=== PATIENT | male | born 1945 | race Hispanic/Latino ===

== ENCOUNTER 2019-11-28 12:07 | Inpatient (IN) | payer MEDICARE ==
--- OUTSIDE RECORDS SUMMARY | 2019-11-28 12:09 | XMS REPORT | Summary of Care ---
:1945 Author Organization [address] [address] Care Team Providers Name Role Phone Jolynn Flores MD Primary Care Provider Reason for Visit Reason Comments HEALTH MAINTENANCE Medicare AWV/[facility] Encounter Details Date Type Department Care Team Description 06/10/2019 Telephone [facility] Shane Anglin, RN [address] (Medicare AWV/[address]) [place] [address] [place] [address] Allergies No Known Allergiesdocumented as of this encounter (statuses as of 06/10/2019) Medications Medication Sig Dispensed Refills Start Date End Date Status Cholecalciferol, Take by mouth. 0 Active Vitamin D3, (D3-2000) 2,000 unit capsule blood sugar diagnostic Use TID, DX E11.9 100 Box 11 05/29/2018 Active strip (Brand upon insurance approval) Blood-Glucose Meter Use TID, DX E11.9 1 Kit 0 05/29/2018 Active (BLOOD GLUCOSE (Brand upon MONITORING) Kit insurance approval) Lancets Misc Use TID, DX E11.9 100 Each 11 05/29/2018 Active (Brand upon insurance approval) glipiZIDE 5 mg Take 2 tablets by 120 tablet 2 06/12/2018 Active tabletIndications: mouth 2 (two) times Type 2 diabetes daily before mellitus without breakfast and complication, dinner. 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 Type 2 diabetes mellitus without complication, unspecified mcfp insulin use status aspirin 81 mg chewable Take 1 tablet by 30 tablet 2 06/12/2018 Active tabletIndications: mouth daily with Type 2 diabetes breakfast. 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 topical cream flash glucose scanning 1 Each 2 (two) 1 Each 0 08/14/2018 Active reader (FREESTYLE times daily. MARY 10 DAY READER) MiscIndications: Type 2 diabetes mellitus treated with insulin flash glucose sensor 1 Kit every 10 3 Kit 3 08/14/2018 Active (FREESTYLE MARY 10 (ten) days. DAY SENSOR) KitIndications: Type 2 diabetes mellitus treated with insulin lisinopril 2.5 mg TAKE 1 TABLET BY 30 tablet 2 10/21/2018 Active tabletIndications: MOUTH ONCE DAILY Peripheral vascular disease pravastatin 10 mg Take 1 tablet by 90 tablet 3 11/12/2018 Active tabletIndications: mouth at bedtime. Hyperglyceridemia LANTUS SOLOSTAR U-100 INJECT 20 UNITS 15 Each 1 01/08/2019 Active INSULIN 100 unit/mL (3 SUBCUTANEOUSLY ONCE mL) DAILY WITH injectionIndications: BREAKFAST Type 2 diabetes mellitus without complication documented as of this encounter (statuses as of 06/10/2019) Active Problems Problem Noted Date Hypotension 10/01/2018 C. difficile diarrhea 05/22/2018 Hyperglycemia 05/21/2018 documented as of this encounter (statuses as of 06/10/2019) Immunizations Name Administration Dates Next Due Influenza High Dose 08/14/2018 documented as of this encounter Social History Tobacco Use Types Packs/Day Years Used Date Current Every Day Smoker Cigarettes 1 40 Smokeless Tobacco: Never Used Alcohol Use Drinks/Week oz/Week Comments Yes Sex Assigned at Date Recorded Not on file Job Start Date Occupation Industry Not on file Not on file Not on file Travel History Travel Start Travel End No recent travel history available. documented as of this encounter Last Filed Vital Signs Not on filedocumented in this encounter Plan of Treatment Health Maintenance Due Date Last Done Comments HEPATITIS C (HCV) SCREEN 1945 EYE EXAM 1955 URINE MICROALBUMIN 1955 FOOT EXAM 1963 DTaP,Tdap,and Td Vaccines (1 - 1964 Tdap) COLONOSCOPY 1995 Zoster Recombinant Vaccine 1995 (SHINGRIX) (1 of 2) LUNG CANCER SCREEN: Recommended 2000 for age 55-80 with 30 + pack year history Medicare Wellness Visit 2010 PNEUMOCOCCAL VACCINES 65+ (1 of 2 2010 - PCV13) HgA1C 11/21/2018 05/21/2018, 12/05/2003 LDL-C 05/21/2019 05/21/2018 INFLUENZA VACCINE 07/04/2019 08/14/2018 CREATININE (SERUM) 10/02/2019 10/02/2018, 10/01/2018, 05/23/2018, Additional history exists documented as of this encounter Results Not on filedocumented in this encounter Insurance Payer Benefit Plan / Subscriber ID Effective Phone Address Type Group Dates [employer] MEDICARE [id number] 2018-Prese Medicare Adv HEALTHCARE - COMPLETE nt [facility] [place] MANAGED MEDICARE documented as of this encounter
--- OUTSIDE RECORDS SUMMARY | 2019-11-28 12:09 | XMS REPORT ---
:1945 [facility] Address [address] [place] [address] Care Team Providers Name Role Phone Unavailable Unavailable Unavailable Problems This patient has no known problems. Allergies, Adverse Reactions, Alerts This patient has no known allergies or adverse reactions. Medications This patient has no known medications.
[2019-11-28 13:07] LABS: Absolute Lymphocytes (CBC) 1.5 K/uL (0.7-4.9); Basophils % 1.1 % (0-1.3); Hematocrit 40.6 % (39.6-49.0); Lymphocytes % 12.7 % (15.3-44.8); MPV 9.6 fL (7.6-11.3); RBC Red Blood Cell Count 4.31 M/uL (4.33-5.43)
[2019-11-28] MEDS ORDERED: VANCOMYCIN/NS 1 gm 1 GM/250 ML BAG IV ONE (13:15)
--- NOTE | 2019-11-28 13:18 | RAD REPORT ---
EXAM DESCRIPTION: RAD - Foot Left 3 View - 11/28/2019 1:05 pm CLINICAL HISTORY: Left Foot pain FINDINGS: No fracture or dislocation is seen. Large calcaneal spur. No bone destructive lesion noted
[2019-11-28 13:20] LABS: Potassium 4.1 mmol/L (3.5-5.1)
--- NOTE | 2019-11-28 14:18 | EDPHYS ---
Physician Documentation [facility] Name: Wayne Doshi Age: 74 yrs Sex: Male : 1945 Arrival Date: 11/28/2019 Time: 12:10 Bed 19 Private MD: Mera Mcdermott C ED Physician Lyle Gallegos HPI: 11/28 13:00 This 74 yrs old Male presents to ER via Ambulatory with complaints of Diabetic kb Foot. 13:00 The patient presents with swelling, discoloration of toe. The complaints affect the kb left foot. Context: The problem was sustained at home, resulted from an unknown cause, the patient can fully bear weight, can ambulate using a cane. Onset: The symptoms/episode began/occurred 1 week(s) ago. Modifying factors: The symptoms are alleviated by nothing, the symptoms are aggravated by weight bearing. Associated signs and symptoms: Pertinent positives: swelling, discoloration. Severity of symptoms: At their worst the symptoms were moderate, in the emergency department the symptoms are unchanged. The patient has not experienced similar symptoms in the past. The patient has not recently seen a physician. Daughter reports pt has had an ulcer on his left 4th toe for at least a week. Reports pt had been hiding it and when she saw it and asked about it he said a week. sTates she has been trying to get him to come in but he refused. States she made him come today as well. Pt denies fever, pain at rest. REprots pain when he applies pressure to walk. Daughter states he is noncomplaint with his medications, sugar has been in the 400s. . Historical: - Allergies: 12:33 NKA; ss - PMHx: 12:33 Diabetes - IDDM; Hypothyroidism; ss - PSHx: 12:33 Cholecystectomy; Mass in intestines removed; ss - Immunization history:: Adult Immunizations up to date. - Coronavirus screen:: The patient has NOT traveled to [place], [place], or [place] in the past 14 days. Proceed with normal triage process as indicated. - Social history:: Smoking status: Patient denies any tobacco usage or history of. - Ebola Screening: : Patient denies exposure to infectious person Patient denies travel to an Ebola-affected area in the 21 days before illness onset. ROS: 12:53 Constitutional: Negative for fever, chills, and weight loss, ENT: Negative for injury, kb pain, and discharge, Neck: Negative for injury, pain, and swelling, Cardiovascular: Negative for chest pain, palpitations, and edema, Respiratory: Negative for shortness of breath, cough, wheezing, and pleuritic chest pain, Abdomen/GI: Negative for abdominal pain, nausea, vomiting, diarrhea, and constipation, Back: Negative for injury and pain, Neuro: Negative for headache, weakness, numbness, tingling, and seizure. 12:53 Skin: Positive for discoloration, swelling, of the left fourth toe. Exam: 12:53 Constitutional: This is a well developed, well nourished patient who is awake, alert, kb and in no acute distress. Head/Face: Normocephalic, atraumatic. ENT: Nares patent. No nasal discharge, no septal abnormalities noted. Tympanic membranes are normal and external auditory canals are clear. Oropharynx with no redness, swelling, or masses, exudates, or evidence of obstruction, uvula midline. Mucous membranes moist. Neck: Trachea midline, no thyromegaly or masses palpated, and no cervical lymphadenopathy. Supple, full range of motion without nuchal rigidity, or vertebral point tenderness. No Meningismus. Chest/axilla: Normal chest wall appearance and motion. Nontender with no deformity. No lesions are appreciated. Cardiovascular: Regular rate and rhythm with a normal S1 and S2. No gallops, murmurs, or rubs. Normal PMI, no JVD. No pulse deficits. Respiratory: Lungs have equal breath sounds bilaterally, clear to auscultation and percussion. No rales, rhonchi or wheezes noted. No increased work of breathing, no retractions or nasal flaring. Abdomen/GI: Soft, non-tender, with normal bowel sounds. No distension or tympany. No guarding or rebound. No evidence of tenderness throughout. Neuro: Awake and alert, GCS 15, oriented to person, place, time, and situation. Cranial nerves II-XII grossly intact. Motor strength 5/5 in all extremities. Sensory grossly intact. Cerebellar exam normal. Normal gait. 12:53 Skin: Appearance: Color: purple colored 4th toe on left foot with red streaking up foot to ankle, swelling, noted on the left fourth toe, that are moderate, ulcer noted on side of forth toe between forth and fifth . Vital Signs: 12:33 BP 139 / 105; Pulse 86; Resp 16; Temp 97.7(TE); Pulse Ox 100% on R/A; Weight 63.5 kg; ss Height 5 ft. 2 in. (157.48 cm); Pain 0/10; 12:33 BP 146 / 115; ss 13:28 BP 141 / 100; Pulse 81; Resp 18; Pulse Ox 98% on R/A; ph 13:36 BP 124 / 77; ph 14:50 BP 149 / 89; Pulse 75; Resp 18; Pulse Ox 97% on R/A; ph 15:28 BP 154 / 76; Pulse 81; Resp 18; Temp 98.0(O); Pulse Ox 99% on R/A; ph 12:33 Body Mass Index 25.61 (63.50 kg, 157.48 cm) ss MDM: 12:23 Patient medically screened. kb 12:55 Data reviewed: vital signs, nurses notes. Data interpreted: Pulse oximetry: on room air kb is 100 %. Interpretation: normal. 14:16 Counseling: I had a detailed discussion with the patient and/or guardian regarding: the kb historical points, exam findings, and any diagnostic results supporting the discharge/admit diagnosis, lab results, radiology results, the need for further work-up and treatment in the hospital. Physician consultation: Elie Mcrae MD was called at 14:16, regarding admission, to the medical/surgical unit. patient's condition, and will see patient would like consultation with Dr. Leon, would like medications started, Zosyn. 11/28 12:36 Order name: CBC with Diff; Complete Time: 13:18 kb 11/28 12:36 Order name: Basic Metabolic Panel; Complete Time: 13:21 kb 11/28 12:36 Order name: Blood Culture Adult (2) kb 11/28 12:36 Order name: Lactate; Complete Time: 13:25 kb 11/28 12:36 Order name: Procalcitonin; Complete Time: 13:58 kb 11/28 14:15 Order name: CRP; Complete Time: 14:32 kb 11/28 12:36 Order name: Foot Left 3 View XRAY; Complete Time: 13:18 kb 11/28 14:15 Order name: Sed Rate; Complete Time: 14:46 kb 11/28 14:28 Order name: Basic Metabolic Panel EDMS 11/28 14:28 Order name: Basic Metabolic Panel EDMS 11/28 14:28 Order name: CBC with Automated Diff EDMS 11/28 14:28 Order name: CBC with Automated Diff EDMS 11/28 14:28 Order name: Foot Left Wo Cont EDMS 11/28 12:36 Order name: IV Start; Complete Time: 13:02 kb 11/28 14:28 Order name: CONS Pharmacy Consult EDHI 11/28 14:28 Order name: CONS Pharmacy Consult EDHI 11/28 14:28 Order name: CONS Physician Consult EDMS 11/28 14:28 Order name: Consistent Carb (ADA) [address] EDMS 11/28 14:32 Order name: Lower Extremity Arterial Bilat EDHI Administered Medications: 13:34 Drug: vancoMYCIN 1 grams Route: IVPB; Infused Over: 2 hrs; Site: right forearm; ph 15:10 Follow up: Response: No adverse reaction; IV Status: Completed infusion ph 15:10 Drug: Zosyn 3.375 grams Route: IVPB; Infused Over: 60 mins; Site: right forearm; ph 15:40 Follow up: IV Status: Completed infusion ph Disposition: 21:27 Co-signature as Attending Physician, Lyle Gallegos MD I agree with the assessment and kdr plan of care. Disposition: 11/28/19 14:18 Hospitalization ordered by Mera Mcdermott for Observation. Preliminary diagnosis are Local infection of the skin and subcutaneous tissue, unspecified, Diabetic ulcer, new and worsening. - Bed requested for Telemetry/MedSurg (observation). - Status is Observation. ph - Condition is Stable. - Problem is new. - Symptoms have worsened. UTI on Admission? No Signatures: Dispatcher [employer] EDHI Felipa Kelley, DIVER PUMPER-C DIVER PUMPER-Ckb Lyle Gallegos MD MD kdr Sunita James, STAR RN ss Jalyn French RN RN ph Rambo Robb RN RN ja1 Corrections: (The following items were deleted from the chart) 14:12 12:53 Skin: Appearance: Color: purple colored 4th toe on left foot with red streaking kb up foot to ankle, swelling, noted on the left fourth toe, that are moderate, kb 14:17 14:16 HEMOGLOBIN A1C+CHEM A1C.LAB.BRZ ordered. [facility] 15:23 14:18 Hospitalization Ordered by A Sharron GODFREY for Observation. Preliminary diagnosis is ja1 Local infection of the skin and subcutaneous tissue, unspecified; Diabetic ulcer, new and worsening. Bed requested for Telemetry/MedSurg (observation). Status is Observation. Condition is Stable. Problem is new. Symptoms have worsened. UTI on Admission? No. kb 16:14 15:23 11/28/2019 14:18 Hospitalization Ordered by A Sharron GODFREY for Observation. ph Preliminary diagnosis is Local infection of the skin and subcutaneous tissue, unspecified; Diabetic ulcer, new and worsening. Bed requested for Telemetry/MedSurg (observation). Status is Observation. Condition is Stable. Problem is new. Symptoms have worsened. UTI on Admission? No. ja1
--- NOTE | 2019-11-28 14:18 | ER ---
Nurse's Notes [facility] Name: Wayne Doshi Age: 74 yrs Sex: Male : 1945 Arrival Date: 11/28/2019 Time: 12:10 Bed 19 Private MD: Mera Mcdermott C Diagnosis: Local infection of the skin and subcutaneous tissue, unspecified;Diabetic ulcer, new and worsening Presentation: 11/28 12:29 Presenting complaint: Child states: daughter states, "He is a very non compliant diabetic. We never see his feet until two days ago. I looked and there was a little ulcer between his toes and this morning it's much worse so my brother told me we need to take him now." Redness, swelling and discoloration noted to L fourth toe. Pt denies pain and/or fever. Transition of care: patient was not received from another setting of care. Onset of symptoms was November 21, 2019. Risk Assessment: Do you want to hurt yourself or someone else? Patient reports no desire to harm self or others. Initial Sepsis Screen: Does the patient meet any 2 criteria? No. Patient's initial sepsis screen is negative. Does the patient have a suspected source of infection? Yes: Skin breakdown/wound. Care prior to arrival: None. 12:29 Method Of Arrival: Ambulatory ss 12:29 Acuity: ANA MARÍA 3 ss Historical: - Allergies: 12:33 NKA; ss - PMHx: 12:33 Diabetes - IDDM; Hypothyroidism; ss - PSHx: 12:33 Cholecystectomy; Mass in intestines removed; ss - Immunization history:: Adult Immunizations up to date. - Coronavirus screen:: The patient has NOT traveled to [place], [place], or [place] in the past 14 days. Proceed with normal triage process as indicated. - Social history:: Smoking status: Patient denies any tobacco usage or history of. - Ebola Screening: : Patient denies exposure to infectious person Patient denies travel to an Ebola-affected area in the 21 days before illness onset. Screenin:13 Abuse screen: Denies threats or abuse. Denies injuries from another. Nutritional ph screening: No deficits noted. Tuberculosis screening: No symptoms or risk factors identified. Fall Risk No fall in past 12 months (0 pts). No secondary diagnosis (0 pts). IV access (20 points). Ambulatory Aid- None/Bed Rest/Nurse Assist (0 pts). Gait- Impaired (20 pts.). Mental Status- Oriented to own ability (0 pts). Total Paris Fall Scale indicates Low Risk Score (25-44 pts). Fall prevention measures have been instituted. Side Rails Up X 2 Placed close to Nursing Station Frequent Obs/Assesments occuring Family Present and informed to notify staff if they need to leave bedside As available Patient and Family Educated on Fall Prevention Program and strategies. Assessment: 12:33 General: Appears in no apparent distress. comfortable, slender, Behavior is calm, ph cooperative, appropriate for age, Reports chills for Denies fever. Pain: Denies pain. Neuro: Level of Consciousness is awake, alert, obeys commands, Oriented to person, place, time, situation. Cardiovascular: Capillary refill < 3 seconds in bilateral fingers Patient's skin is warm and dry. Pulses are palpable in right dorsalis pedis artery and left dorsalis pedis artery. Respiratory: Airway is patent Respiratory effort is even, unlabored, Respiratory pattern is regular, symmetrical. GI: Patient currently denies nausea, vomiting. Derm: Skin is pink, warm \\T\\ dry. Derm: Wound noted left fourth toe Wound is noted to be red/black in color with streaking noted to top of foot. Musculoskeletal: Circulation, motion, and sensation intact. Range of motion: intact in all extremities. 13:34 Reassessment: Patient appears in no apparent distress at this time. Patient and/or ph family updated on plan of care and expected duration. Pain level reassessed. Patient is alert, oriented x 3, equal unlabored respirations, skin warm/dry/pink. Pt resting comfortably, daughter at bedside, VSS. 14:30 Reassessment: Patient appears in no apparent distress at this time. Patient and/or ph family updated on plan of care and expected duration. Pain level reassessed. Patient is alert, oriented x 3, equal unlabored respirations, skin warm/dry/pink. 16:00 Reassessment: Patient appears in no apparent distress at this time. Patient and/or ph family updated on plan of care and expected duration. Pain level reassessed. Patient is alert, oriented x 3, equal unlabored respirations, skin warm/dry/pink. Vital Signs: 12:33 BP 139 / 105; Pulse 86; Resp 16; Temp 97.7(TE); Pulse Ox 100% on R/A; Weight 63.5 kg; ss Height 5 ft. 2 in. (157.48 cm); Pain 0/10; 12:33 BP 146 / 115; ss 13:28 BP 141 / 100; Pulse 81; Resp 18; Pulse Ox 98% on R/A; ph 13:36 BP 124 / 77; ph 14:50 BP 149 / 89; Pulse 75; Resp 18; Pulse Ox 97% on R/A; ph 15:28 BP 154 / 76; Pulse 81; Resp 18; Temp 98.0(O); Pulse Ox 99% on R/A; ph 12:33 Body Mass Index 25.61 (63.50 kg, 157.48 cm) ED Course: 12:10 Patient arrived in ED. ag5 12:10 Mera Mcdermott MD is Private Physician. ag5 12:13 Jalyn French, RN is Primary Nurse. ph 12:14 Patient has correct armband on for positive identification. Placed in gown. Bed in low ph position. Call light in reach. Side rails up X 1. Pulse ox on. NIBP on. Door closed. Noise minimized. 12:14 Arm band placed on. ph 12:23 Felipa Kelley FNP-C is PHCP. kb 12:23 Lyle Gallegos MD is Attending Physician. kb 12:32 Triage completed. ss 12:55 Initial lab(s) drawn, by ri, sent to lab. First set of blood cultures drawn. ph 13:02 Inserted saline lock: 20 gauge in right forearm, using aseptic technique. Blood ph collected. 13:05 Foot Left 3 View XRAY In Process Unspecified. EDMS 14:17 Mera Mcdermott MD is Hospitalizing Provider. kb 16:14 No provider procedures requiring assistance completed. Patient admitted, IV remains in ph place. Administered Medications: 13:34 Drug: vancoMYCIN 1 grams Route: IVPB; Infused Over: 2 hrs; Site: right forearm; ph 15:10 Follow up: Response: No adverse reaction; IV Status: Completed infusion ph 15:10 Drug: Zosyn 3.375 grams Route: IVPB; Infused Over: 60 mins; Site: right forearm; ph 15:40 Follow up: IV Status: Completed infusion ph Outcome: 14:18 Decision to Hospitalize by Provider. kb 16:14 Patient left the ED. ph 16:14 Admitted to Med/surg accompanied by tech, family with patient, via wheelchair, with ph chart. 16:14 Condition: stable 16:14 Discharge instructions given to patient, family, Instructed on the need for admit, Demonstrated understanding of instructions. Signatures: Dispatcher [employer] EDMS Felipa Kelley, JALEN YOUNG-Sunita Mac RN RN Jalyn French RN RN Afsaneh Rodriguez ag5 Corrections: (The following items were deleted from the chart) 19:27 15:28 BP 154 / 76; Pulse 81bpm; Resp 18bpm; Pulse Ox 99% RA; ph ph
[2019-11-28] MEDS ORDERED: PIPER/TAZO/NS 3.375gm 3.375 GM/100 ML BAG ONE (14:25)
[2019-11-28] MEDS ORDERED: VANCOMYCIN/NS 1 gm 1 GM/250 ML BAG IVPB SCH (14:30)
[2019-11-28] MEDS ORDERED: D50W 25 GM/50 ML SYRINGE/VIAL IV PRN (16:12)
[2019-11-28] MEDS ORDERED: GLUCAGON 1 MG/VIAL IM PRN (16:12)
[2019-11-28] MEDS: INSULIN -REGULAR HUMAN 50 UNIT/0.5 ML ML SQ SCH ×2 (16:30→21:00)
[2019-11-28 16:34] VITALS: BMI 25.6
[2019-11-28] MEDS ORDERED: ENOXAPARIN 40 MG/0.4 ML SQ ONE (17:59)
[2019-11-28] MEDS ORDERED: PIPER/TAZO/NS 3.375gm 3.375 GM/100 ML BAG IVPB SCH (18:00)
--- NOTE | 2019-11-28 20:57 | RAD REPORT ---
EXAM DESCRIPTION: US - Lower Extremity Arterial Bilat - 11/28/2019 8:25 pm CLINICAL HISTORY: Leg pain/ulcer COMPARISON: April 2019 FINDINGS: Waveform of the right common femoral artery is biphasic Waveform of right Superficial femoral, popliteal, dorsalis pedis and posterior tibial arteries bilate rally are monophasic and diminished in amplitude Left common femoral artery monophasic No flow seen within a left superficial femoral arterial stent. Left posterior tibial, popliteal and d orsalis pedis arteries demonstrate monophasic waveforms IMPRESSION: Significant disease involving the right superficial femoral artery Left superficial femoral arterial stent is occluded
[2019-11-28] MEDS ORDERED: NA CHLORIDE 0.9% 250 ML ONE (23:24)
[2019-11-28] MEDS: PIPER/TAZO/NS 3.375gm 3.375 GM/100 ML BAG IVPB SCH (23:32)
[2019-11-29 05:53] LABS: Absolute Lymphocytes (CBC) 1.6 K/uL (0.7-4.9); Hematocrit 38.5 % (39.6-49.0); Lymphocytes % 15.4 % (15.3-44.8); MPV 9.5 fL (7.6-11.3); RBC Red Blood Cell Count 4.04 M/uL (4.33-5.43)
[2019-11-29] MEDS: PIPER/TAZO/NS 3.375gm 3.375 GM/100 ML BAG IVPB SCH ×3 (05:58→17:37)
[2019-11-29 06:14] LABS: Albumin 2.9 g/dL (3.4-5.0); Bilirubin Direct 0.3 mg/dL (0-0.2); Bilirubin Total 0.9 mg/dL (0.2-1.0); Potassium 3.5 mmol/L (3.5-5.1); Protein, Total 6.5 g/dL (6.4-8.2)
[2019-11-29 07:07] LABS: Urine Appearance CLEAR; Urine Bilirubin NEGATIVE (NEG); Urine Blood NEGATIVE (NEG); Urine Color YELLOW; Urine Glucose 2+ (NEG); Urine Protein 2+ (NEG); Urine Urobilinogen 0.2 mg/dL (0.2-1.0); Urine pH 5.5 (5.0-7.0)
[2019-11-29 07:13] LABS: Urine Microscopic Reflex ORDER UMIC
[2019-11-29] MEDS: INSULIN -REGULAR HUMAN 50 UNIT/0.5 ML ML SQ SCH ×4 (07:30→20:47)
[2019-11-29] MEDS ORDERED: INFLUENZA VACCINE (for 3y+) 0.5 ML DOSE IMVAC ONE (08:00)
[2019-11-29 08:02] LABS: Urine Bacteria NONE SEEN /HPF (NONE SEEN); Urine Culture Reflex Order NOT NEEDED; Urine RBC <5 /HPF (NONE SEEN)
[2019-11-29] MEDS: ASPIRIN EC 81 MG TAB PO SCH (09:04)
--- NOTE | 2019-11-29 11:39 | RAD REPORT ---
EXAM DESCRIPTION: MRI - Foot Left Wo Cont - 11/29/2019 11:26 am CLINICAL HISTORY: r/o osteomyelitis left forth digit Pain and swelling, discoloration and swelling fourth toe. Possible osteomyelitis COMPARISON: Foot Left 3 View dated 11/28/2019; Lower Extremity Arterial Bilat dated 11/28/2019 FINDINGS: Prominent soft tissue thickening and edema is seen involving the distal fourth toe. The un derlying distal phalanx of the fourth toe shows evidence marrow replacement along its very distal mar gin, likely indicating early findings osteomyelitis. No abscess is seen. No fracture evident. Elsewhere, no marrow replacing process is evident. No fracture or subluxation. No aggressive marrow p attern. IMPRESSION: Early findings of mild osteomyelitis suspected distal phalanx of the fourth toe.
[2019-11-29] MEDS: ACETAMINOPHEN 500 MG TAB PO PRN (12:27)
[2019-11-29] MEDS: VANCOMYCIN/NS 1 gm 1 GM/250 ML BAG IVPB SCH (13:23)
[2019-11-29] MEDS: ENOXAPARIN 40 MG/0.4 ML SQ SCH (16:39)
--- NOTE | 2019-11-29 19:00 | CON ---
Date of Consultation: 11/29/2019 Reason For Consultation: Infected wound right foot with gangrene. History Of Present Illness: The patient is a 74-year-old gentleman with multiple medical problems an d with severe peripheral vascular disease, history of noncompliance comes in with swelling and discol oration of the left 4th toe associated with redness. It started about a week ago. The patient is co mplaining of discoloration, swelling. He denies fever and because of his neuropathy, he does not christy lly have significant pain; however, he is very noncompliant with his medications. His glucose has be en running in the 400s. No sore throat, runny nose, cough, headaches, or dizziness. No chest pain. Review of Systems: Otherwise unremarkable. Past Medical History: Diabetes type 2, hypothyroidism. Past Surgical History: Cholecystectomy and some sort of mass removed in the intestines. Allergies: NONE. Social History: He does smoke, he has been counseled and he has not quit, drinks occasionally. Family History: Noncontributory. Physical Examination: Vital Signs: Stable. He is afebrile. Blood pressure is a little high. General: He is awake, alert, and oriented x3. Head and Neck: Cranial nerves 2 through 12 grossly within normal limits. No neck masses. No JVD. Throat clear. Chest: Clear. Heart: S1 and S2. Abdomen: Soft. Extremities: Markedly diminished dorsalis pedis and posterior tibial pulses. On the left foot, ther e is in the dorsum streaking redness going towards the ankle emanating from the 4th toe. 4th toe is completely black, wet. The other 2 toes next to it appear viable. The capillary refill is greater t sandoval 2 seconds but he does have some . Laboratory Data: His white count on admission was 11.5 with a left shift. Sedimentation rate was 42 . Chemistry: His glucose is down to 192. The patient had an x-ray done, which shows no fracture or dislocation and no foreign body, no bony destructive lesion noted. The patient had a Doppler study done, which showed significant disease involving the right superficial femoral artery and left superf icial femoral artery, stent is occluded. He had a foot MRI done, shows finding of mild osteomyelitis of the distal portion of the 4th toe. Assessment: 74-year-old gentleman with left foot 4th toe gangrene, peripheral vascular disease, cell ulitis, osteomyelitis, uncontrolled diabetes, and noncompliance. Recommendations: As the patient has wet gangrene with cellulitis, amputation of the left 4th toe winter uld be done. He does need to quit smoking and follow up with Cardiology so he can get appropriate in tervention regarding the blockages he has and the stent occlusion that he has. If he is compliant, t here is a chance that the foot can be salvaged. If he does not, then he may require a BKA/AKA. Plan of care discussed in detail with the family and the patient and also Dr. Mcdermott. Patient and family u nderstand the risks, benefits, and alternatives and the gravity of the situation and they agree. /MODL Voice ID: [id number] Report ID: [id number]
[2019-11-29] MEDS: NICOTINE 14 MG/PAT TD SCH (19:20)
[2019-11-29] MEDS: HYDROCODONE/APAP 5/325 MG TAB PO PRN (19:20)
[2019-11-29] MEDS: GLUCERNA SHAKE 237 ML CAN PO SCH (21:00)
[2019-11-30] MEDS: HYDROCODONE/APAP 5/325 MG TAB PO PRN ×2 (01:32→22:04)
[2019-11-30] MEDS: PIPER/TAZO/NS 3.375gm 3.375 GM/100 ML BAG IVPB SCH ×3 (01:32→16:51)
--- NOTE | 2019-11-30 03:28 | HP ---
Date of Admission: 11/29/2019 Chief Complaint: Toe infection. History Of Present Illness: This is a 74-year-old male patient with diabetes, peripheral vascular disease, who is not compliant with diet, medications, and continues to smoke, injured his left foot fourth toe about 3 days ago and his toe started to turn black and he is having some pain in this foot, so he came into the emergency room. After he was evaluated in the ER, he was admitted to the hospital with gangrene of left foot 4th toe. Denies any fever, chills, nausea, vomiting. Allergies: NO KNOWN ALLERGIES. Medications: List reviewed. Review of Systems: Musculoskeletal: As mentioned above. 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 All other systems reviewed and negative. Social History: Positive for smoking. Use of alcohol negative. Family History: Father and mother both of myocardial infarction. A brother also with myocardial infarction and had diabetes. Sister with myocardial infarction. Past Surgical History: Had angioplasty with stent placement in left leg in the past done by his rn forensic, Dr. Gonzalez, cholecystectomy, appendectomy. Past Medical History: Significant for diabetes mellitus type 2, uncontrolled, hypertension, hyperlipidemia, peripheral vascular disease. Physical Examination: Vital Signs: Temperature 98.2, pulse 82, respiratory rate 19, blood pressure 147/67, oxygen saturation 94%. Height 5 feet 2 inches, weight 140 pounds. General: Awake, alert, oriented, not in distress. HEENT: Head atraumatic, normocephalic. Conjunctivae nonerythematous. Sclerae white. Mouth, no thrush or edema noted. Ears/Nose, no mass, lesion, discharge noted. Neck: Supple. No JVD, lymph nodes, bruit, thyromegaly noted. Lungs: Bilateral good equal air entry. Clear to auscultation. No rhonchi. No rales. Heart: Normal heart sounds, no murmur or gallop. Abdomen: Soft, bowel sounds normal. No guarding, rigidity, tenderness, mass, hepatosplenomegaly, distention, or bruit noted. Extremities: Unable to feel dorsalis pedis pulse on both side. Left dorsum distal foot has some red discoloration of the foot and left foot 4th toe is black. Skin: No rash, ulcer, cellulitis. Lymphatics: No lymph node enlargement in neck, supraclavicular, infraclavicular region. Neuro: No focal neurological deficit. Chest: Unremarkable. External Genitalia: Deferred. Rectal: Deferred. Laboratory Data: Yesterday's white count 11.5, hemoglobin 13.5, platelets 232, sedimentation rate 42. Today, white count 10.6, hemoglobin 12.9, platelets 196. Sodium 140, potassium 3.5, chloride 107, bicarb 27, BUN 17, creatinine 1.09, glucose 132. Hemoglobin A1c 10.7. Liver function tests unremarkable. C- reactive protein 16.7. Procalcitonin less than 0.05. Urinalysis negative. Impression: 1. Wet gangrene, left foot 4th toe. 2. Diabetic foot infection. 3. Peripheral vascular disease. 4. Diabetes mellitus, type 2, uncontrolled. 5. Hypertension. 6. Hyperlipidemia. 7. Smoking. Plan: Admit patient to hospital for further evaluation and management of this problem. Patient is appropriate for inpatient and is expected to spend 2 midnights in hospital. We will go ahead and give IV antibiotic, which is vancomycin and Zosyn per order. Home medications will be continued per order. We will give DVT prophylaxis per order rather using Lovenox. Consult Dr. Leon from General Surgery. Arterial Doppler of lower extremity was ordered. Dr. Leon did evaluate him and called me and informed me about his recommendation of performing amputation of this fourth toe considering wet gangrene and he is scheduling surgery for tomorrow. He did have discussion with family about concerns that this wound may not heal and eventually he may require leg amputation, but that decision obviously, he will have to make it down the line. We will continue right now antibiotics. Nicotine was ordered to help him with his smoking habit problem. Pain medication was ordered. I will see him tomorrow for followup. DONI/MODL Voice ID: [id number] MTDD
[2019-11-30] MEDS: NICOTINE 14 MG/PAT TD SCH (07:58)
[2019-11-30 08:32] LABS: Absolute Lymphocytes (CBC) 0.9 K/uL (0.7-4.9); Basophils % 0.6 % (0-1.3); Hematocrit 39.4 % (39.6-49.0); Lymphocytes % 5.8 % (15.3-44.8); RBC Red Blood Cell Count 4.14 M/uL (4.33-5.43)
[2019-11-30 08:46] LABS: Magnesium 1.7 mg/dL (1.8-2.4)
[2019-11-30] MEDS: ASPIRIN EC 81 MG TAB PO SCH (09:00)
[2019-11-30] MEDS: GLUCERNA SHAKE 237 ML CAN PO SCH ×2 (09:00→21:04)
[2019-11-30] MEDS: INSULIN -REGULAR HUMAN 50 UNIT/0.5 ML ML SQ SCH ×4 (09:15→21:03)
[2019-11-30 09:20] LABS: Blood Morphology Comment NOT SEEN (NOT SEEN); Platelet Estimate ADEQ
[2019-11-30] MEDS ORDERED: MAGNESIUM SULFATE 1 gm IVPB 1 GM/100 ML BAG IV ONE (09:52)
[2019-11-30] MEDS ORDERED: NA CHLORIDE 0.9% 1,000 ML ONE (10:37)
[2019-11-30] MEDS ORDERED: FENTANYL CITR 100 MCG/2 ML ONE (11:48)
[2019-11-30] MEDS ORDERED: LIDOCAINE 1% MPF 5 ML VIAL ONE (11:49)
[2019-11-30] MEDS ORDERED: propofoL 200 MG/20 ML VIAL IV ONE (11:49)
[2019-11-30] MEDS ORDERED: MIDAZOLAM HCL 2 MG/2 ML INJ ONE (11:49)
[2019-11-30] MEDS ORDERED: NS 0.9% VIAL 10 ML ONE (12:10)
[2019-11-30] MEDS ORDERED: EPHEDRINE SULF 50 MG/ML VIAL ONE (12:10)
[2019-11-30] MEDS ORDERED: BUPIVACAINE 0.5% PF 10 ML VIAL ONE (12:18)
[2019-11-30] MEDS: COLLAGENASE 30 GM OINTMENT TOP ONE ×2 (12:20→12:25)
[2019-11-30] MEDS ORDERED: ONDANSETRON 4 MG/2 ML VIAL ONE (12:24)
[2019-11-30] MEDS ORDERED: KETOROLAC 30 MG/ML INJ ONE (12:24)
--- NOTE | 2019-11-30 12:26 | P.OP ---
Preoperative diagnosis: Gangrene and severe PVD L Foot 4th toe Postoperative diagnosis: same Primary procedure: L 4th Toe T-M Amputation Anesthesia: gen Estimated blood loss: min Specimen: L 4th toe Findings: as above Complications: None Transferred to: Recovery Room Condition: Good
[2019-11-30] MEDS: VANCOMYCIN/NS 1 gm 1 GM/250 ML BAG IVPB SCH (15:01)
[2019-11-30] MEDS: ENOXAPARIN 40 MG/0.4 ML SQ SCH (16:51)
--- NOTE | 2019-11-30 23:24 | OP ---
Date of Procedure: 11/30/2019 Surgeon: Ruddy Leon MD Preoperative Diagnosis: Gangrene, left fourth toe with severe peripheral vascular disease. Postoperative Diagnosis: Gangrene, left fourth toe with severe peripheral vascular disease. Procedure: Left fourth toe transmetatarsal amputation. Estimated Blood Loss: Minimal. Specimen: Left fourth toe. Findings: As above. Anesthesia: General. Complications: None. Patient tolerated the procedure in stable condition, taken to Recovery in good general condition. Operative Note: Patient was brought to the OR and placed in supine position. General anesthesia was begun. Patient was prepped and draped in usual sterile fashion. Marcaine 0.5% was infiltrated loca lly. A 15-blade was used to make an ellipse of skin around the base of the fourth toe down through t he distal dorsum. Subcutaneous tissue divided. Fourth toe excised and the metatarsal head excised w ith bone cutters and sent to Pathology as specimen. Very minimal bleeding noted. Wound irrigated. Bone edges debrided with rongeur and smoothened out with a rasp and then collagenase wet-to-dry dressing applied. Patient tolerated the procedure in stable condition, taken to the Recovery in good general condition. /MODL Voice ID: [id number] Report ID: [id number]
[2019-12-01] MEDS: PIPER/TAZO/NS 3.375gm 3.375 GM/100 ML BAG IVPB SCH ×3 (01:07→16:53)
[2019-12-01 06:33] LABS: Potassium 3.6 mmol/L (3.5-5.1)
[2019-12-01] MEDS ORDERED: GLUCAGON 1 MG/VIAL IM PRN (07:04)
[2019-12-01] MEDS ORDERED: D50W 25 GM/50 ML SYRINGE/VIAL IV PRN (07:04)
[2019-12-01] MEDS ORDERED: MORPHINE 2 MG/ML SYR IV PRN (07:05)
[2019-12-01] MEDS ORDERED: ONDANSETRON 4 MG/2 ML VIAL IV PRN (07:05)
[2019-12-01] MEDS: COLLAGENASE 30 GM OINTMENT TOP SCH (09:00)
[2019-12-01] MEDS ORDERED: POTASSIUM CL SA 10 MEQ TAB PO ONE (09:00)
[2019-12-01] MEDS: ASPIRIN EC 81 MG TAB PO SCH (09:33)
[2019-12-01] MEDS: NICOTINE 14 MG/PAT TD SCH (09:33)
[2019-12-01] MEDS: INSULIN GLARGINE 100 UNITS/ML SQ SCH (09:34)
[2019-12-01] MEDS: INSULIN -REGULAR HUMAN 50 UNIT/0.5 ML ML SQ SCH ×4 (09:34→19:59)
[2019-12-01] MEDS: NA CHLORIDE 0.9% 1,000 ML IV SCH ×2 (09:35→16:55)
[2019-12-01] MEDS: GLUCERNA SHAKE 237 ML CAN PO SCH ×2 (09:35→19:59)
[2019-12-01] MEDS: HYDROCODONE/APAP 5/325 MG TAB PO PRN (12:44)
--- NOTE | 2019-12-01 13:23 | PN ---
Date of Progress Note: 12/01/2019 Patient is awake, alert, no complaints. Vital signs stable, afebrile. Examination of the wound reve als it to have some fibrin present. No significant bleeding and the erythema and edema are better. Laboratory Data: Pending. Assessment: Status post left fourth toe transmetatarsal amputation. Severe peripheral vascular dise ase. Recommendations: At this time, patient's creatinine is slightly up therefore he is going to be hydra alvin and monitored and probably be discharged home later this week with wound care and oral antibiotic s. [facility] will also [facility]. At which point, I will refer him to [facility] for hyperbaric oxygen therapy. /MODL Voice ID: [id number] Report ID: [id number]
[2019-12-01] MEDS: ENOXAPARIN 40 MG/0.4 ML SQ SCH (16:53)
[2019-12-02] MEDS: PIPER/TAZO/NS 3.375gm 3.375 GM/100 ML BAG IVPB SCH ×3 (01:19→17:36)
[2019-12-02] MEDS: NA CHLORIDE 0.9% 1,000 ML IV SCH ×2 (04:00→12:25)
[2019-12-02 06:03] LABS: Absolute Lymphocytes (CBC) 1.4 K/uL (0.7-4.9); Basophils % 0.7 % (0-1.3); Hematocrit 36.5 % (39.6-49.0); Lymphocytes % 10.4 % (15.3-44.8); MPV 9.8 fL (7.6-11.3); RBC Red Blood Cell Count 3.87 M/uL (4.33-5.43)
[2019-12-02 06:21] LABS: Magnesium 1.9 mg/dL (1.8-2.4)
--- NOTE | 2019-12-02 08:23 | PN ---
Date of Progress Note: 12/01/2019 Subjective: Patient was seen this morning for followup, lying in bed, not in any distress. Denies a ny new complaints. Denies any pain in his foot. Foot surgery done for amputation yesterday. No winter rtness of breath. No chest pain. Objective: Vital Signs: Reviewed. HEENT: Unremarkable. Lungs: Clear to auscultation. Heart: Sounds normal. Abdomen: Soft. Bowel sounds normal. No guarding, rigidity, or distention. Extremities: Left foot dressing present. There is some streaks of redness over the left anterior le g, which is new compared to yesterday. Laboratory Data: Reviewed. White count has gone up to 15,000 range and creatinine has gone up to 1. 47. Impression: 1.Wet gangrene, left foot 4th toe, status post amputation of 4th toe. 2.Osteomyelitis of left foot 4th toe. 3.Diabetes mellitus, uncontrolled. 4.Smoking. 5.Peripheral vascular disease. 6.Noncompliant. 7.Acute kidney injury. Plan: We will go ahead and continue current IV antibiotic, which is Zosyn, but I will go ahead and put the vancomycin on hold, considering this acute kidney injury and meanwhile go ahead and start the patient on IV fluid. Repeat blood work tomorrow morning. Follow up on culture and details were discussed with Dr. Leon. I will see him tomorrow for followup. DONI/MODL Voice ID: [id number] Report ID: [id number]
[2019-12-02] MEDS: GLUCERNA SHAKE 237 ML CAN PO SCH ×2 (09:00→21:00)
[2019-12-02] MEDS: COLLAGENASE 30 GM OINTMENT TOP SCH (09:00)
[2019-12-02] MEDS: HYDROCODONE/APAP 5/325 MG TAB PO PRN ×2 (09:10→17:38)
[2019-12-02] MEDS: ASPIRIN EC 81 MG TAB PO SCH (09:10)
[2019-12-02] MEDS: NICOTINE 14 MG/PAT TD SCH (09:11)
[2019-12-02] MEDS: INSULIN -REGULAR HUMAN 50 UNIT/0.5 ML ML SQ SCH ×4 (09:12→21:00)
[2019-12-02] MEDS: INSULIN GLARGINE 100 UNITS/ML SQ SCH (09:13)
--- NOTE | 2019-12-02 10:58 | PN ---
Date of Progress Note: 12/02/2019 Subjective: Patient is awake, alert. No new complaint. Objective: Vital Signs: Stable. Afebrile. Extremities: Examination of the left foot reveals moderate amount of fibrin in the wound bed, somewh at decreasing erythema on the dorsum of the foot. The third toe, however, is beginning to look a lit tle bluish indicating the peripheral vascular disease, which we know patient has. Laboratory Data: Shows a white count down to 13,100 with a left shift. Chemistry reviewed. His cre atinine is 1.42. Assessment: Status post left 4th toe transmetatarsal amputation with severe peripheral vascular dise ase. Recommendation: Discussed the case with Dr. Mcdermott. We will have Dr. Ayala evaluate the patient for angiogram, which possibly can be done tomorrow. Once we optimize blood flow, then we will see how t he wound responds. Patient may benefit from hyperbaric after that as well. However, his disease is so advanced that he may end up requiring further surgery either a BKA or an AKA depending upon the re sults after the angiogram. /MODL Voice ID: [id number] Report ID: [id number]
--- NOTE | 2019-12-02 13:55 | CON ---
Date of Consultation: 12/02/[address] Mcdermott on 11/28/2019. I saw the patient on 12/02/2019. Reason For Consultation: Severe peripheral arterial disease. History Of Present Illness: Mr. Doshi is a 74-year-old male, has a history of severe diabetes, dysli pidemia, peripheral arterial disease, gangrene. He has already had an amputation of part of his left foot. He has had an SFA stent done by Dr. Gonzalez in the past. Arterial Doppler showed occlusion o f that stent. I was asked to see Mr. Doshi for abdominal angiogram with runoff prior to further surg chris and further possible amputation as he has developed wet gangrene since. The patient has no cardi ac symptoms. Past Medical History: Otherwise stated above. Allergies: NONE. Review of Systems: Negative. Social History: Negative. Family History: Negative. Medications: At home include aspirin, Lipitor, Janumet, and glipizide. Physical Examination: General: He was pleasant. Vital Signs: Stable. Afebrile. Sinus rhythm. Blood pressure was 174/84. HEENT: Negative. Neck: Supple with no bruit. Chest: Clear. Cardiac: Revealed a regular rhythm and rate. No murmurs, gallops, or rubs. Abdomen: Benign. Extremities: Revealed gangrenous left foot. No pulses in the dorsalis pedis on the left or on the r ight. He had a good pulse in the right femoral artery. Diagnostic Data: Showed a glucose of 193, creatinine 1.42. White count 13,000. Impression And Plan: 1.Severe peripheral arterial disease, occlusion of his stent in the left superficial femoral artery. Wet gangrene in the left foot, possible need for further surgery. May be a below-knee amputation. His creatinine is 1.42 and hopefully that will improve, but nevertheless, we will do an abdominal an giogram with runoff tomorrow with possible intervention. He will need to have Mucomyst before and af ter the procedure. This is already being ordered. The case was discussed with Dr. Mcdermott. 2.Dyslipidemia. 3.Diabetes, poorly controlled. 4.Hypertension, poorly controlled. We will continue present regimen right now. We will continue to follow him after the angiogram. ROBI/AUDIE Voice ID: [id number] Report ID: [id number]
[2019-12-02] MEDS: ENOXAPARIN 40 MG/0.4 ML SQ SCH (17:37)
[2019-12-02] MEDS: ACETYLCYST 20% 800 MG/4 ML VIAL PO SCH (21:49)
--- NOTE | 2019-12-02 23:34 | PN ---
Date of Progress Note: 12/02/2019 Subjective: Patient was seen this morning for followup. He was lying in bed, not in distress. His daughter was present with him at bedside. Objective: Vital Signs: Reviewed. HEENT: Unremarkable. Lungs: Clear to auscultation. Heart: Sounds normal. Abdomen: Soft. Bowel sounds normal. No guarding, rigidity, tenderness, or distention. Extremities: No leg edema. All skin over left anterior leg appears better today than yesterday. Ar ea of redness is better. His left foot third toe is cyanotic today. Laboratory Data: White count 13.1, hemoglobin 12.2, platelets 240. Sodium 136, potassium 4, chlorid e 104, bicarb 25, BUN 14, creatinine 1.42, glucose 262. Impression: 1.Diabetic foot infection. 2.Osteomyelitis, left foot. 3.Peripheral vascular disease. 4.Diabetes mellitus, type 2, uncontrolled. 5.Acute kidney injury. 6.Anemia. Plan: We will go ahead and continue current medications. Continue current IV antibiotic, which is Z osyn. Continue current IV fluid. Renal function is slightly better today than yesterday and I did t alk to Dr. Leon from General surgery this morning requesting evaluation for abnormality noted on his left foot, third toe, and I am concerned about development of gangrene in this toe as well. Dr. Valdez jimenez did evaluate him after I talked to him and we both discussed about the patient's severe peripheral vascular disease problem and we decided to get cardiology consult to see if any vascular interventio n can be provided to help improve blood flow to his foot and with that, cardiology consultation was r equested and I did discuss details with Dr. Ayala. He is planning to do angiogram tomorrow morning provided renal function allows him to do so. We will continue IV fluid hydration. His wound cultur e is growing 2 bacteria, one is Serratia and other one is Enterobacter, both are sensitive to Zosyn. DONI/MODL Voice ID: [id number] Report ID: [id number]
[2019-12-03] MEDS: PIPER/TAZO/NS 3.375gm 3.375 GM/100 ML BAG IVPB SCH (00:27)
[2019-12-03 06:00] LABS: Absolute Lymphocytes (CBC) 1.4 K/uL (0.7-4.9); Hematocrit 35.1 % (39.6-49.0); Lymphocytes % 11.2 % (15.3-44.8); MPV 9.2 fL (7.6-11.3); RBC Red Blood Cell Count 3.78 M/uL (4.33-5.43)
[2019-12-03 06:20] LABS: Potassium 3.6 mmol/L (3.5-5.1)
[2019-12-03] MEDS: INSULIN -REGULAR HUMAN 50 UNIT/0.5 ML ML SQ SCH ×4 (07:30→21:33)
[2019-12-03] MEDS: NA CHLORIDE 0.9% 1,000 ML IV SCH ×3 (08:00→21:34)
[2019-12-03] MEDS: GLUCERNA SHAKE 237 ML CAN PO SCH ×2 (09:00→21:00)
[2019-12-03] MEDS: COLLAGENASE 30 GM OINTMENT TOP SCH (09:00)
[2019-12-03] MEDS: ACETYLCYST 20% 800 MG/4 ML VIAL PO SCH ×3 (09:00→21:30)
[2019-12-03] MEDS: ASPIRIN EC 81 MG TAB PO SCH (09:00)
[2019-12-03] MEDS ORDERED: POTASSIUM CL SA 10 MEQ TAB PO ONE (09:00)
[2019-12-03] MEDS ORDERED: HEPA 1000U/500MLS 2,000 UNIT/1,000 ML BAG IV ONE (09:00)
[2019-12-03] MEDS ORDERED: NA CHLORIDE 0.9% 0 ML ONE (09:09)
[2019-12-03] MEDS: INSULIN GLARGINE 100 UNITS/ML SQ SCH (09:19)
[2019-12-03] MEDS: Levofloxacin500mg IV 500 MG/100 ML BAG IV SCH (09:19)
[2019-12-03] MEDS: NICOTINE 14 MG/PAT TD SCH (09:20)
[2019-12-03] MEDS ORDERED: HEPARIN 5000 UNIT/ML 1 ML VIAL ONE (09:32)
[2019-12-03] MEDS ORDERED: FENTANYL CITR 100 MCG/2 ML ONE (09:33)
[2019-12-03] MEDS ORDERED: MIDAZOLAM HCL 2 MG/2 ML INJ ONE ×2 (09:33→10:48)
[2019-12-03] MEDS ORDERED: ATROPINE SULF 1 MG/10 ML SYR IV ONE (09:33)
--- NOTE | 2019-12-03 14:18 | PN ---
Date of Progress Note: 12/03/2019 Subjective: The patient was seen for followup this morning. No new complaints or problems reported by him. Lying in bed, not in distress. His was present with him at bedside. Objective: Vital Signs: Reviewed. HEENT: Unremarkable. Lungs: Clear to auscultation. Heart: Sounds normal. Abdomen: Soft. Bowel sounds normal. No guarding, rigidity, tenderness, or distention. Extremities: No leg edema. Redness from left anterior leg has almost completely resolved now. Left foot third toe remains unchanged in appearance today compared to yesterday. Laboratory Data: White count 12.4, hemoglobin 12, platelets 265. Sodium 139, potassium 3.6, chlorid e 107, bicarb 25, BUN 11, creatinine 1.12, glucose 150. Wound culture growing 3 different bacteria; yesterday, there were 2 bacteria; and today, I have seen the third bacteria and third bacteria is Enterococcus faecalis, other 2 bacteria are serratia and Ent erobacter cloacae. All 3 bacteria are sensitive to Levaquin, but only 2 are sensitive to Zosyn. Impression: 1.Osteomyelitis, left foot. 2.Peripheral vascular disease. 3.Diabetes mellitus type 2, uncontrolled. 4.Hypertension. Plan: We will discontinue Zosyn and start the patient on Levaquin. Patient will have angiogram of l eg done today by Dr. Ayala and depending on Dr. Ayala's recommendation, we will decide what to do next. Continue IV fluid but reduce rate. We will repeat blood work tomorrow. Discussed with the patient and patient's , who was at bedside including need for further surgery in form of amputation and we are afraid that if his vascular problem does not improve, and if we tanika ot provide any intervention for that, then eventually he may end up needing very likely what it appea rs to be a bony amputation, but obviously not without the recommendation from Dr. Leon. If there is any vascular intervention can be provided and Dr. Ayala will assist him with that. DONI/MODL Voice ID: [id number] Report ID: [id number]
--- NOTE | 2019-12-03 15:39 | PN ---
Date of Progress Note: 12/03/2019 Patient was evaluated in the angiogram suite and Dr. Ayala called me after he finished the angiogra m. Patient was sedated when I saw him and did not want to look his wound today because he had an ang iogram. We discussed the findings of the angiogram. Patient had complete occlusion of the left femo ral artery, superficial femoral all the way down almost the knee, but he did have some reconstitution of the popliteal, anterior, peroneal, and posterior tibial arteries; however, on the right side had no reconstitution that we could see and we had complete occlusion of the right femoral as well. Base d on the finding of the angiogram, we will try conservative treatment with wound care and hyperbarics . If that does not work, I believe a BKA will be necessary on this patient. JOSEFINA/AUDIE Voice ID: [id number] Report ID: [id number]
[2019-12-03] MEDS: ACETAMINOPHEN 500 MG TAB PO PRN (16:16)
[2019-12-03] MEDS: ENOXAPARIN 40 MG/0.4 ML SQ SCH (16:16)
[2019-12-04] MEDS: HYDROCODONE/APAP 5/325 MG TAB PO PRN (00:28)
--- NOTE | 2019-12-04 04:55 | OP ---
Date of Procedure: 12/03/2019 Surgeon: Osei Ayala MD Assistant Oceanographer: Yazan Galeas. Procedure: Abdominal angiogram with runoff. Indication: Severe peripheral arterial disease. History: Mr. Doshi is 74, had been admitted to Dr. Mcdermott, has a history of PAD status post stent in t he left SFA as well as recent amputation of 1 of his toes on the left lower extremity, who developed wet gangrene. Arterial Doppler was abnormal scheduled for angiogram today. Creatinine was 1.12. Description Of Procedure: He was prepped and draped in the routine sterile fashion in the cathode ray tube assembler. Given Versed and fentanyl for IV sedation. Access was easy. The right common femoral artery 6-Fren ch sheath. A pigtail catheter was advanced above the renals. Abdominal angiogram with runoff was do ne. He was found to have normal aorta, normal renals. His right external iliac had about 40% stenos is, but he had complete occlusion of both SFAs. His left stent in the SFA was completely occluded fr om the external iliac artery all the way down to above the knee. The reconstitution was pretty vivid on the left side above the knee and the popliteal artery with pretty good distal flow below the knee , although there was simply diffuse plaquing. On the right side the flow may have been impeded by th e sheath, but he appears to barely have any minor constitution of his SFA at the popliteal level with no distal flow below that. The case was discussed with Dr. Leon and Dr. Mcdermott. Dr. Leon actually reviewed the films with me. The plan is for possibility for hyperbaric oxygen therapy versus amputat ion [id number] on the left side. Patient tolerated the procedure well. There were no complicati ons. Blood Loss: 5 mL. Final Diagnosis: Severe PAD. Plans were discussed earlier. Anesthesia: Total conscious sedation 30 minutes. NB/MODL Voice ID: [id number] Report ID: [id number]
[2019-12-04 05:18] VITALS: BP 162/83
[2019-12-04 06:19] LABS: Absolute Lymphocytes (CBC) 1.4 K/uL (0.7-4.9); Basophils % 0.9 % (0-1.3); Lymphocytes % 12.4 % (15.3-44.8); MPV 8.4 fL (7.6-11.3); RBC Red Blood Cell Count 3.53 M/uL (4.33-5.43)
[2019-12-04 06:33] LABS: Magnesium 1.8 mg/dL (1.8-2.4); Potassium 3.1 mmol/L (3.5-5.1)
[2019-12-04] MEDS ORDERED: POTASSIUM 25 MEQ EFFERV TAB PO ONE ×2 (06:49→08:00)
[2019-12-04] MEDS: INSULIN -REGULAR HUMAN 50 UNIT/0.5 ML ML SQ SCH (07:30)
[2019-12-04] MEDS ORDERED: MAGNESIUM SULFATE 1 gm IVPB 1 GM/100 ML BAG IV ONE (08:00)
[2019-12-04] MEDS: NICOTINE 14 MG/PAT TD SCH (08:31)
[2019-12-04] MEDS: ASPIRIN EC 81 MG TAB PO SCH (08:32)
[2019-12-04] MEDS: COLLAGENASE 30 GM OINTMENT TOP SCH (08:34)
[2019-12-04] MEDS: GLUCERNA SHAKE 237 ML CAN PO SCH (09:00)
[2019-12-04 09:01] VITALS: TEMP 97.4
[2019-12-04] MEDS: INSULIN GLARGINE 100 UNITS/ML SQ SCH (09:24)
[2019-12-04] MEDS: Levofloxacin500mg IV 500 MG/100 ML BAG IV SCH (09:25)
[2019-12-04] MEDS: ACETYLCYST 20% 800 MG/4 ML VIAL PO SCH (09:25)
[2019-12-04 11:14] VITALS: O2SAT 97
--- NOTE | 2019-12-05 05:17 | DS ---
Date of Discharge: 12/04/2019 Disposition: Discharged to go home. Physical Examination: HEENT: Unremarkable. Lungs: Clear to auscultation. Heart: Sounds normal. Abdomen: Soft. Bowel sounds normal. No guarding, rigidity, tenderness, distention. Extremities: No leg edema. Redness from left anterior leg has completely resolved. Left foot 3rd toe still has some bluish discoloration of the toe, remains unchanged for last 2 days. Patient is status post amputation of the 4th toe. Discharge Medications And Instructions: 1. Continue all prior home medication. 2. Take Levaquin 500 mg p.o. daily for 2 weeks as prescribed. 3. Tylenol with Codeine 1 tablet 4 times a day as needed for pain. 4. Follow up with Dr. Leon [facility] and patient to call for appointment. 5. Daily dressing changes as per instruction from Dr. Leon. 6. Follow up at my office week after next and call office for appointment. Laboratory Data: Highest white count was on 11/30/2019, was 15.7 with hemoglobin 13.1, platelets 208. Last white count today 11.2, hemoglobin 11.1. Last chemistry today, sodium 141, potassium 3.1, chloride 109, bicarb 26, BUN 8 , creatinine 0.93, glucose 74, magnesium 1.8. Wound culture grew 3 different bacteria, serratia, Enterobacter cloacae, and Enterococcus faecalis, all of them are sensitive to Levaquin. Blood culture remained negative. Highest creatinine level was 1.46 and it did come down to normal with IV fluid hydration. Hospital Course: 74-year-old male patient who has significant peripheral vascular disease, diabetes mellitus, and he is not compliant with his diet and medications and continues to smoke. He injured his left foot 4th toe and came into emergency room few days after this injury with his toe turning black. Patient was noted to have wet gangrene of this foot 4th toe and had some redness of dorsum foot. Dr. Leon from General Surgery was consulted. Arterial Doppler of lower extremity revealed presence of significant peripheral vascular disease and occluded stent in the left superficial femoral artery. MRI of the foot showed evidence of osteomyelitis of the distal phalanx of the 4th toe. Dr. Leon recommended amputation of this 4th toe considering wet gangrene and he did the surgery. Postoperatively, patient did well except 2 days after surgery, we started to notice that his 3rd toe also started to have little bit of bluish discoloration and Dr. Leon evaluated him. We talked about this and requested cardiology consultation to see if there is any vascular intervention can be provided for his peripheral vascular disease, and at that time, he also went into acute kidney injury with creatinine of 1.46, so his vancomycin was discontinued and he was on Zosyn from the beginning of this admission and Zosyn was continued at that time. With IV fluid hydration, his creatinine, which was 1.46 at the highest level, came down to normal and Dr. Ayala did perform angiogram on him yesterday, and he called and informed me of the findings, which is bilateral severe peripheral vascular disease with complete occlusion of bilateral superficial femoral artery and he informed me that medical therapy is recommended for this. No surgical intervention offered. With the patient's noncompliance to medications, diet, uncontrolled diabetes as well as ongoing smoking, overall prognosis is poor and there is very good possibility that he may end up requiring either below- or above-knee amputation on the left leg. Dr. Leon is going to continue to [facility] and he will also consider hyperbaric oxygen treatment along with wound care dressing changes. Patient is medically stable for discharge today and will continue to follow up on outpatient basis. About 2 to 3 days ago, his antibiotics were changed from Zosyn to Levaquin considering he has 3 different bacteria and all of them are sensitive to Levaquin. Final Diagnoses: 1. Wet gangrene, left foot 4th toe. 2. Osteomyelitis, left foot 4th toe. 3. Peripheral vascular disease, bilateral legs. 4. Diabetes mellitus type 2, uncontrolled. 5. Smoking. 6. Hypertension. 7. Hyperlipidemia. DONI/MODL Voice ID: [id number] Report ID: [id number] NONI
--- NOTE | 2019-12-05 10:07 | PN ---
Date of Progress Note: 12/04/2019 Subjective: Mr. Doshi underwent an abdominal angiogram with runoff on 12/03/2019, because of severe peripheral arterial disease. The case was discussed with Dr. Mcdermott and Dr. Leon. Dr. Leon reviewed the angiogram with me. The patient has severe peripheral arterial disease. He has bilateral occlus ion of both of his SFA with some reconstitution on the left side below the knee with fairly good dist al blood flow. On the right side, he had some minimal reconstitution at the popliteal with no distal flow. Decisions are being discussed regarding possible hyperbaric oxygen treatment versus below-the -knee amputation on the left. Today, his groin site appeared to be intact. There is no hematoma. Kali olvera has no complaints. Cardiac-dotson, he will be discharged and follow up with Dr. Leon and Dr. Mcdermott a lso follow up with Dr. Gonzalez down the road. ROBI/AUDIE Voice ID: [id number] Report ID: [id number]
== END 2019-12-04 11:47 | disposition home or self-care (01) | DRG 256 ==
LOC: ER 12:07 → ERHOLD 14:28 → 2ND 15:43
PROVIDERS: ADMIT Internal Medicine; ATTEND Internal Medicine
PROC: 0Y6W0Z0 Detachment at Left 4th Toe, Complete, Open Approach (ICD-10-PCS; principal; 2019-11-30 13:30)
PROC: B40DYZZ Plain Radiography of Aorta and Bilateral Lower Extremity Arteries using Other Contrast (ICD-10-PCS; 2019-12-03)
DX: E11.52 Type 2 diabetes mellitus with diabetic peripheral angiopathy with gangrene (principal); I96 Gangrene, not elsewhere classified; M86.8X7 Other osteomyelitis, ankle and foot; N17.9 Acute kidney failure, unspecified; E11.69 Type 2 diabetes mellitus with other specified complication; I10 Essential (primary) hypertension; E78.5 Hyperlipidemia, unspecified; L03.032 Cellulitis of left toe; E11.65 Type 2 diabetes mellitus with hyperglycemia; D64.9 Anemia, unspecified; F17.200 Nicotine dependence, unspecified, uncomplicated; Z91.19 Patient's noncompliance with other medical treatment and regimen
CPT/HCPCS: 36200; 36415; 75630; 80048; 80076; 80202; 81003; 81015; 82947; 83036; 83605; 83735; 84145; 85025; 85652; 86140; 87040; 87070; 87077; 87186; 87205; 88305; 88311; 93925; 96365; 96367; 99285; C1760; C1893; J1644; J1650; J1815; J2250; J2270; J2405; J2543; J2704; J3010; J3370; J3475; J3590; J7030; J7040

== ENCOUNTER 2019-12-23 06:22 | Inpatient (IN) | payer MEDICARE ==
--- NOTE | 2019-12-22 15:48 | RAD REPORT ---
EXAM DESCRIPTION: Madeline Bravo (2 Views)12/22/2019 3:40 pm CLINICAL HISTORY: Preop forefoot amputation COMPARISON: 2018 FINDINGS: Calcified lung granulomas are present. Lungs are mildly to moderately hyperaerated The lungs appear clear of acute infiltrate. The heart is normal size IMPRESSION: No acute abnormalities displayed
[2019-12-22 15:56] LABS: Potassium 4.2 mmol/L (3.5-5.1)
[2019-12-22 16:01] LABS: Absolute Lymphocytes (CBC) 1.6 K/uL (0.7-4.9); Basophils % 1.1 % (0-1.3); Hematocrit 34.8 % (39.6-49.0); Lymphocytes % 12.7 % (15.3-44.8); MPV 8.2 fL (7.6-11.3); RBC Red Blood Cell Count 3.69 M/uL (4.33-5.43)
--- OUTSIDE RECORDS SUMMARY | 2019-12-23 06:24 | XMS REPORT ---
:1945 [facility] [address] [place] [address] Care Team Providers Name Role Phone Unavailable Unavailable Unavailable Problems This patient has no known problems. Allergies, Adverse Reactions, Alerts This patient has no known allergies or adverse reactions. Medications This patient has no known medications.
[2019-12-23] MEDS ORDERED: NA CHLORIDE 0.9% 1,000 ML ONE ×2 (06:51→07:31)
[2019-12-23] MEDS ORDERED: CEFAZOLIN/SWI 1gm 1 GM/10 ML SYR ONE (06:51)
[2019-12-23] MEDS ORDERED: FENTANYL CITR 100 MCG/2 ML ONE (07:07)
[2019-12-23] MEDS ORDERED: MIDAZOLAM HCL 2 MG/2 ML INJ ONE (07:07)
[2019-12-23] MEDS ORDERED: propofoL 200 MG/20 ML VIAL IV ONE (07:07)
[2019-12-23] MEDS ORDERED: LIDOCAINE 2% MPF 5 ML VIAL ONE ×2 (07:08→07:40)
[2019-12-23] MEDS ORDERED: ONDANSETRON 4 MG/2 ML VIAL ONE (07:09)
--- NOTE | 2019-12-23 07:20 | EKG ---
Test Date: 2019-12-22 Test Time: 15:40:14 Automotive Starter Repairer: ANGELIKA MEASUREMENT RESULTS: Intervals: Rate: 83 MN: 184 QRSD: 84 QT: 396 QTc: 465 Vida: P: 60 MN: 184 QRS: 63 T: 80 INTERPRETIVE STATEMENTS: Normal sinus rhythm Normal ECG Compared to ECG 11/29/2017 10:18:14 No significant changes Electronically Signed On 12-23-19 07:19:21 CHILD NUTRITION DIRECTOR by Osei Ayala
[2019-12-23] MEDS ORDERED: Phenylephrine HCl 10 MG/ML 1 ML VIAL ONE (07:51)
[2019-12-23] MEDS ORDERED: EPHEDRINE SULF 50 MG/ML VIAL ONE (07:51)
[2019-12-23] MEDS ORDERED: MORPHINE SULFATE/PF 1 MG/ML (10 ML AMP) ONE (08:25)
[2019-12-23] MEDS ORDERED: BUPIVACAINE 0.75% (PF) 2 ML SP ONE (08:25)
[2019-12-23] MEDS ORDERED: GLUCAGON 1 MG/VIAL IM PRN ×2 (09:27→18:52)
[2019-12-23] MEDS ORDERED: D50W 25 GM/50 ML SYRINGE/VIAL IV PRN ×2 (09:27→18:52)
[2019-12-23] MEDS ORDERED: INSULIN -REGULAR HUMAN 50 UNIT/0.5 ML ML ONE (09:27)
[2019-12-23] MEDS ORDERED: HYDROCODONE/APAP 7.5/325 MG TAB PO PRN (09:29)
[2019-12-23] MEDS ORDERED: ONDANSETRON 4 MG/2 ML VIAL IV PRN (09:29)
[2019-12-23] MEDS ORDERED: NACHLORIDE 0.45% 1,000 ML IV SCH (10:00)
[2019-12-23] MEDS: Levofloxacin500mg IV 500 MG/100 ML BAG IV SCH (10:54)
[2019-12-23] MEDS: NICOTINE 14 MG/PAT TD SCH (10:55)
[2019-12-23 11:30] VITALS: BMI 25.6
[2019-12-23] MEDS: INSULIN -REGULAR HUMAN 50 UNIT/0.5 ML ML SQ SCH ×3 (11:30→21:52)
[2019-12-23] MEDS: HYDROMORPHONE HCL 1 MG/ML INJ IV PRN ×2 (13:10→18:44)
--- NOTE | 2019-12-23 18:58 | OP ---
Date of Procedure: 12/23/2019 Surgeon: Ruddy Leon MD [facility] Sales: NIKA Hines. Preoperative Diagnosis: Gangrene with severe peripheral vascular disease, left lower extremity. Postoperative Diagnosis: Gangrene with severe peripheral vascular disease, left lower extremity. Procedure: Left below-knee amputation. Estimated Blood Loss: Minimal. Specimen: Left leg. Findings: As above. Anesthesia: Spinal. Complications: None. Disposition: Patient tolerated the procedure in stable condition, taken to Recovery in good general condition. Operative Note: The patient was brought to the OR and placed in supine position. Spinal anesthesia begun. Then, the patient was prepped and draped in the usual sterile fashion and then 4 fingerbreadt hs below the tibial tuberosity on the left side, a transverse incision was made. Flaps created poste riorly and then muscle, neurovascular bundle identified individually and divided. The neurovascular bundle tied off with 2-0 silk and 0 silk ties. Tibia and fibula identified and divided per the stand reji way and then rasp used to smoothen out the rough edges, and the leg removed, sent to Pathology. Then flaps closed with 2-0 chromic, 3-0 chromic and maye after wound was irrigated and bleeding wa s controlled with cautery, and 2-0 chromic [id number] sutures as needed and then a sterile dressing was applied. Patient was awakened and taken to Recovery in good general condition. /MODL Voice ID: [id number] Report ID: [id number]
[2019-12-23] MEDS ORDERED: CLOTRIMAZOLE 1% CREAM 15 GM TOP SCH (21:00)
[2019-12-23] MEDS ORDERED: INSULIN GLARGINE 100 UNITS/ML SQ SCH (21:00)
[2019-12-23] MEDS: NYSTATIN 100MU/GM CREAM 15GM TOP SCH (21:51)
[2019-12-23] MEDS: ATORVASTATIN 10 MG TAB PO SCH (21:51)
[2019-12-24] MEDS: HYDROMORPHONE HCL 1 MG/ML INJ IV PRN ×3 (00:06→15:15)
--- NOTE | 2019-12-24 00:57 | HP ---
Date of Admission: 12/23/2019 Reason For Admission: Peripheral vascular disease and amputation. History Of Present Illness: This is a 74-year-old male patient with severe peripheral vascular disease involving both lower extremities, who was determined to be a non-surgical candidate, and mentioned last month when he was admitted with osteomyelitis and wet gangrene of left foot 4th toe. Patient had amputation of 4th toe and subsequently he developed dry gangrene of 3rd toe and he is under care of Dr. Leon and has been [facility]. His gangrene of the third toe and also subsequently fifth toe started and progressed over a period of time. Dr. Leon referred him to [facility] for the duration of hyperbaric oxygen treatment and after evaluation recommendation was that he was not a candidate for hyperbaric oxygen treatment so because of progression of his vascular problem with gangrene involving multiple toes, Dr. Leon recommended amputation and today the patient had amputation done of his left leg, which was below-knee amputation and after the surgery, he was admitted to the hospital under my service. When I saw him, his main complaint was pain in both groin due to significant area of rash that he has in his both groin. He denies any other complaints at this time. He has not urinated since the surgery and by the time I saw him, it was around 7:00 p.m. today. was at bedside with him. Allergies: NO KNOWN ALLERGIES. Medications: List reviewed. Review of Systems: Dermatology: As mentioned above. Cardiovascular: As mentioned above. All other systems are reviewed and negative. Social History: Positive for smoking. Use of alcohol, negative. Family History: Father and mother had myocardial infarction. Brother also had myocardial infarction and diabetes. Sister with myocardial infarction. Past Surgical History: Left leg below-knee amputation done today due to severe peripheral vascular disease and gangrene of left foot, had angioplasty with stent placement in left leg. This was done in the past, but when the patient had an angiogram done of his legs during his last month's admission, he was found to have total occlusion of superficial femoral artery in both lower extremities including occlusion of the stent that was placed in the past and washtub worker helper recommended no surgical intervention and medical therapy was suggested for him. Past Surgical History: Includes cholecystectomy and appendectomy. Past Medical History: Significant for type 2 diabetes mellitus, uncontrolled; hypertension; peripheral vascular disease; hyperlipidemia; and smoking. Physical Examination: Vital Signs: Temperature 97.6, pulse 82, respiratory rate 18, blood pressure 140/68, oxygen saturation 98%, height 5 feet 2 inches, weight 140 pounds. General: Awake, alert, oriented, not in distress. HEENT: Head atraumatic, normocephalic. Conjunctivae nonerythematous. Sclerae white. Mouth, no thrush or edema noted. Ears/Nose, no mass, lesion, discharge noted. Neck: Supple. No JVD, lymph nodes, bruit, thyromegaly noted. Lungs: Bilateral good equal air entry. Clear to auscultation. No rhonchi. No rales. Heart: Normal heart sounds, no murmur or gallop. Abdomen: Soft, bowel sounds normal. No guarding, rigidity, tenderness, mass, hepatosplenomegaly, distention, or bruit noted. Extremities: Left leg has surgical dressing present status post below-knee amputation. Skin: Significant area of red-colored rash in both groin and scrotal skin. Lymphatics: No lymph node enlargement in neck, supraclavicular, infraclavicular region. Neuro: No focal neurological deficit. Chest: Unremarkable. External Genitalia: Deferred. Rectal: Deferred. Laboratory Data: Yesterday, white count 12.3, hemoglobin 11.5, and platelet count 375. Sodium 136, potassium 4.2, chloride 101, bicarb 30, BUN 21, creatinine 1.12. Glucose 298. Impression: 1. Peripheral vascular disease with gangrene of left foot, status post amputation of left leg below-knee amputation. 2. Candidal infection of skin, bilateral groin. 3. Hypertension. 4. Hyperlipidemia. 5. Type 2 diabetes mellitus, uncontrolled. 6. Smoking. Plan: We will admit the patient to hospital for further evaluation and management of this problem. We will go ahead and give IV antibiotic Levaquin. Pain medication and nausea medication will be ordered. We will give DVT prophylaxis using Lovenox. Nurse was advised to check the patient with bladder scan for urinary retention and use the bedside commode to assist patient with urination if more than 200 mL of urine is present and if he is not able to void , then to place a Carbone catheter. Start nystatin cream 2 times a day. Home medications will be continued per order and I will see him tomorrow for followup and also Dr. Leon from General surgery for surgical/postoperative management. DONI/AUDIE Voice ID: [id number]
[2019-12-24 06:11] LABS: Absolute Lymphocytes (CBC) 1.6 K/uL (0.7-4.9); Basophils % 0.4 % (0-1.3); Hematocrit 31.7 % (39.6-49.0); Lymphocytes % 7.2 % (15.3-44.8); MPV 8.1 fL (7.6-11.3); RBC Red Blood Cell Count 3.43 M/uL (4.33-5.43)
[2019-12-24 06:23] LABS: Magnesium 1.6 mg/dL (1.8-2.4); Phosphorus 2.4 mg/dL (2.5-4.9)
[2019-12-24] MEDS ORDERED: GLUCAGON 1 MG/VIAL IM PRN (08:04)
[2019-12-24] MEDS ORDERED: D50W 25 GM/50 ML SYRINGE/VIAL IV PRN (08:04)
[2019-12-24 08:28] LABS: Platelet Estimate ADEQ
[2019-12-24 08:29] LABS: Blood Morphology Comment NOT SEEN (NOT SEEN)
[2019-12-24] MEDS ORDERED: INSULIN GLARGINE 100 UNITS/ML SQ ONE (08:30)
[2019-12-24] MEDS: INSULIN -REGULAR HUMAN 50 UNIT/0.5 ML ML SQ SCH ×4 (08:43→21:28)
[2019-12-24] MEDS: ASPIRIN EC 81 MG TAB PO SCH (08:44)
[2019-12-24] MEDS: PENTOXIFYLLINE ER 400 MG TAB PO SCH ×2 (08:44→21:27)
[2019-12-24] MEDS: ENOXAPARIN 40 MG/0.4 ML SQ SCH (08:44)
[2019-12-24] MEDS: Levofloxacin500mg IV 500 MG/100 ML BAG IV SCH (08:44)
[2019-12-24] MEDS: NICOTINE 14 MG/PAT TD SCH (08:44)
[2019-12-24] MEDS: NYSTATIN 100MU/GM CREAM 15GM TOP SCH ×2 (08:45→21:30)
[2019-12-24] MEDS: PIPER/TAZO/NS 3.375gm 3.375 GM/100 ML BAG IVPB SCH ×2 (12:22→17:31)
[2019-12-24] MEDS: FLUCONAZOLE 100mg IVPB 100 MG/50 ML BAG IV SCH (12:22)
[2019-12-24] MEDS: HYDROCODONE/APAP 7.5/325 MG TAB PO SCH ×3 (12:23→21:26)
--- NOTE | 2019-12-24 12:48 | PN ---
Date of Progress Note: 12/24/2019 Subjective: Patient was seen this morning for followup. He feels better as far as his pain and disc omfort in his groin is concerned, but he is having lot of pain in his left leg, which is an amputated leg. He had episode of nausea and vomiting last night. He was not able to urinate and ended up hav ing a Carbone catheter yesterday. Objective: Vital Signs: Reviewed. HEENT: Unremarkable. Lungs: Clear to auscultation. Heart: Sounds normal. Abdomen: Soft. Bowel sounds normal. No guarding, rigidity, tenderness, or distention. Extremities: No leg edema. Left leg surgical dressing present. Skin: Rash on both groins looks slightly better this morning compared to yesterday evening. Laboratory Data: White count has gone up to 21.6, hemoglobin 10.4, platelets 347. Sodium 136, potas sium 4, chloride 101, bicarb 30, BUN 15, creatinine 1.08, glucose 241, magnesium 1.6. Impression: 1.Peripheral vascular disease with amputation of left leg. 2.Anemia. 3.Hypomagnesemia. 4.Hypertension. 5.Diabetes mellitus. 6.Candidal infection of both groins. Plan: The patient is on Levaquin, which we will continue that. White count has gone up and we will go ahead and add IV Zosyn and considering severe candidal infection of both groin, we will also add I V Diflucan. We will repeat blood work tomorrow. Continue DVT prophylaxis with Lovenox per order. P ain medication. Patient has IV Dilaudid that he will continue to use it on p.r.n. basis; and I will change his oral pain medication, which is hydrocodone 7.5 mg to every 6 hours scheduled dose. We ben l decide about removal of Carbone catheter either today or tomorrow, which was placed yesterday because of urinary retention after surgery and inability to void. I will see him tomorrow for followup, repl burton magnesium per protocol. DONI/MODL Voice ID: [id number] Report ID: [id number]
--- NOTE | 2019-12-24 12:57 | PN ---
Date of Progress Note: 12/24/2019 Subjective: Patient is awake, alert. Had some pain last time but today he is pain free. Objective: Vital Signs: Stable. He is afebrile. Laboratory Data: Reviewed. His white count is 21.6 with a left shift. Chemistry reviewed as well. The dressing is clean, dry, and intact. Assessment: Status post left below-knee amputation. Recommendations: Continue IV antibiotics. Ordered physical therapy and rehab evaluation. Surgicall y, the patient is stable. Follow his white count. /MODL Voice ID: [id number] Report ID: [id number]
[2019-12-24] MEDS ORDERED: SITAGLIPTIN PHOS PO SCH (17:00)
[2019-12-24] MEDS ORDERED: METFORMIN HCL PO SCH (17:00)
[2019-12-24] MEDS ORDERED: [UNRECOGNIZED DRUG - OTHER] PO SCH (17:00)
[2019-12-24] MEDS ORDERED: INSULIN GLARGINE 100 UNITS/ML SQ SCH (21:00)
[2019-12-24] MEDS: ATORVASTATIN 10 MG TAB PO SCH (21:27)
[2019-12-25] MEDS: PIPER/TAZO/NS 3.375gm 3.375 GM/100 ML BAG IVPB SCH ×3 (01:02→17:18)
[2019-12-25] MEDS: HYDROCODONE/APAP 7.5/325 MG TAB PO SCH ×4 (03:14→20:59)
[2019-12-25 06:53] LABS: Albumin 2.5 g/dL (3.4-5.0); Bilirubin Total 0.9 mg/dL (0.2-1.0); Magnesium 1.7 mg/dL (1.8-2.4); Potassium 3.9 mmol/L (3.5-5.1); Protein, Total 6.7 g/dL (6.4-8.2)
[2019-12-25 07:00] LABS: Absolute Lymphocytes (CBC) 1.4 K/uL (0.7-4.9); Basophils % 0.7 % (0-1.3); Hematocrit 30.8 % (39.6-49.0); Lymphocytes % 7.2 % (15.3-44.8); MPV 8.7 fL (7.6-11.3)
[2019-12-25] MEDS: ASPIRIN EC 81 MG TAB PO SCH (08:46)
[2019-12-25] MEDS: ENOXAPARIN 40 MG/0.4 ML SQ SCH (08:47)
[2019-12-25] MEDS: Levofloxacin500mg IV 500 MG/100 ML BAG IV SCH (08:48)
[2019-12-25] MEDS: NICOTINE 14 MG/PAT TD SCH (08:48)
[2019-12-25] MEDS: PENTOXIFYLLINE ER 400 MG TAB PO SCH ×2 (08:48→20:59)
[2019-12-25] MEDS: FLUCONAZOLE 100mg IVPB 100 MG/50 ML BAG IV SCH (08:48)
[2019-12-25] MEDS: INSULIN -REGULAR HUMAN 50 UNIT/0.5 ML ML SQ SCH ×4 (08:49→21:00)
[2019-12-25] MEDS: NYSTATIN 100MU/GM CREAM 15GM TOP SCH ×2 (08:51→21:00)
--- NOTE | 2019-12-25 11:41 | PN ---
Date of Progress Note: 12/25/2019 Patient is awake, alert, complaining of occasional pain in the left lower extremity. Physical Examination: Vital Signs: Stable. He is afebrile. His white count is down to 19,200. It was felt that the yeast rash in the groin may be the source of his white count so he is on Diflucan per Dr. Mcdermott. His dressing is clean, dry, intact. Assessment: Status post left below-knee amputation. Recommendation: Physical therapy, rehab evaluation, antibiotics are ordered, antifungal as ordered. Patient is clinically stable, slowly improving. /MODL Voice ID: [id number] Report ID: [id number]
--- NOTE | 2019-12-25 11:47 | PN ---
Date of Progress Note: 12/25/2019 Subjective: Patient was seen this morning for followup. No new complaints or problems reported by t he patient except pain in his left leg at the amputation site. His pain discomfort from the groin jimenez s improved significantly. His last bowel movement was either yesterday or day before yesterday accor ding to the patient's . He is tolerating diet well. Objective: Vital Signs: Reviewed. HEENT: Unremarkable. Lungs: Clear to auscultation. Heart: Sounds normal. Abdomen: Soft. Bowel sounds normal. No guarding, rigidity, tenderness, or distention. Extremities: No leg edema. Skin: Bilateral groin examination shows significant improvement in the area of candidal infection fr om the groin. Laboratory Data: White count 19.2, hemoglobin 10.3, platelets 286. Sodium 134, potassium 3.9, chlor jesse 99, bicarb 28, BUN 13, creatinine 1.11, glucose 173, magnesium 1.7. Impression: 1.Peripheral vascular disease with gangrene of left foot, status post left below-knee amputation. 2.Type 2 diabetes mellitus, uncontrolled, not compliant with diet and medication. 3.Hypertension. 4.Hypomagnesemia. 5.Anemia. Plan: We will go ahead and continue current antibiotic, which is Levaquin, Zosyn, and antifungal med ication Diflucan as well as topical nystatin cream. His groin is improving well. We will go ahead a nd continue to follow with Dr. Leon. Replace magnesium per protocol. Continue pain medication per order, and we will go ahead and consider to start gabapentin. Physical therapy to work with the patient. Patient is not compliant with diet and in fact, as I was examining him and taking cover off to examine his groin area, he had a bottle of Coke with him and we did talk about it, but unfortunately he always has been noncompliant with diet and medication, and I do not anticipate he will do any better as far as compliance is concerned. I will see him tomorrow for followup. DONI/MODL Voice ID: [id number] Report ID: [id number]
[2019-12-25] MEDS ORDERED: POTASSIUM CL SA 10 MEQ TAB PO ONE (15:25)
[2019-12-25] MEDS ORDERED: MAGNESIUM SULFATE 1 gm IVPB 1 GM/100 ML BAG IV ONE (15:26)
[2019-12-25] MEDS: JANUMET PO SCH (17:19)
[2019-12-25] MEDS: ATORVASTATIN 10 MG TAB PO SCH (20:59)
[2019-12-25] MEDS ORDERED: INSULIN GLARGINE 100 UNITS/ML SQ SCH (21:00)
[2019-12-26] MEDS: HYDROMORPHONE HCL 1 MG/ML INJ IV PRN ×2 (00:41→12:19)
[2019-12-26] MEDS: PIPER/TAZO/NS 3.375gm 3.375 GM/100 ML BAG IVPB SCH ×3 (00:43→17:04)
[2019-12-26] MEDS: HYDROCODONE/APAP 7.5/325 MG TAB PO SCH ×3 (03:14→17:03)
[2019-12-26 06:39] LABS: Absolute Lymphocytes (CBC) 1.5 K/uL (0.7-4.9); Basophils % 0.4 % (0-1.3); Hematocrit 30.7 % (39.6-49.0); Lymphocytes % 9.9 % (15.3-44.8); MPV 8.3 fL (7.6-11.3); RBC Red Blood Cell Count 3.33 M/uL (4.33-5.43)
[2019-12-26 07:06] LABS: Magnesium 1.9 mg/dL (1.8-2.4); Potassium 3.5 mmol/L (3.5-5.1)
[2019-12-26] MEDS: INSULIN -REGULAR HUMAN 50 UNIT/0.5 ML ML SQ SCH ×4 (07:30→20:55)
[2019-12-26] MEDS: NYSTATIN 100MU/GM CREAM 15GM TOP SCH ×2 (09:00→20:57)
[2019-12-26] MEDS ORDERED: POTASSIUM CL SA 10 MEQ TAB PO ONE (09:00)
[2019-12-26] MEDS: FLUCONAZOLE 100mg IVPB 100 MG/50 ML BAG IV SCH (09:06)
[2019-12-26] MEDS: GABAPENTIN 100 MG CAP PO SCH ×3 (09:07→20:56)
[2019-12-26] MEDS: ASPIRIN EC 81 MG TAB PO SCH (09:07)
[2019-12-26] MEDS: ENOXAPARIN 40 MG/0.4 ML SQ SCH (09:07)
[2019-12-26] MEDS: PENTOXIFYLLINE ER 400 MG TAB PO SCH ×2 (09:07→20:54)
[2019-12-26] MEDS: NICOTINE 14 MG/PAT TD SCH (09:08)
[2019-12-26] MEDS: Levofloxacin500mg IV 500 MG/100 ML BAG IV SCH (09:09)
[2019-12-26] MEDS ORDERED: BISACODYL 10 MG RECTAL SUPP PR ONE (09:11)
--- NOTE | 2019-12-26 10:33 | PN ---
Date of Progress Note: 12/26/2019 Subjective: Patient was seen this morning for followup. No new complaints problems reported by antony ent except constipation problem and is requesting some medication to help with that. Denies any trou ble voiding after catheter was removed yesterday. Pain is in good control now. Objective: Vital Signs: Reviewed. HEENT: Unremarkable. Lungs: Clear to auscultation. Heart: Sounds normal. Abdomen: Soft. Bowel sounds normal. No guarding, rigidity, tenderness, distention. Extremities: No leg edema. Laboratory Data: White count 15, hemoglobin 10.2, platelets 302. Sodium 136, potassium 3.5, chlorid e 101, bicarb 28, BUN 12, creatinine 1.10, glucose 54, magnesium 1.9. Impression: 1.Constipation. 2.Hypoglycemia. 3.Anemia. 4.Peripheral vascular disease. 5.Diabetes mellitus. Plan: We will go ahead and reduce the dose of Lantus insulin from 40 units down to 25 units at bedti me. No need for any blood transfusion. We will continue to monitor anemia problem at this point. W e will go ahead and give Dulcolax rectal suppository x1 dose this morning and start him on Senokot-S two tablets 2 times a day. Add gabapentin 100 mg 3 times a day per order and reduce dose of hydrocodone 7.5 mg for maybe 6 hours to every 8 hours. I will see him tomorrow for followup. DONI/MODL Voice ID: [id number] Report ID: [id number]
--- NOTE | 2019-12-26 12:11 | PN ---
Date of Progress Note: 12/26/2019 Subjective: Patient is awake, alert. No complaint. Objective: Vital signs: Stable. Afebrile. Skin: Dressing is clean, dry, intact. On the right dorsum of the foot, he does have a wound which is dry and it is not open, but because of his peripheral vascular disease, I was concerned about it and we will follow this right now. Assesment: S/P L BKA Recommendations: No need for any debridement or any intervention at this time. Physical therapy as ordered, and rehab evaluation. /MODL Voice ID: [id number] Report ID: [id number] NONI
[2019-12-26] MEDS: JANUMET PO SCH (17:00)
[2019-12-26] MEDS: INSULIN GLARGINE 100 UNITS/ML SQ SCH (20:52)
[2019-12-26] MEDS: ATORVASTATIN 10 MG TAB PO SCH (20:54)
[2019-12-26] MEDS: DOCUSATE NA/SENNA CONC 1 TAB PO SCH (20:54)
[2019-12-27] MEDS: PIPER/TAZO/NS 3.375gm 3.375 GM/100 ML BAG IVPB SCH ×3 (01:05→17:07)
[2019-12-27] MEDS: HYDROCODONE/APAP 7.5/325 MG TAB PO SCH ×3 (01:05→17:06)
[2019-12-27] MEDS: HYDROMORPHONE HCL 1 MG/ML INJ IV PRN ×2 (05:28→13:14)
[2019-12-27 06:01] LABS: Magnesium 1.9 mg/dL (1.8-2.4); Potassium 4.3 mmol/L (3.5-5.1)
[2019-12-27 06:08] LABS: Absolute Lymphocytes (CBC) 1.3 K/uL (0.7-4.9); Basophils % 0.5 % (0-1.3); Lymphocytes % 10.5 % (15.3-44.8); MPV 8.2 fL (7.6-11.3); RBC Red Blood Cell Count 3.36 M/uL (4.33-5.43)
[2019-12-27] MEDS: INSULIN -REGULAR HUMAN 50 UNIT/0.5 ML ML SQ SCH ×4 (07:30→20:48)
[2019-12-27] MEDS: PENTOXIFYLLINE ER 400 MG TAB PO SCH ×2 (08:17→20:47)
[2019-12-27] MEDS: DOCUSATE NA/SENNA CONC 1 TAB PO SCH ×2 (08:18→20:48)
[2019-12-27] MEDS: GABAPENTIN 100 MG CAP PO SCH ×3 (08:19→20:47)
[2019-12-27] MEDS: NICOTINE 14 MG/PAT TD SCH (08:19)
[2019-12-27] MEDS: ASPIRIN EC 81 MG TAB PO SCH (08:19)
[2019-12-27] MEDS: Levofloxacin500mg IV 500 MG/100 ML BAG IV SCH (08:20)
[2019-12-27] MEDS: ENOXAPARIN 40 MG/0.4 ML SQ SCH (08:20)
[2019-12-27] MEDS: NYSTATIN 100MU/GM CREAM 15GM TOP SCH ×2 (09:00→20:47)
[2019-12-27] MEDS: FLUCONAZOLE 100mg IVPB 100 MG/50 ML BAG IV SCH (09:00)
--- NOTE | 2019-12-27 13:49 | PN ---
Date of Progress Note: 12/27/2019 Subjective: Patient is awake, alert. No complaint. Vital signs are stable and afebrile. White cou nt is down to 12.3. Dressings clean, dry, and intact. Assessment: Status post left below-knee amputation. Recommendations: Continue physical therapy, rehab evaluation, antibiotics as ordered. We will evalu ate wound tomorrow. /MODL Voice ID: [id number] Report ID: [id number]
[2019-12-27] MEDS: JANUMET PO SCH (17:07)
[2019-12-27] MEDS: INSULIN GLARGINE 100 UNITS/ML SQ SCH (20:47)
[2019-12-27] MEDS: ATORVASTATIN 10 MG TAB PO SCH (20:47)
[2019-12-28] MEDS: PIPER/TAZO/NS 3.375gm 3.375 GM/100 ML BAG IVPB SCH ×3 (00:24→17:00)
[2019-12-28] MEDS: HYDROCODONE/APAP 7.5/325 MG TAB PO SCH ×3 (00:24→17:00)
--- NOTE | 2019-12-28 00:31 | PN ---
Date of Progress Note: 12/27/2019 Subjective: The patient was seen this morning for followup. Overall, he is doing better. Had a bow el movement yesterday after Dulcolax suppository and this morning. Appetite is fair. Pain is under good control. Objective: Vital Signs: Reviewed. HEENT: Unremarkable. Lungs: Clear to auscultation. Heart: Heart sounds normal. Abdomen: Soft, bowel sounds normal. No guarding, rigidity, tenderness, or distention. Extremities: No leg edema. Groin examination, rash on both groin is improving. Laboratory Data: White count 12.3, hemoglobin 10.2, platelets 329. Sodium 136, potassium 4.3, chlor jesse 101, bicarb 28, BUN 12, creatinine 1.14, glucose 79, magnesium 1.9. Impression: 1.Peripheral vascular disease with gangrene of foot, status post amputation. 2.Diabetes mellitus, type 2. 3.Hypertension. 4.Anemia. Plan: We will continue current medication antibiotic. Fingerstick blood sugar readings reviewed. W e will continue current Lantus insulin for diabetes control. Continue gabapentin, Lovenox. Physical therapy to work with the patient and we are waiting for disposition and hopefully the patient will b e able to go to inpatient rehab floor. If not, then we will have to consider to discharge him to go to [facility] as a second option. Details were discussed with the patient and . DONI/MODL Voice ID: [id number] Report ID: [id number]
[2019-12-28] MEDS: INSULIN -REGULAR HUMAN 50 UNIT/0.5 ML ML SQ SCH ×3 (07:30→16:30)
[2019-12-28] MEDS: NYSTATIN 100MU/GM CREAM 15GM TOP SCH (09:00)
[2019-12-28] MEDS: DOCUSATE NA/SENNA CONC 1 TAB PO SCH (09:00)
[2019-12-28] MEDS: PENTOXIFYLLINE ER 400 MG TAB PO SCH (10:38)
[2019-12-28] MEDS: NICOTINE 14 MG/PAT TD SCH (10:38)
[2019-12-28] MEDS: GABAPENTIN 100 MG CAP PO SCH ×2 (10:38→14:00)
[2019-12-28] MEDS: ASPIRIN EC 81 MG TAB PO SCH (10:38)
[2019-12-28] MEDS: FLUCONAZOLE 100mg IVPB 100 MG/50 ML BAG IV SCH (10:39)
[2019-12-28] MEDS: Levofloxacin500mg IV 500 MG/100 ML BAG IV SCH (10:39)
[2019-12-28] MEDS: ENOXAPARIN 40 MG/0.4 ML SQ SCH (10:39)
--- NOTE | 2019-12-28 14:08 | PN ---
Date of Progress Note: 12/28/2019 Subjective: Patient is awake, alert. No new complaint. Objective: Vital Signs: Stable. Afebrile. Skin: Examination of the wound revealed it to be clean, dry, intact. There is erythema but there is no warmth or edema associated towards the knee on the medial aspect. Laboratory Data: White count is down to 12.3. Assessment: Status post left below-knee amputation. Recommendations: Continue antibiotics as ordered. Physical therapy. Rehab evaluation. Discharge melissa sanders. /MODL Voice ID: [id number] Report ID: [id number]
[2019-12-28 14:41] LABS: C.diff Antigen/Toxin Ag neg : Tox neg (NEG : NEG)
[2019-12-28 15:40] VITALS: O2SAT 95
[2019-12-28 17:00] VITALS: BP 168/68; TEMP 97
[2019-12-28] MEDS: JANUMET PO SCH (17:00)
--- NOTE | 2019-12-28 22:14 | DS ---
Date of Discharge: 12/28/2019 Disposition: Discharged to go to rehab floor. Physical Examination: HEENT: Unremarkable. Lungs: Clear to auscultation. Heart: Heart sounds normal. Abdomen: Soft, bowel sounds normal. No guarding, rigidity, tenderness, or distention. Extremities: No leg edema. Right foot great toe at the tip area has a small area of contusion that was noted today and it was not there yesterday. Laboratory Data: Upon admission, white count 12.3, hemoglobin 11.5, platelets 375. This was on 12/04. Next day which is on 12/24/2019, white count 21.6, hemoglobin 10.4, platelets 347. Last whi te count yesterday 12.3, hemoglobin 10.2, platelets 327. Last chemistry yesterday, sodium 136, potas sium 4.3, chloride 101, bicarb 28, BUN 12, creatinine 1.14, and glucose 79, magnesium 1.9. Discharge Medications: Continue all current orders. 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 This was determined during his last recent hospital stay. He had gangrene of his foot and did not improve with conservative tr eatment, so Dr. Leon did left leg below-knee amputation and he was admitted to the hospital under my care after the amputation for medical management and postop management. Initially, patient did not have any pain as he had nerve block, but as that wore off, he started to have significant pain requir ing oral and IV pain medication and we also added gabapentin. Overall, his pain got significantly be tter. He also had really severe case of candidal rash in both groin and that improved very well with topical nystatin and when white count went up to 21,000 we added IV Zosyn and IV Diflucan and he was already on IV Levaquin, which was continued. Overall, his condition started improving significantly . Rash from both groin has improved significantly. Physical therapy was consulted. He takes oral h ypoglycemic medication and insulin at home. Initially, we started him on low-dose 15 units insulin a t bedtime increased it to 25 units at bedtime and then when we increased it to 40 units at bedtime he had hypoglycemia next day, so we reduced his insulin back to 25 units at bedtime. He has not receiv ed any oral hypoglycemic medication during this hospitalization. He was transferred to rehab in [facility] where I will continue to follow up with him. Final Diagnosis: 1.Peripheral vascular disease with gangrene of left foot, status post left leg below-knee amputation . 2.Anemia. 3.Candidal infection of skin, bilateral groin. 4.Hypertension. 5.Hyperlipidemia. 6.Type 2 diabetes mellitus, with hyperglycemia. 7.Smoking. DONI/MODL Voice ID: [id number] Report ID: [id number]
== END 2019-12-28 17:45 | DRG 240 ==
LOC: OR 06:22 → 4TH 09:18
PROVIDERS: ADMIT Internal Medicine; ATTEND Internal Medicine
PROC: 0Y6J0Z1 Detachment at Left Lower Leg, High, Open Approach (ICD-10-PCS; principal; 2019-12-23 07:30)
DX: E11.52 Type 2 diabetes mellitus with diabetic peripheral angiopathy with gangrene (principal); I96 Gangrene, not elsewhere classified; E11.65 Type 2 diabetes mellitus with hyperglycemia; B37.2 Candidiasis of skin and nail; I10 Essential (primary) hypertension; E78.5 Hyperlipidemia, unspecified; F17.210 Nicotine dependence, cigarettes, uncomplicated; D64.9 Anemia, unspecified; R33.9 Retention of urine, unspecified; Z91.11 Patient's noncompliance with dietary regimen; Z91.14 Patient's other noncompliance with medication regimen; E83.42 Hypomagnesemia; K59.00 Constipation, unspecified
CPT/HCPCS: 36415; 71046; 80048; 80053; 82947; 83735; 84100; 85025; 87324; 87449; 88302; 88307; 88311; 93005; 97110; 97112; 97116; 97161; 97530; 97542; 99214; J0690; J1170; J1450; J1650; J1815; J2250; J2370; J2405; J2543; J2704; J3010; J3475; J7030

== ENCOUNTER 2019-12-28 15:17 | Inpatient (IN) | payer MEDICARE ==
--- NOTE | 2019-12-28 16:35 | R.PREADM ---
SCREENING DATE AND TIME 12/28/2019 15:26 (PROJECT MANAGER PROCESS DEVELOPMENT) ANTICIPATED REHAB ADMISSION DATE 12/30/2019 REFERRING FACILITY [facility] REFERRAL DATE AND TIME 12/28/2019 15:26 (PROJECT MANAGER PROCESS DEVELOPMENT) REFERRAL OFFICE PHONE [phone] REFERRAL ROOM# [id number] ACUTE ADMIT DATE 12/23/2019 Previous Rehabilitation(s): No. ACUTE COMBINATION TECHNICIAN/DC [facility] Michelle Maldonado REFERRING PHYSICIAN [facility] REHAB FACILITY [facility] CLINICAL LIAISON Alida Coffman PHYSICIAN REVIEWER Dr. Fercho Baldwin M.D. MR# [id number] NAME MARY CARMEN MILLER ADDRESS [address] [place] [address] PHONE [facility] [id number] DATE OF 1945 AGE 74 SSN# [id number] GENDER male MARITAL STATUS RACE ADMIT FROM 02 - [facility] PRE-HOSPITAL LIVING SETTING 01 - Home (private home/apt. board/care, assisted living, assisted, transitional living) HOME TYPE AND DETAILS Type of home: mobile home # of steps to enter the residence: 0 # of levels in the residence: 1 # of steps within the residence: 0 PRE-HOSPITAL LIVING WITH Family/Relatives FAMILY SUPPORT Yes PRIMARY FAMILY CONTACT NAME Savita Miller PRIMARY FAMILY CONTACT PHONE PHONE PRIMARY FAMILY CONTACT ON ADM.? no IS PRIMARY FAMILY CONTACT AUTH. REP.? no 1ST EMERGENCY CONTACT Savita Miller 1ST CONTACT PHONE PHONE 1ST CONTACT ON ADM. no IS 1ST CONTACT AUTH. REP.? no PHONE 2ND CONTACT ON ADM.? no PATIENT EMPLOYMENT STATUS Retired (for age) PATIENT EMPLOYER No Employer PAYOR INFORMATION: 1ST PAYOR NAME AARP MEDICARE COMPLETE 1ST PAYOR INJURY/ILLNESS DUE TO ACCIDENT? No ANOTHER REPUBLICAN RESPONSIBLE? No PRIMARY REHAB/ACUTE DIAGNOSIS: Left Below the Knee Amputation ONSET DATE 12/23/2019 REHAB IMPAIRMENT CATEGORY (YENNI): 10 Amputation, lower extremity (Amp/LE) MEETS 60% rule AFFECTED EXTREMITIES: LLE PRIMARY DIAGNOSIS-RELATED SURGERIES: Left Below the Knee Amputation - performed by SHIRAZ WICK on 12/23/2019 COMORBID REHAB/ACUTE DIAGNOSES: - Tier 3 Type 2 diabetes mellitus with other specified complication (E11.69) - N/A PVD with gangrene of left foot Dermatophytosis bilateral groin Hypertension Hyperlipidemia Smoker INTERVENTIONS: - Hypertension Fluid management Medications VS RISK FOR COMPLICATIONS: - Hypertension CVA Hypotension ME TIA SUMMARY OF ACUTE HOSPITALIZATION: Pt. is a 74 yo Right-handed male. On 12/23/2019 he was admitted to [facility] with diagnosis Left Below the Knee Amputation. His impairment category is Amputation of Limb 05 - Unilateral Lower Limb Below the Knee (BK) (05.4). Pre-morbidly, Pt. was independent/mod-I in Locomotion, Safety Awareness, Balance, Social Cognition, T ransfers Control, Sphincter Control, Self-Care, Communication, and Endurance; and he had good Locomot ion, Balance, Safety Awareness, Social Cognition, Transfers Control, Sphincter Control, Self-Care, Co mmunication, and Endurance. Currently, he has deficits of Locomotion, Balance, Safety Awareness, Transfers Control, Self-Care, Co mmunication, and Endurance. Pt. is now referred to [facility] for acute in-patient rehabilitation in order to maximize patient's functional independence in activities of daily living, strength, ROM, and mobi lity. Patient has realistic goal of being discharged at assistance level 6-Dar to reside at Home with Fam kaylee/Relatives. Mary Carmen Miller is a 74 year old male that lives in a trailer home with his . He ambulates independently around with his cane. Patient had severe peripheral vascular disease involving both lower extremities who was determined to be a non-surgical candidate. He had amputation of 4th toe and developed dry gangrene of 3rd toe and subsequently his 5th toe started and progressed over a period of time. He was referred for a hyperbaric oxygen treatment and was not a candidate and surgeon recommended amputation. On 12/23/2019, below the knee amputation was done to his left leg and was admitted to [facility]. He is now medically stable but in need of 24-ho ur nursing, doctor supervision and oversite while receiving participate in 3hours of therapy a day/15 hours per week and receive care with an intensive interdisciplinary approach. CONSULT: Consult Certified Prosthetic for prosthesis construction PAST MEDICAL HISTORY Dermatophytosis bilateral groin Hyperlipidemia Hypertension PVD with gangrene of left foot Smoker Type 2 diabetes mellitus with other specified complication (E11.69) PAST SURGICAL HISTORY: Cholecystectomy APPENDECTOMY MEDICATION ALLERGIES: No Known Drug Allergies (NKDA) ENVIRONMENTAL ALLERGIES: None Known - Substance Allergies None Known - Other Allergies None Known CODE STATUS: Full code WEIGHT/HEIGHT/BMI: WEIGHT 140 lbs HEIGHT 5' 2" BMI 25.6 DIET: - Diet Type ADA 1800 - Diet - Solid Texture Regular - Diet - Liquid Texture Regular - Tube Feed N/A SKIN DIAGRAM: Incision on Left lower leg; extent - small; stage - NS(Not Stageable). Treatment - Per Physician's Or ders. REVIEW OF SYSTEMS: - Gen Alert and awake Lying in bed No apparent distress Oriented to: person, time, and place - Vital Signs Temperature: 97.5 F SBP/DBP: 153/72 Pulse: 85 Resp: 15 Vital signs stable, afebrile - CVS RRR VITAL SIGNS Temperature: 97.5 F SBP/DBP: 153/72 Pulse: 85 Resp: 15 Vital signs stable, afebrile MEDICATIONS/TREATMENT: Other- See attached MAR (Medication Administration Record). CURRENT SPHINCTER CONTROL: Pre-hospital bladder status: continent # of bladder accidents in the last 7 days prior to screenin Pre-hospital bowel status: continent # of bowel accidents in the last 7 days prior to screenin Last Bowel Movement Date: 12/28/2019 CURRENT LOCOMOTION STATUS: distance walked 0 feet DETAILED CURRENT FUNCTIONAL STATUS: - Bladder accident frequency: Ind - No accidents in the past 7 days - Bowel accident frequency: Ind - No accidents in the past 7 days - Walking score based on distance walked: 0(N/A) - Wheelchair score based on distance traveled: 0(N/A) QI SCORES: - Self-Care A. Eating 05-Setup or clean-up assistance B. Oral hygiene 05-Setup or clean-up assistance C. Toileting hygiene 03-Partial/moderate assistance E. Shower/bathe self 04-Supervision or touching assistance F. Upper body dressing 04-Supervision or touching assistance G. Lower body dressing 01-Dependent H. Putting on/taking off footwear 01-Dependent - Mobility A. Roll left and right 04-Supervision or touching assistance B. Sit to lying 04-Supervision or touching assistance C. Lying to sitting on side of bed 03-Partial/moderate assistance D. Sit to stand 03-Partial/moderate assistance E. Chair/oab-cr-qneip transfer 03-Partial/moderate assistance F. Toilet transfer 03-Partial/moderate assistance G. Car transfer 10-Not attempted due to environmental limitations I. Walk 10 feet 88-Not attempted due to medical condition or safety concerns J. Walk 50 feet with two turns 88-Not attempted due to medical condition or safety concerns K. Walk 150 feet 88-Not attempted due to medical condition or safety concerns L. Walking 10 feet on uneven surfaces 88-Not attempted due to medical condition or safety concerns M. 1 step (curb) 88-Not attempted due to medical condition or safety concerns N. 4 steps 88-Not attempted due to medical condition or safety concerns O. 12 steps 88-Not attempted due to medical condition or safety concerns P. Picking up object 88-Not attempted due to medical condition or safety concerns R. Wheel 50 feet with two turns 88-Not attempted due to medical condition or safety concerns S. Wheel 150 feet 88-Not attempted due to medical condition or safety concerns - Bladder and Bowel Bladder continence 0-Always continent Bowel continence 0-Always continent - Endurance Fair - Balance Poor - Safety Awareness Fair CURRENT FUNC. DEFICITS: Self-Care, Mobility, Endurance, Balance, and Safety Awareness CURRENT / PREVIOUS ASSISTIVE DEVICES: 3-in-1 Commode [facility] Bed Rolling Walker Shower Chair Tub Bench Wheelchair HISTORY OF FALLS. HAS THE PATIENT HAD TWO OR MORE FALLS IN THE PAST YEAR OR ANY FALL WITH INJURY IN T HE PAST YEAR?: No PRIOR SURGERY. DID THE PATIENT HAVE MAJOR SURGERY DURING THE 100 DAYS PRIOR TO ADMISSION?: No THERAPY NOTES FROM ACUTE CARE: Attached. SPECIAL NEEDS: - Safety Concerns Skin breakdown precautions needed due to skin breakdown risk PRECAUTIONS: - Weight Bearing Precaution NWB left LE PATIENT NEEDS ACTIVE AND ONGOING THERAPEUTIC INTERVENTION OF MULTIPLE THERAPY DISCIPLINES, INCLUDING: - Orthotics/Prosthetics Prosthetic Evaluation. - Dietary and Nutrition Adequate Nutrition. Nutritional Education. Nutritional Supplements. PATIENT NEEDS CLOSE MEDICAL SUPERVISION BY A REHABILITATION PHYSICIAN FOR: Coordination of Treatment Team Diabetes Management Medical and Co-Morbidity Management Wound Care PATIENT REQUIRES 24X7 REHAB NURSING FOR MEDICAL AND FUNCTIONAL MGT. OF THE FOLLOWING DEFICITS: Disease Management Medication Management Patient/Family Education Providing Safe Environment Skin Integrity PATIENT REQUIRES INTENSIVE, COORDINATED INTERDISCIPLINARY APPROACH TO REHAB: Arranging Home Equipment/Services Discharge Planning Family Intervention/Training Burrer Marker Axle/Case Management PATIENT REHAB POTENTIAL: Dhiraj MILLER is able and expected to receive 3 hours of individualized therapy daily on at least 5 of celio ry 7 days Dhiraj MILLER's prognosis for significant practical improvement within a reasonable period of time appears Good Expected level of measurable improvement will be of a practical value to Dhiraj MILLER's functional capaci ty or adaptations to impairments Has a viable Discharge Plan Medically appropriate; condition is sufficiently stable to participate in intensive rehab program DISCHARGE PLAN: - Estimated Length of Stay (days) 11. - Consensus on plan Discharge plan has been discussed with primary caregiver. Patient/Family is in agreement with the ayala n. Primary caregiver is in agreement with the plan. - Patient/Family Goals Return home with assistance. - Planned Living Setting Upon Discharge Home, to live with Family/Relatives. Transitional Living. RECOMMENDED CARE LEVEL: IRF RECOMMENDATION DETAILS: Recommended Admission to Comprehensive Rehabilitation Program to Increase Functional [place] SCREENER'S COMPLETENESS CONFIRMATION: - Screening Confirmation The patient data collection on this preadmission screening form is finished PHYSICIANS REVIEW AND ADMISSION DETERMINATION Admit - Based on my review of the Pre-Admission Screening results, in my medical judgment and experie nce, I concur with the findings and recommend admission to [facility], as this patient requires an IRF level of care. SIGNATURE PANEL: Clinical Liaison - [electronically] signed by Alida Coffman on 12/28/2019 at 15:58 (PROJECT MANAGER PROCESS DEVELOPMENT) Physician Reviewer - [electronically] signed by Dr. Fercho Baldwin M.D. on 12/28/2019 at 16:34 (PROJECT MANAGER PROCESS DEVELOPMENT )
--- OUTSIDE RECORDS SUMMARY | 2019-12-28 17:52 | XMS REPORT ---
:1945 [facility] Address [address] [place] [address] [address] [place] [address] Care Team Providers Name Role Phone Unavailable Unavailable Unavailable Problems This patient has no known problems. Allergies, Adverse Reactions, Alerts This patient has no known allergies or adverse reactions. Medications This patient has no known medications.
[2019-12-28] MEDS ORDERED: CODEINE 30MG/APAP 300MG TAB PO PRN (18:29)
[2019-12-28] MEDS ORDERED: GLUCAGON 1 MG/VIAL IM PRN ×2 (18:30→19:13)
[2019-12-28] MEDS ORDERED: D50W 25 GM/50 ML SYRINGE/VIAL IV PRN ×2 (18:30→19:13)
[2019-12-28] MEDS ORDERED: DOCUSATE NA/SENNA CONC 1 TAB PO PRN (19:13)
[2019-12-28] MEDS: PENTOXIFYLLINE ER 400 MG TAB PO SCH (20:53)
[2019-12-28] MEDS: ATORVASTATIN 10 MG TAB PO SCH (20:53)
[2019-12-28] MEDS: INSULIN -REGULAR HUMAN 50 UNIT/0.5 ML ML SQ SCH (20:53)
[2019-12-28] MEDS: GABAPENTIN 100 MG CAP PO SCH (20:53)
[2019-12-28] MEDS ORDERED: PIPERACIL/TAZO 3.375 GM VIAL IV ONE (20:59)
[2019-12-28] MEDS ORDERED: INSULIN GLARGINE 100 UNITS/ML SQ SCH (21:00)
[2019-12-28] MEDS ORDERED: NA CHLORIDE 0.9% 100 ML ONE (21:00)
[2019-12-29] MEDS: HYDROCODONE/APAP 7.5/325 MG TAB PO SCH ×3 (00:57→16:09)
[2019-12-29] MEDS: ONDANSETRON 4 MG/2 ML VIAL IV PRN (00:58)
[2019-12-29] MEDS: PIPER/TAZO/NS 3.375gm 3.375 GM/100 ML BAG IVPB SCH ×3 (00:58→16:09)
[2019-12-29] MEDS ORDERED: TRAMADOL HCL 50 MG TAB PO PRN (06:51)
[2019-12-29] MEDS: HYDROMORPHONE HCL 1 MG/ML INJ IV PRN ×3 (07:15→20:29)
[2019-12-29] MEDS: INSULIN -REGULAR HUMAN 50 UNIT/0.5 ML ML SQ SCH ×4 (07:30→20:32)
[2019-12-29] MEDS: Levofloxacin500mg IV 500 MG/100 ML BAG IV SCH (07:37)
[2019-12-29] MEDS: NYSTATIN 100MU/GM CREAM 15GM TOP SCH ×2 (07:37→20:00)
[2019-12-29] MEDS: ENOXAPARIN 40 MG/0.4 ML SQ SCH (07:38)
[2019-12-29 07:59] LABS: Albumin 2.4 g/dL (3.4-5.0); Magnesium 1.7 mg/dL (1.8-2.4); Potassium 3.7 mmol/L (3.5-5.1); Prealbumin 11.5 mg/dL (20-40)
[2019-12-29] MEDS ORDERED: INFLUENZA VACCINE (for 3y+) 0.5 ML DOSE IMVAC ONE (08:00)
[2019-12-29 08:33] LABS: Absolute Lymphocytes (CBC) 1.3 K/uL (0.7-4.9); Basophils % 0.7 % (0-1.3); Hematocrit 29.3 % (39.6-49.0); Lymphocytes % 10.7 % (15.3-44.8); MPV 8.4 fL (7.6-11.3); RBC Red Blood Cell Count 3.17 M/uL (4.33-5.43)
[2019-12-29] MEDS ORDERED: FLUCONAZOLE 100mg IVPB 100 MG/50 ML BAG IV SCH ×2 (09:00→10:00)
[2019-12-29] MEDS: NICOTINE 14 MG/PAT TD SCH (09:12)
[2019-12-29] MEDS: PENTOXIFYLLINE ER 400 MG TAB PO SCH ×2 (09:13→20:30)
[2019-12-29] MEDS: ASPIRIN EC 81 MG TAB PO SCH (09:13)
[2019-12-29] MEDS: GABAPENTIN 100 MG CAP PO SCH (09:13)
[2019-12-29] MEDS ORDERED: ENSURE ENLIVE 237 ML CAN PO SCH (14:00)
--- NOTE | 2019-12-29 15:31 | PN ---
Date of Progress Note: 12/29/2019 Subjective: He is awake, alert, no complaint. Objective: Vital Signs: Stable. Afebrile. Skin: Examination of the wound itself reveals it to be clean, dry, and intact. There is some erythe ma and slight warmth above it. Assessment: Status post left below-knee amputation. Recommendations: Continue antibiotics and antifungal as ordered. Physical therapy, prosthesis evalu ation. /MODL Voice ID: [id number] Report ID: [id number]
[2019-12-29] MEDS: JANUMET PO SCH (16:10)
[2019-12-29] MEDS: LOPERAMIDE HCL 2 MG CAPSULE PO PRN ×2 (16:12→20:30)
--- NOTE | 2019-12-29 17:48 | R.HP ---
FACILITY: [facility] ENCOUNTER DATE AND TIME: 12/29/2019 17:39 (SUGAR PRESSER) MR#: [id number] NAME MARY CARMEN DOSHI ADDRESS: [address] [place] [address] CITY: [place] [address]IP [address] PHONE: DATE OF : 1945 AGE: 74 SSN# [id number] GENDER: Male DEXTERITY Right-handed MARITAL STATUS RACE PRE-HOSPITAL LIVING SETTING 01 - Home (private home/apt. board/care, assisted living, intermediate, transitional living) PRE-HOSPITAL LIVING WITH Family/Relatives ENCOUNTER PHYSICIAN: Dr. Fercho Baldwin M.D. REFERRING DOCTOR: SHIRAZ WICK DATE OF ADMISSION: 12/28/2019 17:49 (SUGAR PRESSER) REFERRING FACILITY [facility] HOME TYPE AND DETAILS: Type of home: mobile home # of steps to enter the residence: 0 # of levels in the residence: 1 # of steps within the residence: 0 ADMISSION DIAGNOSIS: Left Below the Knee Amputation ONSET DATE: 12/23/2019 PRIMARY DIAGNOSIS-RELATED SURGERIES: Left Below the Knee Amputation - performed by SHIRAZ WICK on 12/23/2019 SECONDARY/COMORBID DIAGNOSES (TIERED): - Tier 3 Type 2 diabetes mellitus with other specified complication (E11.69) - N/A PVD with gangrene of left foot Dermatophytosis bilateral groin Hypertension Hyperlipidemia Smoker HISTORY OF PRESENT ILLNESS (HPI): Pt. is a 74 yo Right-handed male. On 12/23/2019 he was admitted to [facility] with diagnosis Left Below the Knee Amputation. His impairment category is Amputation of Limb 05 - Unilateral Lower Limb Below the Knee (BK) (05.4). Pre-morbidly, Pt. was independent/mod-I in Locomotion, Safety Awareness, Balance, Social Cognition, T ransfers Control, Sphincter Control, Self-Care, Communication, and Endurance; and he had good Locomot ion, Balance, Safety Awareness, Social Cognition, Transfers Control, Sphincter Control, Self-Care, Co mmunication, and Endurance. Currently, he has deficits of Locomotion, Balance, Safety Awareness, Transfers Control, Self-Care, Co mmunication, and Endurance. Pt. is now referred to [facility] for acute in-patient rehabilitation in order to maximize patient's functional independence in activities of daily living, strength, ROM, and mobi lity. Patient has realistic goal of being discharged at assistance level 6-Dar to reside at Home with Fam kaylee/Relatives. Mary Carmen Doshi is a 74 year old male that lives in a trailer home with his . He ambulates independently around with his cane. Patient had severe peripheral vascular disease involving both lower extremities who was determined to be a non-surgical candidate. He had amputation of 4th toe and developed dry gangrene of 3rd toe and subsequently his 5th toe started and progressed over a period of time. He was referred for a hyperbaric oxygen treatment and was not a candidate and surgeon recommended amputation. On 12/23/2019, below the knee amputation was done to his left leg and was admitted to [facility]. He is now medically stable but in need of 24-ho ur nursing, doctor supervision and oversite while receiving participate in 3hours of therapy a day/15 hours per week and receive care with an intensive interdisciplinary approach. MEDICATION ALLERGIES: No Known Drug Allergies (NKDA) ENVIRONMENTAL ALLERGIES: None Known - Substance Allergies None Known - Other Allergies None Known PAST MEDICAL HISTORY: Dermatophytosis bilateral groin Hyperlipidemia Hypertension PVD with gangrene of left foot Smoker Type 2 diabetes mellitus with other specified complication (E11.69) PAST SURGICAL HISTORY: Cholecystectomy APPENDECTOMY FAMILY HISTORY: Family history is not contributory. SOCIAL HISTORY: - Home Living Family/Relatives REVIEW OF SYSTEMS: - Gen No Chills Fatigue No Fever - Eyes No Double Vision No itchiness - ENMT No Difficulty Swallowing - CVS No Chest Discomfort No Chest Pain Fatigue No Weight Gain - Resp No Cough No Shortness of Breath - GI Continent No Abdominal Pain No Constipation Diarrhea - Continent No Kidney Pain No Painful Urination No Urinary Urgency - MSK No Joint Pain No Muscle Cramps Stiffness - Skin No Itching No Rash No Suspicious Lesions - Neuro Coordination Difficulty No Difficulty with Concentration No Memory Loss No Seizures Weakness - Psych No Anxiety No Depression No HIV Exposure No Persistent Infections No Seasonal Allergies - Endo No Cold/Heat Intolerance No Excessive Hunger No Excessive Thirst No Excessive Urination PHYSICAL EXAM - Gen Alert and awake Lying in bed No apparent distress Oriented to: person, time, and place - Skin Left BKA bandage in place with good hemostasis. Normacephalic - Eyes No abnormalities - ENMT No abnormalities - Neck No abnormalities - CVS RRR - Chest No abnormalities - Resp Clear to auscultation - Abd Soft - GI Non distended Deferred - No abnormalities - Ext Left BKA good hemostasis, dressing in place - MSK No focal deficits, mild diffuse weakness - Neuro No focal deficits - Psych No abnormalities VITAL SIGNS Temperature: 97.5 F SBP/DBP: 153/72 Pulse: 85 Resp: 16 NURSING: - Shower allowing shower - Lab Results blood Sugar Check ACHS - Skin care per protocol PRECAUTIONS: - Weight Bearing Precaution NWB left LE ACTIVITIES OOB only with supervision QI SCORES: - Self-Care A. Eating 05-Setup or clean-up assistance B. Oral hygiene 05-Setup or clean-up assistance C. Toileting hygiene 03-Partial/moderate assistance E. Shower/bathe self 04-Supervision or touching assistance F. Upper body dressing 04-Supervision or touching assistance G. Lower body dressing 01-Dependent H. Putting on/taking off footwear 01-Dependent - Mobility A. Roll left and right 04-Supervision or touching assistance B. Sit to lying 04-Supervision or touching assistance C. Lying to sitting on side of bed 03-Partial/moderate assistance D. Sit to stand 03-Partial/moderate assistance E. Chair/tcx-gf-tvxqe transfer 03-Partial/moderate assistance F. Toilet transfer 03-Partial/moderate assistance G. Car transfer 10-Not attempted due to environmental limitations I. Walk 10 feet 88-Not attempted due to medical condition or safety concerns J. Walk 50 feet with two turns 88-Not attempted due to medical condition or safety concerns K. Walk 150 feet 88-Not attempted due to medical condition or safety concerns L. Walking 10 feet on uneven surfaces 88-Not attempted due to medical condition or safety concerns M. 1 step (curb) 88-Not attempted due to medical condition or safety concerns N. 4 steps 88-Not attempted due to medical condition or safety concerns O. 12 steps 88-Not attempted due to medical condition or safety concerns P. Picking up object 88-Not attempted due to medical condition or safety concerns R. Wheel 50 feet with two turns 88-Not attempted due to medical condition or safety concerns S. Wheel 150 feet 88-Not attempted due to medical condition or safety concerns - Bladder and Bowel Bladder continence 0-Always continent Bowel continence 0-Always continent - Endurance Fair - Balance Poor - Safety Awareness Fair CURRENT FUNC. DEFICITS: Self-Care, Mobility, Endurance, Balance, and Safety Awareness MEDICATIONS: - Other See attached MAR (Medication Administration Record) ASSESSMENT: Pt. is a 74 yo Right-handed male.On 12/23/2019 he was admitted to [facility] with diagnosis Left Below the Knee Amputation.His impairment category is Amputation of Limb 05 - Unilateral Lower Limb Below the Knee (BK) (05.4).Pre-morbidly, Pt. was independent/mod-I in Locom otion, Safety Awareness, Balance, Social Cognition, Transfers Control, Sphincter Control, Self-Care, Communication, and Endurance; and he had good Locomotion, Balance, Safety Awareness, Social Cognition , Transfers Control, Sphincter Control, Self-Care, Communication, and Endurance.Currently, he has def icits of Locomotion, Balance, Safety Awareness, Transfers Control, Self-Care, Communication, and Endu bharat.Pt. is now referred to [facility] for acute in-patient rehabilitation in order to maximize patient's functional independence in activities of daily living, strength, ROM, an d mobility.- Rehab Goal Patient has realistic goal of being discharged at assistance level 6-Dar to reside at Home with Fam kaylee/Relatives. Mary Carmen Doshi is a 74 year old male that lives in a trailer home with his . He ambulates independently around with his cane. Patient had severe peripheral vascular disease involving both lower extremities who was determined to be a non-surgical candidate. He had amputation of 4th toe and developed dry gangrene of 3rd toe and subsequently his 5th toe started and progressed over a period of time. He was referred for a hyperbaric oxygen treatment and was not a candidate and surgeon recommended amputation. On 12/23/2019, below the knee amputation was done to his left leg and was admitted to [facility]. He is now medically stable but in need of 24-ho nursing, doctor supervision and oversite while receiving participate in 3hours of therapy a day/15 hours per week and receive care with an intensive interdisciplinary approach.REHAB PLAN: - Physical Therapy Gait dysfunction - to improve, our physical therapists will perform initial evaluation of pt's status upon admission and devise an individualized program for Gait Training, and Wheel Chair mobility Inability to transfer - to improve, our physical therapists will perform initial evaluation of pt's s tatus upon admission and devise an individualized program for Bed mobility Need for home safety evaluation - to improve, our physical therapists will perform initial evaluation of pt's status upon admission and devise an individualized program for Home Evaluation Need in caregiver upon discharge - to improve, our physical therapists will perform initial evaluatio n of pt's status upon admission and devise an individualized program for Caregiver Training New precaution - to improve, our physical therapists will perform initial evaluation of pt's status u nikki admission and devise an individualized program for Patient precaution education Poor balance - to improve, our physical therapists will perform initial evaluation of pt's status upo n admission and devise an individualized program for Balance Training Poor endurance - to improve, our physical therapists will perform initial evaluation of pt's status u nikki admission and devise an individualized program for Endurance Training Weakness - to improve, our physical therapists will perform initial evaluation of pt's status upon ad mission and devise an individualized program for Aquatic Therapy, Neuromuscular Reeducation, and Stre ngthening Achieving independence - to improve, our physical therapists will perform initial evaluation of pt's status upon admission and devise an individualized program for Community Reintegration Activities - Occupational Therapy ADL deficits - to improve, our occupation therapists will perform initial evaluation of pt's status u nikki admission and devise an individualized program for Bathing, Bed mobility, Community Reintegration , Cooking, Dressing, Eating, Fine Motor Skills, Grooming, Homemaking, Kitchen Mobility, Laundry, Rula ent Education, Safety Awareness, Splinting - Positioning, Transfers(Toilet, Tub, Shower), and Wheel C hair Management Need for healthcare analyst - to improve, our occupation therapists will perform initial evaluation of pt's s tatus upon admission and devise an individualized program for Caregiver Training Weakness - to improve, our occupation therapists will perform initial evaluation of pt's status upon admission and devise an individualized program for Aquatic Therapy, Balance, Endurance, UE ROM, and U E strengthening MEDICAL PLAN: - Diet Type Start ADA 1800 - Diet - Liquid Texture Start Regular - Tube Feed Start N/A - Lab Results blood Sugar Check ACHS - Weight Bearing Precaution NWB left LE - Skin care per protocol - Other See attached MAR (Medication Administration Record) - N/A Perform Consult Certified Prosthetic for prosthesis construction - Diet - Solid Texture Regular - Shower shower DISCHARGE PLAN: - Estimated Length of Stay (days) 11. - Consensus on plan Discharge plan has been discussed with primary caregiver. Patient/Family is in agreement with the ayala n. Primary caregiver is in agreement with the plan. - Patient/Family Goals Return home with assistance. - Planned Living Setting Upon Discharge Home, to live with Family/Relatives. Transitional Living. SIGNATURE PANEL: (SUGAR PRESSER)
--- NOTE | 2019-12-29 17:49 | PAPE ---
PATIENT: 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 Fercho Baldwin M.D. ADMISSION DIAGNOSIS: Left Below the Knee Amputation ONSET DATE 12/23/2019 SECONDARY/COMORBID DIAGNOSES TIERED: - Tier 3 Type 2 diabetes mellitus with other specified complication (E11.69) - N/A PVD with gangrene of left foot Dermatophytosis bilateral groin Hypertension Hyperlipidemia Smoker POST-ADMISSION FUNCTIONAL/MEDICAL STATUS: - Bladder Same accident frequency: Ind - No accidents in the past 7 days - Bowel Same accident frequency: Ind - No accidents in the past 7 days - Walking Same score based on distance walked: 0(N/A) - Wheelchair Same score based on distance traveled: 0(N/A) STATUS CHANGE EVALUATION: No change in Functional or Medical Status is identified compared with Pre-Admission screening. PATIENT NEEDS CLOSE MEDICAL SUPERVISION BY A REHABILITATION PHYSICIAN FOR: Coordination of Treatment Team Diabetes Management Medical and Co-Morbidity Management Wound Care PATIENT REQUIRES 24X7 REHAB NURSING FOR MEDICAL AND FUNCTIONAL MGT. OF THE FOLLOWING DEFICITS: Disease Management Medication Management Patient/Family Education Providing Safe Environment Skin Integrity PATIENT REQUIRES INTENSIVE, COORDINATED INTERDISCIPLINARY APPROACH TO REHAB: Arranging Home Equipment/Services Discharge Planning Family Intervention/Training Guideman/Case Management LIST OF IDENTIFIED AND POTENTIAL PROBLEMS: Alteration in leisure activities Bladder, Incontinence Blood Pressure, Hypertension/hypotension Issues Bowel, Incontinence Diabetes, Hyperglycemia/hypoglycemia Issues Infection, Actual or Potential Mobility Impaired Pain, Alteration in Comfort Self Care Deficit Skin Integrity, Actual or Potential Urinary Tract Infection (UTI), Actual or Potential RISK FOR COMPLICATIONS - Hypertension CVA. Hypotension. AK. TIA. INTERVENTIONS - Hypertension PATIENT COULD BE AT RISK FOR COMPLICATIONS FROM ADVERSE MEDICAL CONDITIONS DUE TO HIS/HER COMORBIDITI ES AND THE RIGORS OF THE INTENSIVE REHABILLITATION PROGRAM. METHODS OR INTERVENTIONS TO AVOID COMPLIC ATIONS INCLUDE: - Bleeding Assess lab values and manage abnormalities. Nursing to teach precautions for anti-coagulation therapy . Wound to be assessed every shift. - Infection Clinical staff to assess and manage the signs and symptoms of infection including fever, redness, war mth, etc. - Urinary Tract Infection - Falls Patient will be evaluated for Fall Precautions and will be placed on Fall Precautions as indicated pe r protocol. - Skin Breakdown Nursing will assess skin daily using assessment tool and will place on Skin Breakdown Precautions as indicated per protocol. - Pain Clinical staff may employ non-medication methods such as massage, distraction, decrease stimulus, etc . as needed. Clinical staff will assess patient's pain level every shift per protocol to assess and e nsure pain management effectiveness. Medications will be given and the pain level re-assessed. PRELIMINARY PLAN OF CARE: - Physical Therapy Patient needs Physical Therapy for a daily minimum of 1.5 hours at least 5 out of 7 days, to improve: Mobility, Strengthening, Transfers, Stretching, ROM, Endurance, Ability to manage stairs, Gait, and Balance. - Speech Therapy Patient needs Speech Therapy for a daily minimum of 0.5 hours at least 5 out of 7 days, to improve: S wallowing, Cognition, Language Skills, and Compensatory Strategies. - Rehabilitation Nursing Patient requires 24x7 Rehabilitation Nursing for: Pain Issues, Identifying and preventing risk factor s, Monitoring and reporting current medical conditions, Assisting with ambulation and transfer, Kaycee ting with all ADL-s, Teaching patients about disease process and medications, Family teaching, Provid ing safe environment, Bowel and Bladder Issues, Skin Integrity, and Medication Management. Patient needs Guideman and/or Case Management for: Discharge Planning, Arranging Home Equipmen t or Services, and Family Interventions. - Dietary and Nutrition Services Patient needs Dietary and Nutrition Services for: Adequate Nutrition, Nutritional Supplements, and Nu tritional Education. - Occupational Therapy Patient needs Occupational Therapy for a daily minimum of 1.5 hours at least 5 out of 7 days, to impr ove Activities of Daily Living, including: Eating, Grooming, Bathing, Dressing, Toileting, Toilet Tra nsfers, Community Reintegration, Higher functional activities, Adaptive Equipment, Splinting, Househo ld Tasks, and Other activities as determined. QI SCORES: - Self-Care A. Eating 05-Setup or clean-up assistance B. Oral hygiene 05-Setup or clean-up assistance C. Toileting hygiene 03-Partial/moderate assistance E. Shower/bathe self 04-Supervision or touching assistance F. Upper body dressing 04-Supervision or touching assistance G. Lower body dressing 01-Dependent H. Putting on/taking off footwear 01-Dependent - Mobility A. Roll left and right 04-Supervision or touching assistance B. Sit to lying 04-Supervision or touching assistance C. Lying to sitting on side of bed 03-Partial/moderate assistance D. Sit to stand 03-Partial/moderate assistance E. Chair/wka-dg-ohgua transfer 03-Partial/moderate assistance F. Toilet transfer 03-Partial/moderate assistance G. Car transfer 10-Not attempted due to environmental limitations I. Walk 10 feet 88-Not attempted due to medical condition or safety concerns J. Walk 50 feet with two turns 88-Not attempted due to medical condition or safety concerns K. Walk 150 feet 88-Not attempted due to medical condition or safety concerns L. Walking 10 feet on uneven surfaces 88-Not attempted due to medical condition or safety concerns M. 1 step (curb) 88-Not attempted due to medical condition or safety concerns N. 4 steps 88-Not attempted due to medical condition or safety concerns O. 12 steps 88-Not attempted due to medical condition or safety concerns P. Picking up object 88-Not attempted due to medical condition or safety concerns R. Wheel 50 feet with two turns 88-Not attempted due to medical condition or safety concerns S. Wheel 150 feet 88-Not attempted due to medical condition or safety concerns - Bladder and Bowel Bladder continence 0-Always continent Bowel continence 0-Always continent - Endurance Fair - Balance Poor - Safety Awareness Fair POTENTIAL FUNCTIONAL GOALS FOR PATIENT TO ACHIEVE BY DISCHARGE: - Safety Precaution Patient will remain free from falls or injury at time of discharge. - Bed Mobility Patient will perform bed mobility at 4-Jose level of assistance. - Transfers Patient will complete transfers from bed to chair at 4-Jose level of assistance. - Mobility Patient will ambulate 150 ft with 4-Jose level of assistance with RW. PATIENT REHAB POTENTIAL Dhiraj MILLER is able and expected to receive 3 hours of individualized therapy daily on at least 5 of celio 7 days Dhiraj MILLER's prognosis for significant practical improvement within a reasonable period of time appears Good Expected level of measurable improvement will be of a practical value to Dhiraj MILLER's functional capaci ty or adaptations to impairments Has a viable Discharge Plan Medically appropriate; condition is sufficiently stable to participate in intensive rehab program DISCHARGE PLAN: - Estimated Length of Stay (days) 11. - Consensus on plan Discharge plan has been discussed with primary caregiver. Patient/Family is in agreement with the ayala n. Primary caregiver is in agreement with the plan. - Patient/Family Goals Return home with assistance. - Planned Living Setting Upon Discharge Home, to live with Family/Relatives. Transitional Living. CONCLUSION ON REHABILITATION NECESSITY: I have evaluated patient's pre-admission functional status and, comparing it to the patient's post-ad mission functional status now, I conclude that the pre-admission assessment was accurate. Patient's c ondition on admission supports the medical necessity of admission to IR[facility]. It is safe to proceed with patient's therapy program. 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
[2019-12-29] MEDS ORDERED: NYSTATIN 100MU/GM CREAM 15GM TOP SCH (20:00)
[2019-12-29] MEDS: ATORVASTATIN 10 MG TAB PO SCH (20:30)
[2019-12-29] MEDS: GABAPENTIN 300 MG CAP PO SCH (20:30)
[2019-12-29] MEDS: GLUCERNA SHAKE 237 ML CAN PO SCH (20:31)
[2019-12-29] MEDS: INSULIN GLARGINE 100 UNITS/ML SQ SCH (20:31)
--- NOTE | 2019-12-29 22:08 | PN ---
Date of Progress Note: 12/29/2019 Subjective: Patient was seen this morning for followup. He was lying in bed, was having a lot of pa in early this morning, requiring IV pain medication in his amputation site area. No other complaints reported. He was on the rehab floor this morning when I saw him. Objective: Vital Signs: Reviewed. HEENT: Unremarkable. Lungs: Clear to auscultation. Heart: Heart sounds normal. Abdomen: Soft, bowel sounds normal. No guarding, rigidity, tenderness, or distention. Extremities: No leg edema on the right leg, left leg surgical dressing present. Right foot great to e tip area has a small area of bruising as noted yesterday, but today is better than yesterday. Laboratory Data: White count 12.3, hemoglobin 9.6, platelets 345. Sodium 139, potassium 3.7, chlori de 107, bicarb 27, BUN 12, creatinine 1.06, glucose 56. Impression: 1.Diabetes mellitus, type 2 with hypoglycemia. 2.Anemia. 3.Peripheral vascular disease. 4.Candidal infection of bilateral groin. Plan: We will continue current antibiotics. Continue antifungal medication and topical nystatin cre am. When patient was admitted to rehab yesterday, nursing staff did not order appropriate medication s and ended up giving wrong dose of his insulin, which was Lantus 40 units instead of 25 units. This morning, details were discussed with the rehab staff and they have made correction on the mistake. W e will monitor his blood sugar. Continue other current medications. I will see him tomorrow for followup. Continue gabapentin and probably starting tomorrow we will increase t he dose of gabapentin. DONI/MODL Voice ID: [id number] Report ID: [id number]
[2019-12-30] MEDS: HYDROCODONE/APAP 7.5/325 MG TAB PO SCH ×3 (00:52→16:21)
[2019-12-30] MEDS: PIPER/TAZO/NS 3.375gm 3.375 GM/100 ML BAG IVPB SCH (00:55)
[2019-12-30] MEDS: Levofloxacin500mg IV 500 MG/100 ML BAG IV SCH (06:59)
[2019-12-30] MEDS: ENOXAPARIN 40 MG/0.4 ML SQ SCH (07:00)
[2019-12-30] MEDS: INSULIN -REGULAR HUMAN 50 UNIT/0.5 ML ML SQ SCH ×4 (07:30→20:40)
[2019-12-30] MEDS: GLUCERNA SHAKE 237 ML CAN PO SCH ×2 (08:00→20:00)
[2019-12-30] MEDS: NYSTATIN 100MU/GM CREAM 15GM TOP SCH ×2 (08:57→20:00)
[2019-12-30] MEDS: NICOTINE 14 MG/PAT TD SCH (08:57)
[2019-12-30] MEDS: GABAPENTIN 300 MG CAP PO SCH ×2 (08:57→20:39)
[2019-12-30] MEDS: ASPIRIN EC 81 MG TAB PO SCH (08:57)
[2019-12-30] MEDS: PENTOXIFYLLINE ER 400 MG TAB PO SCH ×2 (08:57→20:39)
[2019-12-30] MEDS: FLUCONAZOLE 100 MG TAB PO SCH (09:00)
--- NOTE | 2019-12-30 10:05 | FAST ---
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 Fercho Baldwin M.D. ADMISSION DIAGNOSIS: - Amputation of Limb 05 - Unilateral Lower Limb Below the Knee (BK) (05.4) Left Below the Knee Amputation. EATING: EATING - STEP 1: Does the patient complete the activity by him/herself with no assistance (physical, verbal/nonverbal cueing, setup/clean-up)? No. EATING - STEP 2: Does the patient need only setup/clean-up assistance from one helper? No. EATING - STEP 3: Does the patient need only verbal/nonverbal cueing or touching/steadying/contact guard assistance fro m one helper? Yes. 1. [id number] ADMISSION PERFORMANCE: Supervision or touching assistance CODE: 04 ORAL HYGIENE: Not assessed/no information CODE: - TOILETING HYGIENE: TOILETING HYGIENE - STEP 1: Does the patient complete the activity by him/herself with no assistance (physical, verbal/nonverbal cueing, setup/clean-up)? No. TOILETING HYGIENE - STEP 2: Does the patient need only setup/clean-up assistance from one helper? No. TOILETING HYGIENE - STEP 3: Does the patient need only verbal/nonverbal cueing or touching/steadying/contact guard assistance fro m one helper? No. TOILETING HYGIENE - STEP 4: Does the patient need physical assistance - for example lifting or trunk support from one helper - wi th the helper providing less than half of the effort? No. TOILETING HYGIENE - STEP 5: Does the patient need physical assistance - for example lifting or trunk support from one helper - wi th the helper providing more than half of the effort? Yes. 1. [id number] ADMISSION PERFORMANCE: Substantial/maximal assistance CODE: 02 BATHING: Not assessed/no information CODE: - DRESSING - UPPER BODY: Not assessed/no information CODE: - DRESSING - LOWER BODY: Not assessed/no information CODE: - PUTTING ON/TAKING OFF FOOTWEAR: Not assessed/no information CODE: - ROLL LEFT AND RIGHT: Not assessed/no information CODE: - SIT TO LYING: Not assessed/no information CODE: - LYING TO SITTING: Not assessed/no information CODE: - SIT TO STAND: SIT TO STAND - STEP 1: Does the patient complete the activity by him/herself with no assistance (physical, verbal/nonverbal cueing, setup/clean-up)? No. SIT TO STAND - STEP 2: Does the patient need only setup/clean-up assistance from one helper? No. SIT TO STAND - STEP 3: Does the patient need only verbal/nonverbal cueing or touching/steadying/contact guard assistance fro m one helper? No. SIT TO STAND - STEP 4: Does the patient need physical assistance - for example lifting or trunk support from one helper - wi th the helper providing less than half of the effort? No. SIT TO STAND - STEP 5: Does the patient need physical assistance - for example lifting or trunk support from one helper - wi th the helper providing more than half of the effort? Yes. 1. [id number] ADMISSION PERFORMANCE: Substantial/maximal assistance CODE: 02 TRANSFERS: BED, CHAIR: CHAIR/[id number] TRANSFER - STEP 1: Does the patient complete the activity by him/herself with no assistance (physical, verbal/nonverbal cueing, setup/clean-up)? No. CHAIR/[id number]-[id number] TRANSFER - STEP 2: Does the patient need only setup/clean-up assistance from one helper? No. CHAIR/BAC-BP-[id number] TRANSFER - STEP 3: Does the patient need only verbal/nonverbal cueing or touching/steadying/contact guard assistance fro m one helper? No. CHAIR/DFJ-NA-WLJLD TRANSFER - STEP 4: Does the patient need physical assistance - for example lifting or trunk support from one helper - wi th the helper providing less than half of the effort? No. CHAIR/QCD-BT-[id number] TRANSFER - STEP 5: Does the patient need physical assistance - for example lifting or trunk support from one helper - wi th the helper providing more than half of the effort? Yes. 1. [id number] ADMISSION PERFORMANCE: Substantial/maximal assistance CODE: 02 TRANSFER TOILET: TOILET TRANSFER - STEP 1: Does the patient complete the activity by him/herself with no assistance (physical, verbal/nonverbal cueing, setup/clean-up)? No. TOILET TRANSFER - STEP 2: Does the patient need only setup/clean-up assistance from one helper? No. TOILET TRANSFER - STEP 3: Does the patient need only verbal/nonverbal cueing or touching/steadying/contact guard assistance fro m one helper? No. TOILET TRANSFER - STEP 4: Does the patient need physical assistance - for example lifting or trunk support from one helper - wi th the helper providing less than half of the effort? No. TOILET TRANSFER - STEP 5: Does the patient need physical assistance - for example lifting or trunk support from one helper - wi th the helper providing more than half of the effort? Yes. 1. [id number] ADMISSION PERFORMANCE: Substantial/maximal assistance CODE: 02 TRANSFERS: CAR: Not assessed/no information CODE: - WALK 10 FEET: Not assessed/no information CODE: - 1 STEP (CURB): Not assessed/no information CODE: - PICKING UP OBJECT: Not assessed/no information CODE: - DOES THE PATIENT USE A WHEELCHAIR/SCOOTER? CODE: EXPR WHEEL 50 FEET WITH TWO TURNS: Not assessed/no information CODE: - INDICATE THE TYPE OF WHEELCHAIR/SCOOTER USED: CODE: EXPR WHEEL 150 FEET: Not assessed/no information CODE: - INDICATE THE TYPE OF WHEELCHAIR/SCOOTER USED: CODE: EXPR BLADDER AND BOWEL: H350. BLADDER CONTINENCE (3-DAY ASSESSMENT PERIOD): Stress incontinence only CODE: 1 H400. BOWEL CONTINENCE (3-DAY ASSESSMENT PERIOD): Occasionally incontinent (one episode of bowel incontinence) CODE: 1 SIGNATURE PANEL: The following modified sections: 1. [id number] Admission Performance, 1. [id number] Admission Performance, 1. [id number] Admission Performance, 1. [id number] Admission Performance, 1. [id number] Admission Performance, 1. FY3024M Admission Performance, Code, H350. Bladder Continence (3-day assessment period), H400. Mikhail wel Continence (3-day assessment period), H400. Bowel Continence (3-day assessment period) were [elec tronically] signed by Sylvain Hein on FriDec 30 2019 10:03:44 GMT-0600 (Central Standard Time)
[2019-12-30] MEDS: HYDROMORPHONE HCL 1 MG/ML INJ IV PRN (12:50)
[2019-12-30] MEDS: ONDANSETRON 4 MG/2 ML VIAL IV PRN (13:05)
--- NOTE | 2019-12-30 14:12 | FAST ---
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 Fercho Baldwin M.D. ADMISSION DIAGNOSIS: - Amputation of Limb 05 - Unilateral Lower Limb Below the Knee (BK) (05.4) Left Below the Knee Amputation. ROLL LEFT AND RIGHT: ROLL LEFT AND RIGHT - STEP 1: Does the patient complete the activity by him/herself with no assistance (physical, verbal/nonverbal cueing, setup/clean-up)? No. ROLL LEFT AND RIGHT - STEP 2: Does the patient need only setup/clean-up assistance from one helper? No. ROLL LEFT AND RIGHT - STEP 3: Does the patient need only verbal/nonverbal cueing or touching/steadying/contact guard assistance fro m one helper? Yes. 1. [id number] ADMISSION PERFORMANCE: Supervision or touching assistance CODE: 04 SIT TO LYING: SIT TO LYING - STEP 1: Does the patient complete the activity by him/herself with no assistance (physical, verbal/nonverbal cueing, setup/clean-up)? No. SIT TO LYING - STEP 2: Does the patient need only setup/clean-up assistance from one helper? No. SIT TO LYING - STEP 3: Does the patient need only verbal/nonverbal cueing or touching/steadying/contact guard assistance fro m one helper? Yes. 1. [id number] ADMISSION PERFORMANCE: Supervision or touching assistance CODE: 04 LYING TO SITTING: LYING TO SITTING ON SIDE OF BED - STEP 1: Does the patient complete the activity by him/herself with no assistance (physical, verbal/nonverbal cueing, setup/clean-up)? No. LYING TO SITTING ON SIDE OF BED - STEP 2: Does the patient need only setup/clean-up assistance from one helper? No. LYING TO SITTING ON SIDE OF BED - STEP 3: Does the patient need only verbal/nonverbal cueing or touching/steadying/contact guard assistance fro m one helper? Yes. 1. [id number] ADMISSION PERFORMANCE: Supervision or touching assistance CODE: 04 SIT TO STAND: SIT TO STAND - STEP 1: Does the patient complete the activity by him/herself with no assistance (physical, verbal/nonverbal cueing, setup/clean-up)? No. SIT TO STAND - STEP 2: Does the patient need only setup/clean-up assistance from one helper? No. SIT TO STAND - STEP 3: Does the patient need only verbal/nonverbal cueing or touching/steadying/contact guard assistance fro m one helper? No. SIT TO STAND - STEP 4: Does the patient need physical assistance - for example lifting or trunk support from one helper - wi th the helper providing less than half of the effort? No. SIT TO STAND - STEP 5: Does the patient need physical assistance - for example lifting or trunk support from one helper - wi th the helper providing more than half of the effort? Yes. 1. [id number] ADMISSION PERFORMANCE: Substantial/maximal assistance CODE: 02 TRANSFERS: BED, CHAIR: CHAIR/QYP-LE-CJIBS TRANSFER - STEP 1: Does the patient complete the activity by him/herself with no assistance (physical, verbal/nonverbal cueing, setup/clean-up)? No. CHAIR/DNK-JX-MTFZE TRANSFER - STEP 2: Does the patient need only setup/clean-up assistance from one helper? No. CHAIR/MBD-GZ-YHVDF TRANSFER - STEP 3: Does the patient need only verbal/nonverbal cueing or touching/steadying/contact guard assistance fro m one helper? No. CHAIR/ANT-MN-TSPIC TRANSFER - STEP 4: Does the patient need physical assistance - for example lifting or trunk support from one helper - wi th the helper providing less than half of the effort? No. CHAIR/TRE-XH-BYNIL TRANSFER - STEP 5: Does the patient need physical assistance - for example lifting or trunk support from one helper - wi th the helper providing more than half of the effort? Yes. 1. [id number] ADMISSION PERFORMANCE: Substantial/maximal assistance CODE: 02 TRANSFER TOILET: TOILET TRANSFER - STEP 1: Does the patient complete the activity by him/herself with no assistance (physical, verbal/nonverbal cueing, setup/clean-up)? No. TOILET TRANSFER - STEP 2: Does the patient need only setup/clean-up assistance from one helper? No. TOILET TRANSFER - STEP 3: Does the patient need only verbal/nonverbal cueing or touching/steadying/contact guard assistance fro m one helper? No. TOILET TRANSFER - STEP 4: Does the patient need physical assistance - for example lifting or trunk support from one helper - wi th the helper providing less than half of the effort? Yes. 1. [id number] ADMISSION PERFORMANCE: Partial/moderate assistance CODE: 03 TRANSFERS: CAR: Not attempted due to medical condition or safety concerns CODE: 88 WALK 10 FEET: WALK 10 FEET - STEP 1: Does the patient complete the activity by him/herself with no assistance (physical, verbal/nonverbal cueing, setup/clean-up)? No. WALK 10 FEET - STEP 2: Does the patient need only setup/clean-up assistance from one helper? No. WALK 10 FEET - STEP 3: Does the patient need only verbal/nonverbal cueing or touching/steadying/contact guard assistance fro m one helper? No. WALK 10 FEET - STEP 4: Does the patient need physical assistance - for example lifting or trunk support from one helper - wi th the helper providing less than half of the effort? Yes. 1. [id number] ADMISSION PERFORMANCE: Partial/moderate assistance CODE: 03 WALK 50 FEET: Not attempted due to medical condition or safety concerns CODE: 88 WALK 150 FEET: Not attempted due to medical condition or safety concerns CODE: 88 WALK 10 FEET UNEVEN: Not attempted due to medical condition or safety concerns CODE: 88 1 STEP (CURB): Not attempted due to medical condition or safety concerns CODE: 88 PICKING UP OBJECT: Not attempted due to medical condition or safety concerns CODE: 88 DOES THE PATIENT USE A WHEELCHAIR/SCOOTER? Q1. DOES THE PATIENT USE A WHEELCHAIR/SCOOTER?: Yes CODE: 1 WHEEL 50 FEET WITH TWO TURNS: WHEEL 50 FEET WITH TWO TURNS - STEP 1: Does the patient complete the activity by him/herself with no assistance (physical, verbal/nonverbal cueing, setup/clean-up)? No. WHEEL 50 FEET WITH TWO TURNS - STEP 2: Does the patient need only setup/clean-up assistance from one helper? No. WHEEL 50 FEET WITH TWO TURNS - STEP 3: Does the patient need only verbal/nonverbal cueing or touching/steadying/contact guard assistance fro m one helper? Yes. 1. [id number] ADMISSION PERFORMANCE: Supervision or touching assistance CODE: 04 INDICATE THE TYPE OF WHEELCHAIR/SCOOTER USED: RR1. INDICATE THE TYPE OF WHEELCHAIR/SCOOTER USED.: Manual CODE: 1 WHEEL 150 FEET: WHEEL 150 FEET - STEP 1: Does the patient complete the activity by him/herself with no assistance (physical, verbal/nonverbal cueing, setup/clean-up)? No. WHEEL 150 FEET - STEP 2: Does the patient need only setup/clean-up assistance from one helper? No. WHEEL 150 FEET - STEP 3: Does the patient need only verbal/nonverbal cueing or touching/steadying/contact guard assistance fro m one helper? Yes. 1. [id number] ADMISSION PERFORMANCE: Supervision or touching assistance CODE: 04 INDICATE THE TYPE OF WHEELCHAIR/SCOOTER USED: SS1. INDICATE THE TYPE OF WHEELCHAIR/SCOOTER USED.: Manual CODE: 1 BLADDER AND BOWEL: CODE: EXPR CODE: EXPR SIGNATURE PANEL: The following modified sections: 1. [id number] Admission Performance, 1. [id number] Admission Performance, 1. [id number] Admission Performance, 1. [id number] Admission Performance, 1. [id number] Admission Performance, 1. WH2730G Admission Performance, 1. [id number] Admission Performance, Q1. Does the patient use a wheel chair/scooter?, Q1. Does the patient use a wheelchair/scooter?, Q1. Does the patient use a wheelchair /scooter?, 1. [id number] Admission Performance, RR1. Indicate the type of wheelchair/scooter used., 1. G O3443Q Admission Performance, Code, SS1. Indicate the type of wheelchair/scooter used. were [electron ically] signed by Augusto William PT on FriDec 30 2019 14:11:11 GMT-0600 (Central Standard Time)
[2019-12-30] MEDS: JANUMET PO SCH (16:20)
--- NOTE | 2019-12-30 17:02 | R.PN ---
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 SUBJECTIVE: Pt denied any depression. Pt denied any Shortness of Breath. Elevated WBC of 12.3, Hgb 9.6, Glucose 44 to 158, c-diff toxin is pending. Therapeutic exercises done with moderate assistance. Mr. Doshi had an episode of nausea and vomiting helped with zofran 4 mg every 6 hours. Ambulated 250 feet x 3 with standby assistance using a rolling walker and 15 steps with contact guard assistance. VITAL SIGNS Temperature: 97.4 F SBP/DBP: 174/78 Pulse: 84 Resp: 16 MEDICATION ALLERGIES: No Known Drug Allergies (NKDA) ENVIRONMENTAL ALLERGIES: None Known - Substance Allergies None Known - Other Allergies None Known CONSULT: Perform Consult Certified Prosthetic for prosthesis construction NURSING: - Shower allowing shower - Lab Results blood Sugar Check ACHS - Skin care per protocol PRECAUTIONS: - Weight Bearing Precaution NWB left LE ACTIVITIES OOB only with supervision THERAPIES: - Orthotics/Prosthetics Prosthetic Evaluation. - Dietary and Nutrition Adequate Nutrition. Nutritional Education. Nutritional Supplements. PHYSICAL EXAM - Gen Alert and awake Lying in bed No apparent distress Oriented to: person, time, and place - Skin Left BKA bandage in place with good hemostasis. Normacephalic - Eyes No abnormalities - ENMT No abnormalities - Neck No abnormalities - CVS RRR - Chest No abnormalities - Resp Clear to auscultation - Abd Soft - GI Non distended Deferred - No abnormalities - Ext Left BKA good hemostasis, dressing in place - MSK No focal deficits, mild diffuse weakness - Neuro No focal deficits - Psych No abnormalities ASSESSMENT: Pt. is a 74 yo Right-handed male.On 12/23/2019 he was admitted to [facility] with diagnosis Left Below the Knee Amputation.His impairment category is Amputation of Limb 05 - Unilateral Lower Limb Below the Knee (BK) (05.4).Pre-morbidly, Pt. was independent/mod-I in Locom otion, Safety Awareness, Balance, Social Cognition, Transfers Control, Sphincter Control, Self-Care, Communication, and Endurance; and he had good Locomotion, Balance, Safety Awareness, Social Cognition , Transfers Control, Sphincter Control, Self-Care, Communication, and Endurance.Currently, he has def icits of Locomotion, Balance, Safety Awareness, Transfers Control, Self-Care, Communication, and Endu bharat.Pt. is now referred to [facility] for acute in-patient rehabilitation in order to maximize patient's functional independence in activities of daily living, strength, ROM, an d mobility.- Rehab Goal Patient has realistic goal of being discharged at assistance level 6-Dar to reside at Home with Fam kaylee/Relatives. MDM/PLAN: - Physical Therapy Gait dysfunction - to improve, our physical therapists will perform initial evaluation of pt's statu s upon admission and devise an individualized program for Gait Training, and Wheel Chair mobility Inability to transfer - to improve, our physical therapists will perform initial evaluation of pt's status upon admission and devise an individualized program for Bed mobility Need for home safety evaluation - to improve, our physical therapists will perform initial evaluatio n of pt's status upon admission and devise an individualized program for Home Evaluation Need in caregiver upon discharge - to improve, our physical therapists will perform initial evaluati on of pt's status upon admission and devise an individualized program for Caregiver Training New precaution - to improve, our physical therapists will perform initial evaluation of pt's status upon admission and devise an individualized program for Patient precaution education Poor balance - to improve, our physical therapists will perform initial evaluation of pt's status up on admission and devise an individualized program for Balance Training Poor endurance - to improve, our physical therapists will perform initial evaluation of pt's status upon admission and devise an individualized program for Endurance Training Weakness - to improve, our physical therapists will perform initial evaluation of pt's status upon a dmission and devise an individualized program for Aquatic Therapy, Neuromuscular Reeducation, and Str engthening Achieving independence - to improve, our physical therapists will perform initial evaluation of pt's status upon admission and devise an individualized program for Community Reintegration Activities - Occupational Therapy ADL deficits - to improve, our occupation therapists will perform initial evaluation of pt's status upon admission and devise an individualized program for Bathing, Bed mobility, Community Reintegratio n, Cooking, Dressing, Eating, Fine Motor Skills, Grooming, Homemaking, Kitchen Mobility, Laundry, Pat ient Education, Safety Awareness, Splinting - Positioning, Transfers(Toilet, Tub, Shower), and Wheel Chair Management Need for skin care therapist - to improve, our occupation therapists will perform initial evaluation of pt's status upon admission and devise an individualized program for Caregiver Training Weakness - to improve, our occupation therapists will perform initial evaluation of pt's status upon admission and devise an individualized program for Aquatic Therapy, Balance, Endurance, UE ROM, and UE strengthening - Other See attached MAR (Medication Administration Record) - Diet Type Continue ADA 1800 - Diet - Liquid Texture Continue Regular - Tube Feed Continue N/A - Lab Results blood Sugar Check ACHS - Weight Bearing Precaution NWB left LE - Skin care per protocol - N/A Perform Consult Certified Prosthetic for prosthesis construction - Diet - Solid Texture Continue Regular - Shower allowing shower FUNCTIONAL STATUS: UPDATED AT WEEKLY TEAM CONFERENCE - Bladder Same accident frequency: 7-Ind - No accidents in the past 7 days - Bowel Same accident frequency: 7-Ind - No accidents in the past 7 days - Walking Same score based on distance walked: 0(N/A) - Wheelchair Same score based on distance traveled: 0(N/A) FUNCTIONAL STATUS: - Self-Care A. Eating sup B. Grooming Jose C. Bathing modA D. Dressing - Upper Jose E. Dressing - Lower modA F. Toileting sup - Sphincter Control G. Bladder control Jose H. Bowel control Jose - Transfers Control I. Bed/Chair/Wheelchair modA J. Toilet modA K. Tub/Shower modA - Locomotion L. Walk/Wheelchair (B) modA M. Stairs ADNO - Communication N. Comprehension (B) Dar O. Expression (B) sup - Social Cognition P. Social Interaction Dar Q. Problem Solving Jose R. Memory modA - Endurance Poor - Balance Poor - Safety Awareness Poor QI SCORES: - Self-Care A. Eating 05-Setup or clean-up assistance B. Oral hygiene 05-Setup or clean-up assistance C. Toileting hygiene 03-Partial/moderate assistance E. Shower/bathe self 04-Supervision or touching assistance F. Upper body dressing 04-Supervision or touching assistance G. Lower body dressing 01-Dependent H. Putting on/taking off footwear 01-Dependent - Mobility A. Roll left and right 04-Supervision or touching assistance B. Sit to lying 04-Supervision or touching assistance C. Lying to sitting on side of bed 03-Partial/moderate assistance D. Sit to stand 03-Partial/moderate assistance E. Chair/dtl-fg-[id number] transfer 03-Partial/moderate assistance F. Toilet transfer 03-Partial/moderate assistance G. Car transfer 10-Not attempted due to environmental limitations I. Walk 10 feet 88-Not attempted due to medical condition or safety concerns J. Walk 50 feet with two turns 88-Not attempted due to medical condition or safety concerns K. Walk 150 feet 88-Not attempted due to medical condition or safety concerns L. Walking 10 feet on uneven surfaces 88-Not attempted due to medical condition or safety concerns M. 1 step (curb) 88-Not attempted due to medical condition or safety concerns N. 4 steps 88-Not attempted due to medical condition or safety concerns O. 12 steps 88-Not attempted due to medical condition or safety concerns P. Picking up object 88-Not attempted due to medical condition or safety concerns R. Wheel 50 feet with two turns 88-Not attempted due to medical condition or safety concerns S. Wheel 150 feet 88-Not attempted due to medical condition or safety concerns - Bladder and Bowel Bladder continence 0-Always continent Bowel continence 0-Always continent - Endurance Fair - Balance Poor - Safety Awareness Fair CURRENT FUNC. 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
[2019-12-30] MEDS: LOPERAMIDE HCL 2 MG CAPSULE PO PRN (20:39)
[2019-12-30] MEDS: INSULIN GLARGINE 100 UNITS/ML SQ SCH (20:39)
[2019-12-30] MEDS: ATORVASTATIN 10 MG TAB PO SCH (20:39)
--- NOTE | 2019-12-30 23:58 | PN ---
Date of Progress Note: 12/30/2019 Subjective: Patient was seen this morning for followup. No new complaints or problems reported by h im. Lying in bed, not in distress. Objective: Vital Signs: Reviewed. HEENT: Unremarkable. Lungs: Clear to auscultation. Heart: Heart sounds normal. Abdomen: Soft, bowel sounds normal. No guarding, rigidity, tenderness, distention. Extremities: No leg edema. Right foot great toe, small area of bruising from the tip area, is impro ving better today than yesterday. Left leg surgical dressing present. Skin: [place] color rash present in both groin with some loss of epidermal skin, unchanged. Impression: 1.Candidal infection of skin. 2.Peripheral vascular disease. 3.Diabetes mellitus, uncontrolled. Plan: Continue current medications. Continue current insulin. We will discontinue IV Zosyn as the patient is reporting having diarrhea problem and the stool for C diff and culture was ordered. We wi ll discontinue IV Diflucan and discontinue IV Levaquin. Start oral medications per order and I will see him tomorrow for followup. The patient already has gabapentin dose increased by Dr. Baldwin to 300 mg b.i.d. and we will continue that. DONI/MODL Voice ID: [id number] Report ID: [id number]
[2019-12-31] MEDS: HYDROCODONE/APAP 7.5/325 MG TAB PO SCH ×3 (01:24→17:07)
[2019-12-31] MEDS: ENOXAPARIN 40 MG/0.4 ML SQ SCH (07:06)
[2019-12-31] MEDS: INSULIN -REGULAR HUMAN 50 UNIT/0.5 ML ML SQ SCH ×4 (07:30→20:19)
[2019-12-31] MEDS: GLUCERNA SHAKE 237 ML CAN PO SCH ×2 (08:00→20:22)
[2019-12-31] MEDS: FLUCONAZOLE 100 MG TAB PO SCH (08:41)
[2019-12-31] MEDS: ASPIRIN EC 81 MG TAB PO SCH (08:41)
[2019-12-31] MEDS: PENTOXIFYLLINE ER 400 MG TAB PO SCH ×2 (08:41→20:21)
[2019-12-31] MEDS: levoFLOXacin 500 MG TAB PO SCH (08:41)
[2019-12-31] MEDS: GABAPENTIN 300 MG CAP PO SCH ×2 (08:41→20:21)
--- NOTE | 2019-12-31 10:06 | P.RH.PN ---
Estimated Length of Stay: 16 Expected Discharge Date: 01/12/20 Discharge Disposition Plan: Home Family Support: Yes [facility] Goal: Mobility, Transfers, Self Care Vital Signs: Last Vital Signs Temp 98 F 12/31/19 07:01 Pulse 80 12/31/19 07:01 Resp 16 12/31/19 08:40 BP 147/69 H 12/31/19 07:01 Pulse Ox 97 12/31/19 08:40 Laboratory: Laboratory Last Values WBC 12.3 K/uL (4.3-10.9) H 12/29/19 07:21 RBC 3.17 M/uL (4.33-5.43) L 12/29/19 07:21 Hgb 9.6 g/dL (13.6-17.9) L 12/29/19 07:21 Hct 29.3 % (39.6-49.0) L 12/29/19 07:21 MCV 92.4 fL (80-100) 12/29/19 07:21 MCH 30.3 pg (27.0-35.0) 12/29/19 07:21 MCHC 32.8 g/dL (32.0-36.0) 12/29/19 07:21 RDW 13.3 % (12.1-15.2) 12/29/19 07:21 Plt Count 345 K/uL (152-406) 12/29/19 07:21 MPV 8.4 fL (7.6-11.3) 12/29/19 07:21 Plt Distribution Width Cancelled 12/30/19 06:00 Absolute Nucleated RBC Cancelled 12/30/19 06:00 Neutrophils % 78.2 % (41.7-73.7) H 12/29/19 07:21 Lymphocytes % 10.7 % (15.3-44.8) L 12/29/19 07:21 Monocytes % 8.4 % (3.3-12.3) 12/29/19 07:21 Eosinophils % 2.0 % (0-4.4) 12/29/19 07:21 Basophils % 0.7 % (0-1.3) 12/29/19 07:21 Nucleated RBC % Cancelled 12/30/19 06:00 Absolute Neutrophils 9.7 K/uL (1.8-8.0) H 12/29/19 07:21 Absolute Lymphocytes 1.3 K/uL (0.7-4.9) 12/29/19 07:21 Absolute Monocytes 1.0 K/uL (0.1-1.3) 12/29/19 07:21 Absolute Eosinophils 0.2 K/uL (0-0.5) 12/29/19 07:21 Absolute Basophils 0.1 K/uL (0-0.5) 12/29/19 07:21 Diff Path Review Cancelled 12/30/19 06:00 Sodium 139 mmol/L (136-145) 12/29/19 07:33 Potassium 3.7 mmol/L (3.5-5.1) 12/29/19 07:33 Chloride 107 mmol/L (98-107) 12/29/19 07:33 Carbon Dioxide 27 mmol/L (21-32) 12/29/19 07:33 BUN 12 mg/dL (7-18) 12/29/19 07:33 Creatinine 1.06 mg/dL (0.55-1.3) 12/29/19 07:33 Estimated GFR 68 mL/min (=/>90) L 12/29/19 07:33 Glucose 56 mg/dL (74-106) L 12/29/19 07:33 POC Glucose 102 mg/dl (65-120) 12/31/19 08:05 Calcium 8.7 mg/dL (8.5-10.1) 12/29/19 07:33 Magnesium 1.7 mg/dL (1.8-2.4) L 12/29/19 07:33 Albumin 2.4 g/dL (3.4-5.0) L 12/29/19 07:33 Prealbumin 11.5 mg/dL (20-40) L 12/29/19 07:33 Weight: 134 lb 8 oz Wound Present: Yes Closed Surgical Incision Present: Yes Negative Pressure Wound Therapy Present: No Physician Update: Labs reviewed and are stable. He fell going to the bathroom by him self without calling for help. He had no injury. He is making fair overall progress. Medical Issues: Patient is always continent with bladder and incontinent less than daily with bowel. Pain Issues: Patient is taking Gabapentin 300mg BID PO, [place] 7.5/325mg Q8H PO PRN, Dilaudid 1mg IV Q3H PRN for pain. Functional Improvement: pt has good potential to improve; however, his personality and behavior could pose a hinderance to progress. Hopefully pt will comply with therapy staff and participate well in therapy services. Speech Therapy Update: Patient obtained a 7/15 on the BIMS suggesting a severe cognitive impairment. However, informal testing revealed patient has mild- moderate impairments. Also, patient is uneducated (unable to read/write). I believe some of the cultural differences could indicate his performance on the BIMS. Patient did exhibited reduced temporal orientation, decreased sustained attention, poor topic maintence, decreased STM, decreased verbal reasoning, and decreased safety awareness. Patient could benefit from ST. Summary: Patient's care plan and tank terminal gauger goals have been reviewed and revised as necessary. Please see the Rehabilitation Signature page for all necessary signatures.
[2019-12-31] MEDS: HYDROMORPHONE HCL 1 MG/ML INJ IV PRN ×3 (10:17→18:56)
--- NOTE | 2019-12-31 10:47 | PN ---
Date of Progress Note: 12/31/2019 Subjective: Patient was seen this morning for followup. No new complaints or problems reported by josh triny. He was lying in bed, not in distress. His was with him at bedside during nighttime. Josh agosto try to get out of bed to use the bedside commode and he did not call any nursing staff and he ended up losing balance and slipped down to the floor. He did not have any free fall. Denies any in jury or any pain as a result of this incidence. Nurse did educate him about importance of calling nu rsing staff and not try to get out of bed on his own, and I also educated about the same thing today. Objective: Vital signs: Reviewed. Diarrhea has resolved now. HEENT: Unremarkable. Lungs: Clear to auscultation. Heart: Sounds normal. Abdomen: Soft. Bowel sounds normal. No guarding, rigidity, tenderness, or distention. Extremities: No leg edema. Right foot exam unchanged from yesterday with a small area of bruising o n the tip of the toe. Impression: 1.Peripheral vascular disease. 2.Anemia. 3.Diabetes mellitus. 4.Hypertension. 5.Candidal infection of skin. Plan: We will continue Diflucan and Levaquin. Continue topical nystatin. Continue DVT prophylaxis. Fingerstick blood sugar readings reviewed. We will continue current insulin and gabapentin. See him tomorrow for followup. DONI/MODL Voice ID: [id number] Report ID: [id number]
[2019-12-31] MEDS: NICOTINE 14 MG/PAT TD SCH (11:36)
[2019-12-31] MEDS: NYSTATIN 100MU/GM CREAM 15GM TOP SCH ×2 (11:37→20:23)
[2019-12-31 14:20] LABS: C.diff Antigen/Toxin Ag neg : Tox neg (NEG : NEG)
[2019-12-31] MEDS: JANUMET PO SCH (17:07)
[2019-12-31] MEDS: ATORVASTATIN 10 MG TAB PO SCH (20:21)
[2019-12-31] MEDS: INSULIN GLARGINE 100 UNITS/ML SQ SCH (20:22)
[2020-01-01] MEDS: HYDROCODONE/APAP 7.5/325 MG TAB PO SCH ×3 (01:42→16:52)
--- NOTE | 2020-01-01 02:07 | FAST ---
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 Fercho Baldwin M.D. ADMISSION DIAGNOSIS: - Amputation of Limb 05 - Unilateral Lower Limb Below the Knee (BK) (05.4) Left Below the Knee Amputation. EATING: Not assessed/no information CODE: - ORAL HYGIENE: Not assessed/no information CODE: - TOILETING HYGIENE: TOILETING HYGIENE - STEP 1: Does the patient complete the activity by him/herself with no assistance (physical, verbal/nonverbal cueing, setup/clean-up)? No. TOILETING HYGIENE - STEP 2: Does the patient need only setup/clean-up assistance from one helper? No. TOILETING HYGIENE - STEP 3: Does the patient need only verbal/nonverbal cueing or touching/steadying/contact guard assistance fro m one helper? No. TOILETING HYGIENE - STEP 4: Does the patient need physical assistance - for example lifting or trunk support from one helper - wi th the helper providing less than half of the effort? Yes. 1. [id number] ADMISSION PERFORMANCE: Partial/moderate assistance CODE: 03 BATHING: Not assessed/no information CODE: - DRESSING - UPPER BODY: Not assessed/no information CODE: - DRESSING - LOWER BODY: Not assessed/no information CODE: - PUTTING ON/TAKING OFF FOOTWEAR: Not assessed/no information CODE: - ROLL LEFT AND RIGHT: ROLL LEFT AND RIGHT - STEP 1: Does the patient complete the activity by him/herself with no assistance (physical, verbal/nonverbal cueing, setup/clean-up)? No. ROLL LEFT AND RIGHT - STEP 2: Does the patient need only setup/clean-up assistance from one helper? No. ROLL LEFT AND RIGHT - STEP 3: Does the patient need only verbal/nonverbal cueing or touching/steadying/contact guard assistance fro m one helper? No. ROLL LEFT AND RIGHT - STEP 4: Does the patient need physical assistance - for example lifting or trunk support from one helper - wi th the helper providing less than half of the effort? Yes. 1. [id number] ADMISSION PERFORMANCE: Partial/moderate assistance CODE: 03 SIT TO LYING: SIT TO LYING - STEP 1: Does the patient complete the activity by him/herself with no assistance (physical, verbal/nonverbal cueing, setup/clean-up)? No. SIT TO LYING - STEP 2: Does the patient need only setup/clean-up assistance from one helper? No. SIT TO LYING - STEP 3: Does the patient need only verbal/nonverbal cueing or touching/steadying/contact guard assistance fro m one helper? No. SIT TO LYING - STEP 4: Does the patient need physical assistance - for example lifting or trunk support from one helper - wi th the helper providing less than half of the effort? Yes. 1. [id number] ADMISSION PERFORMANCE: Partial/moderate assistance CODE: 03 LYING TO SITTING: Not assessed/no information CODE: - SIT TO STAND: Not assessed/no information CODE: - TRANSFERS: BED, CHAIR: Not assessed/no information CODE: - TRANSFER TOILET: Not assessed/no information CODE: - TRANSFERS: CAR: Not assessed/no information CODE: - WALK 10 FEET: Not assessed/no information CODE: - 1 STEP (CURB): Not assessed/no information CODE: - PICKING UP OBJECT: Not assessed/no information CODE: - DOES THE PATIENT USE A WHEELCHAIR/SCOOTER? CODE: EXPR WHEEL 50 FEET WITH TWO TURNS: Not assessed/no information CODE: - INDICATE THE TYPE OF WHEELCHAIR/SCOOTER USED: CODE: EXPR WHEEL 150 FEET: Not assessed/no information CODE: - INDICATE THE TYPE OF WHEELCHAIR/SCOOTER USED: CODE: EXPR BLADDER AND BOWEL: H350. BLADDER CONTINENCE (3-DAY ASSESSMENT PERIOD): Always continent (no documented incontinence) CODE: 0 H400. BOWEL CONTINENCE (3-DAY ASSESSMENT PERIOD): Always continent CODE: 0
[2020-01-01] MEDS: ENOXAPARIN 40 MG/0.4 ML SQ SCH (06:29)
[2020-01-01] MEDS: INSULIN -REGULAR HUMAN 50 UNIT/0.5 ML ML SQ SCH ×4 (07:30→20:47)
[2020-01-01] MEDS: GLUCERNA SHAKE 237 ML CAN PO SCH ×2 (08:00→20:49)
[2020-01-01] MEDS: FLUCONAZOLE 100 MG TAB PO SCH (08:23)
[2020-01-01] MEDS: PENTOXIFYLLINE ER 400 MG TAB PO SCH ×2 (08:24→20:46)
[2020-01-01] MEDS: DULOXETINE 20 MG CAP PO SCH (08:24)
[2020-01-01] MEDS: GABAPENTIN 300 MG CAP PO SCH ×2 (08:24→20:46)
[2020-01-01] MEDS: levoFLOXacin 500 MG TAB PO SCH (08:24)
[2020-01-01] MEDS: ASPIRIN EC 81 MG TAB PO SCH (08:24)
[2020-01-01] MEDS: NICOTINE 14 MG/PAT TD SCH (09:09)
[2020-01-01] MEDS: NYSTATIN 100MU/GM CREAM 15GM TOP SCH ×2 (09:11→20:00)
[2020-01-01] MEDS: HYDROMORPHONE HCL 1 MG/ML INJ IV PRN (09:52)
[2020-01-01] MEDS ORDERED: MAGNES/ALUMIN/SIMET 30ML UCUP PO PRN (15:26)
[2020-01-01] MEDS: ONDANSETRON 4 MG/2 ML VIAL IV PRN (15:48)
[2020-01-01] MEDS: JANUMET PO SCH (16:53)
--- NOTE | 2020-01-01 16:56 | PN ---
Date of Progress Note: 01/01/2020 Subjective: Patient was seen for followup. He was sitting in wheelchair. Denied any complaints. Objective: VITAL SIGNS: Reviewed. HEENT: Unremarkable. LUNGS: Clear to auscultation. HEART: So unds normal. ABDOMEN: Soft. Bowel sounds normal. No guarding, rigidity, tenderness, distention. EXTREMITIES: No leg edema. His right foot great toe bruising from the deep of the toe has resolved now. Impression: 1.Peripheral vascular disease, status post left below-knee amputation. 2.Diabetes mellitus. 3.Hypertension. 4.Anemia. Plan: We will continue current medications. Diarrhea problem has resolved. Continue current pain m edication and antibiotics per order. Continue gabapentin. DVT prophylaxis with Lovenox and physical therapy to be continued under guidance of Dr. Baldwin. DONI/MODL Voice ID: [id number] Report ID: [id number]
[2020-01-01] MEDS: INSULIN GLARGINE 100 UNITS/ML SQ SCH (20:46)
[2020-01-01] MEDS: ATORVASTATIN 10 MG TAB PO SCH (20:46)
[2020-01-02] MEDS: HYDROCODONE/APAP 7.5/325 MG TAB PO SCH ×2 (00:44→08:34)
[2020-01-02] MEDS: HYDROMORPHONE HCL 1 MG/ML INJ IV PRN (05:10)
[2020-01-02] MEDS: ENOXAPARIN 40 MG/0.4 ML SQ SCH (06:47)
[2020-01-02] MEDS: INSULIN -REGULAR HUMAN 50 UNIT/0.5 ML ML SQ SCH ×4 (07:30→20:55)
[2020-01-02] MEDS: NICOTINE 14 MG/PAT TD SCH (07:34)
[2020-01-02] MEDS: NYSTATIN 100MU/GM CREAM 15GM TOP SCH ×2 (07:36→20:52)
[2020-01-02] MEDS: GLUCERNA SHAKE 237 ML CAN PO SCH ×2 (08:00→20:00)
[2020-01-02] MEDS: ASPIRIN EC 81 MG TAB PO SCH (08:35)
[2020-01-02] MEDS: FLUCONAZOLE 100 MG TAB PO SCH (08:35)
[2020-01-02] MEDS: DULOXETINE 20 MG CAP PO SCH (08:35)
[2020-01-02] MEDS: PENTOXIFYLLINE ER 400 MG TAB PO SCH ×2 (08:35→20:52)
[2020-01-02] MEDS: GABAPENTIN 300 MG CAP PO SCH ×2 (08:35→20:52)
[2020-01-02] MEDS: levoFLOXacin 500 MG TAB PO SCH (08:35)
[2020-01-02] MEDS ORDERED: D50W 25 GM/50 ML SYRINGE/VIAL IV PRN (11:17)
[2020-01-02] MEDS ORDERED: GLUCAGON 1 MG/VIAL IM PRN (11:17)
[2020-01-02] MEDS: HYDROCODONE/APAP 7.5/325 MG TAB PO PRN (16:42)
[2020-01-02] MEDS: JANUMET PO SCH (17:14)
[2020-01-02] MEDS: ATORVASTATIN 10 MG TAB PO SCH (20:52)
[2020-01-02] MEDS: INSULIN GLARGINE 100 UNITS/ML SQ SCH (20:54)
[2020-01-03 05:55] LABS: Absolute Lymphocytes (CBC) 1.2 K/uL (0.7-4.9); Basophils % 0.5 % (0-1.3); Hematocrit 29.9 % (39.6-49.0); Lymphocytes % 8.8 % (15.3-44.8); RBC Red Blood Cell Count 3.29 M/uL (4.33-5.43)
[2020-01-03 06:06] LABS: Magnesium 1.6 mg/dL (1.8-2.4); Potassium 4.4 mmol/L (3.5-5.1)
[2020-01-03] MEDS: HYDROCODONE/APAP 7.5/325 MG TAB PO PRN ×3 (06:41→16:58)
[2020-01-03] MEDS ORDERED: MAGNESIUM SULFATE 1 gm IVPB 1 GM/100 ML BAG IV ONE (07:24)
[2020-01-03] MEDS: INSULIN -REGULAR HUMAN 50 UNIT/0.5 ML ML SQ SCH ×4 (07:30→20:02)
[2020-01-03] MEDS: GLUCERNA SHAKE 237 ML CAN PO SCH ×2 (08:00→19:59)
[2020-01-03] MEDS: FLUCONAZOLE 100 MG TAB PO SCH (08:26)
[2020-01-03] MEDS: ENOXAPARIN 40 MG/0.4 ML SQ SCH (08:26)
[2020-01-03] MEDS: NYSTATIN 100MU/GM CREAM 15GM TOP SCH ×2 (08:26→20:01)
[2020-01-03] MEDS: NICOTINE 14 MG/PAT TD SCH (08:26)
[2020-01-03] MEDS: levoFLOXacin 500 MG TAB PO SCH (08:27)
[2020-01-03] MEDS: GABAPENTIN 300 MG CAP PO SCH ×2 (08:27→20:00)
[2020-01-03] MEDS: ASPIRIN EC 81 MG TAB PO SCH (08:27)
[2020-01-03] MEDS: PENTOXIFYLLINE ER 400 MG TAB PO SCH ×2 (08:27→20:00)
[2020-01-03] MEDS: DULOXETINE 20 MG CAP PO SCH (08:27)
--- NOTE | 2020-01-03 13:14 | PN ---
Date of Progress Note: 01/03/2020 Subjective: Patient is awake, alert, no complaints. Objective: Vital Signs: Stable. Afebrile. Extremities: Examination of the BKA wound reveals there is an approximately 2.5 cm blister which was removed with a gauze. The skin underneath is very viable, very healthy. It is just an epidermal bl ister below the incision. Assessment: Status post left below-knee amputation. Recommendation: Neosporin on the blister site, dressing as ordered, physical therapy. /MODL Voice ID: [id number] Report ID: [id number]
[2020-01-03] MEDS: JANUMET PO SCH (16:49)
--- NOTE | 2020-01-03 17:36 | R.PN ---
ENCOUNTER DATE AND TIME: 01/03/2020 17:24 (REDUCER) NAME MARY CARMEN MILLER DATE OF : 1945 DATE OF ADMISSION: 12/28/2019 17:49 (REDUCER) Left Below the Knee AmputationCHIEF COMPLAINT: Left below the knee amputation and debility. SUBJECTIVE: Pt denied any depression. Pt denied any Shortness of Breath. Elevated WBC of 13.4, Hgb 10.0, Glucose 73 to 98, magnesium low at 1.6, stool shows 4+ yeast. Therapeutic exercises done with moderate assistance. Self-propelled wheelchair 250 feet with standby assistance. He is on Levaquin 500 mg daily, started 12/31/19. VITAL SIGNS Temperature: 97.3 F SBP/DBP: 147/76 Pulse: 83 Resp: 16 MEDICATION ALLERGIES: No Known Drug Allergies (NKDA) ENVIRONMENTAL ALLERGIES: None Known - Substance Allergies None Known - Other Allergies None Known CONSULT: Perform Consult Certified Prosthetic for prosthesis construction NURSING: - Shower allowing shower - Lab Results blood Sugar Check ACHS - Skin care per protocol PRECAUTIONS: - Weight Bearing Precaution NWB left LE ACTIVITIES OOB only with supervision THERAPIES: - Orthotics/Prosthetics Prosthetic Evaluation. - Dietary and Nutrition Adequate Nutrition. Nutritional Education. Nutritional Supplements. PHYSICAL EXAM - Gen Alert and awake Lying in bed No apparent distress Oriented to: person, time, and place - Skin Left BKA bandage in place with good hemostasis. Normacephalic - Eyes No abnormalities - ENMT No abnormalities - Neck No abnormalities - CVS RRR - Chest No abnormalities - Resp Clear to auscultation - Abd Soft - GI Non distended Deferred - No abnormalities - Ext Left BKA good hemostasis, dressing in place - MSK No focal deficits, mild diffuse weakness - Neuro No focal deficits - Psych No abnormalities ASSESSMENT: Pt. is a 74 yo Right-handed male.On 12/23/2019 he was admitted to [facility] with diagnosis Left Below the Knee Amputation.His impairment category is Amputation of Limb 05 - Unilateral Lower Limb Below the Knee (BK) (05.4).Pre-morbidly, Pt. was independent/mod-I in Locom otion, Safety Awareness, Balance, Social Cognition, Transfers Control, Sphincter Control, Self-Care, Communication, and Endurance; and he had good Locomotion, Balance, Safety Awareness, Social Cognition , Transfers Control, Sphincter Control, Self-Care, Communication, and Endurance.Currently, he has def icits of Locomotion, Balance, Safety Awareness, Transfers Control, Self-Care, Communication, and Endu bharat.Pt. is now referred to [facility] for acute in-patient rehabilitation in order to maximize patient's functional independence in activities of daily living, strength, ROM, an d mobility.- Rehab Goal Patient has realistic goal of being discharged at assistance level 6-Dar to reside at Home with Fam kaylee/Relatives. MDM/PLAN: - Physical Therapy Gait dysfunction - to improve, our physical therapists will perform initial evaluation of pt's statu s upon admission and devise an individualized program for Gait Training, and Wheel Chair mobility Inability to transfer - to improve, our physical therapists will perform initial evaluation of pt's status upon admission and devise an individualized program for Bed mobility Need for home safety evaluation - to improve, our physical therapists will perform initial evaluatio n of pt's status upon admission and devise an individualized program for Home Evaluation Need in caregiver upon discharge - to improve, our physical therapists will perform initial evaluati on of pt's status upon admission and devise an individualized program for Caregiver Training New precaution - to improve, our physical therapists will perform initial evaluation of pt's status upon admission and devise an individualized program for Patient precaution education Poor balance - to improve, our physical therapists will perform initial evaluation of pt's status up on admission and devise an individualized program for Balance Training Poor endurance - to improve, our physical therapists will perform initial evaluation of pt's status upon admission and devise an individualized program for Endurance Training Weakness - to improve, our physical therapists will perform initial evaluation of pt's status upon a dmission and devise an individualized program for Aquatic Therapy, Neuromuscular Reeducation, and Str engthening Achieving independence - to improve, our physical therapists will perform initial evaluation of pt's status upon admission and devise an individualized program for Community Reintegration Activities - Occupational Therapy ADL deficits - to improve, our occupation therapists will perform initial evaluation of pt's status upon admission and devise an individualized program for Bathing, Bed mobility, Community Reintegratio n, Cooking, Dressing, Eating, Fine Motor Skills, Grooming, Homemaking, Kitchen Mobility, Laundry, Pat ient Education, Safety Awareness, Splinting - Positioning, Transfers(Toilet, Tub, Shower), and Wheel Chair Management Need for critical care paramedic - to improve, our occupation therapists will perform initial evaluation of pt's status upon admission and devise an individualized program for Caregiver Training Weakness - to improve, our occupation therapists will perform initial evaluation of pt's status upon admission and devise an individualized program for Aquatic Therapy, Balance, Endurance, UE ROM, and UE strengthening - Other See attached MAR (Medication Administration Record) - Diet Type Continue ADA 1800 - Diet - Liquid Texture Continue Regular - Tube Feed Continue N/A - Lab Results blood Sugar Check ACHS - Weight Bearing Precaution NWB left LE - Skin care per protocol - N/A Perform Consult Certified Prosthetic for prosthesis construction - Diet - Solid Texture Continue Regular - Shower allowing shower FUNCTIONAL STATUS: UPDATED AT WEEKLY TEAM CONFERENCE - Bladder Same accident frequency: 7-Ind - No accidents in the past 7 days - Bowel Same accident frequency: 7-Ind - No accidents in the past 7 days - Walking Same score based on distance walked: 0(N/A) - Wheelchair Same score based on distance traveled: 0(N/A) FUNCTIONAL STATUS: - Self-Care A. Eating sup B. Grooming Jose C. Bathing modA D. Dressing - Upper Jose E. Dressing - Lower modA F. Toileting sup - Sphincter Control G. Bladder control Jose H. Bowel control Jose - Transfers Control I. Bed/Chair/Wheelchair modA J. Toilet modA K. Tub/Shower modA - Locomotion L. Walk/Wheelchair (B) modA M. Stairs ADNO - Communication N. Comprehension (B) Dar O. Expression (B) sup - Social Cognition P. Social Interaction Dar Q. Problem Solving Jose R. Memory modA - Endurance Poor - Balance Poor - Safety Awareness Poor QI SCORES: - Self-Care A. Eating 05-Setup or clean-up assistance B. Oral hygiene 05-Setup or clean-up assistance C. Toileting hygiene 03-Partial/moderate assistance E. Shower/bathe self 04-Supervision or touching assistance F. Upper body dressing 04-Supervision or touching assistance G. Lower body dressing 01-Dependent H. Putting on/taking off footwear 01-Dependent - Mobility A. Roll left and right 04-Supervision or touching assistance B. Sit to lying 04-Supervision or touching assistance C. Lying to sitting on side of bed 03-Partial/moderate assistance D. Sit to stand 03-Partial/moderate assistance E. Chair/vbt-nl-bwnlc transfer 03-Partial/moderate assistance F. Toilet transfer 03-Partial/moderate assistance G. Car transfer 10-Not attempted due to environmental limitations I. Walk 10 feet 88-Not attempted due to medical condition or safety concerns J. Walk 50 feet with two turns 88-Not attempted due to medical condition or safety concerns K. Walk 150 feet 88-Not attempted due to medical condition or safety concerns L. Walking 10 feet on uneven surfaces 88-Not attempted due to medical condition or safety concerns M. 1 step (curb) 88-Not attempted due to medical condition or safety concerns N. 4 steps 88-Not attempted due to medical condition or safety concerns O. 12 steps 88-Not attempted due to medical condition or safety concerns P. Picking up object 88-Not attempted due to medical condition or safety concerns R. Wheel 50 feet with two turns 88-Not attempted due to medical condition or safety concerns S. Wheel 150 feet 88-Not attempted due to medical condition or safety concerns - Bladder and Bowel Bladder continence 0-Always continent Bowel continence 0-Always continent - Endurance Fair - Balance Poor - Safety Awareness Fair [facility] DEFICITS: Self-Care, Mobility, Endurance, Balance, and Safety Awareness SIGNATURE PANEL: (REDUCER)
[2020-01-03] MEDS: ATORVASTATIN 10 MG TAB PO SCH (20:00)
[2020-01-03] MEDS: INSULIN GLARGINE 100 UNITS/ML SQ SCH (20:02)
--- NOTE | 2020-01-04 00:11 | PN ---
Date of Progress Note: 01/03/2020 Subjective: Patient was seen this morning for followup. No new complaints, problems reported by jay begum. Objective: Vital Signs: Reviewed. HEENT: Unremarkable. Lungs: Clear to auscultation. Heart: Heart sounds normal. Abdomen: Soft, bowel sounds normal. No guarding, rigidity, tenderness, or distention. Extremities: No leg edema. Skin: Right groin pink rash present, overall it is better than before. Laboratory Data: White count 13.4, hemoglobin 10, platelets 490. Sodium 140, potassium 4.4, chlorid e 103, bicarb 29, BUN 10, creatinine 0.95, glucose 98. Magnesium 1.6. Impression: 1.Anemia. 2.Hypomagnesemia. 3.Peripheral vascular disease. Plan: We will continue current medication. Replace magnesium per order IV today and starting tomorr ow, we will start oral magnesium supplement. Continue current DVT prophylaxis and yesterday morning patient had hypoglycemia, so insulin dose was reduced from 25 units down to 20 units subcutaneously a nd we will continue that. DONI/MODL Voice ID: [id number] Report ID: [id number]
[2020-01-04] MEDS: INSULIN -REGULAR HUMAN 50 UNIT/0.5 ML ML SQ SCH ×4 (07:30→18:47)
[2020-01-04] MEDS: MAGNESIUM OXIDE 400 MG TAB PO SCH ×2 (08:00→18:45)
[2020-01-04] MEDS: GLUCERNA SHAKE 237 ML CAN PO SCH ×2 (08:00→18:46)
[2020-01-04] MEDS: NYSTATIN 100MU/GM CREAM 15GM TOP SCH ×2 (08:00→18:44)
[2020-01-04] MEDS: HYDROCODONE/APAP 7.5/325 MG TAB PO PRN ×3 (08:36→18:45)
[2020-01-04] MEDS: PENTOXIFYLLINE ER 400 MG TAB PO SCH ×2 (08:36→18:45)
[2020-01-04] MEDS: GABAPENTIN 300 MG CAP PO SCH ×2 (08:36→18:45)
[2020-01-04] MEDS: FLUCONAZOLE 100 MG TAB PO SCH (08:36)
[2020-01-04] MEDS: levoFLOXacin 500 MG TAB PO SCH (08:36)
[2020-01-04] MEDS: LIDOCAINE 4% PATCH TOP SCH (08:37)
[2020-01-04] MEDS: DULOXETINE 20 MG CAP PO SCH (08:37)
[2020-01-04] MEDS: ASPIRIN EC 81 MG TAB PO SCH (08:37)
[2020-01-04] MEDS: NICOTINE 14 MG/PAT TD SCH (08:38)
[2020-01-04] MEDS: ENOXAPARIN 40 MG/0.4 ML SQ SCH (08:38)
[2020-01-04] MEDS: JANUMET PO SCH (16:27)
--- NOTE | 2020-01-04 17:27 | R.PN ---
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 SUBJECTIVE: Pt denied any depression. Pt denied any Shortness of Breath. Elevated WBC of 13.4, Hgb 10.0, Glucose 98 to 113, magnesium low at 1.6, stool shows 4+ yeast. Patient states that pain is under control. Self-propelled wheelchair 500 feet with standby assistance. He is not able to weight shift to his arms while using the rolling walker to move his right foot forw reji. VITAL SIGNS Temperature: 97.3 F SBP/DBP: 113/60 Pulse: 91 Resp: 14 MEDICATION ALLERGIES: No Known Drug Allergies (NKDA) ENVIRONMENTAL ALLERGIES: None Known - Substance Allergies None Known - Other Allergies None Known CONSULT: Perform Consult Certified Prosthetic for prosthesis construction NURSING: - Shower allowing shower - Lab Results blood Sugar Check ACHS - Skin care per protocol PRECAUTIONS: - Weight Bearing Precaution NWB left LE ACTIVITIES OOB only with supervision THERAPIES: - Orthotics/Prosthetics Prosthetic Evaluation. - Dietary and Nutrition Adequate Nutrition. Nutritional Education. Nutritional Supplements. PHYSICAL EXAM - Gen Alert and awake Lying in bed No apparent distress Oriented to: person, time, and place - Skin Left BKA bandage in place with good hemostasis. Normacephalic - Eyes No abnormalities - ENMT No abnormalities - Neck No abnormalities - CVS RRR - Chest No abnormalities - Resp Clear to auscultation - Abd Soft - GI Non distended Deferred - No abnormalities - Ext Left BKA good hemostasis, dressing in place - MSK No focal deficits, mild diffuse weakness - Neuro No focal deficits - Psych No abnormalities ASSESSMENT: Pt. is a 74 yo Right-handed male.On 12/23/2019 he was admitted to [facility] with diagnosis Left Below the Knee Amputation.His impairment category is Amputation of Limb 05 - Unilateral Lower Limb Below the Knee (BK) (05.4).Pre-morbidly, Pt. was independent/mod-I in Locom otion, Safety Awareness, Balance, Social Cognition, Transfers Control, Sphincter Control, Self-Care, Communication, and Endurance; and he had good Locomotion, Balance, Safety Awareness, Social Cognition , Transfers Control, Sphincter Control, Self-Care, Communication, and Endurance.Currently, he has def icits of Locomotion, Balance, Safety Awareness, Transfers Control, Self-Care, Communication, and Endu bharat.Pt. is now referred to [facility] for acute in-patient rehabilitation in order to maximize patient's functional independence in activities of daily living, strength, ROM, an d mobility.- Rehab Goal Patient has realistic goal of being discharged at assistance level 6-Dar to reside at Home with Fam kaylee/Relatives. MDM/PLAN: - Physical Therapy Gait dysfunction - to improve, our physical therapists will perform initial evaluation of pt's statu s upon admission and devise an individualized program for Gait Training, and Wheel Chair mobility Inability to transfer - to improve, our physical therapists will perform initial evaluation of pt's status upon admission and devise an individualized program for Bed mobility Need for home safety evaluation - to improve, our physical therapists will perform initial evaluatio n of pt's status upon admission and devise an individualized program for Home Evaluation Need in caregiver upon discharge - to improve, our physical therapists will perform initial evaluati on of pt's status upon admission and devise an individualized program for Caregiver Training New precaution - to improve, our physical therapists will perform initial evaluation of pt's status upon admission and devise an individualized program for Patient precaution education Poor balance - to improve, our physical therapists will perform initial evaluation of pt's status up on admission and devise an individualized program for Balance Training Poor endurance - to improve, our physical therapists will perform initial evaluation of pt's status upon admission and devise an individualized program for Endurance Training Weakness - to improve, our physical therapists will perform initial evaluation of pt's status upon a dmission and devise an individualized program for Aquatic Therapy, Neuromuscular Reeducation, and Str engthening Achieving independence - to improve, our physical therapists will perform initial evaluation of pt's status upon admission and devise an individualized program for Community Reintegration Activities - Occupational Therapy ADL deficits - to improve, our occupation therapists will perform initial evaluation of pt's status upon admission and devise an individualized program for Bathing, Bed mobility, Community Reintegratio n, Cooking, Dressing, Eating, Fine Motor Skills, Grooming, Homemaking, Kitchen Mobility, Laundry, Pat ient Education, Safety Awareness, Splinting - Positioning, Transfers(Toilet, Tub, Shower), and Wheel Chair Management Need for inpatient care manager rn - to improve, our occupation therapists will perform initial evaluation of pt's status upon admission and devise an individualized program for Caregiver Training Weakness - to improve, our occupation therapists will perform initial evaluation of pt's status upon admission and devise an individualized program for Aquatic Therapy, Balance, Endurance, UE ROM, and UE strengthening - Other See attached MAR (Medication Administration Record) - Diet Type Continue ADA 1800 - Diet - Liquid Texture Continue Regular - Tube Feed Continue N/A - Lab Results blood Sugar Check ACHS - Weight Bearing Precaution NWB left LE - Skin care per protocol - N/A Perform Consult Certified Prosthetic for prosthesis construction - Diet - Solid Texture Continue Regular - Shower allowing shower FUNCTIONAL STATUS: UPDATED AT WEEKLY TEAM CONFERENCE - Bladder Same accident frequency: 7-Ind - No accidents in the past 7 days - Bowel Same accident frequency: 7-Ind - No accidents in the past 7 days - Walking Same score based on distance walked: 0(N/A) - Wheelchair Same score based on distance traveled: 0(N/A) FUNCTIONAL STATUS: - Self-Care A. Eating sup B. Grooming Jose C. Bathing modA D. Dressing - Upper Jose E. Dressing - Lower modA F. Toileting sup - Sphincter Control G. Bladder control Jose H. Bowel control Jose - Transfers Control I. Bed/Chair/Wheelchair modA J. Toilet modA K. Tub/Shower modA - Locomotion L. Walk/Wheelchair (B) modA M. Stairs ADNO - Communication N. Comprehension (B) Dar O. Expression (B) sup - Social Cognition P. Social Interaction Dar Q. Problem Solving Jose R. Memory modA - Endurance Poor - Balance Poor - Safety Awareness Poor QI SCORES: - Self-Care A. Eating 05-Setup or clean-up assistance B. Oral hygiene 05-Setup or clean-up assistance C. Toileting hygiene 03-Partial/moderate assistance E. Shower/bathe self 04-Supervision or touching assistance F. Upper body dressing 04-Supervision or touching assistance G. Lower body dressing 01-Dependent H. Putting on/taking off footwear 01-Dependent - Mobility A. Roll left and right 04-Supervision or touching assistance B. Sit to lying 04-Supervision or touching assistance C. Lying to sitting on side of bed 03-Partial/moderate assistance D. Sit to stand 03-Partial/moderate assistance E. Chair/gwv-oj-ehqxw transfer 03-Partial/moderate assistance F. Toilet transfer 03-Partial/moderate assistance G. Car transfer 10-Not attempted due to environmental limitations I. Walk 10 feet 88-Not attempted due to medical condition or safety concerns J. Walk 50 feet with two turns 88-Not attempted due to medical condition or safety concerns K. Walk 150 feet 88-Not attempted due to medical condition or safety concerns L. Walking 10 feet on uneven surfaces 88-Not attempted due to medical condition or safety concerns M. 1 step (curb) 88-Not attempted due to medical condition or safety concerns N. 4 steps 88-Not attempted due to medical condition or safety concerns O. 12 steps 88-Not attempted due to medical condition or safety concerns P. Picking up object 88-Not attempted due to medical condition or safety concerns R. Wheel 50 feet with two turns 88-Not attempted due to medical condition or safety concerns S. Wheel 150 feet 88-Not attempted due to medical condition or safety concerns - Bladder and Bowel Bladder continence 0-Always continent Bowel continence 0-Always continent - Endurance Fair - Balance Poor - Safety Awareness Fair CURRENT FUNC. DEFICITS: Self-Care, Mobility, Endurance, Balance, and Safety Awareness SIGNATURE PANEL: (ADVERTISING INSERTER)
[2020-01-04] MEDS: INSULIN GLARGINE 100 UNITS/ML SQ SCH (18:46)
[2020-01-04] MEDS: ATORVASTATIN 10 MG TAB PO SCH (18:46)
--- NOTE | 2020-01-04 23:24 | PN ---
Date of Progress Note: 01/04/2020 Subjective: Patient was seen this morning for followup. No new complaints or problems reported by patient. Lying in bed, not in distress. was with him at bedside. Objective: Vital Signs: Reviewed. HEENT: Clear to auscultation. Heart: Sounds normal. Abdomen: Soft. Bowel sounds normal. No guarding, rigidity, tenderness, distention. Extremities: No right leg edema. Right groin area rash is significantly better compared to how it was when it first started. Impression: 1. Candidal infection of groin. 2. Peripheral vascular disease. 3. Diabetes mellitus. Plan: Patient's insulin was kept on hold last night. I have advised him to eat snack at bedtime like peanut butter crackers and we will continue to monitor fingerstick blood sugar. Continue Lovenox and other current medications. I will see him tomorrow for followup. Continue topical nystatin cream to groin area. DONI/MODL Voice ID: [id number] Report ID: [id number]
[2020-01-05] MEDS: HYDROCODONE/APAP 7.5/325 MG TAB PO PRN ×2 (06:53→12:55)
[2020-01-05] MEDS: ENOXAPARIN 40 MG/0.4 ML SQ SCH (07:00)
[2020-01-05] MEDS: INSULIN -REGULAR HUMAN 50 UNIT/0.5 ML ML SQ SCH ×4 (07:30→20:23)
[2020-01-05] MEDS: GLUCERNA SHAKE 237 ML CAN PO SCH ×2 (08:00→19:25)
[2020-01-05] MEDS: MAGNESIUM OXIDE 400 MG TAB PO SCH ×2 (08:00→19:26)
[2020-01-05] MEDS: NYSTATIN 100MU/GM CREAM 15GM TOP SCH ×2 (08:00→19:27)
[2020-01-05] MEDS: levoFLOXacin 500 MG TAB PO SCH (08:27)
[2020-01-05] MEDS: PENTOXIFYLLINE ER 400 MG TAB PO SCH ×2 (08:27→19:26)
[2020-01-05] MEDS: DULOXETINE 20 MG CAP PO SCH (08:27)
[2020-01-05] MEDS: ASPIRIN EC 81 MG TAB PO SCH (08:27)
[2020-01-05] MEDS: FLUCONAZOLE 100 MG TAB PO SCH (08:27)
[2020-01-05] MEDS: LIDOCAINE 4% PATCH TOP SCH (08:27)
[2020-01-05] MEDS: NICOTINE 14 MG/PAT TD SCH (08:28)
[2020-01-05] MEDS: GABAPENTIN 300 MG CAP PO SCH ×2 (08:28→19:26)
[2020-01-05] MEDS: HYDROMORPHONE HCL 1 MG/ML INJ IV PRN (08:52)
[2020-01-05] MEDS: JANUMET PO SCH (16:53)
--- NOTE | 2020-01-05 17:45 | R.PN ---
ENCOUNTER DATE AND TIME: 01/05/2020 17:41 (CLINICAL LIAISON) NAME MARY CARMEN MILLER DATE OF : 1945 DATE OF ADMISSION: 12/28/2019 17:49 (CLINICAL LIAISON) Left Below the Knee AmputationCHIEF COMPLAINT: Left below the knee amputation and debility. SUBJECTIVE: Pt denied any depression. Pt denied any Shortness of Breath. Elevated WBC of 13.4, Hgb 10.0, Glucose 98 to 152, magnesium low at 1.6, stool shows 4+ yeast. Patient states that pain is under control. Self-propelled wheelchair 750 feet with standby assistance. He is not able to weight shift to his arms while using the rolling walker to move his right foot forw reji. VITAL SIGNS Temperature: 97.2 F SBP/DBP: 142/72 Pulse: 80 Resp: 16 MEDICATION ALLERGIES: No Known Drug Allergies (NKDA) ENVIRONMENTAL ALLERGIES: None Known - Substance Allergies None Known - Other Allergies None Known CONSULT: Perform Consult Certified Prosthetic for prosthesis construction NURSING: - Shower allowing shower - Lab Results blood Sugar Check ACHS - Skin care per protocol PRECAUTIONS: - Weight Bearing Precaution NWB left LE ACTIVITIES OOB only with supervision THERAPIES: - Orthotics/Prosthetics Prosthetic Evaluation. - Dietary and Nutrition Adequate Nutrition. Nutritional Education. Nutritional Supplements. PHYSICAL EXAM - Gen Alert and awake Lying in bed No apparent distress Oriented to: person, time, and place - Skin Left BKA bandage in place with good hemostasis. Normacephalic - Eyes No abnormalities - ENMT No abnormalities - Neck No abnormalities - CVS RRR - Chest No abnormalities - Resp Clear to auscultation - Abd Soft - GI Non distended Deferred - No abnormalities - Ext Left BKA good hemostasis, dressing in place - MSK No focal deficits, mild diffuse weakness - Neuro No focal deficits - Psych No abnormalities ASSESSMENT: Pt. is a 74 yo Right-handed male.On 12/23/2019 he was admitted to [facility] with diagnosis Left Below the Knee Amputation.His impairment category is Amputation of Limb 05 - Unilateral Lower Limb Below the Knee (BK) (05.4).Pre-morbidly, Pt. was independent/mod-I in Locom otion, Safety Awareness, Balance, Social Cognition, Transfers Control, Sphincter Control, Self-Care, Communication, and Endurance; and he had good Locomotion, Balance, Safety Awareness, Social Cognition , Transfers Control, Sphincter Control, Self-Care, Communication, and Endurance.Currently, he has def icits of Locomotion, Balance, Safety Awareness, Transfers Control, Self-Care, Communication, and Endu bharat.Pt. is now referred to [facility] for acute in-patient rehabilitation in order to maximize patient's functional independence in activities of daily living, strength, ROM, an d mobility.- Rehab Goal Patient has realistic goal of being discharged at assistance level 6-Dar to reside at Home with Fam kaylee/Relatives. MDM/PLAN: - Physical Therapy Gait dysfunction - to improve, our physical therapists will perform initial evaluation of pt's statu s upon admission and devise an individualized program for Gait Training, and Wheel Chair mobility Inability to transfer - to improve, our physical therapists will perform initial evaluation of pt's status upon admission and devise an individualized program for Bed mobility Need for home safety evaluation - to improve, our physical therapists will perform initial evaluatio n of pt's status upon admission and devise an individualized program for Home Evaluation Need in caregiver upon discharge - to improve, our physical therapists will perform initial evaluati on of pt's status upon admission and devise an individualized program for Caregiver Training New precaution - to improve, our physical therapists will perform initial evaluation of pt's status upon admission and devise an individualized program for Patient precaution education Poor balance - to improve, our physical therapists will perform initial evaluation of pt's status up on admission and devise an individualized program for Balance Training Poor endurance - to improve, our physical therapists will perform initial evaluation of pt's status upon admission and devise an individualized program for Endurance Training Weakness - to improve, our physical therapists will perform initial evaluation of pt's status upon a dmission and devise an individualized program for Aquatic Therapy, Neuromuscular Reeducation, and Str engthening Achieving independence - to improve, our physical therapists will perform initial evaluation of pt's status upon admission and devise an individualized program for Community Reintegration Activities - Occupational Therapy ADL deficits - to improve, our occupation therapists will perform initial evaluation of pt's status upon admission and devise an individualized program for Bathing, Bed mobility, Community Reintegratio n, Cooking, Dressing, Eating, Fine Motor Skills, Grooming, Homemaking, Kitchen Mobility, Laundry, Pat ient Education, Safety Awareness, Splinting - Positioning, Transfers(Toilet, Tub, Shower), and Wheel Chair Management Need for adult care manager - to improve, our occupation therapists will perform initial evaluation of pt's status upon admission and devise an individualized program for Caregiver Training Weakness - to improve, our occupation therapists will perform initial evaluation of pt's status upon admission and devise an individualized program for Aquatic Therapy, Balance, Endurance, UE ROM, and UE strengthening - Other See attached MAR (Medication Administration Record) - Diet Type Continue ADA 1800 - Diet - Liquid Texture Continue Regular - Tube Feed Continue N/A - Lab Results blood Sugar Check ACHS - Weight Bearing Precaution NWB left LE - Skin care per protocol - N/A Perform Consult Certified Prosthetic for prosthesis construction - Diet - Solid Texture Continue Regular - Shower allowing shower FUNCTIONAL STATUS: UPDATED AT WEEKLY TEAM CONFERENCE - Bladder Same accident frequency: 7-Ind - No accidents in the past 7 days - Bowel Same accident frequency: 7-Ind - No accidents in the past 7 days - Walking Same score based on distance walked: 0(N/A) - Wheelchair Same score based on distance traveled: 0(N/A) FUNCTIONAL STATUS: - Self-Care A. Eating sup B. Grooming Jose C. Bathing modA D. Dressing - Upper Jose E. Dressing - Lower modA F. Toileting sup - Sphincter Control G. Bladder control Jose H. Bowel control Jose - Transfers Control I. Bed/Chair/Wheelchair modA J. Toilet modA K. Tub/Shower modA - Locomotion L. Walk/Wheelchair (B) modA M. Stairs ADNO - Communication N. Comprehension (B) Dra O. Expression (B) sup - Social Cognition P. Social Interaction Dar Q. Problem Solving Jose R. Memory modA - Endurance Poor - Balance Poor - Safety Awareness Poor QI SCORES: - Self-Care A. Eating 05-Setup or clean-up assistance B. Oral hygiene 05-Setup or clean-up assistance C. Toileting hygiene 03-Partial/moderate assistance E. Shower/bathe self 04-Supervision or touching assistance F. Upper body dressing 04-Supervision or touching assistance G. Lower body dressing 01-Dependent H. Putting on/taking off footwear 01-Dependent - Mobility A. Roll left and right 04-Supervision or touching assistance B. Sit to lying 04-Supervision or touching assistance C. Lying to sitting on side of bed 03-Partial/moderate assistance D. Sit to stand 03-Partial/moderate assistance E. Chair/yjv-[id number] transfer 03-Partial/moderate assistance F. Toilet transfer 03-Partial/moderate assistance G. Car transfer 10-Not attempted due to environmental limitations I. Walk 10 feet 88-Not attempted due to medical condition or safety concerns J. Walk 50 feet with two turns 88-Not attempted due to medical condition or safety concerns K. Walk 150 feet 88-Not attempted due to medical condition or safety concerns L. Walking 10 feet on uneven surfaces 88-Not attempted due to medical condition or safety concerns M. 1 step (curb) 88-Not attempted due to medical condition or safety concerns N. 4 steps 88-Not attempted due to medical condition or safety concerns O. 12 steps 88-Not attempted due to medical condition or safety concerns P. Picking up object 88-Not attempted due to medical condition or safety concerns R. Wheel 50 feet with two turns 88-Not attempted due to medical condition or safety concerns S. Wheel 150 feet 88-Not attempted due to medical condition or safety concerns - Bladder and Bowel Bladder continence 0-Always continent Bowel continence 0-Always continent - Endurance Fair - Balance Poor - Safety Awareness Fair CURRENT FUNC. DEFICITS: Self-Care, Mobility, Endurance, Balance, and Safety Awareness SIGNATURE PANEL: (CLINICAL LIAISON)
[2020-01-05] MEDS: JUVEN PACKET PO SCH (19:25)
[2020-01-05] MEDS: ATORVASTATIN 10 MG TAB PO SCH (19:26)
[2020-01-05] MEDS: INSULIN GLARGINE 100 UNITS/ML SQ SCH (20:23)
--- NOTE | 2020-01-06 00:07 | PN ---
Date of Progress Note: 01/05/2020 History Of Present Illness: Patient was seen this morning for followup. No new complaints problems reported by him. Lying in bed, not in distress. Physical Examination: Vital Signs: Reviewed. HEENT: Unremarkable. Lungs: Clear to auscultation. Heart: Sounds normal. Abdomen: Soft. Bowel sounds normal. No guarding, rigidity, tenderness, distention. Extremities: No leg edema. Skin: Right groin rash is almost completely resolved. Left groin still has some pink rash. Impression: 1.Candidal infection of skin, bilateral groin. 2.Peripheral vascular disease. 3.Diabetes mellitus. Plan: We will continue nystatin cream topically to both groin and continue other current medications including Lovenox. Continue physical therapy per guidance of Dr. Baldwin. I will see him tomorrow for followup. DONI/MODL Voice ID: [id number] Report ID: [id number]
[2020-01-06] MEDS: LOPERAMIDE HCL 2 MG CAPSULE PO PRN (02:09)
[2020-01-06 06:30] LABS: Absolute Lymphocytes (CBC) 1.6 K/uL (0.7-4.9); Basophils % 0.7 % (0-1.3); Hematocrit 29.5 % (39.6-49.0); Lymphocytes % 10.2 % (15.3-44.8); MPV 7.3 fL (7.6-11.3); RBC Red Blood Cell Count 3.24 M/uL (4.33-5.43)
[2020-01-06 06:41] LABS: Albumin 2.6 g/dL (3.4-5.0); Magnesium 1.7 mg/dL (1.8-2.4); Potassium 4.5 mmol/L (3.5-5.1); Prealbumin 17.7 mg/dL (20-40)
[2020-01-06] MEDS: INSULIN -REGULAR HUMAN 50 UNIT/0.5 ML ML SQ SCH ×4 (07:17→20:36)
[2020-01-06] MEDS: ENOXAPARIN 40 MG/0.4 ML SQ SCH (07:17)
[2020-01-06] MEDS: HYDROCODONE/APAP 7.5/325 MG TAB PO PRN ×2 (07:17→17:35)
[2020-01-06] MEDS: NYSTATIN 100MU/GM CREAM 15GM TOP SCH ×2 (08:00→20:00)
[2020-01-06] MEDS: MAGNESIUM OXIDE 400 MG TAB PO SCH ×2 (08:00→20:35)
[2020-01-06] MEDS: levoFLOXacin 500 MG TAB PO SCH (08:00)
[2020-01-06] MEDS: JUVEN PACKET PO SCH ×2 (08:00→20:40)
[2020-01-06] MEDS: GLUCERNA SHAKE 237 ML CAN PO SCH ×2 (08:00→20:00)
[2020-01-06] MEDS: LIDOCAINE 4% PATCH TOP SCH (08:42)
[2020-01-06] MEDS: GABAPENTIN 300 MG CAP PO SCH ×2 (08:42→20:35)
[2020-01-06] MEDS: FLUCONAZOLE 100 MG TAB PO SCH (08:43)
[2020-01-06] MEDS: DULOXETINE 20 MG CAP PO SCH (08:43)
[2020-01-06] MEDS: NICOTINE 14 MG/PAT TD SCH (08:43)
[2020-01-06] MEDS: PENTOXIFYLLINE ER 400 MG TAB PO SCH ×2 (08:43→20:35)
[2020-01-06] MEDS: ASPIRIN EC 81 MG TAB PO SCH (08:43)
[2020-01-06] MEDS ORDERED: CEFEPIME 1 GM/VIAL IV SCH (09:00)
[2020-01-06] MEDS: CEFEPIME/SWI 1gm 10 ML IV SCH ×2 (10:00→20:35)
[2020-01-06] MEDS: METRONIDAZOLE 500mg IVPB 500 MG/100 ML BAG IV SCH ×2 (10:00→17:34)
--- NOTE | 2020-01-06 10:34 | FAST ---
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 Fercho Baldwin M.D. ADMISSION DIAGNOSIS: - Amputation of Limb 05 - Unilateral Lower Limb Below the Knee (BK) (05.4) Left Below the Knee Amputation. ROLL LEFT AND RIGHT: ROLL LEFT AND RIGHT - STEP 1: Does the patient complete the activity by him/herself with no assistance (physical, verbal/nonverbal cueing, setup/clean-up)? Yes. 1. [id number] ADMISSION PERFORMANCE: Independent CODE: 06 SIT TO LYING: SIT TO LYING - STEP 1: Does the patient complete the activity by him/herself with no assistance (physical, verbal/nonverbal cueing, setup/clean-up)? Yes. 1. [id number] ADMISSION PERFORMANCE: Independent CODE: 06 LYING TO SITTING: LYING TO SITTING ON SIDE OF BED - STEP 1: Does the patient complete the activity by him/herself with no assistance (physical, verbal/nonverbal cueing, setup/clean-up)? Yes. 1. [id number] ADMISSION PERFORMANCE: Independent CODE: 06 SIT TO STAND: SIT TO STAND - STEP 1: Does the patient complete the activity by him/herself with no assistance (physical, verbal/nonverbal cueing, setup/clean-up)? No. SIT TO STAND - STEP 2: Does the patient need only setup/clean-up assistance from one helper? No. SIT TO STAND - STEP 3: Does the patient need only verbal/nonverbal cueing or touching/steadying/contact guard assistance fro m one helper? No. SIT TO STAND - STEP 4: Does the patient need physical assistance - for example lifting or trunk support from one helper - wi th the helper providing less than half of the effort? Yes. 1. [id number] ADMISSION PERFORMANCE: Partial/moderate assistance CODE: 03 TRANSFERS: BED, CHAIR: CHAIR/[id number] TRANSFER - STEP 1: Does the patient complete the activity by him/herself with no assistance (physical, verbal/nonverbal cueing, setup/clean-up)? No. CHAIR/[id number] TRANSFER - STEP 2: Does the patient need only setup/clean-up assistance from one helper? No. CHAIR/[id number] TRANSFER - STEP 3: Does the patient need only verbal/nonverbal cueing or touching/steadying/contact guard assistance fro m one helper? Yes. 1. [id number] ADMISSION PERFORMANCE: Supervision or touching assistance CODE: 04 TRANSFER TOILET: TOILET TRANSFER - STEP 1: Does the patient complete the activity by him/herself with no assistance (physical, verbal/nonverbal cueing, setup/clean-up)? No. TOILET TRANSFER - STEP 2: Does the patient need only setup/clean-up assistance from one helper? No. TOILET TRANSFER - STEP 3: Does the patient need only verbal/nonverbal cueing or touching/steadying/contact guard assistance fro m one helper? Yes. 1. [id number] ADMISSION PERFORMANCE: Supervision or touching assistance CODE: 04 TRANSFERS: CAR: Not attempted due to medical condition or safety concerns CODE: 88 WALK 10 FEET: Not attempted due to medical condition or safety concerns CODE: 88 1 STEP (CURB): Not attempted due to medical condition or safety concerns CODE: 88 PICKING UP OBJECT: Not attempted due to medical condition or safety concerns CODE: 88 DOES THE PATIENT USE A WHEELCHAIR/SCOOTER? Q1. DOES THE PATIENT USE A WHEELCHAIR/SCOOTER?: Yes CODE: 1 WHEEL 50 FEET WITH TWO TURNS: WHEEL 50 FEET WITH TWO TURNS - STEP 1: Does the patient complete the activity by him/herself with no assistance (physical, verbal/nonverbal cueing, setup/clean-up)? Yes. 1. [id number] ADMISSION PERFORMANCE: Independent CODE: 06 INDICATE THE TYPE OF WHEELCHAIR/SCOOTER USED: RR1. INDICATE THE TYPE OF WHEELCHAIR/SCOOTER USED.: Manual CODE: 1 WHEEL 150 FEET: WHEEL 150 FEET - STEP 1: Does the patient complete the activity by him/herself with no assistance (physical, verbal/nonverbal cueing, setup/clean-up)? Yes. 1. [id number] ADMISSION PERFORMANCE: Independent CODE: 06 INDICATE THE TYPE OF WHEELCHAIR/SCOOTER USED: SS1. INDICATE THE TYPE OF WHEELCHAIR/SCOOTER USED.: Manual CODE: 1 BLADDER AND BOWEL: CODE: EXPR CODE: EXPR SIGNATURE PANEL: The following modified sections: 1. [id number] Admission Performance, 1. [id number] Admission Performance, 1. [id number] Admission Performance, 1. [id number] Admission Performance, 1. [id number] Admission Performance, 1. [id number] Admission Performance, 1. [id number] Admission Performance, Q1. Does the patient use a wheel chair/scooter?, 1. [id number] Admission Performance, RR1. Indicate the type of wheelchair/scooter used., 1. [id number] Admission Performance, Code, SS1. Indicate the type of wheelchair/scooter used. were [tata ctronically] signed by Cristina Parra PTA on FriJan 06 2020 10:33:21 T-0600 (Central Standard Time)
[2020-01-06] MEDS: JANUMET PO SCH (17:35)
--- NOTE | 2020-01-06 20:14 | R.PN ---
ENCOUNTER DATE AND TIME: 01/06/2020 20:09 (PUMPMAN) NAME MARY CARMEN MILLER DATE OF : 1945 DATE OF ADMISSION: 12/28/2019 17:49 (PUMPMAN) Left Below the Knee AmputationCHIEF COMPLAINT: Left below the knee amputation and debility. SUBJECTIVE: Pt denied any depression. Pt denied any Shortness of Breath. Elevated WBC of 15.3, Hgb 10.1, Glucose 115 to 163, magnesium low at 1.7, prealbumin 17.7 Patient states that pain is under control. Self-propelled wheelchair 350 feet with independence. He is not able to weight shift to his arms while using the rolling walker to move his right foot forw reji. VITAL SIGNS Temperature: 97.2 F SBP/DBP: 162/72 Pulse: 88 Resp: 16 MEDICATION ALLERGIES: No Known Drug Allergies (NKDA) ENVIRONMENTAL ALLERGIES: None Known - Substance Allergies None Known - Other Allergies None Known CONSULT: Perform Consult Certified Prosthetic for prosthesis construction NURSING: - Shower allowing shower - Lab Results blood Sugar Check ACHS - Skin care per protocol PRECAUTIONS: - Weight Bearing Precaution NWB left LE ACTIVITIES OOB only with supervision THERAPIES: - Orthotics/Prosthetics Prosthetic Evaluation. - Dietary and Nutrition Adequate Nutrition. Nutritional Education. Nutritional Supplements. PHYSICAL EXAM - Gen Alert and awake Lying in bed No apparent distress Oriented to: person, time, and place - Skin Left BKA bandage in place with good hemostasis. Normacephalic - Eyes No abnormalities - ENMT No abnormalities - Neck No abnormalities - CVS RRR - Chest No abnormalities - Resp Clear to auscultation - Abd Soft - GI Non distended Deferred - No abnormalities - Ext Left BKA good hemostasis, dressing in place - MSK No focal deficits, mild diffuse weakness - Neuro No focal deficits - Psych No abnormalities ASSESSMENT: Pt. is a 74 yo Right-handed male.On 12/23/2019 he was admitted to [facility] with diagnosis Left Below the Knee Amputation.His impairment category is Amputation of Limb 05 - Unilateral Lower Limb Below the Knee (BK) (05.4).Pre-morbidly, Pt. was independent/mod-I in Locom otion, Safety Awareness, Balance, Social Cognition, Transfers Control, Sphincter Control, Self-Care, Communication, and Endurance; and he had good Locomotion, Balance, Safety Awareness, Social Cognition , Transfers Control, Sphincter Control, Self-Care, Communication, and Endurance.Currently, he has def icits of Locomotion, Balance, Safety Awareness, Transfers Control, Self-Care, Communication, and Endu bharat.Pt. is now referred to [facility] for acute in-patient rehabilitation in order to maximize patient's functional independence in activities of daily living, strength, ROM, an d mobility.- Rehab Goal Patient has realistic goal of being discharged at assistance level 6-Dar to reside at Home with Fam kaylee/Relatives. MDM/PLAN: - Physical Therapy Gait dysfunction - to improve, our physical therapists will perform initial evaluation of pt's statu s upon admission and devise an individualized program for Gait Training, and Wheel Chair mobility Inability to transfer - to improve, our physical therapists will perform initial evaluation of pt's status upon admission and devise an individualized program for Bed mobility Need for home safety evaluation - to improve, our physical therapists will perform initial evaluatio n of pt's status upon admission and devise an individualized program for Home Evaluation Need in caregiver upon discharge - to improve, our physical therapists will perform initial evaluati on of pt's status upon admission and devise an individualized program for Caregiver Training New precaution - to improve, our physical therapists will perform initial evaluation of pt's status upon admission and devise an individualized program for Patient precaution education Poor balance - to improve, our physical therapists will perform initial evaluation of pt's status up on admission and devise an individualized program for Balance Training Poor endurance - to improve, our physical therapists will perform initial evaluation of pt's status upon admission and devise an individualized program for Endurance Training Weakness - to improve, our physical therapists will perform initial evaluation of pt's status upon a dmission and devise an individualized program for Aquatic Therapy, Neuromuscular Reeducation, and Str engthening Achieving independence - to improve, our physical therapists will perform initial evaluation of pt's status upon admission and devise an individualized program for Community Reintegration Activities - Occupational Therapy ADL deficits - to improve, our occupation therapists will perform initial evaluation of pt's status upon admission and devise an individualized program for Bathing, Bed mobility, Community Reintegratio n, Cooking, Dressing, Eating, Fine Motor Skills, Grooming, Homemaking, Kitchen Mobility, Laundry, Pat ient Education, Safety Awareness, Splinting - Positioning, Transfers(Toilet, Tub, Shower), and Wheel Chair Management Need for rn homecare - to improve, our occupation therapists will perform initial evaluation of pt's status upon admission and devise an individualized program for Caregiver Training Weakness - to improve, our occupation therapists will perform initial evaluation of pt's status upon admission and devise an individualized program for Aquatic Therapy, Balance, Endurance, UE ROM, and UE strengthening - Other See attached MAR (Medication Administration Record) - Diet Type Continue ADA 1800 - Diet - Liquid Texture Continue Regular - Tube Feed Continue N/A - Lab Results blood Sugar Check ACHS - Weight Bearing Precaution NWB left LE - Skin care per protocol - N/A Perform Consult Certified Prosthetic for prosthesis construction - Diet - Solid Texture Continue Regular - Shower allowing shower FUNCTIONAL STATUS: UPDATED AT WEEKLY TEAM CONFERENCE - Bladder Same accident frequency: 7-Ind - No accidents in the past 7 days - Bowel Same accident frequency: 7-Ind - No accidents in the past 7 days - Walking Same score based on distance walked: 0(N/A) - Wheelchair Same score based on distance traveled: 0(N/A) FUNCTIONAL STATUS: - Self-Care A. Eating sup B. Grooming Jose C. Bathing modA D. Dressing - Upper Jose E. Dressing - Lower modA F. Toileting sup - Sphincter Control G. Bladder control Jose H. Bowel control Jose - Transfers Control I. Bed/Chair/Wheelchair modA J. Toilet modA K. Tub/Shower modA - Locomotion L. Walk/Wheelchair (B) modA M. Stairs ADNO - Communication N. Comprehension (B) Dar O. Expression (B) sup - Social Cognition P. Social Interaction Dar Q. Problem Solving Jose R. Memory modA - Endurance Poor - Balance Poor - Safety Awareness Poor QI SCORES: - Self-Care A. Eating 05-Setup or clean-up assistance B. Oral hygiene 05-Setup or clean-up assistance C. Toileting hygiene 03-Partial/moderate assistance E. Shower/bathe self 04-Supervision or touching assistance F. Upper body dressing 04-Supervision or touching assistance G. Lower body dressing 01-Dependent H. Putting on/taking off footwear 01-Dependent - Mobility A. Roll left and right 04-Supervision or touching assistance B. Sit to lying 04-Supervision or touching assistance C. Lying to sitting on side of bed 03-Partial/moderate assistance D. Sit to stand 03-Partial/moderate assistance E. Chair/[id number] transfer 03-Partial/moderate assistance F. Toilet transfer 03-Partial/moderate assistance G. Car transfer 10-Not attempted due to environmental limitations I. Walk 10 feet 88-Not attempted due to medical condition or safety concerns J. Walk 50 feet with two turns 88-Not attempted due to medical condition or safety concerns K. Walk 150 feet 88-Not attempted due to medical condition or safety concerns L. Walking 10 feet on uneven surfaces 88-Not attempted due to medical condition or safety concerns M. 1 step (curb) 88-Not attempted due to medical condition or safety concerns N. 4 steps 88-Not attempted due to medical condition or safety concerns O. 12 steps 88-Not attempted due to medical condition or safety concerns P. Picking up object 88-Not attempted due to medical condition or safety concerns R. Wheel 50 feet with two turns 88-Not attempted due to medical condition or safety concerns S. Wheel 150 feet 88-Not attempted due to medical condition or safety concerns - Bladder and Bowel Bladder continence 0-Always continent Bowel continence 0-Always continent - Endurance Fair - Balance Poor - Safety Awareness Fair [facility] DEFICITS: Self-Care, Mobility, Endurance, Balance, and Safety Awareness SIGNATURE PANEL: (PUMPMAN)
[2020-01-06] MEDS: ATORVASTATIN 10 MG TAB PO SCH (20:35)
[2020-01-06] MEDS: INSULIN GLARGINE 100 UNITS/ML SQ SCH (20:35)
--- NOTE | 2020-01-07 00:17 | PN ---
Date of Progress Note: 01/06/2020 Subjective: Patient was seen this morning for followup. was with him at bedside. Reported andree t patient had 2 episodes of vomiting and diarrhea yesterday once after lunch and once after dinner. thinks that this is all due to eating ice cream because in the past every time he had ice cream at home he had similar type of problem as he does not tolerate ice cream. I have advised him not to eat ice cream anymore. Objective: Vital Signs: Reviewed. HEENT: Unremarkable. Lungs: Clear to auscultation. Heart: Sounds normal. Abdomen: No guarding or rigidity. Mild tenderness in lower abdomen in supraumbilical region present . No rebound tenderness. Bowel sounds normoactive. No distention of abdomen. Extremities: No leg edema. Laboratory Data: White count has gone up this morning to 15.3, hemoglobin 10.1, and platelets 527. Sodium 135, potassium 4.5, chloride 102, bicarb 28, BUN 15, creatinine 1.06, glucose 152. Impression: 1.Leukocytosis. 2.Rule out acute gastroenteritis. 3.Diabetes mellitus. 4.Peripheral vascular disease. Plan: We will go ahead and discontinue Levaquin and start patient on cefepime and metronidazole per order. Continue other current medications. I will see him tomorrow for followup. DONI/MODL Voice ID: [id number] Report ID: [id number]
[2020-01-07] MEDS: METRONIDAZOLE 500mg IVPB 500 MG/100 ML BAG IV SCH ×3 (00:43→17:22)
[2020-01-07] MEDS: HYDROCODONE/APAP 7.5/325 MG TAB PO PRN ×3 (06:16→22:05)
[2020-01-07] MEDS: ENOXAPARIN 40 MG/0.4 ML SQ SCH (06:17)
[2020-01-07] MEDS: INSULIN -REGULAR HUMAN 50 UNIT/0.5 ML ML SQ SCH ×5 (07:30→22:18)
[2020-01-07] MEDS: GLUCERNA SHAKE 237 ML CAN PO SCH ×2 (08:00→22:06)
[2020-01-07] MEDS: JUVEN PACKET PO SCH ×2 (08:00→22:07)
[2020-01-07] MEDS: CEFEPIME/SWI 1gm 10 ML IV SCH ×2 (08:54→22:12)
[2020-01-07] MEDS: MAGNESIUM OXIDE 400 MG TAB PO SCH ×2 (08:56→20:00)
[2020-01-07] MEDS: GABAPENTIN 300 MG CAP PO SCH ×2 (08:56→22:05)
[2020-01-07] MEDS: PENTOXIFYLLINE ER 400 MG TAB PO SCH ×2 (08:56→22:04)
[2020-01-07] MEDS: ASPIRIN EC 81 MG TAB PO SCH (08:56)
[2020-01-07] MEDS: FLUCONAZOLE 100 MG TAB PO SCH (08:56)
[2020-01-07] MEDS: DULOXETINE 20 MG CAP PO SCH (08:56)
[2020-01-07] MEDS: NICOTINE 14 MG/PAT TD SCH (09:48)
[2020-01-07] MEDS: LIDOCAINE 4% PATCH TOP SCH (09:48)
[2020-01-07] MEDS: NYSTATIN 100MU/GM CREAM 15GM TOP SCH ×2 (09:49→22:07)
--- NOTE | 2020-01-07 10:00 | P.RH.PN ---
Estimated Length of Stay: 16 Expected Discharge Date: 01/12/20 Discharge Disposition Plan: Home Family Support: Yes Assisted Goal: Mobility, Transfers, Self Care Vital Signs: Last Vital Signs Temp 97.5 F 01/07/20 09:27 Pulse 79 01/07/20 09:27 Resp 16 01/07/20 09:27 BP 128/97 H 01/07/20 09:27 Pulse Ox 94 01/07/20 09:27 Laboratory: Laboratory Last Values WBC 15.3 K/uL (4.3-10.9) H D 01/06/20 05:54 RBC 3.24 M/uL (4.33-5.43) L 01/06/20 05:54 Hgb 10.1 g/dL (13.6-17.9) L 01/06/20 05:54 Hct 29.5 % (39.6-49.0) L 01/06/20 05:54 MCV 91.0 fL (80-100) 01/06/20 05:54 MCH 31.0 pg (27.0-35.0) 01/06/20 05:54 MCHC 34.1 g/dL (32.0-36.0) 01/06/20 05:54 RDW 13.2 % (12.1-15.2) 01/06/20 05:54 Plt Count 527 K/uL (152-406) H 01/06/20 05:54 MPV 7.3 fL (7.6-11.3) L 01/06/20 05:54 Plt Distribution Width Cancelled 12/30/19 06:00 Absolute Nucleated RBC Cancelled 12/30/19 06:00 Neutrophils % 81.6 % (41.7-73.7) H 01/06/20 05:54 Lymphocytes % 10.2 % (15.3-44.8) L 01/06/20 05:54 Monocytes % 5.9 % (3.3-12.3) 01/06/20 05:54 Eosinophils % 1.6 % (0-4.4) 01/06/20 05:54 Basophils % 0.7 % (0-1.3) 01/06/20 05:54 Nucleated RBC % Cancelled 12/30/19 06:00 Absolute Neutrophils 12.5 K/uL (1.8-8.0) H 01/06/20 05:54 Absolute Lymphocytes 1.6 K/uL (0.7-4.9) 01/06/20 05:54 Absolute Monocytes 0.9 K/uL (0.1-1.3) 01/06/20 05:54 Absolute Eosinophils 0.2 K/uL (0-0.5) 01/06/20 05:54 Absolute Basophils 0.1 K/uL (0-0.5) 01/06/20 05:54 Diff Path Review Cancelled 12/30/19 06:00 Sodium 135 mmol/L (136-145) L 01/06/20 05:54 Potassium 4.5 mmol/L (3.5-5.1) 01/06/20 05:54 Chloride 102 mmol/L (98-107) 01/06/20 05:54 Carbon Dioxide 28 mmol/L (21-32) 01/06/20 05:54 BUN 15 mg/dL (7-18) 01/06/20 05:54 Creatinine 1.06 mg/dL (0.55-1.3) 01/06/20 05:54 Estimated GFR 68 mL/min (=/>90) L 01/06/20 05:54 Glucose 153 mg/dL (74-106) H 01/06/20 05:54 POC Glucose 177 mg/dl (65-120) H 01/07/20 07:21 Calcium 9.0 mg/dL (8.5-10.1) 01/06/20 05:54 Magnesium 1.7 mg/dL (1.8-2.4) L 01/06/20 05:54 Albumin 2.6 g/dL (3.4-5.0) L 01/06/20 05:54 Prealbumin 17.7 mg/dL (20-40) L 01/06/20 05:54 C. difficile Ag & Toxin Ag neg : tox neg (NEG : NEG) 12/30/19 11:55 Weight: 135 lb Wound Present: Yes Closed Surgical Incision Present: Yes Negative Pressure Wound Therapy Present: No Physician Update: His labs were reviewed and are stable. He does not want to walk. He mobilizes with wheelchair and moderate asistance. Medical Issues: Patient is always continent with bladder and incontinent less than daily with bowel. WBC is 15.3, patient is taking Cefepime 1 gm Q12H IVPB and Metronidazole 500mg Q8H IVPB Pain Issues: Patient is taking Gabapentin 300mg BID PO, [place] 7.5/325mg Q8H PO PRN, Dilaudid 1mg IV Q3H PRN for pain. Functional Improvement: pt has good potential to improve; however, his personality and behavior could pose a hinderance to progress. Hopefully pt will comply with therapy staff and participate well in therapy services. Speech Therapy Update: Patient cont to present with mild cognitive-linguistic impairments compounded by poor motivation. Patient is often resistant to therapy. Patient requires a lot of encouragement and re-secheduling throughout the day due to pain, weakness, and not wanting to participate. Patient is a good verbal communicator. He is illiterate. Patient appears to be at his baseline level for cognitive functioning. Plan to d/c from caseload at this time due to poor cooperation. Summary: Patient's care plan and snf goals have been reviewed and revised as necessary. Please see the Rehabilitation Signature page for all necessary signatures.
--- NOTE | 2020-01-07 14:39 | PN ---
Date of Progress Note: 01/07/2020 Subjective: Patient was seen this morning for followup. He was sitting in a wheelchair, denied any complaints. No more abdominal pain, nausea, vomiting, diarrhea. Yesterday, he had a good appetite. Slept good last night according to my discussion with his this morning, and has good appetite. Objective: Vital Signs: Reviewed. HEENT: Examination unremarkable. Lungs: Clear to auscultation. Heart: Sounds normal. Abdomen: Soft. Bowel sounds normal. No guarding, rigidity, tenderness, or distention. Extremities: No leg edema. Impression: 1.Acute gastroenteritis. 2.Peripheral vascular disease. 3.Diabetes mellitus. Plan: We will continue current medications. Continue current antibiotic. We will repeat blood work tomorrow morning. Continue physical therapy under guidance of Dr. Baldwin. DONI/AUDIE Voice ID: [id number] Report ID: [id number]
[2020-01-07] MEDS: JANUMET PO SCH (17:22)
[2020-01-07] MEDS: ATORVASTATIN 10 MG TAB PO SCH (22:04)
[2020-01-07] MEDS: INSULIN GLARGINE 100 UNITS/ML SQ SCH (22:08)
[2020-01-08] MEDS: METRONIDAZOLE 500mg IVPB 500 MG/100 ML BAG IV SCH ×3 (01:30→17:27)
--- NOTE | 2020-01-08 02:34 | FAST ---
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 Fercho Baldwin M.D. ADMISSION DIAGNOSIS: - Amputation of Limb 05 - Unilateral Lower Limb Below the Knee (BK) (05.4) Left Below the Knee Amputation. EATING: Not assessed/no information CODE: - ORAL HYGIENE: Not assessed/no information CODE: - TOILETING HYGIENE: TOILETING HYGIENE - STEP 1: Does the patient complete the activity by him/herself with no assistance (physical, verbal/nonverbal cueing, setup/clean-up)? No. TOILETING HYGIENE - STEP 2: Does the patient need only setup/clean-up assistance from one helper? No. TOILETING HYGIENE - STEP 3: Does the patient need only verbal/nonverbal cueing or touching/steadying/contact guard assistance fro m one helper? Yes. 1. [id number] ADMISSION PERFORMANCE: Supervision or touching assistance CODE: 04 BATHING: Not assessed/no information CODE: - DRESSING - UPPER BODY: Not assessed/no information CODE: - DRESSING - LOWER BODY: Not assessed/no information CODE: - PUTTING ON/TAKING OFF FOOTWEAR: Not assessed/no information CODE: - ROLL LEFT AND RIGHT: ROLL LEFT AND RIGHT - STEP 1: Does the patient complete the activity by him/herself with no assistance (physical, verbal/nonverbal cueing, setup/clean-up)? No.a ROLL LEFT AND RIGHT - STEP 2: Does the patient need only setup/clean-up assistance from one helper? No. ROLL LEFT AND RIGHT - STEP 3: Does the patient need only verbal/nonverbal cueing or touching/steadying/contact guard assistance fro m one helper? Yes. 1. [id number] ADMISSION PERFORMANCE: Supervision or touching assistance CODE: 04 SIT TO LYING: SIT TO LYING - STEP 1: Does the patient complete the activity by him/herself with no assistance (physical, verbal/nonverbal cueing, setup/clean-up)? No. SIT TO LYING - STEP 2: Does the patient need only setup/clean-up assistance from one helper? No. SIT TO LYING - STEP 3: Does the patient need only verbal/nonverbal cueing or touching/steadying/contact guard assistance fro m one helper? Yes. 1. [id number] ADMISSION PERFORMANCE: Supervision or touching assistance CODE: 04 LYING TO SITTING: LYING TO SITTING ON SIDE OF BED - STEP 1: Does the patient complete the activity by him/herself with no assistance (physical, verbal/nonverbal cueing, setup/clean-up)? No. LYING TO SITTING ON SIDE OF BED - STEP 2: Does the patient need only setup/clean-up assistance from one helper? No. LYING TO SITTING ON SIDE OF BED - STEP 3: Does the patient need only verbal/nonverbal cueing or touching/steadying/contact guard assistance fro m one helper? Yes. 1. [id number] ADMISSION PERFORMANCE: Supervision or touching assistance CODE: 04 SIT TO STAND: SIT TO STAND - STEP 1: Does the patient complete the activity by him/herself with no assistance (physical, verbal/nonverbal cueing, setup/clean-up)? No. SIT TO STAND - STEP 2: Does the patient need only setup/clean-up assistance from one helper? No. SIT TO STAND - STEP 3: Does the patient need only verbal/nonverbal cueing or touching/steadying/contact guard assistance fro m one helper? Yes. 1. [id number] ADMISSION PERFORMANCE: Supervision or touching assistance CODE: 04 TRANSFERS: BED, CHAIR: CHAIR/[id number] TRANSFER - STEP 1: Does the patient complete the activity by him/herself with no assistance (physical, verbal/nonverbal cueing, setup/clean-up)? No. CHAIR/[id number] TRANSFER - STEP 2: Does the patient need only setup/clean-up assistance from one helper? No. CHAIR/[id number] TRANSFER - STEP 3: Does the patient need only verbal/nonverbal cueing or touching/steadying/contact guard assistance fro m one helper? Yes. 1. [id number] ADMISSION PERFORMANCE: Supervision or touching assistance CODE: 04 TRANSFER TOILET: TOILET TRANSFER - STEP 1: Does the patient complete the activity by him/herself with no assistance (physical, verbal/nonverbal cueing, setup/clean-up)? No. TOILET TRANSFER - STEP 2: Does the patient need only setup/clean-up assistance from one helper? No. TOILET TRANSFER - STEP 3: Does the patient need only verbal/nonverbal cueing or touching/steadying/contact guard assistance fro m one helper? Yes. 1. [id number] ADMISSION PERFORMANCE: Supervision or touching assistance CODE: 04 TRANSFERS: CAR: Not assessed/no information CODE: - WALK 10 FEET: Not assessed/no information CODE: - 1 STEP (CURB): Not assessed/no information CODE: - PICKING UP OBJECT: Not assessed/no information CODE: - DOES THE PATIENT USE A WHEELCHAIR/SCOOTER? CODE: EXPR WHEEL 50 FEET WITH TWO TURNS: Not assessed/no information CODE: - INDICATE THE TYPE OF WHEELCHAIR/SCOOTER USED: CODE: EXPR WHEEL 150 FEET: Not assessed/no information CODE: - INDICATE THE TYPE OF WHEELCHAIR/SCOOTER USED: CODE: EXPR BLADDER AND BOWEL: H350. BLADDER CONTINENCE (3-DAY ASSESSMENT PERIOD): Incontinent less than daily (e.g., once or twice during the 3-day assessment period) CODE: 2 H400. BOWEL CONTINENCE (3-DAY ASSESSMENT PERIOD): Always continent CODE: 0
[2020-01-08] MEDS: HYDROCODONE/APAP 7.5/325 MG TAB PO PRN ×3 (04:33→17:26)
[2020-01-08 06:26] LABS: Absolute Lymphocytes (CBC) 1.3 K/uL (0.7-4.9); Hematocrit 29.3 % (39.6-49.0); Lymphocytes % 8.1 % (15.3-44.8); MPV 7.1 fL (7.6-11.3); RBC Red Blood Cell Count 3.22 M/uL (4.33-5.43)
[2020-01-08 06:31] LABS: Magnesium 1.8 mg/dL (1.8-2.4); Potassium 4.4 mmol/L (3.5-5.1)
[2020-01-08] MEDS: NICOTINE 14 MG/PAT TD SCH (06:55)
[2020-01-08] MEDS: LIDOCAINE 4% PATCH TOP SCH (06:55)
[2020-01-08] MEDS: CEFEPIME/SWI 1gm 10 ML IV SCH ×2 (06:56→21:12)
[2020-01-08] MEDS: ENOXAPARIN 40 MG/0.4 ML SQ SCH (06:56)
[2020-01-08] MEDS: INSULIN -REGULAR HUMAN 50 UNIT/0.5 ML ML SQ SCH ×4 (07:30→21:11)
[2020-01-08] MEDS: GLUCERNA SHAKE 237 ML CAN PO SCH ×2 (08:00→20:00)
[2020-01-08] MEDS: NYSTATIN 100MU/GM CREAM 15GM TOP SCH ×2 (08:00→20:00)
[2020-01-08] MEDS: JUVEN PACKET PO SCH ×2 (08:00→20:00)
[2020-01-08] MEDS: ASPIRIN EC 81 MG TAB PO SCH (09:05)
[2020-01-08] MEDS: DULOXETINE 20 MG CAP PO SCH (09:06)
[2020-01-08] MEDS: PENTOXIFYLLINE ER 400 MG TAB PO SCH ×2 (09:06→21:12)
[2020-01-08] MEDS: FLUCONAZOLE 100 MG TAB PO SCH (09:06)
[2020-01-08] MEDS: MAGNESIUM OXIDE 400 MG TAB PO SCH ×2 (09:06→21:12)
[2020-01-08] MEDS: GABAPENTIN 300 MG CAP PO SCH ×2 (09:06→21:12)
--- NOTE | 2020-01-08 09:43 | RAD REPORT ---
EXAM DESCRIPTION: Madeline Single View01/08/2020 9:36 am CLINICAL HISTORY: Leukocytosis COMPARISON: December 2019 FINDINGS: The lungs appear clear of acute infiltrate. The heart is normal size IMPRESSION: No acute abnormalities displayed
--- NOTE | 2020-01-08 14:37 | PN ---
Date of Progress Note: 01/08/2020 Subjective: Patient was seen this morning for followup. Had 1 episode of diarrhea last night or early this morning as he reported. No vomiting. No abdominal pain. Objective: Vital Signs: Reviewed. HEENT: Unremarkable. Lungs: Clear to auscultation. Heart: Sounds normal. Abdomen: Soft. Bowel sounds normal. No guarding, rigidity, tenderness, or distention. Extremities: No leg edema. Right heel has bruising from the fall that happened a few days ago as he reported, but there is no evidence of any decubitus ulcer. Laboratory Data: White count 15.5, hemoglobin 9.9. Sodium 137, potassium 4.4, chloride 103, bicarb 29, BUN 22, creatinine 1.07. Glucose 157, magnesium 1.8. Impression: 1. Leukocytosis. 2. Acute gastroenteritis. 3. Peripheral vascular disease. 4. Diabetes mellitus. Plan: We will continue current medication. Continue current antibiotics. We will get a chest x-ray done today. Considering his persistent leukocytosis, abdominal exam is unremarkable and we will continue current antibiotics. Physical therapy to be provided under guidance of Dr. Baldwin. DONI/MODL Voice ID: [id number] Report ID: [id number] ONNI
[2020-01-08] MEDS: JANUMET PO SCH (17:28)
[2020-01-08] MEDS: INSULIN GLARGINE 100 UNITS/ML SQ SCH (21:11)
[2020-01-08] MEDS: ATORVASTATIN 10 MG TAB PO SCH (21:12)
[2020-01-09] MEDS: METRONIDAZOLE 500mg IVPB 500 MG/100 ML BAG IV SCH ×4 (00:06→23:55)
[2020-01-09] MEDS: LOPERAMIDE HCL 2 MG CAPSULE PO PRN ×2 (00:13→20:30)
[2020-01-09] MEDS: CEFEPIME/SWI 1gm 10 ML IV SCH ×2 (06:51→20:30)
[2020-01-09] MEDS: ENOXAPARIN 40 MG/0.4 ML SQ SCH (06:51)
[2020-01-09] MEDS: LIDOCAINE 4% PATCH TOP SCH (06:53)
[2020-01-09] MEDS: NICOTINE 14 MG/PAT TD SCH (06:53)
[2020-01-09] MEDS: INSULIN -REGULAR HUMAN 50 UNIT/0.5 ML ML SQ SCH ×4 (07:30→20:32)
[2020-01-09] MEDS: GLUCERNA SHAKE 237 ML CAN PO SCH ×2 (08:00→20:00)
[2020-01-09] MEDS: JUVEN PACKET PO SCH ×2 (08:00→20:00)
[2020-01-09] MEDS: HYDROCODONE/APAP 7.5/325 MG TAB PO PRN ×3 (08:11→23:55)
[2020-01-09] MEDS: FLUCONAZOLE 100 MG TAB PO SCH (08:13)
[2020-01-09] MEDS: ASPIRIN EC 81 MG TAB PO SCH (08:13)
[2020-01-09] MEDS: MAGNESIUM OXIDE 400 MG TAB PO SCH ×2 (08:13→20:31)
[2020-01-09] MEDS: PENTOXIFYLLINE ER 400 MG TAB PO SCH ×2 (08:13→20:30)
[2020-01-09] MEDS: DULOXETINE 20 MG CAP PO SCH (08:13)
[2020-01-09] MEDS: GABAPENTIN 300 MG CAP PO SCH ×2 (08:13→20:30)
[2020-01-09] MEDS: NYSTATIN 100MU/GM CREAM 15GM TOP SCH ×2 (08:14→20:00)
--- NOTE | 2020-01-09 13:17 | RAD REPORT ---
EXAM DESCRIPTION: CTAbdomen Pelvis W Contrast - 01/09/2020 12:56 pm CLINICAL HISTORY: Abdominal pain. abd pain COMPARISON: Abdomen Pelvis W Contrast dated 03/18/2019; CT ABD PELVIS W CONTRAST dated 05/12/2014 TECHNIQUE: Biphasic CT imaging of the abdomen and pelvis was performed with 100 ml non-ionic IV cont rast. All CT scans are performed using dose optimization technique as appropriate and may include automated exposure control or mA/KV adjustment according to patient size. FINDINGS: Linear subsegmental atelectasis is present both lung bases, greater on the right. Mild diffuse fatty liver is present. Cholecystectomy clips are seen. The spleen, pancreas, right adre nal gland is normal. Mild nodularity to the left adrenal gland seen. No renal mass or hydronephrosis. No bowel obstruction, free air, free fluid or abscess. There is prominent stool throughout the colon noted. The appendix appears absent. No evidence of significant lymphadenopathy. Small calcified lymp h node in the small bowel mesentery again noted, demonstrating long-term stability. No suspicious bony findings. IMPRESSION: Prominent diffuse fecal retention throughout the colon. Fatty liver.
--- NOTE | 2020-01-09 15:56 | PN ---
Date of Progress Note: 01/09/2020 Subjective: The patient was seen this morning for followup. was with him at bedside. He had diarrhea once early this morning and once last night as reported by . No nausea, no vomiting. Appetite is not good as reported by patient's . Objective: Vital Signs: Reviewed. HEENT: Unremarkable. Lungs: Clear to auscultation. Heart: Sounds normal. Abdomen: Soft. Bowel sounds normal. No guarding, rigidity, or distention. Presence of some mild tenderness in lower abdomen, suprapubic region present. Extremities: No leg edema. Right heel contusion unchanged. Laboratory Data: Fingerstick blood sugar readings reviewed. Impression: 1. Acute gastroenteritis. 2. Diabetes mellitus. 3. Peripheral vascular disease. Plan: We will go ahead and continue current medication, antibiotic. Stool C diff and culture were negative. We will continue current empiric antibiotic. Repeat blood work tomorrow and today we will go ahead and order a CAT scan of abdomen and pelvis with contrast. DONI/MODL Voice ID: [id number] Report ID: [id number] NONI
[2020-01-09] MEDS: JANUMET PO SCH (17:15)
[2020-01-09] MEDS: INSULIN GLARGINE 100 UNITS/ML SQ SCH (20:31)
[2020-01-09] MEDS: ATORVASTATIN 10 MG TAB PO SCH (20:32)
[2020-01-10 05:18] LABS: Absolute Lymphocytes (CBC) 1.7 K/uL (0.7-4.9); Basophils % 0.9 % (0-1.3); Lymphocytes % 12.2 % (15.3-44.8); MPV 7.1 fL (7.6-11.3); RBC Red Blood Cell Count 3.23 M/uL (4.33-5.43)
[2020-01-10 05:35] LABS: Albumin 2.3 g/dL (3.4-5.0); Bilirubin Total 0.3 mg/dL (0.2-1.0); Magnesium 1.9 mg/dL (1.8-2.4); Potassium 3.9 mmol/L (3.5-5.1)
[2020-01-10] MEDS: HYDROCODONE/APAP 7.5/325 MG TAB PO PRN ×2 (07:05→16:04)
[2020-01-10] MEDS: ENOXAPARIN 40 MG/0.4 ML SQ SCH (07:05)
[2020-01-10] MEDS: INSULIN -REGULAR HUMAN 50 UNIT/0.5 ML ML SQ SCH ×4 (07:30→21:00)
[2020-01-10] MEDS: NYSTATIN 100MU/GM CREAM 15GM TOP SCH ×2 (08:00→20:00)
[2020-01-10] MEDS: GLUCERNA SHAKE 237 ML CAN PO SCH ×2 (08:00→20:00)
[2020-01-10] MEDS: JUVEN PACKET PO SCH ×2 (08:00→20:00)
[2020-01-10] MEDS: NICOTINE 14 MG/PAT TD SCH (08:58)
[2020-01-10] MEDS: FLUCONAZOLE 100 MG TAB PO SCH (08:58)
[2020-01-10] MEDS: DULOXETINE 20 MG CAP PO SCH (08:58)
[2020-01-10] MEDS: ASPIRIN EC 81 MG TAB PO SCH (08:58)
[2020-01-10] MEDS: LIDOCAINE 4% PATCH TOP SCH (08:58)
[2020-01-10] MEDS: MAGNESIUM OXIDE 400 MG TAB PO SCH ×2 (08:58→20:44)
[2020-01-10] MEDS: PENTOXIFYLLINE ER 400 MG TAB PO SCH ×2 (08:58→20:44)
[2020-01-10] MEDS: GABAPENTIN 300 MG CAP PO SCH ×2 (08:58→20:45)
[2020-01-10] MEDS: CEFEPIME/SWI 1gm 10 ML IV SCH ×2 (09:00→20:45)
[2020-01-10] MEDS: METRONIDAZOLE 500mg IVPB 500 MG/100 ML BAG IV SCH ×2 (09:49→16:43)
[2020-01-10] MEDS: JANUMET PO SCH (16:43)
[2020-01-10] MEDS: ATORVASTATIN 10 MG TAB PO SCH (20:44)
[2020-01-10] MEDS: INSULIN GLARGINE 100 UNITS/ML SQ SCH (21:00)
--- NOTE | 2020-01-10 23:27 | R.PN ---
ENCOUNTER DATE AND TIME: 01/10/2020 23:24 (CDT) NAME MARY CARMEN MILLER DATE OF : 1945 DATE OF ADMISSION: 12/28/2019 17:49 ([employer]) Left Below the Knee AmputationCHIEF COMPLAINT: Left below the knee amputation and debility. SUBJECTIVE: Pt denied any depression. Pt denied any Shortness of Breath. Elevated WBC of 15.3, Hgb 10.1, Glucose 115 to 163, magnesium low at 1.7, prealbumin 17.7 Patient states that pain is under control. Self-propelled wheelchair 350 feet with independence. He is not able to weight shift to his arms while using the rolling walker to move his right foot forw reji. Therapeutic exercises done with supervision. VITAL SIGNS Temperature: 97.5 F SBP/DBP: 143/78 Pulse: 85 Resp: 16 MEDICATION ALLERGIES: No Known Drug Allergies (NKDA) ENVIRONMENTAL ALLERGIES: None Known - Substance Allergies None Known - Other Allergies None Known CONSULT: Perform Consult Certified Prosthetic for prosthesis construction NURSING: - Shower allowing shower - Lab Results blood Sugar Check ACHS - Skin care per protocol PRECAUTIONS: - Weight Bearing Precaution NWB left LE ACTIVITIES OOB only with supervision THERAPIES: - Orthotics/Prosthetics Prosthetic Evaluation. - Dietary and Nutrition Adequate Nutrition. Nutritional Education. Nutritional Supplements. PHYSICAL EXAM - Gen Alert and awake Lying in bed No apparent distress Oriented to: person, time, and place - Skin Left BKA bandage in place with good hemostasis. Normacephalic - Eyes No abnormalities - ENMT No abnormalities - Neck No abnormalities - CVS RRR - Chest No abnormalities - Resp Clear to auscultation - Abd Soft - GI Non distended Deferred - No abnormalities - Ext Left BKA good hemostasis, dressing in place - MSK No focal deficits, mild diffuse weakness - Neuro No focal deficits - Psych No abnormalities ASSESSMENT: Pt. is a 74 yo Right-handed male.On 12/23/2019 he was admitted to [facility] with diagnosis Left Below the Knee Amputation.His impairment category is Amputation of Limb 05 - Unilateral Lower Limb Below the Knee (BK) (05.4).Pre-morbidly, Pt. was independent/mod-I in Locom otion, Safety Awareness, Balance, Social Cognition, Transfers Control, Sphincter Control, Self-Care, Communication, and Endurance; and he had good Locomotion, Balance, Safety Awareness, Social Cognition , Transfers Control, Sphincter Control, Self-Care, Communication, and Endurance.Currently, he has def icits of Locomotion, Balance, Safety Awareness, Transfers Control, Self-Care, Communication, and Endu bharat.Pt. is now referred to [facility] for acute in-patient rehabilitation in order to maximize patient's functional independence in activities of daily living, strength, ROM, an d mobility.- Rehab Goal Patient has realistic goal of being discharged at assistance level 6-Dar to reside at Home with Fam kaylee/Relatives. MDM/PLAN: - Physical Therapy Gait dysfunction - to improve, our physical therapists will perform initial evaluation of pt's statu s upon admission and devise an individualized program for Gait Training, and Wheel Chair mobility Inability to transfer - to improve, our physical therapists will perform initial evaluation of pt's status upon admission and devise an individualized program for Bed mobility Need for home safety evaluation - to improve, our physical therapists will perform initial evaluatio n of pt's status upon admission and devise an individualized program for Home Evaluation Need in caregiver upon discharge - to improve, our physical therapists will perform initial evaluati on of pt's status upon admission and devise an individualized program for Caregiver Training New precaution - to improve, our physical therapists will perform initial evaluation of pt's status upon admission and devise an individualized program for Patient precaution education Poor balance - to improve, our physical therapists will perform initial evaluation of pt's status up on admission and devise an individualized program for Balance Training Poor endurance - to improve, our physical therapists will perform initial evaluation of pt's status upon admission and devise an individualized program for Endurance Training Weakness - to improve, our physical therapists will perform initial evaluation of pt's status upon a dmission and devise an individualized program for Aquatic Therapy, Neuromuscular Reeducation, and Str engthening Achieving independence - to improve, our physical therapists will perform initial evaluation of pt's status upon admission and devise an individualized program for Community Reintegration Activities - Occupational Therapy ADL deficits - to improve, our occupation therapists will perform initial evaluation of pt's status upon admission and devise an individualized program for Bathing, Bed mobility, Community Reintegratio n, Cooking, Dressing, Eating, Fine Motor Skills, Grooming, Homemaking, Kitchen Mobility, Laundry, Pat ient Education, Safety Awareness, Splinting - Positioning, Transfers(Toilet, Tub, Shower), and Wheel Chair Management Need for transition of care specialist - to improve, our occupation therapists will perform initial evaluation of pt's status upon admission and devise an individualized program for Caregiver Training Weakness - to improve, our occupation therapists will perform initial evaluation of pt's status upon admission and devise an individualized program for Aquatic Therapy, Balance, Endurance, UE ROM, and UE strengthening - Other See attached MAR (Medication Administration Record) - Diet Type Continue ADA 1800 - Diet - Liquid Texture Continue Regular - Tube Feed Continue N/A - Lab Results blood Sugar Check ACHS - Weight Bearing Precaution NWB left LE - Skin care per protocol - N/A Perform Consult Certified Prosthetic for prosthesis construction - Diet - Solid Texture Continue Regular - Shower allowing shower FUNCTIONAL STATUS: UPDATED AT WEEKLY TEAM CONFERENCE - Bladder Same accident frequency: 7-Ind - No accidents in the past 7 days - Bowel Same accident frequency: 7-Ind - No accidents in the past 7 days - Walking Same score based on distance walked: 0(N/A) - Wheelchair Same score based on distance traveled: 0(N/A) FUNCTIONAL STATUS: - Self-Care A. Eating sup B. Grooming Jose C. Bathing modA D. Dressing - Upper Jose E. Dressing - Lower modA F. Toileting sup - Sphincter Control G. Bladder control Jose H. Bowel control Jose - Transfers Control I. Bed/Chair/Wheelchair modA J. Toilet modA K. Tub/Shower modA - Locomotion L. Walk/Wheelchair (B) modA M. Stairs ADNO - Communication N. Comprehension (B) Dar O. Expression (B) sup - Social Cognition P. Social Interaction Dar Q. Problem Solving Jose R. Memory modA - Endurance Poor - Balance Poor - Safety Awareness Poor QI SCORES: - Self-Care A. Eating 05-Setup or clean-up assistance B. Oral hygiene 05-Setup or clean-up assistance C. Toileting hygiene 03-Partial/moderate assistance E. Shower/bathe self 04-Supervision or touching assistance F. Upper body dressing 04-Supervision or touching assistance G. Lower body dressing 01-Dependent H. Putting on/taking off footwear 01-Dependent - Mobility A. Roll left and right 04-Supervision or touching assistance B. Sit to lying 04-Supervision or touching assistance C. Lying to sitting on side of bed 03-Partial/moderate assistance D. Sit to stand 03-Partial/moderate assistance E. Chair/nhx-zk-[id number] transfer 03-Partial/moderate assistance F. Toilet transfer 03-Partial/moderate assistance G. Car transfer 10-Not attempted due to environmental limitations I. Walk 10 feet 88-Not attempted due to medical condition or safety concerns J. Walk 50 feet with two turns 88-Not attempted due to medical condition or safety concerns K. Walk 150 feet 88-Not attempted due to medical condition or safety concerns L. Walking 10 feet on uneven surfaces 88-Not attempted due to medical condition or safety concerns M. 1 step (curb) 88-Not attempted due to medical condition or safety concerns N. 4 steps 88-Not attempted due to medical condition or safety concerns O. 12 steps 88-Not attempted due to medical condition or safety concerns P. Picking up object 88-Not attempted due to medical condition or safety concerns R. Wheel 50 feet with two turns 88-Not attempted due to medical condition or safety concerns S. Wheel 150 feet 88-Not attempted due to medical condition or safety concerns - Bladder and Bowel Bladder continence 0-Always continent Bowel continence 0-Always continent - Endurance Fair - Balance Poor - Safety Awareness Fair [facility] DEFICITS: Self-Care, Mobility, Endurance, Balance, and Safety Awareness SIGNATURE PANEL: (CDT)
[2020-01-11] MEDS: METRONIDAZOLE 500mg IVPB 500 MG/100 ML BAG IV SCH ×3 (00:39→16:04)
--- NOTE | 2020-01-11 00:44 | PN ---
Date of Progress Note: 01/10/2020 Subjective: Patient was seen this morning for followup. No new complaints or problems reported by melissa agosto. His was present with him at bedside. Objective: Vital Signs: Reviewed. HEENT: Unremarkable. Lungs: Clear to auscultation. Heart: Sounds normal. Abdomen: Soft. Bowel sounds are normal. No guarding, rigidity, tenderness, distention. Extremities: No leg edema. Skin: Rash from both groins is significantly better, almost completely healed and right lateral heel bruising is better as well. Laboratory Data: White count 14.1, hemoglobin 9.8, platelets 542. Sodium 137, potassium 3.9, chlori de 103, bicarb 29, BUN 12, creatinine 0.87, glucose 68. Liver function tests unremarkable. Impression: 1.Peripheral vascular disease. 2.Candidal infection of skin, groin. 3.Acute gastroenteritis. 4.Anemia. 5.Diabetes mellitus. Plan: Patient's appetite is not that good lately, and some of it could be due to antibiotics and we would definitely like to see how his appetite improves once we stop his antibiotic. Meanwhile, sonia mata current antibiotics, physical therapy under the guidance of Dr. Baldwin, and topical antifungal medication. I will see him tomorrow for followup. DONI/MODL Voice ID: [id number] Report ID: [id number]
[2020-01-11] MEDS: HYDROCODONE/APAP 7.5/325 MG TAB PO PRN ×2 (06:45→11:45)
[2020-01-11] MEDS: INSULIN -REGULAR HUMAN 50 UNIT/0.5 ML ML SQ SCH ×4 (07:17→20:31)
[2020-01-11] MEDS: NICOTINE 14 MG/PAT TD SCH (07:17)
[2020-01-11] MEDS: CEFEPIME/SWI 1gm 10 ML IV SCH ×2 (07:17→20:30)
[2020-01-11] MEDS: GLUCERNA SHAKE 237 ML CAN PO SCH ×2 (08:00→20:00)
[2020-01-11] MEDS: NYSTATIN 100MU/GM CREAM 15GM TOP SCH ×2 (08:00→20:00)
[2020-01-11] MEDS: JUVEN PACKET PO SCH ×2 (08:00→20:31)
[2020-01-11] MEDS: LIDOCAINE 4% PATCH TOP SCH (09:05)
[2020-01-11] MEDS: PENTOXIFYLLINE ER 400 MG TAB PO SCH ×2 (09:06→20:30)
[2020-01-11] MEDS: DULOXETINE 20 MG CAP PO SCH (09:06)
[2020-01-11] MEDS: MAGNESIUM OXIDE 400 MG TAB PO SCH ×2 (09:06→20:30)
[2020-01-11] MEDS: ASPIRIN EC 81 MG TAB PO SCH (09:06)
[2020-01-11] MEDS: ENOXAPARIN 40 MG/0.4 ML SQ SCH (09:07)
[2020-01-11] MEDS: GABAPENTIN 300 MG CAP PO SCH ×2 (09:07→20:30)
--- NOTE | 2020-01-11 15:33 | FAST ---
SHIFT START DATE/TIME: 01/11/2020 07:00 (CDT) SHIFT END DATE/TIME: 01/11/2020 19:00 (CDT) NAME MARY CARMEN MILLER DATE OF : 1945 DATE OF ADMISSION: 12/28/2019 17:49 ([employer]ER) PHONE: AGE: 74 N# [id number] GENDER: Male ENCOUNTER PHYSICIAN: Dr. Fercho Baldwin M.D. ADMISSION DIAGNOSIS: - Amputation of Limb 05 - Unilateral Lower Limb Below the Knee (BK) (05.4) Left Below the Knee Amputation. EATING: EATING - STEP 1: Does the patient complete the activity by him/herself with no assistance (physical, verbal/nonverbal cueing, setup/clean-up)? No. EATING - STEP 2: Does the patient need only setup/clean-up assistance from one helper? No. EATING - STEP 3: Does the patient need only verbal/nonverbal cueing or touching/steadying/contact guard assistance fro m one helper? Yes. 1. [id number] ADMISSION PERFORMANCE: Supervision or touching assistance CODE: 04 ORAL HYGIENE: Patient refused CODE: 07 TOILETING HYGIENE: TOILETING HYGIENE - STEP 1: Does the patient complete the activity by him/herself with no assistance (physical, verbal/nonverbal cueing, setup/clean-up)? No. TOILETING HYGIENE - STEP 2: Does the patient need only setup/clean-up assistance from one helper? Yes. 1. [id number] ADMISSION PERFORMANCE: Setup or clean-up assistance CODE: 05 BATHING: Not assessed/no information CODE: - DRESSING - UPPER BODY: DRESSING - UPPER BODY - STEP 1: Does the patient complete the activity by him/herself with no assistance (physical, verbal/nonverbal cueing, setup/clean-up)? No. DRESSING - UPPER BODY - STEP 2: Does the patient need only setup/clean-up assistance from one helper? Yes. 1. [id number] ADMISSION PERFORMANCE: Setup or clean-up assistance CODE: 05 DRESSING - LOWER BODY: DRESSING - LOWER BODY - STEP 1: Does the patient complete the activity by him/herself with no assistance (physical, verbal/nonverbal cueing, setup/clean-up)? No. DRESSING - LOWER BODY - STEP 2: Does the patient need only setup/clean-up assistance from one helper? Yes. 1. [id number] ADMISSION PERFORMANCE: Setup or clean-up assistance CODE: 05 PUTTING ON/TAKING OFF FOOTWEAR: FOOTWEAR - STEP 1: Does the patient complete the activity by him/herself with no assistance (physical, verbal/nonverbal cueing, setup/clean-up)? No. FOOTWEAR - STEP 2: Does the patient need only setup/clean-up assistance from one helper? No. FOOTWEAR - STEP 3: Does the patient need only verbal/nonverbal cueing or touching/steadying/contact guard assistance fro m one helper? No. FOOTWEAR - STEP 4: Does the patient need physical assistance - for example lifting or trunk support from one helper - wi th the helper providing less than half of the effort? No. FOOTWEAR - STEP 5: Does the patient need physical assistance - for example lifting or trunk support from one helper - wi th the helper providing more than half of the effort? Yes. 1. [id number] ADMISSION PERFORMANCE: Substantial/maximal assistance CODE: 02 DOES THE PATIENT USE A WHEELCHAIR/SCOOTER? CODE: EXPR INDICATE THE TYPE OF WHEELCHAIR/SCOOTER USED: CODE: EXPR INDICATE THE TYPE OF WHEELCHAIR/SCOOTER USED: CODE: EXPR BLADDER AND BOWEL: H350. BLADDER CONTINENCE (3-DAY ASSESSMENT PERIOD): Always continent (no documented incontinence) CODE: 0 H400. BOWEL CONTINENCE (3-DAY ASSESSMENT PERIOD): Occasionally incontinent (one episode of bowel incontinence) CODE: 1 SIGNATURE PANEL: The following modified sections: 1. [id number] Admission Performance, 1. [id number] Admission Performance, 1. [id number] Admission Performance, 1. MR2983m Admission Performance, 1. [id number] Admission Performance, 1. [id number] Admission Performance, 1. [id number] Admission Performance, H350. Bladder Continence (3-day assessment period), H400. Bowel Continence (3-day assessment period) were [electronically] signed by Jose KhanNCarrie on FriJan 11 2020 15:32:17 GMT-0500 (Central Daylight Time)
[2020-01-11] MEDS: JANUMET PO SCH (16:04)
--- NOTE | 2020-01-11 17:46 | R.PN ---
ENCOUNTER DATE AND TIME: 01/11/2020 17:42 (CDT) NAME MARY CARMEN MILLER DATE OF : 1945 DATE OF ADMISSION: 12/28/2019 17:49 ([employer]) Left Below the Knee AmputationCHIEF COMPLAINT: Left below the knee amputation and debility. SUBJECTIVE: Pt denied any depression. Pt denied any Shortness of Breath. Elevated WBC of 14.1, Hgb 9.8, Glucose 78 to 133, magnesium low at 1.7, prealbumin 17.7 Patient states that pain is under control. Self-propelled wheelchair 150 feet with standby assistance. He is not able to weight shift to his arms while using the rolling walker to move his right foot forw reji. VITAL SIGNS Temperature: 97.6 F SBP/DBP: 152/79 Pulse: 81 Resp: 16 MEDICATION ALLERGIES: No Known Drug Allergies (NKDA) ENVIRONMENTAL ALLERGIES: None Known - Substance Allergies None Known - Other Allergies None Known CONSULT: Perform Consult Certified Prosthetic for prosthesis construction NURSING: - Shower allowing shower - Lab Results blood Sugar Check ACHS - Skin care per protocol PRECAUTIONS: - Weight Bearing Precaution NWB left LE ACTIVITIES OOB only with supervision THERAPIES: - Orthotics/Prosthetics Prosthetic Evaluation. - Dietary and Nutrition Adequate Nutrition. Nutritional Education. Nutritional Supplements. PHYSICAL EXAM - Gen Alert and awake Lying in bed No apparent distress Oriented to: person, time, and place - Skin Left BKA bandage in place with good hemostasis. Normacephalic - Eyes No abnormalities - ENMT No abnormalities - Neck No abnormalities - CVS RRR - Chest No abnormalities - Resp Clear to auscultation - Abd Soft - GI Non distended Deferred - No abnormalities - Ext Left BKA good hemostasis, dressing in place - MSK No focal deficits, mild diffuse weakness - Neuro No focal deficits - Psych No abnormalities ASSESSMENT: Pt. is a 74 yo Right-handed male.On 12/23/[address] [facility] with diagnosis Left Below the Knee Amputation.His impairment category is Amputation of Limb 05 - Unilateral Lower Limb Below the Knee (BK) (05.4).Pre-morbidly, Pt. was independent/mod-I in Locom otion, Safety Awareness, Balance, Social Cognition, Transfers Control, Sphincter Control, Self-Care, Communication, and Endurance; and he had good Locomotion, Balance, Safety Awareness, Social Cognition , Transfers Control, Sphincter Control, Self-Care, Communication, and Endurance.Currently, he has def icits of Locomotion, Balance, Safety Awareness, Transfers Control, Self-Care, Communication, and Endu bharat.Pt. is now referred to [facility] for acute in-patient rehabilitation in order to maximize patient's functional independence in activities of daily living, strength, ROM, an d mobility.- Rehab Goal Patient has realistic goal of being discharged at assistance level 6-Dar to reside at Home with Fam kaylee/Relatives. MDM/PLAN: - Physical Therapy Gait dysfunction - to improve, our physical therapists will perform initial evaluation of pt's statu s upon admission and devise an individualized program for Gait Training, and Wheel Chair mobility Inability to transfer - to improve, our physical therapists will perform initial evaluation of pt's status upon admission and devise an individualized program for Bed mobility Need for home safety evaluation - to improve, our physical therapists will perform initial evaluatio n of pt's status upon admission and devise an individualized program for Home Evaluation Need in caregiver upon discharge - to improve, our physical therapists will perform initial evaluati on of pt's status upon admission and devise an individualized program for Caregiver Training New precaution - to improve, our physical therapists will perform initial evaluation of pt's status upon admission and devise an individualized program for Patient precaution education Poor balance - to improve, our physical therapists will perform initial evaluation of pt's status up on admission and devise an individualized program for Balance Training Poor endurance - to improve, our physical therapists will perform initial evaluation of pt's status upon admission and devise an individualized program for Endurance Training Weakness - to improve, our physical therapists will perform initial evaluation of pt's status upon a dmission and devise an individualized program for Aquatic Therapy, Neuromuscular Reeducation, and Str engthening Achieving independence - to improve, our physical therapists will perform initial evaluation of pt's status upon admission and devise an individualized program for Community Reintegration Activities - Occupational Therapy ADL deficits - to improve, our occupation therapists will perform initial evaluation of pt's status upon admission and devise an individualized program for Bathing, Bed mobility, Community Reintegratio n, Cooking, Dressing, Eating, Fine Motor Skills, Grooming, Homemaking, Kitchen Mobility, Laundry, Pat ient Education, Safety Awareness, Splinting - Positioning, Transfers(Toilet, Tub, Shower), and Wheel Chair Management Need for health care / medical job titles - to improve, our occupation therapists will perform initial evaluation of pt's status upon admission and devise an individualized program for Caregiver Training Weakness - to improve, our occupation therapists will perform initial evaluation of pt's status upon admission and devise an individualized program for Aquatic Therapy, Balance, Endurance, UE ROM, and UE strengthening - Other See attached MAR (Medication Administration Record) - Diet Type Continue ADA 1800 - Diet - Liquid Texture Continue Regular - Tube Feed Continue N/A - Lab Results blood Sugar Check ACHS - Weight Bearing Precaution NWB left LE - Skin care per protocol - N/A Perform Consult Certified Prosthetic for prosthesis construction - Diet - Solid Texture Continue Regular - Shower allowing shower FUNCTIONAL STATUS: UPDATED AT WEEKLY TEAM CONFERENCE - Bladder Same accident frequency: 7-Ind - No accidents in the past 7 days - Bowel Same accident frequency: 7-Ind - No accidents in the past 7 days - Walking Same score based on distance walked: 0(N/A) - Wheelchair Same score based on distance traveled: 0(N/A) FUNCTIONAL STATUS: - Self-Care A. Eating sup B. Grooming Jose C. Bathing modA D. Dressing - Upper Jose E. Dressing - Lower modA F. Toileting sup - Sphincter Control G. Bladder control Jose H. Bowel control Jose - Transfers Control I. Bed/Chair/Wheelchair modA J. Toilet modA K. Tub/Shower modA - Locomotion L. Walk/Wheelchair (B) modA M. Stairs ADNO - Communication N. Comprehension (B) Dar O. Expression (B) sup - Social Cognition P. Social Interaction Dar Q. Problem Solving Jose R. Memory modA - Endurance Poor - Balance Poor - Safety Awareness Poor QI SCORES: - Self-Care A. Eating 05-Setup or clean-up assistance B. Oral hygiene 05-Setup or clean-up assistance C. Toileting hygiene 03-Partial/moderate assistance E. Shower/bathe self 04-Supervision or touching assistance F. Upper body dressing 04-Supervision or touching assistance G. Lower body dressing 01-Dependent H. Putting on/taking off footwear 01-Dependent - Mobility A. Roll left and right 04-Supervision or touching assistance B. Sit to lying 04-Supervision or touching assistance C. Lying to sitting on side of bed 03-Partial/moderate assistance D. Sit to stand 03-Partial/moderate assistance E. Chair/zgw-he-[id number] transfer 03-Partial/moderate assistance F. Toilet transfer 03-Partial/moderate assistance G. Car transfer 10-Not attempted due to environmental limitations I. Walk 10 feet 88-Not attempted due to medical condition or safety concerns J. Walk 50 feet with two turns 88-Not attempted due to medical condition or safety concerns K. Walk 150 feet 88-Not attempted due to medical condition or safety concerns L. Walking 10 feet on uneven surfaces 88-Not attempted due to medical condition or safety concerns M. 1 step (curb) 88-Not attempted due to medical condition or safety concerns N. 4 steps 88-Not attempted due to medical condition or safety concerns O. 12 steps 88-Not attempted due to medical condition or safety concerns P. Picking up object 88-Not attempted due to medical condition or safety concerns R. Wheel 50 feet with two turns 88-Not attempted due to medical condition or safety concerns S. Wheel 150 feet 88-Not attempted due to medical condition or safety concerns - Bladder and Bowel Bladder continence 0-Always continent Bowel continence 0-Always continent - Endurance Fair - Balance Poor - Safety Awareness Fair CURRENT FUNC. DEFICITS: Self-Care, Mobility, Endurance, Balance, and Safety Awareness SIGNATURE PANEL: (CDT)
[2020-01-11] MEDS: ONDANSETRON 4 MG/2 ML VIAL IV PRN (17:50)
[2020-01-11] MEDS: ATORVASTATIN 10 MG TAB PO SCH (20:30)
[2020-01-12] MEDS: METRONIDAZOLE 500mg IVPB 500 MG/100 ML BAG IV SCH ×3 (00:24→17:27)
--- NOTE | 2020-01-12 01:25 | PN ---
Date of Progress Note: 01/11/2020 Subjective: Patient was seen this morning for followup lying in bed not in distress. No diarrhea, a bdominal pain, nausea, vomiting. Objective: Vital Signs: Reviewed. HEENT: Unremarkable. Lungs: Clear to auscultation. Heart: Heart sounds normal. Abdomen: Soft. Bowel sounds normal. No guarding, rigidity, tenderness, distention. Extremities: No leg edema. Right heel wound bruising is improving. Impression: 1.Peripheral vascular disease. 2.Diabetes mellitus. 3.Hypertension. 4.Candidal infection of skin. 5.Acute gastroenteritis. Plan: We will continue current antibiotic, which is cefepime and metronidazole. Patient has receive d about 15-17 days of Diflucan, so we will go ahead and discontinue that. Candidal infection from bi lateral groin has significantly improved. We will continue nystatin cream. Patient's appetite has n ot been that good. I have advised to have regular bedtime snack for him and nursing staff was reques alvin to order that for the patient and we will discontinue nighttime dose of insulin which has been on hold for last few days. Patient continues to receive his Janumet. I will see him tomorrow for foll owup. DONI/MODL Voice ID: [id number] Report ID: [id number]
[2020-01-12] MEDS: ENOXAPARIN 40 MG/0.4 ML SQ SCH (07:18)
[2020-01-12] MEDS: CEFEPIME/SWI 1gm 10 ML IV SCH ×2 (07:19→19:11)
[2020-01-12] MEDS: INSULIN -REGULAR HUMAN 50 UNIT/0.5 ML ML SQ SCH ×4 (07:30→20:20)
[2020-01-12] MEDS: GLUCERNA SHAKE 237 ML CAN PO SCH ×2 (08:00→19:12)
[2020-01-12] MEDS: JUVEN PACKET PO SCH ×2 (08:00→19:12)
[2020-01-12] MEDS: HYDROCODONE/APAP 7.5/325 MG TAB PO PRN ×2 (09:13→19:11)
[2020-01-12] MEDS: lisinopriL 5 MG TAB PO SCH (09:14)
[2020-01-12] MEDS: GABAPENTIN 300 MG CAP PO SCH ×2 (09:14→19:12)
[2020-01-12] MEDS: ASPIRIN EC 81 MG TAB PO SCH (09:14)
[2020-01-12] MEDS: PENTOXIFYLLINE ER 400 MG TAB PO SCH ×2 (09:15→19:12)
[2020-01-12] MEDS: MAGNESIUM OXIDE 400 MG TAB PO SCH ×2 (09:15→19:12)
[2020-01-12] MEDS: DULOXETINE 20 MG CAP PO SCH (09:15)
[2020-01-12] MEDS: LIDOCAINE 4% PATCH TOP SCH (10:03)
[2020-01-12] MEDS: NICOTINE 14 MG/PAT TD SCH (10:03)
[2020-01-12] MEDS: NYSTATIN 100MU/GM CREAM 15GM TOP SCH ×2 (10:04→19:12)
[2020-01-12] MEDS: JANUMET PO SCH (17:28)
--- NOTE | 2020-01-12 18:12 | R.PN ---
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 SUBJECTIVE: Pt denied any depression. Pt denied any Shortness of Breath. Elevated WBC of 14.1, Hgb 9.8, Glucose 78 to 133, magnesium low at 1.7, prealbumin 17.7 Patient states that pain is under control. Self-propelled wheelchair 150 feet with standby assistance. He is not able to weight shift to his arms while using the rolling walker to move his right foot forw reji. VITAL SIGNS Temperature: 97.6 F SBP/DBP:163/81 Pulse: 86 Resp: 16 MEDICATION ALLERGIES: No Known Drug Allergies (NKDA) ENVIRONMENTAL ALLERGIES: None Known - Substance Allergies None Known - Other Allergies None Known CONSULT: Perform Consult Certified Prosthetic for prosthesis construction NURSING: - Shower allowing shower - Lab Results blood Sugar Check ACHS - Skin care per protocol PRECAUTIONS: - Weight Bearing Precaution NWB left LE ACTIVITIES OOB only with supervision THERAPIES: - Orthotics/Prosthetics Prosthetic Evaluation. - Dietary and Nutrition Adequate Nutrition. Nutritional Education. Nutritional Supplements. PHYSICAL EXAM - Gen Alert and awake Lying in bed No apparent distress Oriented to: person, time, and place - Skin Left BKA bandage in place with good hemostasis. Normacephalic - Eyes No abnormalities - ENMT No abnormalities - Neck No abnormalities - CVS RRR - Chest No abnormalities - Resp Clear to auscultation - Abd Soft - GI Non distended Deferred - No abnormalities - Ext Left BKA good hemostasis, dressing in place - MSK No focal deficits, mild diffuse weakness - Neuro No focal deficits - Psych No abnormalities ASSESSMENT: Pt. is a 74 yo Right-handed male.On 12/23/[address] [facility] with diagnosis Left Below the Knee Amputation.His impairment category is Amputation of Limb 05 - Unilateral Lower Limb Below the Knee (BK) (05.4).Pre-morbidly, Pt. was independent/mod-I in Locom otion, Safety Awareness, Balance, Social Cognition, Transfers Control, Sphincter Control, Self-Care, Communication, and Endurance; and he had good Locomotion, Balance, Safety Awareness, Social Cognition , Transfers Control, Sphincter Control, Self-Care, Communication, and Endurance.Currently, he has def icits of Locomotion, Balance, Safety Awareness, Transfers Control, Self-Care, Communication, and Endu bharat.Pt. is now referred to [facility] for acute in-patient rehabilitation in order to maximize patient's functional independence in activities of daily living, strength, ROM, an d mobility.- Rehab Goal Patient has realistic goal of being discharged at assistance level 6-Dar to reside at Home with Fam kaylee/Relatives. MDM/PLAN: - Physical Therapy Gait dysfunction - to improve, our physical therapists will perform initial evaluation of pt's statu s upon admission and devise an individualized program for Gait Training, and Wheel Chair mobility Inability to transfer - to improve, our physical therapists will perform initial evaluation of pt's status upon admission and devise an individualized program for Bed mobility Need for home safety evaluation - to improve, our physical therapists will perform initial evaluatio n of pt's status upon admission and devise an individualized program for Home Evaluation Need in caregiver upon discharge - to improve, our physical therapists will perform initial evaluati on of pt's status upon admission and devise an individualized program for Caregiver Training New precaution - to improve, our physical therapists will perform initial evaluation of pt's status upon admission and devise an individualized program for Patient precaution education Poor balance - to improve, our physical therapists will perform initial evaluation of pt's status up on admission and devise an individualized program for Balance Training Poor endurance - to improve, our physical therapists will perform initial evaluation of pt's status upon admission and devise an individualized program for Endurance Training Weakness - to improve, our physical therapists will perform initial evaluation of pt's status upon a dmission and devise an individualized program for Aquatic Therapy, Neuromuscular Reeducation, and Str engthening Achieving independence - to improve, our physical therapists will perform initial evaluation of pt's status upon admission and devise an individualized program for Community Reintegration Activities - Occupational Therapy ADL deficits - to improve, our occupation therapists will perform initial evaluation of pt's status upon admission and devise an individualized program for Bathing, Bed mobility, Community Reintegratio n, Cooking, Dressing, Eating, Fine Motor Skills, Grooming, Homemaking, Kitchen Mobility, Laundry, Pat ient Education, Safety Awareness, Splinting - Positioning, Transfers(Toilet, Tub, Shower), and Wheel Chair Management Need for home care scheduler - to improve, our occupation therapists will perform initial evaluation of pt's status upon admission and devise an individualized program for Caregiver Training Weakness - to improve, our occupation therapists will perform initial evaluation of pt's status upon admission and devise an individualized program for Aquatic Therapy, Balance, Endurance, UE ROM, and UE strengthening - Other See attached MAR (Medication Administration Record) - Diet Type Continue ADA 1800 - Diet - Liquid Texture Continue Regular - Tube Feed Continue N/A - Lab Results blood Sugar Check ACHS - Weight Bearing Precaution NWB left LE - Skin care per protocol - N/A Perform Consult Certified Prosthetic for prosthesis construction - Diet - Solid Texture Continue Regular - Shower allowing shower FUNCTIONAL STATUS: UPDATED AT WEEKLY TEAM CONFERENCE - Bladder Same accident frequency: 7-Ind - No accidents in the past 7 days - Bowel Same accident frequency: 7-Ind - No accidents in the past 7 days - Walking Same score based on distance walked: 0(N/A) - Wheelchair Same score based on distance traveled: 0(N/A) FUNCTIONAL STATUS: - Self-Care A. Eating sup B. Grooming Jose C. Bathing modA D. Dressing - Upper Jose E. Dressing - Lower modA F. Toileting sup - Sphincter Control G. Bladder control Jose H. Bowel control Jose - Transfers Control I. Bed/Chair/Wheelchair modA J. Toilet modA K. Tub/Shower modA - Locomotion L. Walk/Wheelchair (B) modA M. Stairs ADNO - Communication N. Comprehension (B) Dar O. Expression (B) sup - Social Cognition P. Social Interaction Dar Q. Problem Solving Jose R. Memory modA - Endurance Poor - Balance Poor - Safety Awareness Poor QI SCORES: - Self-Care A. Eating 05-Setup or clean-up assistance B. Oral hygiene 05-Setup or clean-up assistance C. Toileting hygiene 03-Partial/moderate assistance E. Shower/bathe self 04-Supervision or touching assistance F. Upper body dressing 04-Supervision or touching assistance G. Lower body dressing 01-Dependent H. Putting on/taking off footwear 01-Dependent - Mobility A. Roll left and right 04-Supervision or touching assistance B. Sit to lying 04-Supervision or touching assistance C. Lying to sitting on side of bed 03-Partial/moderate assistance D. Sit to stand 03-Partial/moderate assistance E. Chair/koc-hy-nwnbf transfer 03-Partial/moderate assistance F. Toilet transfer 03-Partial/moderate assistance G. Car transfer 10-Not attempted due to environmental limitations I. Walk 10 feet 88-Not attempted due to medical condition or safety concerns J. Walk 50 feet with two turns 88-Not attempted due to medical condition or safety concerns K. Walk 150 feet 88-Not attempted due to medical condition or safety concerns L. Walking 10 feet on uneven surfaces 88-Not attempted due to medical condition or safety concerns M. 1 step (curb) 88-Not attempted due to medical condition or safety concerns N. 4 steps 88-Not attempted due to medical condition or safety concerns O. 12 steps 88-Not attempted due to medical condition or safety concerns P. Picking up object 88-Not attempted due to medical condition or safety concerns R. Wheel 50 feet with two turns 88-Not attempted due to medical condition or safety concerns S. Wheel 150 feet 88-Not attempted due to medical condition or safety concerns - Bladder and Bowel Bladder continence 0-Always continent Bowel continence 0-Always continent - Endurance Fair - Balance Poor - Safety Awareness Fair CURRENT FUNC. DEFICITS: Self-Care, Mobility, Endurance, Balance, and Safety Awareness SIGNATURE PANEL: (CDT)
[2020-01-12] MEDS: ATORVASTATIN 10 MG TAB PO SCH (19:12)
[2020-01-13] MEDS: METRONIDAZOLE 500mg IVPB 500 MG/100 ML BAG IV SCH ×3 (00:03→17:11)
--- NOTE | 2020-01-13 00:35 | PN ---
Date of Progress Note: 01/12/2020 Subjective: Patient was seen this morning for followup. No new complaints or problems reported by p atient, lying in bed, not in any distress. Denies any abdominal pain, nausea, vomiting. Objective: Vital Signs: Reviewed. HEENT: Unremarkable. Lungs: Clear to auscultation. Heart: Heart sounds normal. Abdomen: Soft, bowel sounds normal. No guarding, rigidity, tenderness, or distention. Extremities: No leg edema. Impression: 1.Peripheral vascular disease. 2.Acute gastroenteritis. 3.Diabetes mellitus. 4.Hypertension. Plan: Continue current medications. Patient's blood pressure was elevated. We will start him on li sinopril 5 mg p.o. daily. Continue Janumet for diabetes management and continue physical therapy per guidance of Dr. Baldwin. DONI/MODL Voice ID: [id number] Report ID: [id number]
[2020-01-13] MEDS ORDERED: D50W 25 GM/50 ML SYRINGE/VIAL IV PRN (05:59)
[2020-01-13] MEDS ORDERED: GLUCAGON 1 MG/VIAL IM PRN (05:59)
[2020-01-13] MEDS: ENOXAPARIN 40 MG/0.4 ML SQ SCH (06:14)
[2020-01-13] MEDS: LIDOCAINE 4% PATCH TOP SCH (06:15)
[2020-01-13] MEDS: NICOTINE 14 MG/PAT TD SCH (06:15)
[2020-01-13] MEDS: CEFEPIME/SWI 1gm 10 ML IV SCH ×2 (06:17→19:30)
[2020-01-13 06:55] LABS: Absolute Lymphocytes (CBC) 1.4 K/uL (0.7-4.9); Basophils % 0.9 % (0-1.3); Lymphocytes % 10.7 % (15.3-44.8); MPV 7.5 fL (7.6-11.3); RBC Red Blood Cell Count 3.42 M/uL (4.33-5.43)
[2020-01-13 07:29] LABS: Albumin 2.6 g/dL (3.4-5.0); Magnesium 2.2 mg/dL (1.8-2.4); Potassium 4.1 mmol/L (3.5-5.1); Prealbumin 19.7 mg/dL (20-40)
[2020-01-13] MEDS: INSULIN -REGULAR HUMAN 50 UNIT/0.5 ML ML SQ SCH ×4 (07:30→20:40)
[2020-01-13] MEDS: JUVEN PACKET PO SCH ×2 (08:00→19:31)
[2020-01-13] MEDS: GLUCERNA SHAKE 237 ML CAN PO SCH ×2 (08:00→19:31)
[2020-01-13] MEDS: lisinopriL 5 MG TAB PO SCH (08:00)
[2020-01-13] MEDS: HYDROCODONE/APAP 7.5/325 MG TAB PO PRN ×2 (08:32→17:11)
[2020-01-13] MEDS: INSULIN GLARGINE 100 UNITS/ML SQ SCH (08:33)
[2020-01-13] MEDS: GABAPENTIN 300 MG CAP PO SCH ×2 (08:34→19:29)
[2020-01-13] MEDS: PENTOXIFYLLINE ER 400 MG TAB PO SCH ×2 (08:34→19:29)
[2020-01-13] MEDS: ASPIRIN EC 81 MG TAB PO SCH (08:34)
[2020-01-13] MEDS: NYSTATIN 100MU/GM CREAM 15GM TOP SCH ×2 (08:34→19:29)
[2020-01-13] MEDS: DULOXETINE 20 MG CAP PO SCH (08:35)
[2020-01-13] MEDS: MAGNESIUM OXIDE 400 MG TAB PO SCH ×2 (08:35→19:29)
--- NOTE | 2020-01-13 10:06 | P.RH.PN ---
Estimated Length of Stay: 25 Expected Discharge Date: 01/21/20 Discharge Disposition Plan: Home Family Support: Yes Group Home Goal: Mobility, Transfers, Self Care Vital Signs: Last Vital Signs Temp 97.6 F 01/13/20 08:00 Pulse 91 H 01/13/20 08:00 Resp 18 01/13/20 09:32 BP 98/52 L 01/13/20 08:00 Pulse Ox 95 01/13/20 09:32 Laboratory: Laboratory Last Values WBC 13.1 K/uL (4.3-10.9) H 01/13/20 06:36 RBC 3.42 M/uL (4.33-5.43) L 01/13/20 06:36 Hgb 10.2 g/dL (13.6-17.9) L 01/13/20 06:36 Hct 31.0 % (39.6-49.0) L 01/13/20 06:36 MCV 90.6 fL (80-100) 01/13/20 06:36 MCH 30.0 pg (27.0-35.0) 01/13/20 06:36 MCHC 33.1 g/dL (32.0-36.0) 01/13/20 06:36 RDW 13.2 % (12.1-15.2) 01/13/20 06:36 Plt Count 592 K/uL (152-406) H 01/13/20 06:36 MPV 7.5 fL (7.6-11.3) L 01/13/20 06:36 Plt Distribution Width Cancelled 12/30/19 06:00 Absolute Nucleated RBC Cancelled 12/30/19 06:00 Neutrophils % 81.2 % (41.7-73.7) H 01/13/20 06:36 Lymphocytes % 10.7 % (15.3-44.8) L 01/13/20 06:36 Monocytes % 5.5 % (3.3-12.3) 01/13/20 06:36 Eosinophils % 1.7 % (0-4.4) 01/13/20 06:36 Basophils % 0.9 % (0-1.3) 01/13/20 06:36 Nucleated RBC % Cancelled 12/30/19 06:00 Absolute Neutrophils 10.6 K/uL (1.8-8.0) H 01/13/20 06:36 Absolute Lymphocytes 1.4 K/uL (0.7-4.9) 01/13/20 06:36 Absolute Monocytes 0.7 K/uL (0.1-1.3) 01/13/20 06:36 Absolute Eosinophils 0.2 K/uL (0-0.5) 01/13/20 06:36 Absolute Basophils 0.1 K/uL (0-0.5) 01/13/20 06:36 Diff Path Review Cancelled 12/30/19 06:00 Sodium 139 mmol/L (136-145) 01/13/20 06:36 Potassium 4.1 mmol/L (3.5-5.1) 01/13/20 06:36 Chloride 105 mmol/L (98-107) 01/13/20 06:36 Carbon Dioxide 26 mmol/L (21-32) 01/13/20 06:36 BUN 15 mg/dL (7-18) 01/13/20 06:36 Creatinine 1.13 mg/dL (0.55-1.3) 01/13/20 06:36 Estimated GFR 63 mL/min (=/>90) L 01/13/20 06:36 Glucose 172 mg/dL (74-106) H 01/13/20 06:36 POC Glucose 170 mg/dl (65-120) H 01/13/20 06:55 Calcium 8.9 mg/dL (8.5-10.1) 01/13/20 06:36 Magnesium 2.2 mg/dL (1.8-2.4) 01/13/20 06:36 Total Bilirubin 0.3 mg/dL (0.2-1.0) 01/10/20 05:11 AST 35 U/L (15-37) 01/10/20 05:11 ALT 22 U/L (12-78) 01/10/20 05:11 Alkaline Phosphatase 140 U/L (45-117) H 01/10/20 05:11 Serum Total Protein 7.0 g/dL (6.4-8.2) 01/10/20 05:11 Albumin 2.6 g/dL (3.4-5.0) L 01/13/20 06:36 Globulin 4.7 g/dL (2.3-3.5) H 01/10/20 05:11 Albumin/Globulin Ratio 0.5 (1.1-1.8) L 01/10/20 05:11 Prealbumin 19.7 mg/dL (20-40) L 01/13/20 06:36 C. difficile Ag & Toxin Ag neg : tox neg (NEG : NEG) 12/30/19 11:55 Weight: 133 lb 4.8 oz Wound Present: Yes Closed Surgical Incision Present: Yes Negative Pressure Wound Therapy Present: No Physician Update: His lab have been reviewed and are stable. Psychiatry is helping with his depression. His is still not participating fully. His family is doing his showers totally. He is refusing to participate unless strongly encouraged. He is not walking. He transfers with the sliding board. He is independent with the wheelchair. Medical Issues: Patient is always continent with bladder and incontinent less than daily with bowel. WBC is 15.3, patient is taking Cefepime 1 gm Q12H IVPB and Metronidazole 500mg Q8H IVPB Pain Issues: Patient is taking Gabapentin 300mg BID PO, [place] 7.5/325mg Q8H PO PRN, Dilaudid 1mg IV Q3H PRN for pain. Functional Improvement: pt has good potential to improve; however, his personality and behavior could pose a hinderance to progress. Hopefully pt will comply with therapy staff and participate well in therapy services. Speech Therapy Update: Patient cont to present with mild cognitive impairments characterized by decreased attention, decreased mental flexibility, decreased STM, and impaired problem solving/judgment. Patient appears to be functioning at his baseline. Summary: Patient's care plan and fdc goals have been reviewed and revised as necessary. Please see the Rehabilitation Signature page for all necessary signatures.
--- NOTE | 2020-01-13 10:37 | FAST ---
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 Fercho Baldwin M.D. ADMISSION DIAGNOSIS: - Amputation of Limb 05 - Unilateral Lower Limb Below the Knee (BK) (05.4) Left Below the Knee Amputation. EATING: EATING - STEP 1: Does the patient complete the activity by him/herself with no assistance (physical, verbal/nonverbal cueing, setup/clean-up)? No. EATING - STEP 2: Does the patient need only setup/clean-up assistance from one helper? No. EATING - STEP 3: Does the patient need only verbal/nonverbal cueing or touching/steadying/contact guard assistance fro m one helper? Yes. 1. [id number] ADMISSION PERFORMANCE: Supervision or touching assistance CODE: 04 ORAL HYGIENE: ORAL HYGIENE - STEP 1: Does the patient complete the activity by him/herself with no assistance (physical, verbal/nonverbal cueing, setup/clean-up)? No. ORAL HYGIENE - STEP 2: Does the patient need only setup/clean-up assistance from one helper? No. ORAL HYGIENE - STEP 3: Does the patient need only verbal/nonverbal cueing or touching/steadying/contact guard assistance fro m one helper? No. ORAL HYGIENE - STEP 4: Does the patient need physical assistance - for example lifting or trunk support from one helper - wi th the helper providing less than half of the effort? Yes. 1. [id number] ADMISSION PERFORMANCE: Partial/moderate assistance CODE: 03 TOILETING HYGIENE: TOILETING HYGIENE - STEP 1: Does the patient complete the activity by him/herself with no assistance (physical, verbal/nonverbal cueing, setup/clean-up)? No. TOILETING HYGIENE - STEP 2: Does the patient need only setup/clean-up assistance from one helper? No. TOILETING HYGIENE - STEP 3: Does the patient need only verbal/nonverbal cueing or touching/steadying/contact guard assistance fro m one helper? No. TOILETING HYGIENE - STEP 4: Does the patient need physical assistance - for example lifting or trunk support from one helper - wi th the helper providing less than half of the effort? Yes. 1. [id number] ADMISSION PERFORMANCE: Partial/moderate assistance CODE: 03 BATHING: Not assessed/no information CODE: - DRESSING - UPPER BODY: Not assessed/no information CODE: - DRESSING - LOWER BODY: Not assessed/no information CODE: - PUTTING ON/TAKING OFF FOOTWEAR: Not assessed/no information CODE: - ROLL LEFT AND RIGHT: Not assessed/no information CODE: - SIT TO LYING: Not assessed/no information CODE: - LYING TO SITTING: Not assessed/no information CODE: - SIT TO STAND: SIT TO STAND - STEP 1: Does the patient complete the activity by him/herself with no assistance (physical, verbal/nonverbal cueing, setup/clean-up)? No. SIT TO STAND - STEP 2: Does the patient need only setup/clean-up assistance from one helper? No. SIT TO STAND - STEP 3: Does the patient need only verbal/nonverbal cueing or touching/steadying/contact guard assistance fro m one helper? Yes. 1. [id number] ADMISSION PERFORMANCE: Supervision or touching assistance CODE: 04 TRANSFERS: BED, CHAIR: CHAIR/[id number] TRANSFER - STEP 1: Does the patient complete the activity by him/herself with no assistance (physical, verbal/nonverbal cueing, setup/clean-up)? No. CHAIR/[id number] TRANSFER - STEP 2: Does the patient need only setup/clean-up assistance from one helper? No. CHAIR/[id number] TRANSFER - STEP 3: Does the patient need only verbal/nonverbal cueing or touching/steadying/contact guard assistance fro m one helper? Yes. 1. [id number] ADMISSION PERFORMANCE: Supervision or touching assistance CODE: 04 TRANSFER TOILET: TOILET TRANSFER - STEP 1: Does the patient complete the activity by him/herself with no assistance (physical, verbal/nonverbal cueing, setup/clean-up)? No. TOILET TRANSFER - STEP 2: Does the patient need only setup/clean-up assistance from one helper? No. TOILET TRANSFER - STEP 3: Does the patient need only verbal/nonverbal cueing or touching/steadying/contact guard assistance fro m one helper? No. TOILET TRANSFER - STEP 4: Does the patient need physical assistance - for example lifting or trunk support from one helper - wi th the helper providing less than half of the effort? Yes. 1. [id number] ADMISSION PERFORMANCE: Partial/moderate assistance CODE: 03 TRANSFERS: CAR: Not assessed/no information CODE: - WALK 10 FEET: Not assessed/no information CODE: - 1 STEP (CURB): Not assessed/no information CODE: - PICKING UP OBJECT: Not assessed/no information CODE: - DOES THE PATIENT USE A WHEELCHAIR/SCOOTER? CODE: EXPR WHEEL 50 FEET WITH TWO TURNS: Not assessed/no information CODE: - INDICATE THE TYPE OF WHEELCHAIR/SCOOTER USED: CODE: EXPR WHEEL 150 FEET: Not assessed/no information CODE: - INDICATE THE TYPE OF WHEELCHAIR/SCOOTER USED: CODE: EXPR BLADDER AND BOWEL: H350. BLADDER CONTINENCE (3-DAY ASSESSMENT PERIOD): Stress incontinence only CODE: 1 H400. BOWEL CONTINENCE (3-DAY ASSESSMENT PERIOD): Always continent CODE: 0 SIGNATURE PANEL: The following modified sections: 1. [id number] Admission Performance, 1. [id number] Admission Performance, 1. [id number] Admission Performance, 1. [id number] Admission Performance, 1. [id number] Admission Performance, 1. [id number] Admission Performance, 1. [id number] Admission Performance, Code, H350. Bladder Continence ( 3-day assessment period), H400. Bowel Continence (3-day assessment period) were [electronically] sign ed by Sylvain Hein on FriJan 13 2020 10:36:55 GMT-0500 (Central Daylight Time)
[2020-01-13] MEDS: COLLAGENASE 30 GM OINTMENT TOP SCH (15:23)
[2020-01-13] MEDS: JANUMET PO SCH (17:12)
[2020-01-13] MEDS: ATORVASTATIN 10 MG TAB PO SCH (19:30)
[2020-01-14] MEDS: METRONIDAZOLE 500mg IVPB 500 MG/100 ML BAG IV SCH ×3 (00:50→17:36)
--- NOTE | 2020-01-14 02:01 | FAST ---
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 Fercho Baldwin M.D. ADMISSION DIAGNOSIS: - Amputation of Limb 05 - Unilateral Lower Limb Below the Knee (BK) (05.4) Left Below the Knee Amputation. ROLL LEFT AND RIGHT: ROLL LEFT AND RIGHT - STEP 1: Does the patient complete the activity by him/herself with no assistance (physical, verbal/nonverbal cueing, setup/clean-up)? Yes. 1. [id number] ADMISSION PERFORMANCE: Independent CODE: 06 SIT TO LYING: SIT TO LYING - STEP 1: Does the patient complete the activity by him/herself with no assistance (physical, verbal/nonverbal cueing, setup/clean-up)? Yes. 1. [id number] ADMISSION PERFORMANCE: Independent CODE: 06 LYING TO SITTING: LYING TO SITTING ON SIDE OF BED - STEP 1: Does the patient complete the activity by him/herself with no assistance (physical, verbal/nonverbal cueing, setup/clean-up)? Yes. 1. [id number] ADMISSION PERFORMANCE: Independent CODE: 06 SIT TO STAND: SIT TO STAND - STEP 1: Does the patient complete the activity by him/herself with no assistance (physical, verbal/nonverbal cueing, setup/clean-up)? No. SIT TO STAND - STEP 2: Does the patient need only setup/clean-up assistance from one helper? No. SIT TO STAND - STEP 3: Does the patient need only verbal/nonverbal cueing or touching/steadying/contact guard assistance fro m one helper? No. SIT TO STAND - STEP 4: Does the patient need physical assistance - for example lifting or trunk support from one helper - wi th the helper providing less than half of the effort? Yes. 1. [id number] ADMISSION PERFORMANCE: Partial/moderate assistance CODE: 03 TRANSFERS: BED, CHAIR: CHAIR/[id number] TRANSFER - STEP 1: Does the patient complete the activity by him/herself with no assistance (physical, verbal/nonverbal cueing, setup/clean-up)? No. CHAIR/[id number] TRANSFER - STEP 2: Does the patient need only setup/clean-up assistance from one helper? Yes. 1. [id number] ADMISSION PERFORMANCE: Setup or clean-up assistance CODE: 05 TRANSFER TOILET: TOILET TRANSFER - STEP 1: Does the patient complete the activity by him/herself with no assistance (physical, verbal/nonverbal cueing, setup/clean-up)? No. TOILET TRANSFER - STEP 2: Does the patient need only setup/clean-up assistance from one helper? Yes. 1. [id number] ADMISSION PERFORMANCE: Setup or clean-up assistance CODE: 05 TRANSFERS: CAR: Not attempted due to medical condition or safety concerns CODE: 88 WALK 10 FEET: Not attempted due to medical condition or safety concerns CODE: 88 1 STEP (CURB): Not attempted due to medical condition or safety concerns CODE: 88 PICKING UP OBJECT: Not attempted due to medical condition or safety concerns CODE: 88 DOES THE PATIENT USE A WHEELCHAIR/SCOOTER? Q1. DOES THE PATIENT USE A WHEELCHAIR/SCOOTER?: Yes CODE: 1 WHEEL 50 FEET WITH TWO TURNS: WHEEL 50 FEET WITH TWO TURNS - STEP 1: Does the patient complete the activity by him/herself with no assistance (physical, verbal/nonverbal cueing, setup/clean-up)? No. WHEEL 50 FEET WITH TWO TURNS - STEP 2: Does the patient need only setup/clean-up assistance from one helper? Yes. 1. [id number] ADMISSION PERFORMANCE: Setup or clean-up assistance CODE: 05 INDICATE THE TYPE OF WHEELCHAIR/SCOOTER USED: RR1. INDICATE THE TYPE OF WHEELCHAIR/SCOOTER USED.: Manual CODE: 1 WHEEL 150 FEET: WHEEL 150 FEET - STEP 1: Does the patient complete the activity by him/herself with no assistance (physical, verbal/nonverbal cueing, setup/clean-up)? Yes. 1. [id number] ADMISSION PERFORMANCE: Independent CODE: 06 INDICATE THE TYPE OF WHEELCHAIR/SCOOTER USED: SS1. INDICATE THE TYPE OF WHEELCHAIR/SCOOTER USED.: Manual CODE: 1 BLADDER AND BOWEL: CODE: EXPR CODE: EXPR SIGNATURE PANEL: The following modified sections: 1. [id number] Admission Performance, 1. [id number] Admission Performance, 1. [id number] Admission Performance, 1. [id number] Admission Performance, 1. [id number] Admission Performance, 1. [id number] Admission Performance, Q1. Does the patient use a wheelchair/scooter?, 1. [id number] Admissi on Performance, RR1. Indicate the type of wheelchair/scooter used., 1. [id number] Admission Performance, Code, SS1. Indicate the type of wheelchair/scooter used. were [electronically] signed by Cristina waters PTA on FriJan 13 2020 16:13:28 GMT-0500 (Central Daylight Time)
[2020-01-14] MEDS: INSULIN -REGULAR HUMAN 50 UNIT/0.5 ML ML SQ SCH ×4 (07:27→21:15)
[2020-01-14] MEDS: GLUCERNA SHAKE 237 ML CAN PO SCH ×2 (08:00→20:00)
[2020-01-14] MEDS: NYSTATIN 100MU/GM CREAM 15GM TOP SCH ×2 (08:00→20:00)
[2020-01-14] MEDS: INSULIN GLARGINE 100 UNITS/ML SQ SCH (08:00)
[2020-01-14] MEDS: JUVEN PACKET PO SCH ×2 (08:00→20:00)
[2020-01-14] MEDS: NICOTINE 14 MG/PAT TD SCH (09:24)
[2020-01-14] MEDS: ENOXAPARIN 40 MG/0.4 ML SQ SCH (09:24)
[2020-01-14] MEDS: ASPIRIN EC 81 MG TAB PO SCH (09:25)
[2020-01-14] MEDS: MAGNESIUM OXIDE 400 MG TAB PO SCH ×2 (09:25→21:14)
[2020-01-14] MEDS: PENTOXIFYLLINE ER 400 MG TAB PO SCH ×2 (09:26→21:14)
[2020-01-14] MEDS: lisinopriL 5 MG TAB PO SCH (09:26)
[2020-01-14] MEDS: GABAPENTIN 300 MG CAP PO SCH ×2 (09:26→21:14)
[2020-01-14] MEDS: COLLAGENASE 30 GM OINTMENT TOP SCH (09:27)
[2020-01-14] MEDS: CEFEPIME/SWI 1gm 10 ML IV SCH ×2 (09:29→21:49)
[2020-01-14] MEDS: HYDROCODONE/APAP 7.5/325 MG TAB PO PRN ×2 (09:39→14:39)
[2020-01-14] MEDS: LIDOCAINE 4% PATCH TOP SCH (11:00)
[2020-01-14] MEDS: DULOXETINE 20 MG CAP PO SCH (12:15)
--- NOTE | 2020-01-14 12:31 | PN ---
Date of Progress Note: 01/13/2020 Subjective: Patient was seen this morning for followup. No new complaints or problems reported by melissa agosto. Lying in bed, not in distress. Objective: Vital Signs: Reviewed. HEENT: Unremarkable. Lungs: Clear to auscultation. Heart: Sounds normal. Abdomen: Soft. Bowel sounds normal. No guarding, rigidity, tenderness, or distention. Extremities: No leg edema. Right heel exam, the bruising from right heel appears better than few da ys ago. Laboratory Data: White count 13.1, hemoglobin 10.2, platelets 592. Sodium 139, potassium 4.1, chlor jesse 105, bicarb 26, BUN 15, creatinine 1.13, glucose 172, magnesium 2.2. Impression: 1.Peripheral vascular disease. 2.Diabetes mellitus. 3.Hypertension. Plan: We will continue current medications. Blood pressure is better with small dose lisinopril 5 m g daily. We will continue that. We will also continue other current antibiotics. We will start the patient on insulin Lantus 10 units daily subcutaneously in the morning after reviewing fingerstick b lood sugar readings. I will see him tomorrow for followup. DONI/MODL Voice ID: [id number] Report ID: [id number]
--- NOTE | 2020-01-14 14:45 | FAST ---
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 Fercho Baldwin M.D. ADMISSION DIAGNOSIS: - Amputation of Limb 05 - Unilateral Lower Limb Below the Knee (BK) (05.4) Left Below the Knee Amputation. EATING: EATING - STEP 1: Does the patient complete the activity by him/herself with no assistance (physical, verbal/nonverbal cueing, setup/clean-up)? No. EATING - STEP 2: Does the patient need only setup/clean-up assistance from one helper? No. EATING - STEP 3: Does the patient need only verbal/nonverbal cueing or touching/steadying/contact guard assistance fro m one helper? Yes. 1. [id number] ADMISSION PERFORMANCE: Supervision or touching assistance CODE: 04 ORAL HYGIENE: ORAL HYGIENE - STEP 1: Does the patient complete the activity by him/herself with no assistance (physical, verbal/nonverbal cueing, setup/clean-up)? No. ORAL HYGIENE - STEP 2: Does the patient need only setup/clean-up assistance from one helper? No. ORAL HYGIENE - STEP 3: Does the patient need only verbal/nonverbal cueing or touching/steadying/contact guard assistance fro m one helper? No. ORAL HYGIENE - STEP 4: Does the patient need physical assistance - for example lifting or trunk support from one helper - wi th the helper providing less than half of the effort? Yes. 1. [id number] ADMISSION PERFORMANCE: Partial/moderate assistance CODE: 03 TOILETING HYGIENE: TOILETING HYGIENE - STEP 1: Does the patient complete the activity by him/herself with no assistance (physical, verbal/nonverbal cueing, setup/clean-up)? No. TOILETING HYGIENE - STEP 2: Does the patient need only setup/clean-up assistance from one helper? No. TOILETING HYGIENE - STEP 3: Does the patient need only verbal/nonverbal cueing or touching/steadying/contact guard assistance fro m one helper? No. TOILETING HYGIENE - STEP 4: Does the patient need physical assistance - for example lifting or trunk support from one helper - wi th the helper providing less than half of the effort? No. TOILETING HYGIENE - STEP 5: Does the patient need physical assistance - for example lifting or trunk support from one helper - wi th the helper providing more than half of the effort? No. TOILETING HYGIENE - STEP 6: Does the helper provide all of the effort? OR Is the assistance of two or more helpers required to co mplete the activity? Yes. 1. [id number] ADMISSION PERFORMANCE: Dependent CODE: 01 BATHING: Not assessed/no information CODE: - DRESSING - UPPER BODY: DRESSING - UPPER BODY - STEP 1: Does the patient complete the activity by him/herself with no assistance (physical, verbal/nonverbal cueing, setup/clean-up)? No. DRESSING - UPPER BODY - STEP 2: Does the patient need only setup/clean-up assistance from one helper? No. DRESSING - UPPER BODY - STEP 3: Does the patient need only verbal/nonverbal cueing or touching/steadying/contact guard assistance fro m one helper? No. DRESSING - UPPER BODY - STEP 4: Does the patient need physical assistance - for example lifting or trunk support from one helper - wi th the helper providing less than half of the effort? No. DRESSING - UPPER BODY - STEP 5: Does the patient need physical assistance - for example lifting or trunk support from one helper - wi th the helper providing more than half of the effort? No. DRESSING - UPPER BODY - STEP 6: Does the helper provide all of the effort? OR Is the assistance of two or more helpers required to co mplete the activity? Yes. 1. [id number] ADMISSION PERFORMANCE: Dependent CODE: DRESSING - LOWER BODY: DRESSING - LOWER BODY - STEP 1: Does the patient complete the activity by him/herself with no assistance (physical, verbal/nonverbal cueing, setup/clean-up)? No. DRESSING - LOWER BODY - STEP 2: Does the patient need only setup/clean-up assistance from one helper? No. DRESSING - LOWER BODY - STEP 3: Does the patient need only verbal/nonverbal cueing or touching/steadying/contact guard assistance fro m one helper? No. DRESSING - LOWER BODY - STEP 4: Does the patient need physical assistance - for example lifting or trunk support from one helper - wi th the helper providing less than half of the effort? No. DRESSING - LOWER BODY - STEP 5: Does the patient need physical assistance - for example lifting or trunk support from one helper - wi th the helper providing more than half of the effort? No. DRESSING - LOWER BODY - STEP 6: Does the helper provide all of the effort? OR Is the assistance of two or more helpers required to co mplete the activity? Yes. 1. [id number] ADMISSION PERFORMANCE: Dependent CODE: 01 PUTTING ON/TAKING OFF FOOTWEAR: FOOTWEAR - STEP 1: Does the patient complete the activity by him/herself with no assistance (physical, verbal/nonverbal cueing, setup/clean-up)? No. FOOTWEAR - STEP 2: Does the patient need only setup/clean-up assistance from one helper? No. FOOTWEAR - STEP 3: Does the patient need only verbal/nonverbal cueing or touching/steadying/contact guard assistance fro m one helper? No. FOOTWEAR - STEP 4: Does the patient need physical assistance - for example lifting or trunk support from one helper - wi th the helper providing less than half of the effort? No. FOOTWEAR - STEP 5: Does the patient need physical assistance - for example lifting or trunk support from one helper - wi th the helper providing more than half of the effort? No. FOOTWEAR - STEP 6: Does the helper provide all of the effort? OR Is the assistance of two or more helpers required to co mplete the activity? Yes. 1. [id number] ADMISSION PERFORMANCE: Dependent CODE: 01 DOES THE PATIENT USE A WHEELCHAIR/SCOOTER? CODE: EXPR INDICATE THE TYPE OF WHEELCHAIR/SCOOTER USED: CODE: EXPR INDICATE THE TYPE OF WHEELCHAIR/SCOOTER USED: CODE: EXPR BLADDER AND BOWEL: H350. BLADDER CONTINENCE (3-DAY ASSESSMENT PERIOD): Incontinent daily (at least once a day) CODE: 3 H400. BOWEL CONTINENCE (3-DAY ASSESSMENT PERIOD): Occasionally incontinent (one episode of bowel incontinence) CODE: 1 SIGNATURE PANEL: The following modified sections: 1. [id number] Admission Performance, 1. BS0618N Admission Performance, 1. BW9561W Admission Performance, 1. KS2548X Admission Performance, 1. XY5321Q Admission Performance, 1. YS4828a Admission Performance, 1. ER4303w Admission Performance, 1. ME4290l Admission Performance , H350. Bladder Continence (3-day assessment period), H400. Bowel Continence (3-day assessment period ), H400. Bowel Continence (3-day assessment period) were [electronically] signed by Jn Khan on FriJan 14 2020 14:45:27 GMT-0500 (Central Daylight Time)
--- NOTE | 2020-01-14 15:23 | FAST ---
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 Fercho Baldwin M.D. ADMISSION DIAGNOSIS: - Amputation of Limb 05 - Unilateral Lower Limb Below the Knee (BK) (05.4) Left Below the Knee Amputation. EATING: Not assessed/no information CODE: - ORAL HYGIENE: ORAL HYGIENE - STEP 1: Does the patient complete the activity by him/herself with no assistance (physical, verbal/nonverbal cueing, setup/clean-up)? Yes. 1. [id number] ADMISSION PERFORMANCE: Independent CODE: 06 TOILETING HYGIENE: Not assessed/no information CODE: - BATHING: SHOWER/BATHE SELF - STEP 1: Does the patient complete the activity by him/herself with no assistance (physical, verbal/nonverbal cueing, setup/clean-up)? No. SHOWER/BATHE SELF - STEP 2: Does the patient need only setup/clean-up assistance from one helper? No. SHOWER/BATHE SELF - STEP 3: Does the patient need only verbal/nonverbal cueing or touching/steadying/contact guard assistance fro m one helper? Yes. 1. [id number] ADMISSION PERFORMANCE: Supervision or touching assistance CODE: 04 DRESSING - UPPER BODY: DRESSING - UPPER BODY - STEP 1: Does the patient complete the activity by him/herself with no assistance (physical, verbal/nonverbal cueing, setup/clean-up)? No. DRESSING - UPPER BODY - STEP 2: Does the patient need only setup/clean-up assistance from one helper? Yes. 1. [id number] ADMISSION PERFORMANCE: Setup or clean-up assistance CODE: 05 DRESSING - LOWER BODY: DRESSING - LOWER BODY - STEP 1: Does the patient complete the activity by him/herself with no assistance (physical, verbal/nonverbal cueing, setup/clean-up)? No. DRESSING - LOWER BODY - STEP 2: Does the patient need only setup/clean-up assistance from one helper? No. DRESSING - LOWER BODY - STEP 3: Does the patient need only verbal/nonverbal cueing or touching/steadying/contact guard assistance fro m one helper? Yes. 1. PT5430P ADMISSION PERFORMANCE: Supervision or touching assistance CODE: 04 PUTTING ON/TAKING OFF FOOTWEAR: FOOTWEAR - STEP 1: Does the patient complete the activity by him/herself with no assistance (physical, verbal/nonverbal cueing, setup/clean-up)? No. FOOTWEAR - STEP 2: Does the patient need only setup/clean-up assistance from one helper? No. FOOTWEAR - STEP 3: Does the patient need only verbal/nonverbal cueing or touching/steadying/contact guard assistance fro m one helper? Yes. 1. [id number] ADMISSION PERFORMANCE: Supervision or touching assistance CODE: 04 DOES THE PATIENT USE A WHEELCHAIR/SCOOTER? CODE: EXPR INDICATE THE TYPE OF WHEELCHAIR/SCOOTER USED: CODE: EXPR INDICATE THE TYPE OF WHEELCHAIR/SCOOTER USED: CODE: EXPR BLADDER AND BOWEL: CODE: EXPR CODE: EXPR SIGNATURE PANEL: The following modified sections: 1. VR0037Z Admission Performance, 1. GC6387v Admission Performance, 1. WR2596k Admission Performance, 1. YI9424h Admission Performance, 1. SP7315m Admission Performance, 1. XD7063o Admission Performance were [electronically] signed by CORINNA Grove on FriJan 14 2020 15:21:54 T-0500 (Central Daylight Time)
[2020-01-14] MEDS: JANUMET PO SCH (17:36)
[2020-01-14] MEDS: ATORVASTATIN 10 MG TAB PO SCH (21:14)
--- NOTE | 2020-01-15 01:08 | PN ---
Date of Progress Note: 01/14/2020 Subjective: Patient was seen this morning for followup. No new complaints or problems reported. He was sitting on the wheelchair. Objective: Vital Signs: Reviewed. HEENT: Unremarkable. Lungs: Clear to auscultation. Heart: Sounds normal. Abdomen: Soft, bowel sounds normal. No guarding, rigidity, tenderness, or distention. Extremities: No leg edema. Impression: 1. Peripheral vascular disease. 2. Status post left below-knee amputation. 3. Diabetes mellitus. Physical therapy to be provided under guidance of Dr. Baldwin. Candidal infection of bilateral groin skin has resolved now and all he has is pink discoloration of the skin. We will continue to use topical nystatin at this point. DONI/MODL Voice ID: [id number] Report ID: [id number] MTDD
[2020-01-15] MEDS: METRONIDAZOLE 500mg IVPB 500 MG/100 ML BAG IV SCH ×3 (01:13→16:31)
--- NOTE | 2020-01-15 02:33 | FAST ---
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 Fercho Baldwin M.D. ADMISSION DIAGNOSIS: - Amputation of Limb 05 - Unilateral Lower Limb Below the Knee (BK) (05.4) Left Below the Knee Amputation. EATING: Not assessed/no information CODE: - ORAL HYGIENE: Not assessed/no information CODE: - TOILETING HYGIENE: TOILETING HYGIENE - STEP 1: Does the patient complete the activity by him/herself with no assistance (physical, verbal/nonverbal cueing, setup/clean-up)? No. TOILETING HYGIENE - STEP 2: Does the patient need only setup/clean-up assistance from one helper? No. TOILETING HYGIENE - STEP 3: Does the patient need only verbal/nonverbal cueing or touching/steadying/contact guard assistance fro m one helper? No. TOILETING HYGIENE - STEP 4: Does the patient need physical assistance - for example lifting or trunk support from one helper - wi th the helper providing less than half of the effort? Yes. 1. [id number] ADMISSION PERFORMANCE: Partial/moderate assistance CODE: 03 BATHING: Not assessed/no information CODE: - DRESSING - UPPER BODY: Not assessed/no information CODE: - DRESSING - LOWER BODY: Not assessed/no information CODE: - PUTTING ON/TAKING OFF FOOTWEAR: Not assessed/no information CODE: - ROLL LEFT AND RIGHT: ROLL LEFT AND RIGHT - STEP 1: Does the patient complete the activity by him/herself with no assistance (physical, verbal/nonverbal cueing, setup/clean-up)? No. ROLL LEFT AND RIGHT - STEP 2: Does the patient need only setup/clean-up assistance from one helper? No. ROLL LEFT AND RIGHT - STEP 3: Does the patient need only verbal/nonverbal cueing or touching/steadying/contact guard assistance fro m one helper? Yes. 1. [id number] ADMISSION PERFORMANCE: Supervision or touching assistance CODE: 04 SIT TO LYING: SIT TO LYING - STEP 1: Does the patient complete the activity by him/herself with no assistance (physical, verbal/nonverbal cueing, setup/clean-up)? No. SIT TO LYING - STEP 2: Does the patient need only setup/clean-up assistance from one helper? No. SIT TO LYING - STEP 3: Does the patient need only verbal/nonverbal cueing or touching/steadying/contact guard assistance fro m one helper? No. SIT TO LYING - STEP 4: Does the patient need physical assistance - for example lifting or trunk support from one helper - wi th the helper providing less than half of the effort? Yes. 1. [id number] ADMISSION PERFORMANCE: Partial/moderate assistance CODE: 03 LYING TO SITTING: LYING TO SITTING ON SIDE OF BED - STEP 1: Does the patient complete the activity by him/herself with no assistance (physical, verbal/nonverbal cueing, setup/clean-up)? No. LYING TO SITTING ON SIDE OF BED - STEP 2: Does the patient need only setup/clean-up assistance from one helper? No. LYING TO SITTING ON SIDE OF BED - STEP 3: Does the patient need only verbal/nonverbal cueing or touching/steadying/contact guard assistance fro m one helper? No. LYING TO SITTING ON SIDE OF BED - STEP 4: Does the patient need physical assistance - for example lifting or trunk support from one helper - wi th the helper providing less than half of the effort? Yes. 1. [id number] ADMISSION PERFORMANCE: Partial/moderate assistance CODE: 03 SIT TO STAND: SIT TO STAND - STEP 1: Does the patient complete the activity by him/herself with no assistance (physical, verbal/nonverbal cueing, setup/clean-up)? No. SIT TO STAND - STEP 2: Does the patient need only setup/clean-up assistance from one helper? No. SIT TO STAND - STEP 3: Does the patient need only verbal/nonverbal cueing or touching/steadying/contact guard assistance fro m one helper? No. SIT TO STAND - STEP 4: Does the patient need physical assistance - for example lifting or trunk support from one helper - wi th the helper providing less than half of the effort? Yes. 1. [id number] ADMISSION PERFORMANCE: Partial/moderate assistance CODE: 03 TRANSFERS: BED, CHAIR: CHAIR/[id number] TRANSFER - STEP 1: Does the patient complete the activity by him/herself with no assistance (physical, verbal/nonverbal cueing, setup/clean-up)? No. CHAIR/[id number] TRANSFER - STEP 2: Does the patient need only setup/clean-up assistance from one helper? No. CHAIR/[id number] TRANSFER - STEP 3: Does the patient need only verbal/nonverbal cueing or touching/steadying/contact guard assistance fro m one helper? No. CHAIR/[id number] TRANSFER - STEP 4: Does the patient need physical assistance - for example lifting or trunk support from one helper - wi th the helper providing less than half of the effort? Yes. 1. II9068N ADMISSION PERFORMANCE: Partial/moderate assistance CODE: 03 TRANSFER TOILET: TOILET TRANSFER - STEP 1: Does the patient complete the activity by him/herself with no assistance (physical, verbal/nonverbal cueing, setup/clean-up)? No. TOILET TRANSFER - STEP 2: Does the patient need only setup/clean-up assistance from one helper? No. TOILET TRANSFER - STEP 3: Does the patient need only verbal/nonverbal cueing or touching/steadying/contact guard assistance fro m one helper? No. TOILET TRANSFER - STEP 4: Does the patient need physical assistance - for example lifting or trunk support from one helper - wi th the helper providing less than half of the effort? Yes. 1. [id number] ADMISSION PERFORMANCE: Partial/moderate assistance CODE: 03 TRANSFERS: CAR: Not assessed/no information CODE: - WALK 10 FEET: Not assessed/no information CODE: - 1 STEP (CURB): Not assessed/no information CODE: - PICKING UP OBJECT: Not assessed/no information CODE: - DOES THE PATIENT USE A WHEELCHAIR/SCOOTER? CODE: EXPR WHEEL 50 FEET WITH TWO TURNS: Not assessed/no information CODE: - INDICATE THE TYPE OF WHEELCHAIR/SCOOTER USED: CODE: EXPR WHEEL 150 FEET: Not assessed/no information CODE: - INDICATE THE TYPE OF WHEELCHAIR/SCOOTER USED: CODE: EXPR BLADDER AND BOWEL: H350. BLADDER CONTINENCE (3-DAY ASSESSMENT PERIOD): Always continent (no documented incontinence) CODE: 0 H400. BOWEL CONTINENCE (3-DAY ASSESSMENT PERIOD): Occasionally incontinent (one episode of bowel incontinence) CODE: 1
[2020-01-15 05:31] VITALS: BMI 24.2
[2020-01-15] MEDS: INSULIN -REGULAR HUMAN 50 UNIT/0.5 ML ML SQ SCH ×4 (07:30→20:46)
[2020-01-15] MEDS: LIDOCAINE 4% PATCH TOP SCH (07:38)
[2020-01-15] MEDS: CEFEPIME/SWI 1gm 10 ML IV SCH ×2 (07:38→20:45)
[2020-01-15] MEDS: ENOXAPARIN 40 MG/0.4 ML SQ SCH (07:39)
[2020-01-15] MEDS: NICOTINE 14 MG/PAT TD SCH (08:00)
[2020-01-15] MEDS: GLUCERNA SHAKE 237 ML CAN PO SCH ×2 (08:00→20:00)
[2020-01-15] MEDS: COLLAGENASE 30 GM OINTMENT TOP SCH (08:00)
[2020-01-15] MEDS: JUVEN PACKET PO SCH ×2 (08:00→20:00)
[2020-01-15] MEDS: MAGNESIUM OXIDE 400 MG TAB PO SCH ×2 (08:43→20:45)
[2020-01-15] MEDS: NYSTATIN 100MU/GM CREAM 15GM TOP SCH ×2 (08:43→20:45)
[2020-01-15] MEDS: ASPIRIN EC 81 MG TAB PO SCH (08:44)
[2020-01-15] MEDS: GABAPENTIN 300 MG CAP PO SCH ×2 (08:44→20:45)
[2020-01-15] MEDS: PENTOXIFYLLINE ER 400 MG TAB PO SCH ×2 (08:44→20:45)
[2020-01-15] MEDS: DULOXETINE 20 MG CAP PO SCH (08:44)
[2020-01-15] MEDS: HYDROCODONE/APAP 7.5/325 MG TAB PO PRN (08:47)
[2020-01-15] MEDS: lisinopriL 10 MG TAB PO SCH (08:47)
[2020-01-15] MEDS: INSULIN GLARGINE 100 UNITS/ML SQ SCH (08:48)
[2020-01-15] MEDS: JANUMET PO SCH (16:32)
[2020-01-15] MEDS: ATORVASTATIN 10 MG TAB PO SCH (20:45)
[2020-01-16] MEDS: METRONIDAZOLE 500mg IVPB 500 MG/100 ML BAG IV SCH ×3 (00:33→17:16)
[2020-01-16] MEDS: LIDOCAINE 4% PATCH TOP SCH (07:27)
[2020-01-16] MEDS: NICOTINE 14 MG/PAT TD SCH (07:27)
[2020-01-16] MEDS: CEFEPIME/SWI 1gm 10 ML IV SCH ×2 (07:27→19:41)
[2020-01-16] MEDS: ENOXAPARIN 40 MG/0.4 ML SQ SCH (07:28)
[2020-01-16] MEDS: NYSTATIN 100MU/GM CREAM 15GM TOP SCH ×2 (07:29→19:40)
[2020-01-16] MEDS: INSULIN -REGULAR HUMAN 50 UNIT/0.5 ML ML SQ SCH ×4 (07:30→21:21)
[2020-01-16] MEDS: COLLAGENASE 30 GM OINTMENT TOP SCH (07:32)
[2020-01-16] MEDS: GLUCERNA SHAKE 237 ML CAN PO SCH ×2 (08:00→19:41)
[2020-01-16] MEDS: JUVEN PACKET PO SCH ×2 (08:00→19:41)
[2020-01-16] MEDS: HYDROCODONE/APAP 7.5/325 MG TAB PO PRN ×2 (08:34→12:52)
[2020-01-16] MEDS: GABAPENTIN 300 MG CAP PO SCH ×2 (08:35→19:39)
[2020-01-16] MEDS: INSULIN GLARGINE 100 UNITS/ML SQ SCH (08:35)
[2020-01-16] MEDS: DULOXETINE 20 MG CAP PO SCH (08:36)
[2020-01-16] MEDS: ASPIRIN EC 81 MG TAB PO SCH (08:36)
[2020-01-16] MEDS: PENTOXIFYLLINE ER 400 MG TAB PO SCH ×2 (08:36→19:40)
[2020-01-16] MEDS: MAGNESIUM OXIDE 400 MG TAB PO SCH ×2 (08:36→19:40)
[2020-01-16] MEDS: lisinopriL 10 MG TAB PO SCH (08:36)
--- NOTE | 2020-01-16 17:15 | PN ---
Date of Progress Note: 01/15/2020 Subjective: Patient was seen this morning for followup. He was lying in bed, not in distress. No n ew complaints or problems reported by him. Objective: Vital Signs: Reviewed. HEENT: Unremarkable. Lungs: Clear to auscultation. Heart: Sounds normal. Abdomen: Soft. Bowel sounds normal. No guarding, rigidity, tenderness, or distention. Extremities: No leg edema. Right heel examination, evidence of bruising on the heel, unchanged from yesterday. Patient is not compliant with offloading heel and I did instruct him once again today to make sure to keep his heels offloaded all the time. Impression: 1.Peripheral vascular disease. 2.Hypertension. 3.Diabetes mellitus. Plan: We will increase the dose of insulin to 15 units subcutaneous injection daily. Give lisinopri l 10 mg daily for hypertension per order and continue other current medications. I will see him alberto rrow for followup. Fingerstick blood sugar readings reviewed. DONI/MODL Voice ID: [id number] Report ID: [id number]
[2020-01-16] MEDS: JANUMET PO SCH (17:16)
--- NOTE | 2020-01-16 17:20 | PN ---
Date of Progress Note: 01/16/2020 Subjective: Patient was seen this morning for followup. No new complaints or problems reported by melissa agosto. Lying in bed, not in distress. Objective: Vital Signs: Reviewed. HEENT: Unremarkable. Lungs: Clear to auscultation. Heart: Sounds normal. Abdomen: Soft. Bowel sounds normal. No guarding, rigidity, tenderness, or distention. Extremities: No leg edema. Right heel was offloaded and has special brace in place to help with the offloading. Impression: 1.Peripheral vascular disease. 2.Candidal infection of skin. 3.Hypertension. 4.Diabetes mellitus. Plan: Continue current medications. Continue current insulin and antihypertensive medication. DVT prophylaxis. I will see him tomorrow for followup. He is scheduled to go home on . DONI/MODL Voice ID: [id number] Report ID: [id number]
[2020-01-16] MEDS: ATORVASTATIN 10 MG TAB PO SCH (21:22)
[2020-01-17] MEDS: METRONIDAZOLE 500mg IVPB 500 MG/100 ML BAG IV SCH ×3 (00:31→17:12)
[2020-01-17] MEDS: INSULIN -REGULAR HUMAN 50 UNIT/0.5 ML ML SQ SCH ×4 (07:30→21:00)
[2020-01-17] MEDS: ENOXAPARIN 40 MG/0.4 ML SQ SCH (07:35)
[2020-01-17] MEDS: CEFEPIME/SWI 1gm 10 ML IV SCH ×2 (07:36→20:32)
[2020-01-17] MEDS: HYDROCODONE/APAP 7.5/325 MG TAB PO PRN ×2 (07:43→20:33)
[2020-01-17] MEDS: COLLAGENASE 30 GM OINTMENT TOP SCH ×2 (08:00→11:14)
[2020-01-17] MEDS: JUVEN PACKET PO SCH ×2 (08:00→20:00)
[2020-01-17] MEDS: GLUCERNA SHAKE 237 ML CAN PO SCH ×2 (08:00→20:00)
[2020-01-17] MEDS: INSULIN GLARGINE 100 UNITS/ML SQ SCH (08:35)
[2020-01-17] MEDS: ASPIRIN EC 81 MG TAB PO SCH (08:35)
[2020-01-17] MEDS: DULOXETINE 20 MG CAP PO SCH (08:35)
[2020-01-17] MEDS: lisinopriL 10 MG TAB PO SCH (08:36)
[2020-01-17] MEDS: GABAPENTIN 300 MG CAP PO SCH ×2 (08:36→20:33)
[2020-01-17] MEDS: PENTOXIFYLLINE ER 400 MG TAB PO SCH ×2 (08:36→20:33)
[2020-01-17] MEDS: MAGNESIUM OXIDE 400 MG TAB PO SCH ×2 (08:37→20:33)
--- NOTE | 2020-01-17 08:40 | CON ---
Date of Consultation: 01/12/2020 Chief Complaint: Worsening depressive symptoms. History Of Present Illness: Psychiatry is consulted to evaluate patient for severe depressive symptoms and verbalizing he rather be than be alive. On interview, history is provided by both patient and his . Patient reports worsening depressive symptoms and whishing he rather be than be alive in the condition that he is in. The , states that patient 2 days ago had a below-knee amputation of left knee on account of claudication from poorly- controlled diabetes and Post surgery, patient has been very despondent, sad for the most part of the day, feeling hopeless and helpless about his current situation. Denies history of psychosis, denies bipolar symptoms, history of PTSD, does admit social use of alcoholic beverages, but denies substance abuse. Patient is for 55 years, has 5 children. His is very supportive. Patient was started on Cymbalta 15 mg daily. 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 Objective: Vital Signs: Blood pressure 131/84, respiratory rate is 16, pulse rate is 85, temp is 98.2 degrees Fahrenheit. O2 sat is 96% on room air. Mental Status: Patient is fairly well nourished male with disheveled beards. Patient is lying in bed covered with bedsheet up his chest, sleeping, but easily arousable. Not in any acute distress. Alert and oriented x3. Has below -the-knee amputation of left knee with psychomotor retardation. Speech is spontaneous, but has very pressured speech. No perseveration is noted. Mood is described as depressed. Affect is mood congruent. TP: linear and at times circumstantial. TC: No suicidal or homicidal ideation, patient verbalized he wish he was than be alive. No auditory or visual hallucination. Insight, judgment, impulse control are fair. Diagnoses: 1. Adjustment disorder with depressed mood. 2. Major depressive disorder recurrent episode severe. Recommendations: 1. Increase Cymbalta to 30 mg p.o. daily for depression. 2. Recommended starting Wellbutrin 150 mg PO. q.a.m. for depressive symptoms and augmentation of Cymbalta. 3. Recommended psychiatric outpatient followup post discharge for medication management. 4. Recommend used of psychotherapy postdischarge. Discussed recommendation with treatment team. Spent 45 minutes evaluating patient, reviewing charts and discussing recommendation with patient treatment team as well as patient's . JONEL/AUDIE Voice ID: [id number] Report ID: [id number] MTDAlysa
[2020-01-17] MEDS: LIDOCAINE 4% PATCH TOP SCH (11:11)
[2020-01-17] MEDS: NYSTATIN 100MU/GM CREAM 15GM TOP SCH ×2 (11:12→20:32)
[2020-01-17] MEDS: NICOTINE 14 MG/PAT TD SCH (11:16)
--- NOTE | 2020-01-17 12:06 | PN ---
Date of Progress Note: 01/17/2020 Subjective: Patient is awake, alert, no complaint. Objective: Vital Signs: Stable. Afebrile. Extremities: Examination of the left BKA reveals some skin necrosis at the suture line and some near the kneecap. It appears to be superficial in nature. There is no surrounding erythema, warmth, or edema. On the right dorsum of the foot, there is however developing a new area of ischemia and may b e early dry gangrene. Assessment: Status post left below-knee amputation and the patient has very poor peripheral vascular disease with a poor prognosis. Recommendations: We will add collagenase to the dressing at this time. We will leave the maye in for the time being. Plan of care was discussed with the family and again and it was explained that the patient may need further surgery because of his severe peripheral vascular disease. They underst and. /MODL Voice ID: [id number] Report ID: [id number]
--- NOTE | 2020-01-17 15:01 | FAST ---
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 Fercho Baldwin M.D. ADMISSION DIAGNOSIS: - Amputation of Limb 05 - Unilateral Lower Limb Below the Knee (BK) (05.4) Left Below the Knee Amputation. EATING: Not assessed/no information CODE: - ORAL HYGIENE: ORAL HYGIENE - STEP 1: Does the patient complete the activity by him/herself with no assistance (physical, verbal/nonverbal cueing, setup/clean-up)? Yes. 1. [id number] ADMISSION PERFORMANCE: Independent CODE: 06 TOILETING HYGIENE: Not assessed/no information CODE: - BATHING: SHOWER/BATHE SELF - STEP 1: Does the patient complete the activity by him/herself with no assistance (physical, verbal/nonverbal cueing, setup/clean-up)? No. SHOWER/BATHE SELF - STEP 2: Does the patient need only setup/clean-up assistance from one helper? No. SHOWER/BATHE SELF - STEP 3: Does the patient need only verbal/nonverbal cueing or touching/steadying/contact guard assistance fro m one helper? Yes. 1. [id number] ADMISSION PERFORMANCE: Supervision or touching assistance CODE: 04 DRESSING - UPPER BODY: DRESSING - UPPER BODY - STEP 1: Does the patient complete the activity by him/herself with no assistance (physical, verbal/nonverbal cueing, setup/clean-up)? Yes. 1. [id number] ADMISSION PERFORMANCE: Independent CODE: 06 DRESSING - LOWER BODY: DRESSING - LOWER BODY - STEP 1: Does the patient complete the activity by him/herself with no assistance (physical, verbal/nonverbal cueing, setup/clean-up)? No. DRESSING - LOWER BODY - STEP 2: Does the patient need only setup/clean-up assistance from one helper? No. DRESSING - LOWER BODY - STEP 3: Does the patient need only verbal/nonverbal cueing or touching/steadying/contact guard assistance fro m one helper? Yes. 1. [id number] ADMISSION PERFORMANCE: Supervision or touching assistance CODE: 04 PUTTING ON/TAKING OFF FOOTWEAR: FOOTWEAR - STEP 1: Does the patient complete the activity by him/herself with no assistance (physical, verbal/nonverbal cueing, setup/clean-up)? Yes. 1. [id number] ADMISSION PERFORMANCE: Independent CODE: 06 DOES THE PATIENT USE A WHEELCHAIR/SCOOTER? CODE: EXPR INDICATE THE TYPE OF WHEELCHAIR/SCOOTER USED: CODE: EXPR INDICATE THE TYPE OF WHEELCHAIR/SCOOTER USED: CODE: EXPR BLADDER AND BOWEL: CODE: EXPR CODE: EXPR SIGNATURE PANEL: The following modified sections: 1. [id number] Admission Performance, 1. [id number] Admission Performance, 1. [id number] Admission Performance, 1. [id number] Admission Performance, 1. [id number] Admission Performance were [electronically] signed by CORINNA Grove on FriJan 17 2020 15:01:05 GMT-0500 (Central Daylight Time)
[2020-01-17] MEDS: JANUMET PO SCH (17:00)
--- NOTE | 2020-01-17 18:10 | R.PN ---
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 SUBJECTIVE: Pt denied any depression. Pt denied any Shortness of Breath. Elevated WBC of 13.1, Hgb 10.2, Glucose 138 to 217, magnesium normal at 2.2, prealbumin 19.7. Patient states that pain is under control. Self-propelled wheelchair 150 feet with standby assistance. He is not able to weight shift to his arms while using the rolling walker to move his right foot forw reji. VITAL SIGNS Temperature: 97.6 F SBP/DBP: 164/89 Pulse: 85 Resp: 16 MEDICATION ALLERGIES: No Known Drug Allergies (NKDA) ENVIRONMENTAL ALLERGIES: None Known - Substance Allergies None Known - Other Allergies None Known CONSULT: Perform Consult Certified Prosthetic for prosthesis construction NURSING: - Shower allowing shower - Lab Results blood Sugar Check ACHS - Skin care per protocol PRECAUTIONS: - Weight Bearing Precaution NWB left LE ACTIVITIES OOB only with supervision THERAPIES: - Orthotics/Prosthetics Prosthetic Evaluation. - Dietary and Nutrition Adequate Nutrition. Nutritional Education. Nutritional Supplements. PHYSICAL EXAM - Gen Alert and awake Lying in bed No apparent distress Oriented to: person, time, and place - Skin Left BKA bandage in place with good hemostasis. Normacephalic - Eyes No abnormalities - ENMT No abnormalities - Neck No abnormalities - CVS RRR - Chest No abnormalities - Resp Clear to auscultation - Abd Soft - GI Non distended Deferred - No abnormalities - Ext Left BKA good hemostasis, dressing in place - MSK No focal deficits, mild diffuse weakness - Neuro No focal deficits - Psych No abnormalities ASSESSMENT: Pt. is a 74 yo Right-handed male.On 12/23/2019 he was admitted to [facility] with diagnosis Left Below the Knee Amputation.His impairment category is Amputation of Limb 05 - Unilateral Lower Limb Below the Knee (BK) (05.4).Pre-morbidly, Pt. was independent/mod-I in Locom otion, Safety Awareness, Balance, Social Cognition, Transfers Control, Sphincter Control, Self-Care, Communication, and Endurance; and he had good Locomotion, Balance, Safety Awareness, Social Cognition , Transfers Control, Sphincter Control, Self-Care, Communication, and Endurance.Currently, he has def icits of Locomotion, Balance, Safety Awareness, Transfers Control, Self-Care, Communication, and Endu bharat.Pt. is now referred to [facility] for acute in-patient rehabilitation in order to maximize patient's functional independence in activities of daily living, strength, ROM, an d mobility.- Rehab Goal Patient has realistic goal of being discharged at assistance level 6-Dar to reside at Home with Fam kaylee/Relatives. MDM/PLAN: - Physical Therapy Gait dysfunction - to improve, our physical therapists will perform initial evaluation of pt's statu s upon admission and devise an individualized program for Gait Training, and Wheel Chair mobility Inability to transfer - to improve, our physical therapists will perform initial evaluation of pt's status upon admission and devise an individualized program for Bed mobility Need for home safety evaluation - to improve, our physical therapists will perform initial evaluatio n of pt's status upon admission and devise an individualized program for Home Evaluation Need in caregiver upon discharge - to improve, our physical therapists will perform initial evaluati on of pt's status upon admission and devise an individualized program for Caregiver Training New precaution - to improve, our physical therapists will perform initial evaluation of pt's status upon admission and devise an individualized program for Patient precaution education Poor balance - to improve, our physical therapists will perform initial evaluation of pt's status up on admission and devise an individualized program for Balance Training Poor endurance - to improve, our physical therapists will perform initial evaluation of pt's status upon admission and devise an individualized program for Endurance Training Weakness - to improve, our physical therapists will perform initial evaluation of pt's status upon a dmission and devise an individualized program for Aquatic Therapy, Neuromuscular Reeducation, and Str engthening Achieving independence - to improve, our physical therapists will perform initial evaluation of pt's status upon admission and devise an individualized program for Community Reintegration Activities - Occupational Therapy ADL deficits - to improve, our occupation therapists will perform initial evaluation of pt's status upon admission and devise an individualized program for Bathing, Bed mobility, Community Reintegratio n, Cooking, Dressing, Eating, Fine Motor Skills, Grooming, Homemaking, Kitchen Mobility, Laundry, Pat ient Education, Safety Awareness, Splinting - Positioning, Transfers(Toilet, Tub, Shower), and Wheel Chair Management Need for live in caregiver - to improve, our occupation therapists will perform initial evaluation of pt's status upon admission and devise an individualized program for Caregiver Training Weakness - to improve, our occupation therapists will perform initial evaluation of pt's status upon admission and devise an individualized program for Aquatic Therapy, Balance, Endurance, UE ROM, and UE strengthening - Other See attached MAR (Medication Administration Record) - Diet Type Continue ADA 1800 - Diet - Liquid Texture Continue Regular - Tube Feed Continue N/A - Lab Results blood Sugar Check ACHS - Weight Bearing Precaution NWB left LE - Skin care per protocol - N/A Perform Consult Certified Prosthetic for prosthesis construction - Diet - Solid Texture Continue Regular - Shower allowing shower FUNCTIONAL STATUS: UPDATED AT WEEKLY TEAM CONFERENCE - Bladder Same accident frequency: 7-Ind - No accidents in the past 7 days - Bowel Same accident frequency: 7-Ind - No accidents in the past 7 days - Walking Same score based on distance walked: 0(N/A) - Wheelchair Same score based on distance traveled: 0(N/A) FUNCTIONAL STATUS: - Self-Care A. Eating sup B. Grooming Jose C. Bathing modA D. Dressing - Upper Jose E. Dressing - Lower modA F. Toileting sup - Sphincter Control G. Bladder control Jose H. Bowel control Jose - Transfers Control I. Bed/Chair/Wheelchair modA J. Toilet modA K. Tub/Shower modA - Locomotion L. Walk/Wheelchair (B) modA M. Stairs ADNO - Communication N. Comprehension (B) Dar O. Expression (B) sup - Social Cognition P. Social Interaction Dar Q. Problem Solving Jose R. Memory modA - Endurance Poor - Balance Poor - Safety Awareness Poor QI SCORES: - Self-Care A. Eating 05-Setup or clean-up assistance B. Oral hygiene 05-Setup or clean-up assistance C. Toileting hygiene 03-Partial/moderate assistance E. Shower/bathe self 04-Supervision or touching assistance F. Upper body dressing 04-Supervision or touching assistance G. Lower body dressing 01-Dependent H. Putting on/taking off footwear 01-Dependent - Mobility A. Roll left and right 04-Supervision or touching assistance B. Sit to lying 04-Supervision or touching assistance C. Lying to sitting on side of bed 03-Partial/moderate assistance D. Sit to stand 03-Partial/moderate assistance E. Chair/[id number]-[id number] transfer 03-Partial/moderate assistance F. Toilet transfer 03-Partial/moderate assistance G. Car transfer 10-Not attempted due to environmental limitations I. Walk 10 feet 88-Not attempted due to medical condition or safety concerns J. Walk 50 feet with two turns 88-Not attempted due to medical condition or safety concerns K. Walk 150 feet 88-Not attempted due to medical condition or safety concerns L. Walking 10 feet on uneven surfaces 88-Not attempted due to medical condition or safety concerns M. 1 step (curb) 88-Not attempted due to medical condition or safety concerns N. 4 steps 88-Not attempted due to medical condition or safety concerns O. 12 steps 88-Not attempted due to medical condition or safety concerns P. Picking up object 88-Not attempted due to medical condition or safety concerns R. Wheel 50 feet with two turns 88-Not attempted due to medical condition or safety concerns S. Wheel 150 feet 88-Not attempted due to medical condition or safety concerns - Bladder and Bowel Bladder continence 0-Always continent Bowel continence 0-Always continent - Endurance Fair - Balance Poor - Safety Awareness Fair [facility] DEFICITS: Self-Care, Mobility, Endurance, Balance, and Safety Awareness SIGNATURE PANEL: (CDT)
--- NOTE | 2020-01-17 20:27 | PN ---
Date of Progress Note: 01/17/2020 Subjective: Patient was seen this morning for followup no new complaints problems reported by the [place]. Physical Examination: General: Lying in bed, not in distress. Vital Signs: Reviewed. HEENT: Unremarkable. Lungs: Clear to auscultation. Cardiac: Heart sounds normal. Abdomen: Soft, bowel sounds normal. No guarding, rigidity, tenderness, distention. Extremities: No leg edema. Right heel exam remains unchanged. Impression: 1.Peripheral vascular disease. 2.Diabetes mellitus. 3.Hypertension. Plan: Continue current medications. Continue current antihypertensive medication and insulin and or al diabetic medications. I will see him tomorrow for followup. Continue physical therapy per rose mary vicente of Dr. Baldwin. DONI/MODL Voice ID: [id number] Report ID: [id number]
[2020-01-17] MEDS: ATORVASTATIN 10 MG TAB PO SCH (20:33)
[2020-01-18] MEDS: METRONIDAZOLE 500mg IVPB 500 MG/100 ML BAG IV SCH ×3 (01:25→16:33)
[2020-01-18] MEDS: INSULIN -REGULAR HUMAN 50 UNIT/0.5 ML ML SQ SCH ×4 (07:30→20:04)
[2020-01-18] MEDS: JUVEN PACKET PO SCH ×2 (08:00→19:21)
[2020-01-18] MEDS: GLUCERNA SHAKE 237 ML CAN PO SCH ×2 (08:00→19:21)
[2020-01-18] MEDS: LIDOCAINE 4% PATCH TOP SCH (08:51)
[2020-01-18] MEDS: NICOTINE 14 MG/PAT TD SCH (08:51)
[2020-01-18] MEDS: ENOXAPARIN 40 MG/0.4 ML SQ SCH (08:51)
[2020-01-18] MEDS: NYSTATIN 100MU/GM CREAM 15GM TOP SCH ×2 (08:52→19:22)
[2020-01-18] MEDS: COLLAGENASE 30 GM OINTMENT TOP SCH (08:52)
[2020-01-18] MEDS: ASPIRIN EC 81 MG TAB PO SCH (08:52)
[2020-01-18] MEDS: PENTOXIFYLLINE ER 400 MG TAB PO SCH ×2 (08:52→19:22)
[2020-01-18] MEDS: GABAPENTIN 300 MG CAP PO SCH ×2 (08:52→19:23)
[2020-01-18] MEDS: DULOXETINE 20 MG CAP PO SCH (08:53)
[2020-01-18] MEDS: lisinopriL 10 MG TAB PO SCH (08:53)
[2020-01-18] MEDS: CEFEPIME/SWI 1gm 10 ML IV SCH ×2 (08:55→19:22)
[2020-01-18] MEDS: INSULIN GLARGINE 100 UNITS/ML SQ SCH (08:55)
[2020-01-18] MEDS: MAGNESIUM OXIDE 400 MG TAB PO SCH ×2 (11:31→19:23)
[2020-01-18] MEDS: JANUMET PO SCH (16:34)
[2020-01-18] MEDS: HYDROCODONE/APAP 7.5/325 MG TAB PO PRN (19:21)
[2020-01-18] MEDS: ATORVASTATIN 10 MG TAB PO SCH (19:22)
--- NOTE | 2020-01-18 21:44 | PN ---
Date of Progress Note: 01/18/2020 Subjective: Patient was seen this morning for followup. No new complaints problems reported by antony ent. Physical Examination: General: Lying in bed, not in distress. Vital Signs: Reviewed. HEENT: Unremarkable. Lungs: Clear to auscultation. Cardiac: Heart sounds normal. Abdomen: Soft, bowel sounds normal. No guarding, rigidity, tenderness, or distention. Extremities: No leg edema. Right heel exam unchanged. Impression: 1.Peripheral vascular disease. 2.Hypertension. 3.Diabetes mellitus. Plan: We will continue current medication. Continue physical therapy under guidance of Dr. Baldwin and continue to offload heel. I will see him tomorrow for followup. Continue current insulin and a ntihypertensive medication. DONI/MODL Voice ID: [id number] Report ID: [id number]
[2020-01-19] MEDS: METRONIDAZOLE 500mg IVPB 500 MG/100 ML BAG IV SCH ×3 (01:21→17:00)
[2020-01-19] MEDS: JUVEN PACKET PO SCH ×2 (08:00→20:00)
[2020-01-19] MEDS: GLUCERNA SHAKE 237 ML CAN PO SCH ×2 (08:00→20:00)
[2020-01-19] MEDS: CEFEPIME/SWI 1gm 10 ML IV SCH ×2 (08:51→20:00)
[2020-01-19] MEDS: INSULIN GLARGINE 100 UNITS/ML SQ SCH (08:51)
[2020-01-19] MEDS: INSULIN -REGULAR HUMAN 50 UNIT/0.5 ML ML SQ SCH ×4 (08:53→21:35)
[2020-01-19] MEDS: NICOTINE 14 MG/PAT TD SCH ×2 (08:54→20:03)
[2020-01-19] MEDS: LIDOCAINE 4% PATCH TOP SCH (08:54)
[2020-01-19] MEDS: ENOXAPARIN 40 MG/0.4 ML SQ SCH (08:54)
[2020-01-19] MEDS: ASPIRIN EC 81 MG TAB PO SCH (08:55)
[2020-01-19] MEDS: MAGNESIUM OXIDE 400 MG TAB PO SCH ×2 (08:55→20:06)
[2020-01-19] MEDS: DULOXETINE 20 MG CAP PO SCH (08:55)
[2020-01-19] MEDS: PENTOXIFYLLINE ER 400 MG TAB PO SCH ×2 (08:55→20:06)
[2020-01-19] MEDS: COLLAGENASE 30 GM OINTMENT TOP SCH (08:56)
[2020-01-19] MEDS: NYSTATIN 100MU/GM CREAM 15GM TOP SCH ×2 (08:56→20:05)
[2020-01-19] MEDS: GABAPENTIN 300 MG CAP PO SCH ×2 (08:56→20:06)
[2020-01-19] MEDS: lisinopriL 10 MG TAB PO SCH (08:56)
[2020-01-19] MEDS: HYDROCODONE/APAP 7.5/325 MG TAB PO PRN ×2 (10:01→21:39)
--- NOTE | 2020-01-19 14:20 | FAST ---
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 Fercho Baldwin M.D. ADMISSION DIAGNOSIS: - Amputation of Limb 05 - Unilateral Lower Limb Below the Knee (BK) (05.4) Left Below the Knee Amputation. EATING: Not assessed/no information CODE: - ORAL HYGIENE: ORAL HYGIENE - STEP 1: Does the patient complete the activity by him/herself with no assistance (physical, verbal/nonverbal cueing, setup/clean-up)? Yes. 1. [id number] ADMISSION PERFORMANCE: Independent CODE: 06 TOILETING HYGIENE: Not assessed/no information CODE: - BATHING: SHOWER/BATHE SELF - STEP 1: Does the patient complete the activity by him/herself with no assistance (physical, verbal/nonverbal cueing, setup/clean-up)? Yes. 1. [id number] ADMISSION PERFORMANCE: Independent CODE: 06 DRESSING - UPPER BODY: DRESSING - UPPER BODY - STEP 1: Does the patient complete the activity by him/herself with no assistance (physical, verbal/nonverbal cueing, setup/clean-up)? Yes. 1. [id number] ADMISSION PERFORMANCE: Independent CODE: 06 DRESSING - LOWER BODY: DRESSING - LOWER BODY - STEP 1: Does the patient complete the activity by him/herself with no assistance (physical, verbal/nonverbal cueing, setup/clean-up)? Yes. 1. [id number] ADMISSION PERFORMANCE: Independent CODE: 06 PUTTING ON/TAKING OFF FOOTWEAR: Not applicable - Not attempted and the patient did not perform this activity prior to the current ill ness, exacerbation, or injury. CODE: 09 DOES THE PATIENT USE A WHEELCHAIR/SCOOTER? CODE: EXPR INDICATE THE TYPE OF WHEELCHAIR/SCOOTER USED: CODE: EXPR INDICATE THE TYPE OF WHEELCHAIR/SCOOTER USED: CODE: EXPR BLADDER AND BOWEL: CODE: EXPR CODE: EXPR SIGNATURE PANEL: The following modified sections: 1. [id number] Admission Performance, 1. [id number] Admission Performance, 1. [id number] Admission Performance, 1. [id number] Admission Performance were [electronically] signed by CORINNA Marte on FriJan 19 2020 14:20:17 GMT-0500 (Central Daylight Time)
--- NOTE | 2020-01-19 16:43 | R.PN ---
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 SUBJECTIVE: Pt denied any depression. Pt denied any Shortness of Breath. Elevated WBC of 13.1, Hgb 10.2, Glucose 238 to 369, magnesium normal at 2.2, prealbumin 19.7. Patient states that pain is under control. Self-propelled wheelchair 500' with standby assistance. He is not able to weight shift to his arms while using the rolling walker to move his right foot forw reji. VITAL SIGNS Temperature: 97.6 F SBP/DBP: 161/84 Pulse: 76 Resp: 16 MEDICATION ALLERGIES: No Known Drug Allergies (NKDA) ENVIRONMENTAL ALLERGIES: None Known - Substance Allergies None Known - Other Allergies None Known CONSULT: Perform Consult Certified Prosthetic for prosthesis construction NURSING: - Shower allowing shower - Lab Results blood Sugar Check ACHS - Skin care per protocol PRECAUTIONS: - Weight Bearing Precaution NWB left LE ACTIVITIES OOB only with supervision THERAPIES: - Orthotics/Prosthetics Prosthetic Evaluation. - Dietary and Nutrition Adequate Nutrition. Nutritional Education. Nutritional Supplements. PHYSICAL EXAM - Gen Alert and awake Lying in bed No apparent distress Oriented to: person, time, and place - Skin Left BKA bandage in place with good hemostasis. Normacephalic - Eyes No abnormalities - ENMT No abnormalities - Neck No abnormalities - CVS RRR - Chest No abnormalities - Resp Clear to auscultation - Abd Soft - GI Non distended Deferred - No abnormalities - Ext Left BKA good hemostasis, dressing in place - MSK No focal deficits, mild diffuse weakness - Neuro No focal deficits - Psych No abnormalities ASSESSMENT: Pt. is a 74 yo Right-handed male.On 12/23/2019 he was admitted to [facility] with diagnosis Left Below the Knee Amputation.His impairment category is Amputation of Limb 05 - Unilateral Lower Limb Below the Knee (BK) (05.4).Pre-morbidly, Pt. was independent/mod-I in Locom otion, Safety Awareness, Balance, Social Cognition, Transfers Control, Sphincter Control, Self-Care, Communication, and Endurance; and he had good Locomotion, Balance, Safety Awareness, Social Cognition , Transfers Control, Sphincter Control, Self-Care, Communication, and Endurance.Currently, he has def icits of Locomotion, Balance, Safety Awareness, Transfers Control, Self-Care, Communication, and Endu bharat.Pt. is now referred to [facility] for acute in-patient rehabilitation in order to maximize patient's functional independence in activities of daily living, strength, ROM, an d mobility.- Rehab Goal Patient has realistic goal of being discharged at assistance level 6-Dar to reside at Home with Fam kaylee/Relatives. MDM/PLAN: - Physical Therapy Gait dysfunction - to improve, our physical therapists will perform initial evaluation of pt's statu s upon admission and devise an individualized program for Gait Training, and Wheel Chair mobility Inability to transfer - to improve, our physical therapists will perform initial evaluation of pt's status upon admission and devise an individualized program for Bed mobility Need for home safety evaluation - to improve, our physical therapists will perform initial evaluatio n of pt's status upon admission and devise an individualized program for Home Evaluation Need in caregiver upon discharge - to improve, our physical therapists will perform initial evaluati on of pt's status upon admission and devise an individualized program for Caregiver Training New precaution - to improve, our physical therapists will perform initial evaluation of pt's status upon admission and devise an individualized program for Patient precaution education Poor balance - to improve, our physical therapists will perform initial evaluation of pt's status up on admission and devise an individualized program for Balance Training Poor endurance - to improve, our physical therapists will perform initial evaluation of pt's status upon admission and devise an individualized program for Endurance Training Weakness - to improve, our physical therapists will perform initial evaluation of pt's status upon a dmission and devise an individualized program for Aquatic Therapy, Neuromuscular Reeducation, and Str engthening Achieving independence - to improve, our physical therapists will perform initial evaluation of pt's status upon admission and devise an individualized program for Community Reintegration Activities - Occupational Therapy ADL deficits - to improve, our occupation therapists will perform initial evaluation of pt's status upon admission and devise an individualized program for Bathing, Bed mobility, Community Reintegratio n, Cooking, Dressing, Eating, Fine Motor Skills, Grooming, Homemaking, Kitchen Mobility, Laundry, Pat ient Education, Safety Awareness, Splinting - Positioning, Transfers(Toilet, Tub, Shower), and Wheel Chair Management Need for lawn care worker - to improve, our occupation therapists will perform initial evaluation of pt's status upon admission and devise an individualized program for Caregiver Training Weakness - to improve, our occupation therapists will perform initial evaluation of pt's status upon admission and devise an individualized program for Aquatic Therapy, Balance, Endurance, UE ROM, and UE strengthening - Other See attached MAR (Medication Administration Record) - Diet Type Continue ADA 1800 - Diet - Liquid Texture Continue Regular - Tube Feed Continue N/A - Lab Results blood Sugar Check ACHS - Weight Bearing Precaution NWB left LE - Skin care per protocol - N/A Perform Consult Certified Prosthetic for prosthesis construction - Diet - Solid Texture Continue Regular - Shower allowing shower FUNCTIONAL STATUS: UPDATED AT WEEKLY TEAM CONFERENCE - Bladder Same accident frequency: 7-Ind - No accidents in the past 7 days - Bowel Same accident frequency: 7-Ind - No accidents in the past 7 days - Walking Same score based on distance walked: 0(N/A) - Wheelchair Same score based on distance traveled: 0(N/A) FUNCTIONAL STATUS: - Self-Care A. Eating sup B. Grooming Jose C. Bathing modA D. Dressing - Upper Jose E. Dressing - Lower modA F. Toileting sup - Sphincter Control G. Bladder control Jose H. Bowel control Jose - Transfers Control I. Bed/Chair/Wheelchair modA J. Toilet modA K. Tub/Shower modA - Locomotion L. Walk/Wheelchair (B) modA M. Stairs ADNO - Communication N. Comprehension (B) Dar O. Expression (B) sup - Social Cognition P. Social Interaction Dar Q. Problem Solving Jose R. Memory modA - Endurance Poor - Balance Poor - Safety Awareness Poor QI SCORES: - Self-Care A. Eating 05-Setup or clean-up assistance B. Oral hygiene 05-Setup or clean-up assistance C. Toileting hygiene 03-Partial/moderate assistance E. Shower/bathe self 04-Supervision or touching assistance F. Upper body dressing 04-Supervision or touching assistance G. Lower body dressing 01-Dependent H. Putting on/taking off footwear 01-Dependent - Mobility A. Roll left and right 04-Supervision or touching assistance B. Sit to lying 04-Supervision or touching assistance C. Lying to sitting on side of bed 03-Partial/moderate assistance D. Sit to stand 03-Partial/moderate assistance E. Chair/mfh-zf-ubwua transfer 03-Partial/moderate assistance F. Toilet transfer 03-Partial/moderate assistance G. Car transfer 10-Not attempted due to environmental limitations I. Walk 10 feet 88-Not attempted due to medical condition or safety concerns J. Walk 50 feet with two turns 88-Not attempted due to medical condition or safety concerns K. Walk 150 feet 88-Not attempted due to medical condition or safety concerns L. Walking 10 feet on uneven surfaces 88-Not attempted due to medical condition or safety concerns M. 1 step (curb) 88-Not attempted due to medical condition or safety concerns N. 4 steps 88-Not attempted due to medical condition or safety concerns O. 12 steps 88-Not attempted due to medical condition or safety concerns P. Picking up object 88-Not attempted due to medical condition or safety concerns R. Wheel 50 feet with two turns 88-Not attempted due to medical condition or safety concerns S. Wheel 150 feet 88-Not attempted due to medical condition or safety concerns - Bladder and Bowel Bladder continence 0-Always continent Bowel continence 0-Always continent - Endurance Fair - Balance Poor - Safety Awareness Fair [facility] DEFICITS: Self-Care, Mobility, Endurance, Balance, and Safety Awareness SIGNATURE PANEL: (CDT)
[2020-01-19] MEDS: JANUMET PO SCH (17:00)
[2020-01-19] MEDS: ATORVASTATIN 10 MG TAB PO SCH (20:06)
--- NOTE | 2020-01-19 23:17 | PN ---
Date of Progress Note: 01/19/2020 Subjective: Patient was seen this morning for followup. No new complaints or problems reported by melissa agosto. Physical Examination: General: Lying in bed, not in distress. Vital Signs: Reviewed. HEENT: Unremarkable. Lungs: Clear to auscultation. Cardiac: Heart sounds normal. Abdomen: Soft, bowel sounds normal. No guarding, rigidity, tenderness, or distention. Extremities: No leg edema. Impression: 1.Peripheral vascular disease. 2.Hypertension. 3.Diabetes mellitus. Plan: We will continue current medication. Continue physical therapy per guidance of Dr. Baldwin. I will see him tomorrow for followup. Patient is scheduled to go home tomorrow. DONI/MODL Voice ID: [id number] Report ID: [id number]
[2020-01-20] MEDS: HYDROCODONE/APAP 7.5/325 MG TAB PO PRN ×3 (04:08→16:47)
[2020-01-20 06:26] LABS: Basophils % 1.1 % (0-1.3); Hematocrit 31.2 % (39.6-49.0); Lymphocytes % 16.1 % (15.3-44.8); MPV 8.1 fL (7.6-11.3); RBC Red Blood Cell Count 3.48 M/uL (4.33-5.43)
[2020-01-20 06:47] LABS: Albumin 2.5 g/dL (3.4-5.0); BUN Blood Urea Nitrogen 10 mg/dL (7-18); Bicarbonate 30 mmol/L (21-32); Glucose Level 184 mg/dL (74-106); Magnesium 1.8 mg/dL (1.8-2.4); Potassium 3.9 mmol/L (3.5-5.1); Prealbumin 23.9 mg/dL (20-40); Sodium Level 136 mmol/L (136-145)
[2020-01-20] MEDS: ENOXAPARIN 40 MG/0.4 ML SQ SCH (07:03)
[2020-01-20] MEDS: LIDOCAINE 4% PATCH TOP SCH (07:15)
[2020-01-20] MEDS: NICOTINE 14 MG/PAT TD SCH (07:15)
[2020-01-20] MEDS: INSULIN -REGULAR HUMAN 50 UNIT/0.5 ML ML SQ SCH ×3 (07:30→16:45)
[2020-01-20] MEDS ORDERED: INSULIN GLARGINE 100 UNITS/ML SQ SCH (08:00)
[2020-01-20] MEDS: JUVEN PACKET PO SCH (08:00)
[2020-01-20] MEDS: GLUCERNA SHAKE 237 ML CAN PO SCH (08:00)
[2020-01-20] MEDS: MAGNESIUM OXIDE 400 MG TAB PO SCH (08:26)
[2020-01-20] MEDS: lisinopriL 10 MG TAB PO SCH (08:26)
[2020-01-20] MEDS: NYSTATIN 100MU/GM CREAM 15GM TOP SCH (08:26)
[2020-01-20] MEDS: DULOXETINE 20 MG CAP PO SCH (08:26)
[2020-01-20] MEDS: COLLAGENASE 30 GM OINTMENT TOP SCH (08:26)
[2020-01-20] MEDS: GABAPENTIN 300 MG CAP PO SCH (08:26)
[2020-01-20] MEDS: ASPIRIN EC 81 MG TAB PO SCH (08:27)
[2020-01-20] MEDS: PENTOXIFYLLINE ER 400 MG TAB PO SCH (08:27)
[2020-01-20 08:28] VITALS: BP 142/87
[2020-01-20 08:50] VITALS: TEMP 96.8
--- NOTE | 2020-01-20 14:57 | FAST ---
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 Fercho Baldwin M.D. ADMISSION DIAGNOSIS: - Amputation of Limb 05 - Unilateral Lower Limb Below the Knee (BK) (05.4) Left Below the Knee Amputation. ROLL LEFT AND RIGHT: ROLL LEFT AND RIGHT - STEP 1: Does the patient complete the activity by him/herself with no assistance (physical, verbal/nonverbal cueing, setup/clean-up)? Yes. 1. [id number] ADMISSION PERFORMANCE: Independent CODE: 06 SIT TO LYING: SIT TO LYING - STEP 1: Does the patient complete the activity by him/herself with no assistance (physical, verbal/nonverbal cueing, setup/clean-up)? Yes. 1. [id number] ADMISSION PERFORMANCE: Independent CODE: 06 LYING TO SITTING: LYING TO SITTING ON SIDE OF BED - STEP 1: Does the patient complete the activity by him/herself with no assistance (physical, verbal/nonverbal cueing, setup/clean-up)? Yes. 1. [id number] ADMISSION PERFORMANCE: Independent CODE: 06 SIT TO STAND: Not attempted due to medical condition or safety concerns CODE: 88 TRANSFERS: BED, CHAIR: CHAIR/[id number]-[id number] TRANSFER - STEP 1: Does the patient complete the activity by him/herself with no assistance (physical, verbal/nonverbal cueing, setup/clean-up)? No. CHAIR/[id number] TRANSFER - STEP 2: Does the patient need only setup/clean-up assistance from one helper? Yes. 1. [id number] ADMISSION PERFORMANCE: Setup or clean-up assistance CODE: 05 TRANSFER TOILET: TOILET TRANSFER - STEP 1: Does the patient complete the activity by him/herself with no assistance (physical, verbal/nonverbal cueing, setup/clean-up)? No. TOILET TRANSFER - STEP 2: Does the patient need only setup/clean-up assistance from one helper? Yes. 1. [id number] ADMISSION PERFORMANCE: Setup or clean-up assistance CODE: 05 TRANSFERS: CAR: Not attempted due to environmental limitations (e.g., lack of equipment, weather constraints) CODE: 10 WALK 10 FEET: Not attempted due to medical condition or safety concerns CODE: 88 1 STEP (CURB): Not attempted due to medical condition or safety concerns CODE: 88 PICKING UP OBJECT: PICKING UP OBJECT - STEP 1: Does the patient complete the activity by him/herself with no assistance (physical, verbal/nonverbal cueing, setup/clean-up)? Yes. 1. [id number] ADMISSION PERFORMANCE: Independent CODE: 06 DOES THE PATIENT USE A WHEELCHAIR/SCOOTER? Q1. DOES THE PATIENT USE A WHEELCHAIR/SCOOTER?: Yes CODE: 1 WHEEL 50 FEET WITH TWO TURNS: WHEEL 50 FEET WITH TWO TURNS - STEP 1: Does the patient complete the activity by him/herself with no assistance (physical, verbal/nonverbal cueing, setup/clean-up)? Yes. 1. [id number] ADMISSION PERFORMANCE: Independent CODE: 06 INDICATE THE TYPE OF WHEELCHAIR/SCOOTER USED: RR1. INDICATE THE TYPE OF WHEELCHAIR/SCOOTER USED.: Manual CODE: 1 WHEEL 150 FEET: WHEEL 150 FEET - STEP 1: Does the patient complete the activity by him/herself with no assistance (physical, verbal/nonverbal cueing, setup/clean-up)? Yes. 1. [id number] ADMISSION PERFORMANCE: Independent CODE: 06 INDICATE THE TYPE OF WHEELCHAIR/SCOOTER USED: SS1. INDICATE THE TYPE OF WHEELCHAIR/SCOOTER USED.: Manual CODE: 1 BLADDER AND BOWEL: CODE: EXPR CODE: EXPR SIGNATURE PANEL: The following modified sections: 1. [id number] Admission Performance, 1. [id number] Admission Performance, 1. [id number] Admission Performance, 1. BV2834T Admission Performance, 1. [id number] Admission Performance, 1. TC2269L Admission Performance, Q1. Does the patient use a wheelchair/scooter?, 1. [id number] Admissi on Performance, RR1. Indicate the type of wheelchair/scooter used., 1. [id number] Admission Performance, Code, SS1. Indicate the type of wheelchair/scooter used. were [electronically] signed by Cj Batista PTA on FriJan 20 2020 14:55:53 GMT-0500 (Central Daylight Time)
[2020-01-20] MEDS: JANUMET PO SCH (17:00)
--- NOTE | 2020-01-23 10:46 | DS ---
Date of Discharge: 01/20/2020 Disposition: Discharged to go home. Physical Examination: HEENT: Unremarkable. Lungs: Clear to auscultation. Heart: Sounds normal. Abdomen: Soft. Bowel sounds normal. No guarding, rigidity, tenderness, or distention. Extremities: No leg edema. Right heel examination has a black discoloration on the lateral heel. Overall that is stable in last few days and better compared to how it was before. Discharge Medications And Instructions: 1. Continue all prior home medications except change Lantus insulin 25 units subcutaneous injection daily in the morning. 2. Follow up with Dr. Mcdermott in 1 week. 3. Follow up with Dr. Leon per his instruction. Laboratory Data: Labs done during this hospitalization, last CBC from 2019: White count 12.1, hemoglobin 10.5, platelets 553. Sodium 136, potassium 3.9, chloride 101, bicarb 30, BUN 10, creatinine 0.80, glucose 184, magnesium 1.8. Hospital Course: This is a 74-year-old male patient admitted to rehab floor from the medical floor. Patient had amputation done of left lower extremity by Dr. Leon and subsequently, he was brought to rehab floor. His condition on the rehab floor remained stable. Pain was controlled with appropriate pain medications. His diabetes was managed with insulin for a while. He had some hypoglycemia problem, so we had to stop his nighttime dose of insulin, which is Lantus and he was managed with oral diabetes medication. During that time while his blood sugar was running low, his appetite was not good and as his appetite got better, blood sugar started going up, so we did have to restart his Lantus, but we changed the dose from nighttime to morning time and with ongoing monitoring of fingerstick blood sugar readings, we slowly increased the dose to 25 units daily in the morning. Patient was instructed to continue that dose at home. Overall, his other health problems remained stable. His candidal infection of skin in both groins completely resolved with appropriate therapy. He had some bruising type of area on the right heel area and bruises improved actually and in the center of it had some black discoloration of the skin. There is no open wound. His heels were offloaded all the time and then subsequently, we started using Theraboot. Patient was instructed to continue to use this Theraboot at home as well. He was advised not to smoke anymore. He did have some abdominal pain and diarrhea and we suspect that that could have been due to acute gastroenteritis and appropriate antibiotics were given and that problem resolved. His chest x-ray was negative for any pneumonia. Urinalysis was negative for urinary tract infection. We also did a CAT scan of abdomen, which did not show any acute intra-abdominal changes. Final Diagnoses: 1. 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 2. Acute gastroenteritis. 3. Anemia. 4. Candidal infection of skin, bilateral groin. 5. Hypertension. 6. Hyperlipidemia. 7. Type 2 diabetes mellitus with hyperglycemia. 8. Smoking. DONI/MODL Voice ID: [id number] Report ID: [id number] MTDD
--- NOTE | 2020-01-28 16:22 | R.DS ---
FACILITY [facility] MR# [id number] NAME MARY CARMEN DOSHI ADDRESS [address] [place] [address] [address] [id number] PHONE DATE OF 1945 AGE 74 SSN# [id number] GENDER Male DEXTERITY Right-handed MARITAL STATUS RACE ENCOUNTER PHYSICIAN Dr. Fercho Baldwin M.D. REFERRING DOCTOR SHIRAZ WICK REFERRING FACILITY [facility] DISCHARGE DIAGNOSIS: - Amputation of Limb 05 - Unilateral Lower Limb Below the Knee (BK) (05.4) Left Below the Knee Amputation. 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 CONSULT: Perform Consult Certified Prosthetic for prosthesis construction NURSING: - Shower allowing shower - Lab Results blood Sugar Check ACHS - Skin care per protocol PRECAUTIONS: - Weight Bearing Precaution NWB left LE ACTIVITIES OOB only with supervision THERAPIES: - Orthotics/Prosthetics Prosthetic Evaluation - Dietary and Nutrition Adequate Nutrition Nutritional Education Nutritional Supplements HISTORY OF PRESENT ILLNESS: Pt. is a 74 yo Right-handed male.On 12/23/2019 he was admitted to [facility] with diagnosis Left Below the Knee Amputation.His impairment category is Amputation of Limb 05 - Unilateral Lower Limb Below the Knee (BK) (05.4).Pre-morbidly, Pt. was independent/mod-I in Locom otion, Safety Awareness, Balance, Social Cognition, Transfers Control, Sphincter Control, Self-Care, Communication, and Endurance; and he had good Locomotion, Balance, Safety Awareness, Social Cognition , Transfers Control, Sphincter Control, Self-Care, Communication, and Endurance.Currently, he has def icits of Locomotion, Balance, Safety Awareness, Transfers Control, Self-Care, Communication, and Endu bharat.Pt. is now referred to [facility] for acute in-patient rehabilitation in order to maximize patient's functional independence in activities of daily living, strength, ROM, an d mobility.- Rehab Goal Patient has realistic goal of being discharged at assistance level 6-Dar to reside at Home with Fam kaylee/Relatives. Mary Carmen Doshi is a 74 year old male that lives in a trailer home with his . He ambulates independently around with his cane. Patient had severe peripheral vascular disease involving both lower extremities who was determined to be a non-surgical candidate. He had amputation of 4th toe and developed dry gangrene of 3rd toe and subsequently his 5th toe started and progressed over a period of time. He was referred for a hyperbaric oxygen treatment and was not a candidate and surgeon recommended amputation. On 12/23/2019, below the knee amputation was done to his left leg and was admitted to [facility]. He is now medically stable but in need of 24-ho ur nursing, doctor supervision and oversite while receiving participate in 3hours of therapy a day/15 hours per week and receive care with an intensive interdisciplinary approach.HOSPITAL COURSE: DIET - LIQUID TEXTURE: On 12/28/2019 Pt was upgraded to Regular Diet - Liquid Texture. DIET - SOLID TEXTURE: On 12/28/2019 Pt was upgraded to Regular Diet - Solid Texture. DIET TYPE: On 12/28/2019 Pt was changed to ADA 1800 Diet Type. TUBE FEED: On 12/28/2019 Pt was changed to N/A Tube Feed. WEIGHT BEARING PRECAUTION: On 12/28/2019 the following precautions were added for the patient: Weight Bearing Precaution - NWB l eft LE. On 12/29/2019 the following precautions were added for the patient: Weight Bearing Precaution - NWB left LE. On 12/30/2019 the following precautions were removed for the patient: Weight Bearing Precaution - NW B left LE. On 01/03/2020 the following precautions were added for the patient: Weight Bearing Precaution - NWB left LE. DISCHARGE PHYSICAL EXAM - Gen Alert and awake Lying in bed No apparent distress Oriented to: person, time, and place - Skin Left BKA bandage in place with good hemostasis. Normacephalic - Eyes No abnormalities - ENMT No abnormalities - Neck No abnormalities - CVS RRR - Chest No abnormalities - Resp Clear to auscultation - Abd Soft - GI Non distended Deferred - No abnormalities - Ext Left BKA good hemostasis, dressing in place - MSK No focal deficits, mild diffuse weakness - Neuro No focal deficits - Psych No abnormalities FUNCTIONAL STATUS: - Self-Care A. Eating 7-Ind B. Grooming 7-Ind C. Bathing 6-Dar D. Dressing - Upper 7-Ind E. Dressing - Lower 6-Dar F. Toileting 7-Ind - Sphincter Control G. Bladder control 7-Ind H. Bowel control 7-Ind - Transfers Control I. Bed/Chair/Wheelchair 5-sup J. Toilet 5-sup K. Tub/Shower 5-sup - Locomotion L. Walk/Wheelchair (B) 6-Dar M. Stairs 0-ADNO - Communication N. Comprehension (B) 5-sup O. Expression (B) 5-sup - Social Cognition P. Social Interaction 6-Dar Q. Problem Solving 4-Jose R. Memory 3-modA - Endurance Fair - Balance Fair - Safety Awareness Fair QI SCORES: - Self-Care A. Eating 05-Setup or clean-up assistance B. Oral hygiene 05-Setup or clean-up assistance C. Toileting hygiene 03-Partial/moderate assistance E. Shower/bathe self 04-Supervision or touching assistance F. Upper body dressing 04-Supervision or touching assistance G. Lower body dressing 01-Dependent H. Putting on/taking off footwear 01-Dependent - Mobility A. Roll left and right 04-Supervision or touching assistance B. Sit to lying 04-Supervision or touching assistance C. Lying to sitting on side of bed 03-Partial/moderate assistance D. Sit to stand 03-Partial/moderate assistance E. Chair/sjg-xd-[id number] transfer 03-Partial/moderate assistance F. Toilet transfer 03-Partial/moderate assistance G. Car transfer 10-Not attempted due to environmental limitations I. Walk 10 feet 88-Not attempted due to medical condition or safety concerns J. Walk 50 feet with two turns 88-Not attempted due to medical condition or safety concerns K. Walk 150 feet 88-Not attempted due to medical condition or safety concerns L. Walking 10 feet on uneven surfaces 88-Not attempted due to medical condition or safety concerns M. 1 step (curb) 88-Not attempted due to medical condition or safety concerns N. 4 steps 88-Not attempted due to medical condition or safety concerns O. 12 steps 88-Not attempted due to medical condition or safety concerns P. Picking up object 88-Not attempted due to medical condition or safety concerns R. Wheel 50 feet with two turns 88-Not attempted due to medical condition or safety concerns S. Wheel 150 feet 88-Not attempted due to medical condition or safety concerns - Bladder and Bowel Bladder continence 0-Always continent Bowel continence 0-Always continent - Endurance Fair - Balance Poor - Safety Awareness Fair DISCHARGE INSTRUCTIONS: - N/A Aspirin 81 mg daily, Lovenox 40 mg subcutaneously daily. DISCHARGE PLAN, FOLLOW UP CARE PROVISIONS: - Estimated Length of Stay (days) 11. - Consensus on plan Discharge plan has been discussed with primary caregiver. Patient/Family is in agreement with the ayala n. Primary caregiver is in agreement with the plan. - Patient/Family Goals Return home with assistance. - Planned Living Setting Upon Discharge Home, to live with Family/Relatives. Transitional Living. SIGNATURE PANEL: (CDT)
== END 2020-01-20 17:20 | disposition home or self-care (01) | DRG 560 ==
LOC: 5TH 17:49
PROVIDERS: ADMIT Internal Medicine; ATTEND Internal Medicine
DX: Z47.81 Encounter for orthopedic aftercare following surgical amputation (principal); E11.52 Type 2 diabetes mellitus with diabetic peripheral angiopathy with gangrene; F33.2 Major depressive disorder, recurrent severe without psychotic features; E11.69 Type 2 diabetes mellitus with other specified complication; F17.210 Nicotine dependence, cigarettes, uncomplicated; E78.5 Hyperlipidemia, unspecified; I10 Essential (primary) hypertension; B35.8 Other dermatophytoses; E11.51 Type 2 diabetes mellitus with diabetic peripheral angiopathy without gangrene; E11.649 Type 2 diabetes mellitus with hypoglycemia without coma; D64.9 Anemia, unspecified; E83.42 Hypomagnesemia; R53.81 Other malaise; D72.829 Elevated white blood cell count, unspecified; K52.9 Noninfective gastroenteritis and colitis, unspecified; F43.21 Adjustment disorder with depressed mood; Z89.512 Acquired absence of left leg below knee
CPT/HCPCS: 36415; 71045; 74177; 80048; 80053; 82040; 82947; 83735; 84134; 85025; 87045; 87046; 87324; 87449; 92523; 97110; 97112; 97116; 97127; 97161; 97530; 97542; J0692; J1170; J1450; J1650; J1815; J2405; J2543; J3475; J3590; Q9967

== ENCOUNTER 2020-02-23 19:31 | Inpatient (IN) | payer MEDICARE ==
--- OUTSIDE RECORDS SUMMARY | 2020-02-23 19:44 | XMS REPORT ---
:1945 Author Organization [facility] t Address [address] [place] [address] Care Team Providers Name Role Phone Unavailable Unavailable Unavailable Problems This patient has no known problems. Allergies, Adverse Reactions, Alerts This patient has no known allergies or adverse reactions. Medications This patient has no known medications.
[2020-02-23] MEDS ORDERED: VANCOMYCIN 1 GM/VIAL ONE (21:09)
[2020-02-23] MEDS ORDERED: NA CHLORIDE 0.9% 250 ML ONE (21:09)
[2020-02-23] MEDS ORDERED: PIPER/TAZO/NS 3.375gm 3.375 GM/100 ML BAG ONE (21:10)
[2020-02-23 21:46] LABS: Absolute Lymphocytes (CBC) 1.5 K/uL (0.7-4.9); Basophils % 0.8 % (0-1.3); Lymphocytes % 9.1 % (15.3-44.8); MPV 7.8 fL (7.6-11.3); RBC Red Blood Cell Count 3.41 M/uL (4.33-5.43)
[2020-02-23 21:49] LABS: Protime INR 1.07
[2020-02-23] MEDS ORDERED: ONDANSETRON 4 MG/2 ML VIAL ONE (22:02)
[2020-02-23] MEDS ORDERED: MORPHINE 4 MG/ML SYR ONE (22:02)
[2020-02-23 22:14] LABS: ALT/SGPT 18 U/L (12-78); AST/SGOT 15 U/L (15-37); Albumin 2.8 g/dL (3.4-5.0); Alkaline Phosphatase 122 U/L (45-117); Amylase Level 42 U/L (25-115); BUN Blood Urea Nitrogen 19 mg/dL (7-18); Bicarbonate 25 mmol/L (21-32); Bilirubin Direct 0.1 mg/dL (0-0.2); Bilirubin Total 0.4 mg/dL (0.2-1.0); CKMB Creatine Kinase MB < 1.0 ng/mL (0.3-3.6); Creatine Phosphokinase 39 U/L (39-308); Glucose Level 96 mg/dL (74-106); Lipase 143 U/L (73-393); Potassium 3.8 mmol/L (3.5-5.1); Sodium Level 137 mmol/L (136-145); Troponin (Emerg Dept Use Only) < 0.02 ng/mL (0.0-0.045)
--- NOTE | 2020-02-23 23:02 | EDPHYS ---
Physician Documentation [facility] Name: Wayne Doshi Age: 74 yrs Sex: Male : 1945 Arrival Date: 02/23/2020 Time: 19:32 Bed 5 Private MD: ED Physician Cipriano Liriano HPI: 02/23 03:27 This 74 yrs old Male presents to ER via Wheelchair with complaints of Fever, tw4 Post Surgical Pain. 03:27 The patient reports fever, not measured (subjective). Onset: The symptoms/episode tw4 began/occurred yesterday. Modifying factors: there are no obvious modifying factors. Associated signs and symptoms: Pertinent negatives:. Associated signs and symptoms: Pertinent positives: necrotic skin changes bilateral stump amputation area. Severity of symptoms: At their worst the symptoms were. The patient has not experienced similar symptoms in the past. Historical: - Allergies: 02/22 19:51 NKA; bb - Home Meds: 22:59 Unable to obtain [Active]; lp1 - PMHx: 22:59 Diabetes - IDDM; Hypothyroidism; lp1 - PSHx: 22:59 L BKA; lp1 22:59 Cholecystectomy; lp1 - Immunization history:: Adult Immunizations unknown. - Social history:: Smoking status: Patient reports the use of cigarette tobacco products, smokes 1.5 packs per day. ROS: 02/23 03:27 Cardiovascular: Negative for chest pain, palpitations, and edema, Respiratory: Negative tw4 for shortness of breath, cough, wheezing, and pleuritic chest pain, Abdomen/GI: Negative for abdominal pain, nausea, vomiting, diarrhea, and constipation, Back: Negative for injury and pain, MS/Extremity: Negative for injury and deformity, Skin: Negative for injury, rash, and discoloration, Neuro: Negative for headache, weakness, numbness, tingling, and seizure. Constitutional: Positive for fever. Exam: 03:27 Constitutional: This is a well developed, well nourished patient who is awake, alert, tw4 and in no acute distress. Head/Face: Normocephalic, atraumatic. Chest/axilla: Normal chest wall appearance and motion. Nontender with no deformity. No lesions are appreciated. Cardiovascular: Regular rate and rhythm with a normal S1 and S2. No gallops, murmurs, or rubs. Normal PMI, no JVD. No pulse deficits. Respiratory: Lungs have equal breath sounds bilaterally, clear to auscultation and percussion. No rales, rhonchi or wheezes noted. No increased work of breathing, no retractions or nasal flaring. Abdomen/GI: Soft, non-tender, with normal bowel sounds. No distension or tympany. No guarding or rebound. No evidence of tenderness throughout. 03:27 Neuro: Awake and alert, GCS 15, oriented to person, place, time, and situation. Cranial nerves II-XII grossly intact. Motor strength 5/5 in all extremities. Sensory grossly intact. Cerebellar exam normal. Normal gait. 03:27 Musculoskeletal/extremity: Extremities: noted in the left knee: extensive area of necrotic tissue noted on stump , noted in the lateral aspect of right foot: extensive necrotic tissue noted on right foot, Perfusion: the extremity is cool, noted to have sluggish capillary refill. Vital Signs: 02/22 19:49 BP 96 / 53; Pulse 93; Resp 16 S; Temp 98.3(TE); Pulse Ox 98% on R/A; Weight 63.5 kg bb (R); Height 5 ft. 2 in. (157.48 cm) (R); Pain 9/10; 21:30 BP 118 / 63; Pulse 90; Resp 18; Pulse Ox 98% on R/A; lp1 22:30 BP 123 / 60; Pulse 76; Resp 16; Pulse Ox 98% on R/A; lp1 23:30 BP 120 / 58; Pulse 75; Resp 17; Pulse Ox 97% on R/A; lp1 02/23 00:16 BP 137 / 65; Pulse 71; Resp 16; Pulse Ox 98% on R/A; lp1 00:35 BP 118 / 52; Pulse 70; Resp 16; Temp 98.3(TE); Pulse Ox 97% on R/A; lp1 01:35 BP 131 / 54; Pulse 69; Resp 18; Pulse Ox 99% on R/A; lp1 02/22 19:49 Body Mass Index 25.61 (63.50 kg, 157.48 cm) bb MDM: 02/22 20:48 Patient medically screened. tw4 02/23 03:35 Differential diagnosis: viral Infection, bacterial infection, URI, UTI, tw4 gastroenteritis. Data reviewed: vital signs, nurses notes. Data interpreted: Pulse oximetry: Interpretation: normal. Counseling: I had a detailed discussion with the patient and/or guardian regarding: the historical points, exam findings, and any diagnostic results supporting the discharge/admit diagnosis, lab results, radiology results. Physician consultation: Jamison Mcdermott MD regarding admission, patient's condition, and will see patient in inpatient room. Special discussion: I discussed with the patient/guardian in detail that at this point there is no indication for admission to the hospital. It is understood, however, that if the symptoms persist or worsen the patient needs to return immediately for re-evaluation. 02/22 20:52 Order name: Amylase, Serum tw 02/22 20:52 Order name: Basic Metabolic Panel tw 02/22 20:52 Order name: Blood Culture Adult (2) 02/22 20:52 Order name: CBC with Diff 02/22 20:52 Order name: Ckmb 02/22 20:52 Order name: CPK tw 02/22 20:52 Order name: Lactate tw 02/22 20:52 Order name: LFT's 02/22 20:52 Order name: Lipase 02/22 20:52 Order name: Procalcitonin tw 02/22 20:52 Order name: Protime (+inr) tw 02/22 20:52 Order name: Ptt, Activated 02/22 20:52 Order name: Troponin (emerg Dept Use Only) 02/22 20:52 Order name: Urine Microscopic Only 02/22 20:52 Order name: Chest Single View XRAY 02/22 20:52 Order name: Accucheck; Complete Time: 21:37 02/22 20:52 Order name: Cardiac monitoring; Complete Time: 21:37 [facility] 02/22 20:52 Order name: EKG - Nurse/Tech; Complete Time: 22:36 tw 02/22 20:53 Order name: Amylase Level [facility] 02/22 20:53 Order name: Basic Metabolic Panel [facility] 02/22 21:28 Order name: Glucose, Ancillary Testing [facility] 02/22 23:40 Order name: CONS Physician Consult [facility] 02/22 23:40 Order name: Basic Metabolic Panel [facility] 02/22 23:40 Order name: Basic Metabolic Panel [facility] 02/22 23:40 Order name: CBC with Automated Diff [facility] 02/22 23:40 Order name: CBC with Automated Diff [facility] 02/22 20:52 Order name: IV Saline Lock - Large Bore; Complete Time: 21:37 tw4 02/22 20:52 Order name: Labs collected and sent; Complete Time: 21:37 tw4 02/22 20:52 Order name: O2 Per Protocol; Complete Time: 21:37 tw4 02/22 20:52 Order name: O2 Sat Monitoring; Complete Time: 21:37 tw4 EC:35 Rate is 78 beats/min. Rhythm is regular. QRS [place] is Normal. [place] interval is normal. QRS tw4 interval is normal. QT interval is normal. No Q waves. T waves are Normal. No ST changes noted. Clinical impression: Normal ECG. Interpreted by me. Reviewed by me. Administered Medications: 02/22 21:30 Drug: Zosyn 3.375 grams Route: IVPB; Infused Over: 60 mins; Site: right forearm; lp1 22:34 Follow up: Response: No adverse reaction; IV Status: Completed infusion; IV Intake: rr5 100ml 22:30 Drug: Zofran (Ondansetron) 4 mg Route: IVP; Site: right forearm; rr5 23:00 Follow up: Response: No adverse reaction lp1 22:32 Drug: morphine 4 mg {Note: rass 0.} Route: IVP; Site: right forearm; rr5 23:00 Follow up: Response: Pain is decreased; RASS: Alert and Calm (0) lp1 22:35 Dru mg/kg of (vancoMYCIN 15 mg/kg, NS 0.9% 250 ml) Route: IVPB; Site: right rr5 forearm; 02/23 00:10 Follow up: Response: No adverse reaction; IV Status: Completed infusion; IV Intake: rr5 250ml Disposition: 02/23/20 23:01 Hospitalization ordered by Jamison Mcdermott for Inpatient Admission. Preliminary diagnosis are Gangrene, not elsewhere classified, Other specified peripheral vascular diseases, Necrosis of amputation stump, right lower extremity, Necrosis of amputation stump, left lower extremity. - Bed requested for Telemetry/MedSurg (Inpatient). - Status is Inpatient Admission. lp1 - Condition is Fair. - Problem is an ongoing problem. - Symptoms have worsened. Signatures: Dispatcher [employer] EDCaitlyn Padilla, RN RN bb Alfreda Eduardo, RN RN lp1 Helen Smith RN RN tl1 Cipriano Liriano MD MD tw4 Gonzalo Elliott RN RN rr5 Corrections: (The following items were deleted from the chart) 00:24 02/22 23:01 Hospitalization Ordered by Jamison Mcdermott MD for Inpatient Admission. tl1 Preliminary diagnosis is Gangrene, not elsewhere classified; Other specified peripheral vascular diseases; Necrosis of amputation stump, right lower extremity; Necrosis of amputation stump, left lower extremity. Bed requested for Telemetry/MedSurg (Inpatient). Status is Inpatient Admission. Condition is Fair. Problem is an ongoing problem. Symptoms have worsened. tw4 02/23 01:36 00:24 02/23/2020 23:01 Hospitalization Ordered by Jamison Mcdermott MD for Inpatient lp1 Admission. Preliminary diagnosis is Gangrene, not elsewhere classified; Other specified peripheral vascular diseases; Necrosis of amputation stump, right lower extremity; Necrosis of amputation stump, left lower extremity. Bed requested for Telemetry/MedSurg (Inpatient). Status is Inpatient Admission. Condition is Fair. Problem is an ongoing problem. Symptoms have worsened. tl1
--- NOTE | 2020-02-23 23:02 | ER ---
Nurse's Notes [facility] Name: Wayne Doshi Age: 74 yrs Sex: Male : 1945 Arrival Date: 02/23/2020 Time: 19:32 Bed 5 Private MD: Diagnosis: Gangrene, not elsewhere classified;Other specified peripheral vascular diseases;Necrosis of amputation stump, right lower extremity;Necrosis of amputation stump, left lower extremity Presentation: 02/22 19:49 Chief complaint: Patient states: he is having pain to his left stump and right foot x 3 bb days. Coronavirus screen: Proceed with normal triage. Ebola Screen: No symptoms or risks identified at this time. Initial Sepsis Screen: Does the patient meet any 2 criteria? No. Patient's initial sepsis screen is negative. Does the patient have a suspected source of infection? Yes: Skin breakdown/wound Bone or joint infection. Risk Assessment: Do you want to hurt yourself or someone else? Patient reports no desire to harm self or others. Onset of symptoms was February 20, 2020. 19:49 Method Of Arrival: Wheelchair bb 19:49 Acuity: ANA MARÍA 2 bb Historical: - Allergies: 19:51 NKA; bb - Home Meds: 22:59 Unable to obtain [Active]; lp1 - PMHx: 22:59 Diabetes - IDDM; Hypothyroidism; lp1 - PSHx: 22:59 L BKA; lp1 22:59 Cholecystectomy; lp1 - Immunization history:: Adult Immunizations unknown. - Social history:: Smoking status: Patient reports the use of cigarette tobacco products, smokes 1.5 packs per day. Screenin:28 Abuse screen: Denies threats or abuse. Denies injuries from another. Nutritional lp1 screening: No deficits noted. Tuberculosis screening: No symptoms or risk factors identified. Fall Risk Total [place] Fall Scale indicates High Risk Score (45 or more points). Fall prevention measures have been instituted. Side Rails Up X 2 As available patient and family educated on Fall Prevention Program and Strategies. Assessment: 21:15 General: Appears in no apparent distress. Behavior is agitated. Pain: Complains of pain lp1 in left leg Pain currently is 9 out of 10 on a pain scale. Quality of pain is described as shooting, stabbing. Neuro: Level of Consciousness is awake, alert, obeys commands, Oriented to person, place, situation. Cardiovascular: Patient's skin is warm and dry. Respiratory: Respiratory effort is even, unlabored. GI: Abdomen is non-distended. : No signs and/or symptoms were reported regarding the genitourinary system. EENT: No signs and/or symptoms were reported regarding the EENT system. Derm: Wound noted Wound is Stump to L BKA, blackened, hard skin noted;. Musculoskeletal: Amputation of L BKA. 21:30 Reassessment: Patient agitated, yelling, "I don't know why you people have to always lp1 take my blood, I just want a pain pill and to go home!"; Patient informed of need for antibiotics with IV. 22:21 Reassessment: Patient complaint of pain to left leg rated 9/10 on pain scale; verbal lp1 order from Provider for Zofran 4 mg IV, Morphine 4 mg IV now. 22:52 Reassessment: Letitia (daughter) [phone] called and updated for the plan of care. rr5 22:57 Reassessment: Patient states some relief with pain medication administered; appears lp1 more calm, comfortable. 02/23 00:00 Reassessment: Patient appears in no apparent distress at this time. Patient and/or lp1 family updated on plan of care and expected duration. Pain level reassessed. Patient resting, eyes closed, respirations unlabored. 00:36 Reassessment: Letitia daughter updated for room number thru phone. rr5 01:00 Reassessment: Patient appears in no apparent distress at this time. No changes from lp1 previously documented assessment. Vital Signs: 02/22 19:49 BP 96 / 53; Pulse 93; Resp 16 S; Temp 98.3(TE); Pulse Ox 98% on R/A; Weight 63.5 kg bb (R); Height 5 ft. 2 in. (157.48 cm) (R); Pain 9/10; 21:30 BP 118 / 63; Pulse 90; Resp 18; Pulse Ox 98% on R/A; lp1 22:30 BP 123 / 60; Pulse 76; Resp 16; Pulse Ox 98% on R/A; lp1 23:30 BP 120 / 58; Pulse 75; Resp 17; Pulse Ox 97% on R/A; lp1 02/23 00:16 BP 137 / 65; Pulse 71; Resp 16; Pulse Ox 98% on R/A; lp1 00:35 BP 118 / 52; Pulse 70; Resp 16; Temp 98.3(TE); Pulse Ox 97% on R/A; lp1 01:35 BP 131 / 54; Pulse 69; Resp 18; Pulse Ox 99% on R/A; lp1 02/22 19:49 Body Mass Index 25.61 (63.50 kg, 157.48 cm) bb ED Course: 02/22 19:32 Patient arrived in ED. ds1 19:51 Triage completed. bb 19:51 Arm band placed on Patient placed in waiting room, Patient notified of wait time. bb 20:27 Cipriano Liriano MD is Attending Physician. tw4 21:09 Chest Single View XRAY In Process Unspecified. EDMS 21:25 Inserted saline lock: 20 gauge in right forearm, using aseptic technique. Blood lp1 collected. 21:25 Initial lab(s) drawn, by me, sent to lab. First set of blood cultures drawn by me. lp1 21:30 Patient has correct armband on for positive identification. Call light in reach. Side lp1 rails up X2. monitoring specialist on. Pulse ox on. NIBP on. 21:36 Alfreda Eduardo, STAR is Primary Nurse. lp1 22:36 EKG done, by ED staff, reviewed by Cipriano Liriano MD. rr5 22:59 Jamison Mcdermott MD is Hospitalizing Provider. tw4 23:02 No provider procedures requiring assistance completed. Patient admitted, IV remains in lp1 place. Administered Medications: 21:30 Drug: Zosyn 3.375 grams Route: IVPB; Infused Over: 60 mins; Site: right forearm; lp1 22:34 Follow up: Response: No adverse reaction; IV Status: Completed infusion; IV Intake: rr5 100ml 22:30 Drug: Zofran (Ondansetron) 4 mg Route: IVP; Site: right forearm; rr5 23:00 Follow up: Response: No adverse reaction lp1 22:32 Drug: morphine 4 mg {Note: rass 0.} Route: IVP; Site: right forearm; rr5 23:00 Follow up: Response: Pain is decreased; RASS: Alert and Calm (0) lp1 22:35 Dru mg/kg of (vancoMYCIN 15 mg/kg, NS 0.9% 250 ml) Route: IVPB; Site: right rr5 forearm; 02/23 00:10 Follow up: Response: No adverse reaction; IV Status: Completed infusion; IV Intake: rr5 250ml Intake: 02/22 22:34 IV: 100ml; Total: 100ml. rr5 02/23 00:10 IV: 250ml; Total: 350ml. rr5 Outcome: 02/22 23:01 Decision to Hospitalize by Provider. tw4 23:02 Condition: stable lp1 23:02 Instructed on the need for admit. 02/23 01:11 Admitted to Med/surg room 231, with chart, Report called to STAR Rodriguez lp1 01:36 Patient left the ED. lp1 Signatures: Dispatcher [employer] EDIA January Larson ds1 Caitlyn Morris RN RN bb Alfreda Eduardo RN RN lp1 Cipriano Liriano MD MD tw4 Gonzalo Elliott RN RN rr5
[2020-02-23] MEDS ORDERED: ACETAMINOPHEN 500 MG TAB PO PRN (23:38)
[2020-02-24] MEDS ORDERED: MORPHINE 4 MG/ML SYR IV ONE (04:55)
[2020-02-24] MEDS ORDERED: ONDANSETRON 4 MG/2 ML VIAL IV ONE (04:55)
[2020-02-24] MEDS ORDERED: ONDANSETRON 4 MG/2 ML VIAL IV PRN (05:24)
[2020-02-24] MEDS ORDERED: D50W 25 GM/50 ML SYRINGE/VIAL IV PRN (05:26)
[2020-02-24] MEDS ORDERED: GLUCAGON 1 MG/VIAL IM PRN (05:26)
[2020-02-24] MEDS: INSULIN -REGULAR HUMAN 50 UNIT/0.5 ML ML SQ SCH ×4 (06:00→21:00)
[2020-02-24 06:41] LABS: Urine Appearance CLEAR; Urine Bilirubin NEGATIVE (NEG); Urine Blood NEGATIVE (NEG); Urine Color YELLOW; Urine Glucose NEGATIVE (NEG); Urine Protein 2+ (NEG); Urine Urobilinogen 0.2 mg/dL (0.2-1.0)
[2020-02-24 07:30] LABS: Urine Bacteria NONE SEEN /HPF (NONE SEEN); Urine Culture Reflex Order NOT NEEDED; Urine RBC <5 /HPF (NONE SEEN)
[2020-02-24 07:41] LABS: Absolute Lymphocytes (CBC) 0.7 K/uL (0.7-4.9); Basophils % 0.4 % (0-1.3); Hematocrit 29.2 % (39.6-49.0); Lymphocytes % 3.9 % (15.3-44.8); MPV 7.8 fL (7.6-11.3); RBC Red Blood Cell Count 3.22 M/uL (4.33-5.43)
[2020-02-24 07:42] LABS: Potassium 3.7 mmol/L (3.5-5.1)
[2020-02-24] MEDS: D5 0.9 NS 1,000 ML IV SCH (07:54)
--- NOTE | 2020-02-24 07:59 | EKG ---
Test Date: 2020-02-23 Test Time: 22:30:14 Ammonia Solution Preparer: DIYA MEASUREMENT RESULTS: Intervals: Rate: 78 NV: 196 QRSD: 84 QT: 408 QTc: 465 [place]: P: 84 NV: 196 QRS: 75 T: 78 INTERPRETIVE STATEMENTS: Normal sinus rhythm Normal ECG Compared to ECG 12/22/2019 15:40:14 No significant changes Electronically Signed On 02-24-20 07:58:17 CDT by Osei Ayala
[2020-02-24 09:36] LABS: Blood Morphology Comment NOT SEEN (NOT SEEN); Platelet Estimate ADEQ
[2020-02-24] MEDS: VANCOMYCIN/NS 1 gm 1 GM/250 ML BAG IVPB SCH (09:36)
[2020-02-24] MEDS: COLLAGENASE 30 GM OINTMENT TOP SCH (09:36)
[2020-02-24] MEDS: PIPER/TAZO/NS 3.375gm 3.375 GM/100 ML BAG IVPB SCH ×2 (09:37→17:14)
--- NOTE | 2020-02-24 10:42 | CON ---
Date of Consultation: 02/24/2020 Reason For Consultation: Gangrene, left leg wound; nonhealing wound, right leg. History Of Present Illness: Patient is a 74-year-old gentleman with multiple medical problems, sever e peripheral vascular disease. Had an angiogram done recently and was found to have worse disease on the right leg than the left. However, he had gangrene of the left foot and he underwent a left BKA, fell on it a couple of times during rehab and had necrosis of the stump as well. I was contacted ye sterday via home health that he had high fevers of 103 and increasing pain in the left stump. I advis ed them to send the patient to the ER. He was admitted and worked up and I was consulted. He is catarino ke, alert, complaining of pain in his left leg. He is adamant that he does not on any surgical inter vention. No purulent discharge. He does not have fever right now, but he did yesterday. Review of Systems: Otherwise unremarkable. No sore throat, runny nose, cough, headaches, or dizziness. No chest pain. Past Medical History: Type 2 diabetes, hypothyroidism and severe peripheral vascular disease. Past Surgical History: Cholecystectomy, exploratory laparotomy for a mass in his intestines, and rec ent left below-knee amputation. Allergies: NONE. Social History: He does smoke, continues to smoke after being counseled, drinks occasionally. Family History: Noncontributory. Physical Examination: Vital Signs: Stable. He is currently afebrile. GENERAL: He is awake, alert, and oriented x3. Head and Neck: No masses. Chest: Clear. Heart: S1, S2. Abdomen: Soft. Extremity: Markedly diminished dorsalis pedis and posterior tibial pulses on the right leg. There ar e multiple wounds on the right leg with necrosis on them in the foot, in the heel, and the lower leg of various sizes. The left BKA stump is black and surrounding erythema and tenderness. There is no fluctuance. There is no purulent discharge. It is warm and tender. Laboratory Data: Reviewed. His white count is 17.1 with left shift. INR is 1.07. Chemistry is esse ntially unremarkable. His lactic acid is 1.3 and procalcitonin is 0.07. Assessment: Gangrene with severe peripheral vascular disease, bilateral lower extremity and cellulit is and probable osteomyelitis on the left [id number] stump. Recommendations: Agree with IV antibiotics that the patient is on. Patient would benefit from bilat eral AKA procedures; however, currently he refuses any intervention at all. I discussed that with Dr Antonio Mcdermott. He will contact the family and have the family talk with him and should he agree, I will pro ceed with surgery. In the meantime, we will keep him on antibiotics and will make further recommenda tion after the patient and the family had discussed all options. /MODL Voice ID: [id number] Report ID: [id number]
--- NOTE | 2020-02-24 10:51 | RAD REPORT ---
EXAM DESCRIPTION: RAD - Chest Single View - 02/23/2020 9:09 pm CLINICAL HISTORY: FEVER Chest pain. COMPARISON: Chest Single View dated 01/08/2020; Chest Pa And Lat (2 Views) dated 12/22/2019; Chest Sing le View dated 11/29/2017; Chest Pa And Lat (2 Views) dated 07/21/2017 FINDINGS: Portable technique limits examination quality. The lungs are grossly clear. The heart is normal in size. No displaced fractures. IMPRESSION: No acute intrathoracic process suspected.
[2020-02-24] MEDS: MORPHINE 2 MG/ML SYR IV PRN (17:26)
[2020-02-25] MEDS: PIPER/TAZO/NS 3.375gm 3.375 GM/100 ML BAG IVPB SCH ×3 (00:46→17:09)
[2020-02-25] MEDS: MORPHINE 2 MG/ML SYR IV PRN ×3 (00:55→18:10)
[2020-02-25] MEDS: D5 0.9 NS 1,000 ML IV SCH ×4 (03:32→21:30)
--- NOTE | 2020-02-25 05:52 | HP ---
Date of Admission: 02/24/2020 Chief Complaint: Pain. History Of Present Illness: This is a 74-year-old male patient, who had left below-knee amputation because of peripheral vascular disease and gangrene of the left foot. This was done in December about 2 months ago. After spending some time in hospital and rehab floor, he went home. He came into emergency room with about 2 to 3 days history of pain in the left lower extremity stump area. Denies any fever, chills, nausea, vomiting. No blood in stool, no blood in urine. After he was evaluated in the ER, he was admitted to the hospital. Allergies: NO KNOWN ALLERGIES. Medications: List reviewed. Review of Systems: Musculoskeletal: As mentioned above. Dermatology: Black discoloration of skin over the left and right lower extremities. All other systems reviewed and negative. Social History: Positive for smoking. Use of alcohol negative. Patient still continues to smoke in spite of given recurrent instructions about not to smoke. Family History: Father, mother had myocardial infraction. Brother had myocardial infarction and diabetes. Sister with myocardial infarction. Past Surgical History: Left leg below-knee amputation due to severe peripheral vascular disease and gangrene and this was done on December 31, 2019, angioplasty with stent placement in the left leg, cholecystectomy, appendectomy. Past Medical History: Severe peripheral vascular disease, type 2 diabetes mellitus, hypertension, hyperlipidemia, and smoking. Physical Examination: Vital Signs: When I saw him this morning, temperature 98.7, pulse 86, respiratory rate 18, blood pressure 140/65, oxygen saturation 96%. Height 5 feet 2 inches, weight 128 pounds. General: Awake, alert, oriented, not in distress. HEENT: Head atraumatic, normocephalic. Conjunctivae nonerythematous. Sclerae white. Mouth, no thrush or edema noted. Ears/Nose, no mass, lesion, discharge noted. Neck: Supple. No JVD, lymph nodes, bruit, thyromegaly noted. Lungs: Bilateral good equal air entry. Clear to auscultation. No rhonchi. No rales. Heart: Normal heart sounds, no murmur or gallop. Abdomen: Soft, bowel sounds normal. No guarding, rigidity, tenderness, mass, hepatosplenomegaly, distention, or bruit noted. Extremities: Left lower extremity shows below-knee amputation and left leg stump, has extensive area of black eschar formation of skin in the lower anterior legs as well as at the tip of the stem. There is no discharge, no bleeding. Right lower extremity has multiple areas of what it looks like superficial scabs between knee and ankle. Right lateral foot has large dark necrotic area of skin and heel region and right mid and lateral foot also has such area of necrotic looking skin. Right foot 1st, 2nd, and 3rd toes have a small scab. Skin: No rash, ulcer, cellulitis. Lymphatics: No lymph node enlargement in neck, supraclavicular, infraclavicular region. Neuro: No focal neurological deficit. Chest: Unremarkable. External Genitalia: Deferred. Rectal: Deferred. Laboratory Data: White count yesterday 16.1, hemoglobin 10.2, platelets 385. Today, white count 17.1, hemoglobin 9.8, platelets 401. Sodium 138, potassium 3.7, chloride 106, bicarb 25, BUN 15, creatinine 0.88, glucose 76. Yesterday, liver function tests unremarkable. Procalcitonin 0.07. Urinalysis negative. Chest x-ray, no acute cardiopulmonary changes. Impression: 1. Peripheral vascular disease, bilateral lower extremities, with gangrene. 2. Cellulitis, left lower extremity. 3. Hypertension. 4. Hyperlipidemia. 5. Diabetes mellitus. 6. Smoking. Plan: Admit patient to hospital for further evaluation and management of this problem. Patient's skin on the left lower extremity has some pink discoloration and warmness to touch and this is around black necrotic area. We will continue his empiric antibiotic, which is Zosyn and vancomycin. Consult Dr. Leon from General Surgery. I did talk to him in detail and he explained to me his recommendation is bilateral above-knee amputation and I tend to agree with him. Dr. Leon told me that patient is refusing this, so we will feed patient today, keep him n.p.o. after midnight, and I did call patient's family that if patient's daughter was contacted and patient's and multiple other family members were present, one now was communicating this evening and I explained recommendation from Dr. Leon about bilateral above-knee amputation and I also agree with his recommendation. Dr. Leon will see him tomorrow for followup. We will keep him n.p.o. after midnight. Patient's family informed me that they will try to communicate with the patient and see if they can convince him. Family understands and agrees with the treatment plan, but they try to convince patient as daughter was telling me that so far patient was reluctant to go for such treatment. DONI/AUDIE Voice ID: [id number]
[2020-02-25] MEDS: INSULIN -REGULAR HUMAN 50 UNIT/0.5 ML ML SQ SCH ×4 (08:58→21:00)
[2020-02-25] MEDS: COLLAGENASE 30 GM OINTMENT TOP SCH (08:59)
[2020-02-25] MEDS: VANCOMYCIN/NS 1 gm 1 GM/250 ML BAG IVPB SCH (08:59)
[2020-02-25] MEDS ORDERED: COLLAGENASE 30 GM OINTMENT TOP SCH ×2 (09:00)
[2020-02-25] MEDS ORDERED: Phenylephrine HCl 10 MG/ML 1 ML VIAL ONE (10:10)
[2020-02-25] MEDS ORDERED: FENTANYL CITR 100 MCG/2 ML ONE (10:10)
[2020-02-25] MEDS ORDERED: propofoL 200 MG/20 ML VIAL IV ONE (10:10)
[2020-02-25] MEDS ORDERED: LIDOCAINE 2% MPF 5 ML VIAL ONE (10:11)
[2020-02-25] MEDS ORDERED: NS 0.9% VIAL 20 ML ONE (10:11)
[2020-02-25] MEDS ORDERED: ONDANSETRON 4 MG/2 ML VIAL ONE (10:12)
[2020-02-25] MEDS ORDERED: MORPHINE SULFATE/PF 1 MG/ML (10 ML AMP) IV ONE (10:15)
--- NOTE | 2020-02-25 10:43 | PN ---
Date of Progress Note: 02/25/2020 Subjective: Patient has agreed for surgery. His vitals are stable. He is afebrile. Physical Examination: There is no significant change. He has gangrene and severe peripheral vascular disease in both legs below the knee with uncorrectable lesions based on the angiogram done earlier this year. Assessment: Gangrene with severe peripheral vascular disease, bilateral lower extremities. Plan: We will proceed with a bilateral lruta-bpy-gqsn amputations. The patient understands the risk s, benefits, and alternatives and agrees to procedure. /MODL Voice ID: [id number] Report ID: [id number]
[2020-02-25] MEDS ORDERED: NA CHLORIDE 0.9% 1,000 ML ONE (11:30)
--- NOTE | 2020-02-25 12:23 | P.OP ---
Community Nutrition Educator: Jose MAHER Preoperative diagnosis: Gangrene and Severe PVD BLE Postoperative diagnosis: same Primary procedure: Bilateral AKA Anesthesia: Spinal, General Estimated blood loss: Min Specimen: Both legs Findings: as above Complications: None Transferred to: Recovery Room Condition: Good
--- NOTE | 2020-02-25 14:04 | PN ---
Date of Progress Note: 02/25/2020 Subjective: Patient was seen this morning for followup. No new complaints or problems reported by melissa agosto. Lying in bed, not in distress. I had a long discussion with the patient's family member, francheska caban is daughter, and multiple other family members were listening last night, when we discussed on the phone and after my discussion with family members, they had discussion with the patient on the phone and they were able to convince him for amputation. So, this morning when I saw patient, he was wait ing for his surgery. Details were discussed with Dr. Leon and last time patient had spinal anesthes ia and I have suggested if possible to use spinal anesthesia to avoid general anesthesia and its comp lication, considering patient's longstanding history of smoking, and Dr. Leon will communicate with Anesthesia regarding this. Patient denies any complaints this morning. Objective: HEENT: Examination unremarkable. Lungs: Clear to auscultation. Cardiovascular: Heart sounds normal. Abdomen: Soft. Bowel sounds normal. No guarding, rigidity, tenderness, or distention. Extremity Exam: Unchanged from yesterday. Impression: 1.Peripheral vascular disease with gangrene and cellulitis. 2.Diabetes mellitus. 3.Hypertension. 4.Smoking. Plan: We will go ahead and continue current antibiotics. Patient will have surgery in form of bilat eral above-knee amputation today and depending on his intraoperative and postoperative status, decisi on will be made whether he can return back to his room or he will need to go to ICU and Dr. Leon will c ommunicate with me after surgery. DONI/MODL Voice ID: [id number] Report ID: [id number]
[2020-02-25] MEDS: MORPHINE 4 MG/ML SYR IV PRN ×2 (14:37→22:44)
--- NOTE | 2020-02-25 22:44 | OP ---
Date of Procedure: 02/25/2020 Surgeon: Ruddy Leon MD Echo Vascular Technologist: NIKA Coughlin. Preoperative Diagnosis: Bilateral lower extremity gangrene with severe peripheral vascular disease. Postoperative Diagnosis: Bilateral lower extremity gangrene with severe peripheral vascular disease. Procedure: Bilateral above-knee amputation. Estimated Blood Loss: Minimal. Specimen: Bilateral legs. Findings: As above. Anesthesia: General and spinal. Complications: None. Disposition: Patient tolerated the procedure in stable condition, taken to Recovery in good general condition. Procedure In Detail: Patient was brought to the OR and placed in supine position. Spinal anesthesia begun and it was not working well, therefore it was converted to general anesthesia. Then, the antony ent was prepped and draped in usual sterile fashion, then fishmouth incision made identical on both t highs above the knee with the end of the fishmouth being approximately 4 fingerbreadths above the kne e joint and subsequently the skin was incised and subcutaneous tissue was divided. Fascia and plane were divided. Muscle and neurovascular bundle identified and ligated with 2-0 and 0 silk ties and di vided. Femur was identified and freed from the surrounding tissue and then we used saw to divide bot h femurs and then both legs removed and sent to Pathology. Wound irrigated. Bleeding controlled wit h cautery and 2-0 chromic pstrrt-lu-ilxct sutures and then the fascia was reapproximated with 2-0 chr omic and subcutaneous tissue with 3-0 chromic and maye used to close the skin. Sterile dressing w as applied. Patient was awakened and taken to Recovery in good general condition. /MODL Voice ID: [id number] Report ID: [id number]
[2020-02-26] MEDS: PIPER/TAZO/NS 3.375gm 3.375 GM/100 ML BAG IVPB SCH ×3 (00:52→16:54)
[2020-02-26] MEDS: MORPHINE 4 MG/ML SYR IV PRN (04:20)
[2020-02-26 06:25] LABS: Magnesium 1.5 mg/dL (1.8-2.4); Phosphorus 2.5 mg/dL (2.5-4.9); Potassium 3.2 mmol/L (3.5-5.1)
[2020-02-26 06:46] LABS: Absolute Lymphocytes (CBC) 0.7 K/uL (0.7-4.9); Basophils % 0.3 % (0-1.3); Hematocrit 25.7 % (39.6-49.0); Lymphocytes % 3.8 % (15.3-44.8); MPV 8.7 fL (7.6-11.3)
[2020-02-26] MEDS ORDERED: POTASSIUM 25 MEQ EFFERV TAB PO ONE (06:48)
[2020-02-26] MEDS: D5 0.9 NS 1,000 ML IV SCH ×2 (07:15→10:25)
[2020-02-26] MEDS: HYDROCODONE/APAP 7.5/325 MG TAB PO PRN (08:18)
[2020-02-26] MEDS: VANCOMYCIN/NS 1 gm 1 GM/250 ML BAG IVPB SCH (08:18)
[2020-02-26] MEDS: INSULIN -REGULAR HUMAN 50 UNIT/0.5 ML ML SQ SCH ×4 (08:18→20:28)
[2020-02-26] MEDS: MORPHINE 2 MG/ML SYR IV PRN ×2 (09:54→20:28)
[2020-02-26] MEDS ORDERED: D50W 25 GM/50 ML SYRINGE/VIAL IV PRN (10:45)
[2020-02-26] MEDS ORDERED: GLUCAGON 1 MG/VIAL IM PRN (10:45)
[2020-02-26] MEDS: ASPIRIN EC 81 MG TAB PO SCH (11:50)
[2020-02-26] MEDS ORDERED: INSULIN GLARGINE 100 UNITS/ML SQ ONE (12:00)
[2020-02-26] MEDS: GABAPENTIN 100 MG CAP PO SCH ×2 (13:54→20:27)
[2020-02-26] MEDS ORDERED: POTASSIUM CL SA 10 MEQ TAB PO ONE (14:00)
--- NOTE | 2020-02-26 15:06 | PN ---
Date of Progress Note: 02/26/2020 Subjective: Patient is awake, alert, little confused. Objective: Vital Signs: Stable. Afebrile. Extremities: Last night, he pulled off his dressing on the right leg. He was advised not to do that . He stated was an accident. His dressing is clean, dry, and intact. Laboratory Data: Reviewed. He does still have leukocytosis. Assessment: Status post bilateral above knee amputation. Recommendations: Continue IV antibiotics, physical therapy, and I advised the nursing staff to have him keep the dressing on as much as possible. /MODL Voice ID: [id number] Report ID: [id number]
--- NOTE | 2020-02-26 16:06 | PN ---
Date of Progress Note: 02/26/2020 Subjective: The patient was seen this morning for followup. He was lying in bed. Denied any compla ints and was complaining of pain in his both lower extremities. He status post bilateral above knee amputation which was done yesterday. No nausea, no vomiting. He did eat some breakfast this morning . Objective: Vital Signs: Reviewed. HEENT: Unremarkable. Lungs: Clear to auscultation. Heart: Sounds normal. Abdomen: Soft. Bowel sounds normal. No guarding, rigidity, tenderness, or distention. Extremities: Bilateral status post above-knee amputation. Surgical dressing present. No evidence o f any blood stain on the dressing. Laboratory Data: White count 18.6, hemoglobin 8.4, platelets 342. Sodium 137, potassium 3.2, chlori de 105, bicarb 21, BUN 7, creatinine 0.96, glucose 267, magnesium 1.5, phosphorus 2.5. Impression: 1.Peripheral vascular disease, bilateral legs, with gangrene, status post bilateral below-knee amput ation. 2.Diabetes mellitus, type 2, uncontrolled. 3.Anemia. Plan: We will go ahead and continue current home medications per order including gabapentin and we w ill consider to increase the dose of gabapentin. Continue pain medications per order. Continue curr ent antibiotics. We will repeat blood work tomorrow for low potassium and low magnesium. We will replace it per protocol and I will see him tomorrow for followup. Lovenox wa s ordered for DVT prophylaxis. DONI/MODL Voice ID: [id number] Report ID: [id number]
[2020-02-26] MEDS: ENOXAPARIN 30 MG/0.3 ML SQ SCH (16:54)
[2020-02-26] MEDS: ATORVASTATIN 10 MG TAB PO SCH (20:27)
[2020-02-27] MEDS: MORPHINE 2 MG/ML SYR IV PRN ×3 (00:12→22:21)
[2020-02-27] MEDS: PIPER/TAZO/NS 3.375gm 3.375 GM/100 ML BAG IVPB SCH ×3 (00:12→16:08)
[2020-02-27 06:10] LABS: BUN Blood Urea Nitrogen 9 mg/dL (7-18); Bicarbonate 26 mmol/L (21-32); Glucose Level 122 mg/dL (74-106); Magnesium 1.7 mg/dL (1.8-2.4); Potassium 3.9 mmol/L (3.5-5.1); Sodium Level 139 mmol/L (136-145)
[2020-02-27 06:19] LABS: Absolute Lymphocytes (CBC) 0.8 K/uL (0.7-4.9); Basophils % 0.5 % (0-1.3); Hematocrit 26.1 % (39.6-49.0); Lymphocytes % 5.2 % (15.3-44.8); RBC Red Blood Cell Count 2.87 M/uL (4.33-5.43)
[2020-02-27] MEDS ORDERED: MAGNESIUM SULFATE 1 gm IVPB 1 GM/100 ML BAG IV ONE (06:56)
[2020-02-27] MEDS: INSULIN -REGULAR HUMAN 50 UNIT/0.5 ML ML SQ SCH ×4 (07:30→21:00)
[2020-02-27] MEDS ORDERED: POTASSIUM 25 MEQ EFFERV TAB PO ONE (08:00)
[2020-02-27] MEDS: INSULIN GLARGINE 100 UNITS/ML SQ SCH (08:33)
[2020-02-27] MEDS: ASPIRIN EC 81 MG TAB PO SCH (08:33)
[2020-02-27] MEDS: GABAPENTIN 100 MG CAP PO SCH ×3 (08:33→21:56)
[2020-02-27] MEDS: VANCOMYCIN 1.25 GM in NA CHLORIDE 0.9% 250 ML IVPB SCH (08:34)
[2020-02-27] MEDS: HYDROCODONE/APAP 7.5/325 MG TAB PO PRN (08:36)
[2020-02-27] MEDS ORDERED: lisinopriL 5 MG TAB PO ONE (12:00)
--- NOTE | 2020-02-27 14:34 | PN ---
Date of Progress Note: 02/27/2020 Subjective: Patient is resting comfortably. Objective: Vital Signs: Stable. Afebrile. Dressing clean, dry, and intact. Assessment: Status post bilateral above knee amputation. Recommendations: Physical therapy, IV antibiotics, and discharge planning. /MODL Voice ID: [id number] Report ID: [id number]
--- NOTE | 2020-02-27 15:19 | PN ---
Date of Progress Note: 02/27/2020 Subjective: Patient was sent this morning for followup. No new complaints or problems reported by melissa triny except complaining of pain in his both lower legs. No nausea, vomiting, chest pain, or shortn ess of breath. Objective: Vital signs: Reviewed. Blood pressure remains elevated. HEENT: Unremarkable. Lungs: Clear to auscultation. Heart: Sounds normal. Abdomen: Soft. Bowel sounds normal. No guarding, rigidity, tenderness, distention. Extremities: Status post bilateral above-knee amputation and surgical dressing. Has no evidence of any blood stains. Laboratory Data: White count 16, hemoglobin 8.6, platelets 393. Sodium 139, potassium 3.9, chloride 106, bicarb 26, BUN 9, creatinine 0.82, glucose 122, magnesium 1.7. Impression: 1.Peripheral vascular disease with gangrene, bilateral lower extremity, status post bilateral below- knee amputation. 2.Cellulitis, left leg. 3.Anemia. 4.Hypertension. 5.Diabetes mellitus. 6.Hypomagnesemia. Plan: Replace magnesium per protocol. Continue current empiric antibiotics. Patient is on gabapent in 100 mg 3 times a day. We will increase the dose to 200 mg 3 times a day. Blood pressure remains elevated. We will start the patient on lisinopril 5 mg twice a day. Continue current pain medicatio ns and I will see him tomorrow for followup. Fingerstick blood sugar readings reviewed. We will continue current insulin dose. DONI/MODL Voice ID: [id number] Report ID: [id number]
[2020-02-27] MEDS: ENOXAPARIN 30 MG/0.3 ML SQ SCH (16:08)
[2020-02-27] MEDS: lisinopriL 5 MG TAB PO SCH (21:56)
[2020-02-27] MEDS: ATORVASTATIN 10 MG TAB PO SCH (21:56)
[2020-02-28] MEDS: PIPER/TAZO/NS 3.375gm 3.375 GM/100 ML BAG IVPB SCH ×3 (01:18→16:49)
[2020-02-28] MEDS: HYDROCODONE/APAP 7.5/325 MG TAB PO PRN ×3 (01:19→14:36)
[2020-02-28 05:46] LABS: BUN Blood Urea Nitrogen 12 mg/dL (7-18); Bicarbonate 29 mmol/L (21-32); Glucose Level 113 mg/dL (74-106); Potassium 3.5 mmol/L (3.5-5.1); Sodium Level 139 mmol/L (136-145)
[2020-02-28] MEDS: INSULIN -REGULAR HUMAN 50 UNIT/0.5 ML ML SQ SCH ×4 (07:30→21:00)
[2020-02-28] MEDS ORDERED: POTASSIUM 25 MEQ EFFERV TAB PO ONE (09:00)
[2020-02-28] MEDS: INSULIN GLARGINE 100 UNITS/ML SQ SCH (09:14)
[2020-02-28] MEDS: lisinopriL 5 MG TAB PO SCH ×2 (09:14→22:09)
[2020-02-28] MEDS: GABAPENTIN 100 MG CAP PO SCH ×3 (09:14→22:09)
[2020-02-28] MEDS: ASPIRIN EC 81 MG TAB PO SCH (09:14)
[2020-02-28] MEDS: VANCOMYCIN 1.25 GM in NA CHLORIDE 0.9% 250 ML IVPB SCH (09:27)
--- NOTE | 2020-02-28 12:44 | PN ---
Date of Progress Note: 02/28/2020 Subjective: Patient is awake and alert. No complaint. Objective: Vital Signs: Stable. Afebrile. Extremities: Dressing clean, dry, intact. Assessment: Status post bilateral ypmbg-djdw-vxyulxsojv. Recommendations: Discharge planning, IV antibiotics, medical management, to follow up with me in the wound healing center in 3 weeks upon discharge. /MODL Voice ID: [id number] Report ID: [id number]
[2020-02-28] MEDS: ENOXAPARIN 30 MG/0.3 ML SQ SCH (16:49)
[2020-02-28] MEDS: MORPHINE 2 MG/ML SYR IV PRN ×2 (16:54→22:48)
[2020-02-28] MEDS: ATORVASTATIN 10 MG TAB PO SCH (22:09)
--- NOTE | 2020-02-28 23:17 | PN ---
Date of Progress Note: 02/28/2020 Subjective: Patient was seen this morning for followup. No new complaints or problems reported by melissa agosto. Lying in bed, not in distress. Physical Examination: Vital Signs: Reviewed. HEENT: Unremarkable. Lungs: Clear to auscultation. Heart: Sounds normal. Abdomen: Soft. Bowel sounds normal. No guarding, rigidity, tenderness, or distention. Extremities: Status post bilateral above-knee amputation. Surgical dressing present. No evidence o f blood stains. Laboratory Data: Sodium 139, potassium 3.5, chloride 104, bicarb 29, BUN 12, creatinine 0.79, glucos e 113. Magnesium 2. Impression: 1.Peripheral vascular disease, bilateral legs, with gangrene, with left leg cellulitis. 2.Anemia. 3.Hypertension. 4.Diabetes mellitus. Plan: Patient's fingerstick blood sugar readings reviewed. We will continue current insulin. Elidia nue current antibiotics. We will repeat blood work tomorrow. Continue current pain medication inclu ding gabapentin, and patient reports that his leg pain is better today compared to yesterday. I will see him tomorrow for followup. I have requested consultation from Social Service to start assisting with discharge planning. Possible discharge to go home in a couple of days if okay with Dr. Leon. Details were discussed with patient. DONI/MODL Voice ID: [id number] Report ID: [id number]
[2020-02-29] MEDS: PIPER/TAZO/NS 3.375gm 3.375 GM/100 ML BAG IVPB SCH ×3 (01:04→17:48)
[2020-02-29 04:37] LABS: Absolute Lymphocytes (CBC) 1.4 K/uL (0.7-4.9); Hematocrit 25.2 % (39.6-49.0); MPV 7.8 fL (7.6-11.3); RBC Red Blood Cell Count 2.79 M/uL (4.33-5.43)
[2020-02-29 04:53] LABS: Magnesium 1.9 mg/dL (1.8-2.4); Potassium 3.7 mmol/L (3.5-5.1)
[2020-02-29] MEDS ORDERED: POTASSIUM CL SA 10 MEQ TAB PO ONE (05:35)
[2020-02-29] MEDS: INSULIN -REGULAR HUMAN 50 UNIT/0.5 ML ML SQ SCH ×4 (07:30→21:00)
[2020-02-29] MEDS: VANCOMYCIN 1.25 GM in NA CHLORIDE 0.9% 250 ML IVPB SCH (09:00)
[2020-02-29] MEDS: lisinopriL 5 MG TAB PO SCH ×2 (09:11→20:40)
[2020-02-29] MEDS: HYDROCODONE/APAP 7.5/325 MG TAB PO PRN ×3 (09:12→20:38)
[2020-02-29] MEDS: ASPIRIN EC 81 MG TAB PO SCH (09:12)
[2020-02-29] MEDS: GABAPENTIN 100 MG CAP PO SCH ×3 (09:12→20:39)
[2020-02-29] MEDS: INSULIN GLARGINE 100 UNITS/ML SQ SCH (09:13)
[2020-02-29] MEDS: MORPHINE 2 MG/ML SYR IV PRN (09:52)
--- NOTE | 2020-02-29 12:18 | PN ---
Date of Progress Note: 02/29/2020 Subjective: Patient is resting comfortably. Physical Examination: Vital Signs: Stable. Afebrile. Dressing is clean, dry, and intact. Assessment: Status post bilateral vqjgz-siqt-kocrogvioyt. Recommendations: Continue antibiotics, discharge planning, to follow up with me in the [facility]. /MODL Voice ID: [id number] Report ID: [id number]
[2020-02-29] MEDS: ENOXAPARIN 30 MG/0.3 ML SQ SCH (17:48)
[2020-02-29] MEDS: ATORVASTATIN 10 MG TAB PO SCH (20:40)
--- NOTE | 2020-02-29 21:03 | PN ---
Date of Progress Note: 02/29/2020 Subjective: Patient was seen this morning for followup. He was lying in bed, not in distress. Shayan es any new complaints. Pain in his leg is well controlled with current medications. Objective: Vital Signs: Reviewed. HEENT: Unremarkable. Lungs: Clear to auscultation. Cardiac: Heart sounds normal. Abdomen: Soft, bowel sounds normal. No guarding, rigidity, tenderness, or distention. Extremities: Status post bilateral below-knee amputation. Surgical dressing is present and it does not have any blood stained. Laboratory Data: White count 13.6, hemoglobin 8.4, platelets 436. Sodium 137, potassium 3.7, chlori de 104, bicarb 28, BUN 11, creatinine 0.86, glucose 112, magnesium 1.9. Impression: 1.Peripheral vascular disease with gangrene, bilateral leg, status post amputation. 2.Cellulitis, left leg. 3.Diabetes mellitus. 4.Hypertension. Plan: We will go ahead and continue current medications. Continue current antibiotics, pain medicat ion including gabapentin. Social Service is assisting the patient and family with discharge planning . I will see him tomorrow for followup. DONI/MODL Voice ID: [id number] Report ID: [id number]
[2020-03-01] MEDS: PIPER/TAZO/NS 3.375gm 3.375 GM/100 ML BAG IVPB SCH ×3 (01:00→16:20)
[2020-03-01 07:09] LABS: Potassium 4.2 mmol/L (3.5-5.1)
[2020-03-01] MEDS: INSULIN -REGULAR HUMAN 50 UNIT/0.5 ML ML SQ SCH ×4 (07:30→21:05)
[2020-03-01] MEDS: GABAPENTIN 300 MG CAP PO SCH ×3 (09:00→20:36)
[2020-03-01] MEDS: HYDROCODONE/APAP 7.5/325 MG TAB PO PRN ×3 (10:17→20:40)
[2020-03-01] MEDS: ASPIRIN EC 81 MG TAB PO SCH (10:18)
[2020-03-01] MEDS: VANCOMYCIN 1.25 GM in NA CHLORIDE 0.9% 250 ML IVPB SCH (10:18)
[2020-03-01] MEDS: lisinopriL 5 MG TAB PO SCH ×2 (10:18→20:32)
[2020-03-01] MEDS: INSULIN GLARGINE 100 UNITS/ML SQ SCH (10:20)
[2020-03-01] MEDS: ENOXAPARIN 30 MG/0.3 ML SQ SCH (16:21)
[2020-03-01] MEDS: ATORVASTATIN 10 MG TAB PO SCH (20:37)
--- NOTE | 2020-03-01 23:18 | PN ---
Date of Progress Note: 03/01/2020 Subjective: Patient was seen this morning for followup. Lying in bed, not in distress, complaining of leg pain. Apparently, his leg pain has gotten worse as he reported today compared to last couple of days. Takes his medication regularly as prescribed. Objective: Vital Signs: Reviewed. HEENT: Unremarkable. Lungs: Clear to auscultation. Cardiac: Heart sounds normal. Abdomen: Soft, bowel sounds normal. No guarding, rigidity, tenderness, distention. Extremities: Status post bilateral above-knee amputation. Laboratory Data: Sodium 139, potassium 4.2, chloride 104, bicarb 28, BUN 12, creatinine 1.15, glucos e 126. Impression: 1.Peripheral vascular disease, bilateral legs, with gangrene, status post amputation. 2.Left leg cellulitis. 3.Diabetes mellitus. 4.Hypertension. Plan: We will go ahead and continue current diabetes and antihypertensive medication. Continue curr ent antibiotics. Repeat blood work tomorrow morning and we will increase the dose of gabapentin as p er order to 300 mg 3 times a day. Social Service is assisting the patient and family for skilled [facility] facility placement and possible discharge to such facility this week depending on patient's condition. DONI/MODL Voice ID: [id number] Report ID: [id number]
[2020-03-02] MEDS: PIPER/TAZO/NS 3.375gm 3.375 GM/100 ML BAG IVPB SCH ×3 (01:00→16:00)
[2020-03-02] MEDS: HYDROCODONE/APAP 7.5/325 MG TAB PO PRN ×2 (03:28→10:35)
[2020-03-02 04:16] LABS: Absolute Lymphocytes (CBC) 1.3 K/uL (0.7-4.9); Basophils % 0.8 % (0-1.3); Hematocrit 24.4 % (39.6-49.0); Lymphocytes % 9.9 % (15.3-44.8); MPV 7.7 fL (7.6-11.3)
[2020-03-02 04:27] LABS: Magnesium 1.9 mg/dL (1.8-2.4); Potassium 3.4 mmol/L (3.5-5.1)
[2020-03-02] MEDS ORDERED: POTASSIUM 25 MEQ EFFERV TAB PO ONE (04:48)
[2020-03-02 05:09] VITALS: BMI 22.7
[2020-03-02] MEDS: INSULIN -REGULAR HUMAN 50 UNIT/0.5 ML ML SQ SCH ×4 (07:30→20:43)
[2020-03-02] MEDS: MORPHINE 4 MG/ML SYR IV PRN ×2 (07:33→15:20)
[2020-03-02] MEDS: VANCOMYCIN 1.25 GM in NA CHLORIDE 0.9% 250 ML IVPB SCH (08:00)
[2020-03-02] MEDS: SOD FERRIC GLUC COMPLX/SUCROSE 125 MG in NA CHLORIDE 0.9% 100 ML IV SCH (08:00)
[2020-03-02] MEDS: lisinopriL 5 MG TAB PO SCH ×2 (08:00→20:42)
[2020-03-02] MEDS: ASPIRIN EC 81 MG TAB PO SCH (08:00)
[2020-03-02] MEDS: INSULIN GLARGINE 100 UNITS/ML SQ SCH (08:01)
[2020-03-02] MEDS: GABAPENTIN 300 MG CAP PO SCH ×3 (08:01→20:42)
--- NOTE | 2020-03-02 10:47 | PN ---
Date of Progress Note: 03/02/2020 Subjective: Patient is awake complaining of some incisional pain. His white count is 12.8, H and H are 7.9 and 24.4, platelets 517. Objective: Vitals: Stable. He is afebrile. Wound: Examination of wound reveals them to be clean, dry, intact with minimal serous oozing. No florez rrounding erythema, warmth, or edema. Assessment: Status post bilateral above-knee amputation. Recommendations: Continue medical management per Dr. Mcdermott. Wound care as ordered. Follow up with tk olvera in 3 weeks for staple removal in the wound healing center. /MODL Voice ID: [id number] Report ID: [id number]
[2020-03-02] MEDS: ENOXAPARIN 30 MG/0.3 ML SQ SCH (16:08)
[2020-03-02] MEDS: ATORVASTATIN 10 MG TAB PO SCH (20:43)
--- NOTE | 2020-03-02 22:46 | PN ---
Date of Progress Note: 03/02/2020 Subjective: Patient was seen this morning for followup. No new complaints, problems reported by jay begum. He was lying in bed. Physical Examination: Vital Signs: Reviewed. HEENT: Unremarkable. Lungs: Clear to auscultation. Cardiac: Heart sounds normal. Abdomen: Soft, bowel sounds normal. No guarding, rigidity, tenderness, or distention. Extremities: Above knee amputation. Laboratory Data: White count 12.8, hemoglobin 7.9, platelets 517. Sodium 136, potassium 3.4, chlori de 104, bicarb 28, BUN 12, creatinine 1.05, glucose 188, magnesium 1.9. Impression: 1.Peripheral vascular disease with gangrene, bilateral leg, status post bilateral above-knee amputat ion. 2.Left leg cellulitis. 3.Anemia. 4.Hypertension. 5.Diabetes mellitus. 6.Hypokalemia. Plan: We will go ahead and continue current antibiotics, replace potassium per order. We will go ah ead and continue current gabapentin, which was increased yesterday and it has actually helped to cont rol his pain. Continue current narcotic pain medication per order on as-needed basis. We will start him on IV iron and monitor his hemoglobin. Considering this anemia problem at this point, he is not ready for discharge. If hemoglobin does not improve with IV iron, we may have to consider blood transfusion. DONI/MODL Voice ID: [id number] Report ID: [id number]
[2020-03-03] MEDS: PIPER/TAZO/NS 3.375gm 3.375 GM/100 ML BAG IVPB SCH ×3 (00:28→16:42)
[2020-03-03 06:37] LABS: Potassium 4.1 mmol/L (3.5-5.1)
[2020-03-03] MEDS: INSULIN -REGULAR HUMAN 50 UNIT/0.5 ML ML SQ SCH ×4 (07:30→21:00)
[2020-03-03] MEDS: INSULIN GLARGINE 100 UNITS/ML SQ SCH (08:00)
[2020-03-03] MEDS: VANCOMYCIN 1.25 GM in NA CHLORIDE 0.9% 250 ML IVPB SCH (09:00)
[2020-03-03] MEDS: SOD FERRIC GLUC COMPLX/SUCROSE 125 MG in NA CHLORIDE 0.9% 100 ML IV SCH (09:00)
[2020-03-03] MEDS: GABAPENTIN 300 MG CAP PO SCH ×3 (09:00→21:39)
[2020-03-03] MEDS: ASPIRIN EC 81 MG TAB PO SCH (09:00)
[2020-03-03] MEDS: lisinopriL 5 MG TAB PO SCH ×2 (09:01→21:37)
--- NOTE | 2020-03-03 09:39 | PN ---
Date of Progress Note: 03/03/2020 Subjective: The patient was seen this morning for followup. No new complaints or problems reported by the patient, lying in bed, not in distress. Objective: Vital Signs: Reviewed. HEENT: Examination unremarkable. Lungs: Clear to auscultation. Heart: Sounds normal. Abdomen: Soft, bowel sounds normal. No guarding, rigidity, tenderness, or di stention. Extremities: Status post bilateral afpbe-rxw-uani amputation. Surgical dressing present. No eviden ce of any blood stains from the dressing. Laboratory Data: Sodium 137, potassium 4.1, chloride 103, bicarb 27, BUN 9, creatinine 0.91, glucose 106. Impression: 1.Peripheral vascular disease, bilateral legs, with gangrene, status post bilateral above-knee amput ation. 2.Cellulitis, left leg. 3.Hypertension. 4.Diabetes mellitus. 5.Anemia. Plan: We will go ahead and continue current antibiotics. Repeat blood work tomorrow morning. Elidia nue IV iron therapy which was started yesterday continue gabapentin. He still has pain in his both l egs and we will consider to increase dose of gabapentin. Currently he is on 300 mg 3 times a day. Continue IV iron and I will see him tomorrow for followup. DONI/MODL Voice ID: [id number] Report ID: [id number]
[2020-03-03] MEDS: ENOXAPARIN 30 MG/0.3 ML SQ SCH (16:43)
[2020-03-03] MEDS: ATORVASTATIN 10 MG TAB PO SCH (21:38)
[2020-03-04] MEDS: PIPER/TAZO/NS 3.375gm 3.375 GM/100 ML BAG IVPB SCH ×3 (00:45→16:42)
[2020-03-04] MEDS: INSULIN -REGULAR HUMAN 50 UNIT/0.5 ML ML SQ SCH ×4 (07:30→20:43)
[2020-03-04] MEDS: INSULIN GLARGINE 100 UNITS/ML SQ SCH (08:00)
[2020-03-04] MEDS: ASPIRIN EC 81 MG TAB PO SCH (09:00)
[2020-03-04] MEDS: GABAPENTIN 300 MG CAP PO SCH ×3 (09:00→20:44)
[2020-03-04] MEDS: lisinopriL 5 MG TAB PO SCH ×2 (09:00→20:45)
[2020-03-04] MEDS: VANCOMYCIN 1.25 GM in NA CHLORIDE 0.9% 250 ML IVPB SCH (09:01)
[2020-03-04] MEDS: SOD FERRIC GLUC COMPLX/SUCROSE 125 MG in NA CHLORIDE 0.9% 100 ML IV SCH (09:01)
[2020-03-04] MEDS ORDERED: AMLODIPINE 5 MG TAB PO ONE (10:54)
[2020-03-04 12:26] LABS: Absolute Lymphocytes (CBC) 1.2 K/uL (0.7-4.9); Hematocrit 25.6 % (39.6-49.0); Lymphocytes % 9.4 % (15.3-44.8); MPV 7.2 fL (7.6-11.3); RBC Red Blood Cell Count 2.85 M/uL (4.33-5.43)
[2020-03-04 12:52] LABS: Magnesium 1.7 mg/dL (1.8-2.4); Potassium 4.1 mmol/L (3.5-5.1)
[2020-03-04] MEDS ORDERED: CODEINE 30MG/APAP 300MG TAB PO PRN (15:33)
[2020-03-04] MEDS: ENOXAPARIN 30 MG/0.3 ML SQ SCH (16:42)
--- NOTE | 2020-03-04 17:24 | PN ---
Date of Progress Note: 03/04/2020 Subjective: Patient was seen this morning for followup. No new complaints or problems reported by melissa agosto, except he refused to get blood drawn this morning. Objective: Vital Signs: Reviewed. HEENT: Unremarkable. Lungs: Clear to auscultation. Heart: Sounds normal. Abdomen: Soft. Bowel sounds normal. No guarding, rigidity, tenderness, or distention. Extremities: No leg edema. Bilateral status post radws-kof-mdvw amputation and his surgical site ap pears clean. Jessie present on both legs at the surgical site, well-healed. No evidence of any gap ping, discharge, redness, bleeding, and it appears normal. Laboratory Data: Patient refused to have blood work done this morning, but after I talked to him, he is willing to have it done. Impression: 1.Peripheral vascular disease, with gangrene, bilateral lower legs. 2.Cellulitis, left leg. 3.Hypertension. 4.Diabetes mellitus. 5.Anemia. Plan: We will continue on IV antibiotics. Blood pressure was elevated. We will go ahead and add an tihypertensive medication, amlodipine per order. Continue lisinopril. Continue IV iron therapy. Yash rivers today informs me that he does not want to go to [facility] and he is willing to go home and h is family will assist with his care, so I did call patient's daughter and she informed me that yes yash rivers will be coming home and we will provide care for him as they do not want him to go to [facility]. So depending on how his blood work today is, we will decide if we can possibly discharge him to go home tomorrow or not. Details were d iscussed with her. DONI/MODL Voice ID: [id number] Report ID: [id number]
[2020-03-04] MEDS: ATORVASTATIN 10 MG TAB PO SCH (20:46)
[2020-03-05] MEDS: PIPER/TAZO/NS 3.375gm 3.375 GM/100 ML BAG IVPB SCH ×2 (00:46→09:07)
[2020-03-05] MEDS: INSULIN -REGULAR HUMAN 50 UNIT/0.5 ML ML SQ SCH ×2 (07:30→12:04)
[2020-03-05] MEDS: ASPIRIN EC 81 MG TAB PO SCH (07:49)
[2020-03-05] MEDS: GABAPENTIN 300 MG CAP PO SCH (07:49)
[2020-03-05] MEDS: lisinopriL 5 MG TAB PO SCH (07:49)
[2020-03-05] MEDS: INSULIN GLARGINE 100 UNITS/ML SQ SCH (07:50)
[2020-03-05 08:02] VITALS: O2SAT 96
[2020-03-05] MEDS ORDERED: AMLODIPINE 5 MG TAB PO SCH (09:00)
[2020-03-05] MEDS: VANCOMYCIN 1.25 GM in NA CHLORIDE 0.9% 250 ML IVPB SCH (09:00)
[2020-03-05] MEDS: SOD FERRIC GLUC COMPLX/SUCROSE 125 MG in NA CHLORIDE 0.9% 100 ML IV SCH (09:27)
[2020-03-05 15:27] VITALS: BP 159/75; TEMP 97.4
--- NOTE | 2020-03-05 23:02 | DS ---
Date of Discharge: 03/05/2020 Disposition: Discharged to go home. Physical Examination: HEENT: Unremarkable. Lungs: Clear to auscultation. Heart: Sounds normal. Abdomen: Soft. Bowel sounds normal. No guarding, rigidity, tenderness, or distention. Extremities: No leg edema. Discharge Medications And Instructions: 1.Continue all prior home medication, except stop gabapentin 100 mg dose. 2.New medication to be taken as below: a.Gabapentin 300 mg, take 1 capsule by mouth 3 times a day. b.Augmentin 875 mg 2 times a day with food for 1 week. c.Tylenol with Codeine 1 tablet by mouth 4 times a day as needed for pain. d.Amlodipine 5 mg by mouth daily in the evening. e.Lisinopril 10 mg 1 tablet by mouth daily in morning. 3.Follow up with Dr. Leon next week and follow up with me in 2 weeks. Laboratory Data: Last CBC from yesterday, 03/04/2020: White count 12.3, hemoglobin 8.4, platelets 6 43. Lowest hemoglobin 7.9 on 03/02/2020. Highest white count 18.6 on 02/26/2020. When he was first admitted to hospital on 02/23/2020, white count 16.1, hemoglobin 10.2, platelets 385. Yesterday's c hemistry: Sodium 137, potassium 4.1, chloride 105, bicarb 26, BUN 11, creatinine 1.04, glucose 248, magnesium 1.7. Final Diagnoses: 1.Peripheral vascular disease, bilateral lower extremity, with gangrene. 2.Cellulitis, left lower extremity. 3.Hypertension. 4.Diabetes mellitus, uncontrolled. 5.Hyperlipidemia. 6.Smoking. 7.Anemia due to acute blood loss. 8.Hypokalemia. 9.Hypomagnesemia. Procedure Performed During This Hospitalization: Bilateral above-knee amputation. Hospital Course: This is a 74-year-old male patient, who was admitted to the hospital with bilateral lower extremity gangrene. Patient had left leg below-knee amputation done for gangrene and he event ually developed gangrene of the left leg stump associated with cellulitis around it. He also had akosua grene of the right foot and this was not improving. With worsening left leg and not improving right leg gangrene, he was admitted to the hospital, had cellulitis. He was started on IV antibiotics. Dr Antonio Leon was consulted from General Surgery and he recommended bilateral above-knee amputation as antony ent has severe peripheral vascular disease of both lower extremities, which is not operable. Initial ly, patient refused it, but subsequently after I discussed with patient's family member and [facility] and he was agreeable for surgery, so Dr. Leon performed bilateral above-knee amputation. Postoperatively, he remained stable. He received IV antibiotics. Hemoglobin dropped d own, but did not require blood transfusion. He was started on IV iron therapy and has responded well to that. His pain was managed with gabapentin and pain medications. The patient's family does not want him to go to senior living. They want him to come home and I have advised nurse today that they should contact home healthcare agency that was providing services prior to this admission to resume c are. Patient's bilateral above-knee amputation site is healing very well. Has maye present with normal-looking skin. No evidence of redness, swelling, discharge, bleeding. Patient continues to sm quang and he was advised to quit smoking. Prescription was written for Tylenol with Codeine No. 3, tot al 30 tablets, no refill. DONI/MODL Voice ID: [id number] Report ID: [id number]
[2020-03-06] MEDS ORDERED: VANCOMYCIN 1 GM in NA CHLORIDE 0.9% 250 ML IVPB SCH (21:00)
== END 2020-03-05 12:53 | disposition home health service (06) | DRG 240 ==
LOC: ER 19:31 → ERHOLD 23:44 → 2ND 02-24 01:13
PROVIDERS: ADMIT Internal Medicine; ATTEND Internal Medicine
PROC: 0Y6C0Z2 Detachment at Right Upper Leg, Mid, Open Approach (ICD-10-PCS; 2020-02-25)
PROC: 0Y6D0Z2 Detachment at Left Upper Leg, Mid, Open Approach (ICD-10-PCS; principal; 2020-02-25 09:45)
DX: E11.52 Type 2 diabetes mellitus with diabetic peripheral angiopathy with gangrene (principal); L03.116 Cellulitis of left lower limb; I96 Gangrene, not elsewhere classified; D62 Acute posthemorrhagic anemia; T87.44 Infection of amputation stump, left lower extremity; I10 Essential (primary) hypertension; E78.5 Hyperlipidemia, unspecified; E87.6 Hypokalemia; E83.42 Hypomagnesemia; F17.200 Nicotine dependence, unspecified, uncomplicated; Z90.49 Acquired absence of other specified parts of digestive tract; Z89.522 Acquired absence of left knee
CPT/HCPCS: 36415; 71045; 80048; 80076; 80202; 81001; 82150; 82550; 82553; 82565; 82947; 83605; 83690; 83735; 84100; 84132; 84145; 84484; 85025; 85610; 85730; 87040; 88305; 88307; 88311; 93005; 96365; 96366; 96367; 96375; 97110; 97112; 97161; 97530; 97542; 99285; J1650; J1815; J2270; J2370; J2405; J2543; J2704; J2916; J3010; J3370; J3475; J3590; J7030; J7042